=== PATIENT | male | born 1945 | race Caucasian/White ===

== ENCOUNTER 2022-08-21 12:03 | Emergency (ER) | payer OTHER, MEDICAID, SELFPAY ==
--- NOTE | ~2022-08-21 | XR_ITS ---
Examination: Left hand and right knee. CLINICAL INDICATION: Fall, pain.. COMPARISON: None. TECHNIQUE: Left hand 3 views. Right knee 4 views. FINDINGS: Left hand: There is mild loss of PIP and DIP joint space without periarticular spurring. The MCP joint space is maintained normal. There is mild osteopenia. No visible acute fracture, dislocation or subluxation seen. The especially there is no abnormality seen along the first carpometacarpal joint where patient complains of pain. Right knee: There is mild loss of medial and patellofemoral compartment joint space. No visible acute fracture, dislocation or subluxation seen. No bony erosive changes. No suprapatellar joint effusion seen. The soft tissues are normal. XR/XR knee RT 3V IMPRESSION: 1. Mild degenerative changes PIP and DIP joints. No visible acute fracture, dislocation or subluxation seen. 2. Mild degenerative changes medial and patellofemoral compartment right knee. No visible acute fracture, dislocation or subluxation seen. No joint effusion.
--- NOTE | ~2022-08-21 | CT_ITS ---
EXAMINATION: CT brain and CT cervical spine without IV contrast. CLINICAL INDICATION: Head trauma. COMPARISON: None. TECHNIQUE: 5 mm thin axial and reformatted 2 mm thin sagittal and coronal images of brain were obtained. Subsequently axial 3 mm thin and reformatted 2 mm thin sagittal and coronal images of cervical spine were obtained. DLP 1260 FINDINGS: Brain There is no acute intra-axial, extra-axial bleed, masses or midline shift. There is no acute infarct in evolution. There is no edema. The lateral ventricles are symmetrical enlarged. There is midline cavum septum pellucidum a normal variation. There is diffuse periventricular hypodensity in both cerebral hemispheres slightly more prominent left frontal and right parietal regions suggestive chronic small vessel ischemic changes. There are small lacunar infarctions in bilateral external capsules. Bone windows reveal no calvarial abnormality. There is no scalp soft tissue abnormality. Bilateral paranasal sinuses and mastoid air cells are well-aerated. Cervical spine: There is mild straightening of cervical lordosis. There is old C2 healed anterior subluxed fracture. The craniovertebral junction is normal. Rest of the vertebral heights and alignment is normal. There is loss of disc height virtually at every disc level with ventral spondylosis. No acute lytic or sclerotic process seen. The prevertebral soft tissues are normal. The lung apices are clear. No abnormal neck mass or lymphadenopathy seen. CT/CT cervical spine wo IV con IMPRESSION: No acute intracranial process seen. Chronic small vessel ischemic changes in both cerebral hemispheres with mild cerebral volume loss. Old anterior subluxed C2 fracture. There is mild straightening of cervical lordosis likely spasm. No acute fracture or dislocation seen. There are degenerative disc changes seen throughout cervical spine.
--- NOTE | ~2022-08-21 | XR_ITS ---
Examination: Left hand and right knee. CLINICAL INDICATION: Fall, pain.. COMPARISON: None. TECHNIQUE: Left hand 3 views. Right knee 4 views. FINDINGS: Left hand: There is mild loss of PIP and DIP joint space without periarticular spurring. The MCP joint space is maintained normal. There is mild osteopenia. No visible acute fracture, dislocation or subluxation seen. The especially there is no abnormality seen along the first carpometacarpal joint where patient complains of pain. Right knee: There is mild loss of medial and patellofemoral compartment joint space. No visible acute fracture, dislocation or subluxation seen. No bony erosive changes. No suprapatellar joint effusion seen. The soft tissues are normal. XR/XR hand LT min 3V IMPRESSION: 1. Mild degenerative changes PIP and DIP joints. No visible acute fracture, dislocation or subluxation seen. 2. Mild degenerative changes medial and patellofemoral compartment right knee. No visible acute fracture, dislocation or subluxation seen. No joint effusion.
[2022-08-21 12:10] VITALS: BP 162/81; PULSE 53; O2SAT 100
[2022-08-21 12:22] VITALS: BP 158/77; PULSE 62; RESP 16; TEMP 36.6; O2SAT 92; BMI 34.5
--- NOTE | 2022-08-21 12:52 | ED.FALL ---
HPI - Fall General Chief Complaint: Fall Stated Complaint: fall from bed, per ems Time Seen by Provider: 08/21/22 12:35 Source: patient, family and RN notes reviewed Mode of arrival: ambulatory Limitations: no limitations History of Present Illness HPI Narrative: This is a [id number]-male, with a past medical history of COPD, CHF, who is also very hard of hearing, who presents today with complaints of right sided head pain, left hand pain, right knee pain since fall out of bed today. 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 states that shortly after, patient rolled in bed, and fell out of his bed. Patient reports that the fall immediately woke him up. He reports some right sided head pain, right knee pain and left hand pain since the fall. He reports that he is otherwise feeling okay, no dizziness, chest pain, palpitations, shortness of breath, cough, abdominal pain, nausea, vomiting or diarrhea. Denies any other complaints or concerns at this time. MD complaint: fall Onset (ago): hour(s) Fall from: out of bed Fall witnessed: no Place fall occurred: home Loss of consciousness: none Prolonged down time: no Symptoms prior to fall: none Location of injury: head Location of injury - extremities: left: hand and right: knee Associated symptoms (after fall): denies Related Data Allergies Allergy/AdvReac Type Severity Reaction Status Date / Time No Known Allergies Allergy Verified 08/21/22 12:26 [No Known Allergies*] Review of Systems Review of Systems: Constitutional: No Weight loss, No Fever, No Chills, No Night Sweats, No Fatigue, No Malaise ENT/Mouth: No Hearing loss, No Ear Pain, No Nasal Congestion, No Sinus Pain, No Hoarseness, No sore throat, No Rhinorrhea, No Swallowing Difficulty Eyes: No Eye Pain, No Swelling, No Redness, No Foreign Body, No Discharge, No Vision Changes Cardiovascular: No Chest Pain, No SOB, No Dyspnea on Exertion, No Orthopnea, No Edema, No Palpitations Respiratory: No Cough, No Sputum, No Wheezing, No Smoke Exposure, No Dyspnea Gastrointestinal: No Nausea, No Vomiting, No Diarrhea, No Constipation, No Abdominal pain, No Hematochezia, No Melena Genitourinary: No irregular bleeding, No Dysuria, No Urinary Frequency, No Hematuria, No Urinary Incontinence/retention, No Urgency, No Flank Pain, No Urinary Flow Changes, No Hesitancy Musculoskeletal: + joint pain, No Myalgias, No Joint Swelling Skin: No Skin Lesions, No rash Neuro: No Weakness, No Numbness, No Paresthesias, No Loss of Consciousness, No Dizziness, + Headache Psych: No Anxiety/Panic, No Depression, No SI/HI/AH/VH, No Social Issues, Heme/Lymph: No Bruising, No Bleeding,No Lymphadenopathy Endocrine: No Polyuria, No Polydipsia, No Temperature Intolerance Yes all other systems are reviewed and are negative Constitutional: Constitutional: Reports as per [facility] Past Medical History Medical History (Updated 08/21/22 @ 14:33 by VI Jones) Anemia Congestive heart failure COPD (chronic obstructive pulmonary disease) Deaf Hepatic steatosis Hypertension Tobacco abuse Social History Social History Smoked in Last 30 Days: No Use of substances other than those prescribed or required for medical reasons: No Advance Directives: No Physical Exam Vital Signs: Vital Signs: Last Vital Signs Temp 97.6 F 08/21/22 14:25 Pulse 58 08/21/22 14:25 Resp 16 08/21/22 14:25 BP 146/86 H 08/21/22 14:25 Pulse Ox 94 08/21/22 14:25 O2 Del Method Room Air 08/21/22 14:25 BMI result Body Mass Index 34.5 Const: Other: eye patch on left eye. General: cooperative, comfortable and no acute distress Orientation/consciousness: patient oriented x3 Limitations: no limitations HEENT: Other: right side of forehead with small hematoma, TTP. Head: Yes normal to inspection and Yes normocephalic Ears: hearing grossly abnormal bilaterally (Hard of hearing, chronic ) General nose exam: Normal external nose present Face and sinus: Yes normal facial exam Mouth: Normal oral and palatal mucosa present, tongue normal, oropharynx normal and moist mucous membranes Teeth and gingiva: abnormal dentition and poor dentition Throat: Yes posterior oropharynx normal Eyes: Other: Left eye with eye patch, recent corneal transplant. General: appearance normal, both eyes and all related structures Eyelids: Yes eyelids normal Conjunctivae: conjunctivae normal Sclerae: sclerae normal Pupils: Equal, round and reactive pupils present EOM: EOMs intact bilaterally Neck: Neck: Yes normal visual inspection, Yes full ROM and Yes no lymphadenopathy Lymphatic: no lymphadenopathy noted Chest: Chest palpation & inspection: normal inspection of the chest and normal palpation of entire chest wall Resp: Effort & Inspection: normal respiratory effort and able to speak in complete sentences Auscultation: clear to auscultation bilaterally, no crackles, no rales, no rhonchi and no wheezes Cardio: Rate: regular rate Rhythm: regular rhythm Heart sounds: S1 normal heart sound present and S2 normal heart sound present GI: Inspection: Yes normal to inspection Palpation (GI): Soft to palpation, nontender and no guarding Skin: General skin exam: no rashes or lesions noted Trauma: no lacerations or abrasions Wounds: no wounds Neuro: General: patient oriented x3, moves all extremities and CN's II-XI intact bilaterally Cranial nerves: Yes Equal, round and reactive pupils present and Yes Nystagmus not present Motor exam (neuro): 5/5 motor strength present throughout Extrem: Other: left hand dorsal aspect, over the first MCP there is a 3cm round area of ecchyosis that is tender to palpation, no bony deformities, step off or crepitus. Radial pulses 2+. Able to make fist without difficulty. Left wrist is nontender, no snuff box tenderness. Full range of motion of the left wrist. Full ROM of digits. Right knee with 1mm superficial abrasion noted, with scant ecchymosis noted to the lateral aspect of the right knee. No pain with varus or valgus strain. Negative anterior/posterior drawer test. Full flexion and extension without difficulty. BL lower extremities with circumferential vascular changes, warm to touch, patient reports this is chronic for him. General: Yes normal to inspection, Yes capillary refill normal, Yes no pedal edema and Yes no calf tenderness Right upper extremity: normal to inspection Left upper extremity: normal to inspection Right lower extremity: normal to inspection Left lower extremity: normal to inspection Course Reevaluation(s) Reevaluation #1: CT head, ct cervical spine, hand and knee x-rays ordered and reviewed with no acute process, revealing degenerative changes in hand and knee. C-spine with old fracture in C2. Discussed these results with patient and at bedside. Advised to take tylenol as needed for pain. Follow up with PCP as needed. Given return precautions, patient and understand and agree with plan. Patient eager to be discharged. Time: 14:27 Medical Decision Making Medical Decision Making MDM Narrative: 77 y/o M, hx of CHF, COPD, hard of hearing, who presents to the ER for evaluation of head pain, left hand and right knee pain s/p fall out of bed which occurred this morning. Patient rolled over and fell to the ground. He states that he is feeling well overall, but is feeling achy . He denies any chest pain, SOB, weakness, numbness, tingling. On examination, patient has hematoma to the right forehead, ecchymosis on left hand and right knee. VSS. Pt is neurologically intact. Plan: CT head, CT c-spine, xray right knee, xray left hand. Differential Diagnosis Differential Diagnoses: The differential diagnosis associated with the presentation includes ICH, closed head injury, right knee contusion, left hand contusion, fracture, sprain Admission/Observation Consideration of admission/observation: Escalation of care including admission/observation considered Radiology Impression Discussion of test interpretation with radiology: I have reviewed the radiologist's reading. Radiologist Impression: EXAMINATION: CT brain and CT cervical spine without IV contrast. CLINICAL INDICATION: Head trauma. COMPARISON: None. TECHNIQUE: 5 mm thin axial and reformatted 2 mm thin sagittal and coronal images of brain were obtained. Subsequently axial 3 mm thin and reformatted 2 mm thin sagittal and coronal images of cervical spine were obtained. DLP 1260 FINDINGS: Brain There is no acute intra-axial, extra-axial bleed, masses or midline shift. There is no acute infarct in evolution. There is no edema. The lateral ventricles are symmetrical enlarged. There is midline cavum septum pellucidum a normal variation. There is diffuse periventricular hypodensity in both cerebral hemispheres slightly more prominent left frontal and right parietal regions suggestive chronic small vessel ischemic changes. There are small lacunar infarctions in bilateral external capsules. Bone windows reveal no calvarial abnormality. There is no scalp soft tissue abnormality. Bilateral paranasal sinuses and mastoid air cells are well-aerated. Cervical spine: There is mild straightening of cervical lordosis. There is old C2 healed anterior subluxed fracture. The craniovertebral junction is normal. Rest of the vertebral heights and alignment is normal. There is loss of disc height virtually at every disc level with ventral spondylosis. No acute lytic or sclerotic process seen. The prevertebral soft tissues are normal. The lung apices are clear. No abnormal neck mass or lymphadenopathy seen. CT/CT cervical spine wo IV con IMPRESSION: No acute intracranial process seen. Chronic small vessel ischemic changes in both cerebral hemispheres with mild cerebral volume loss. ? Old anterior subluxed C2 fracture. There is mild straightening of cervical lordosis likely spasm. No acute fracture or dislocation seen. ? There are degenerative disc changes seen throughout cervical spine. Dictated By: Domingo Ruiz MD Signed By: <Electronically signed by Domingo Ruiz MD in OV> 08/21/22 1359 EXAMINATION: CT brain and CT cervical spine without IV contrast. CLINICAL INDICATION: Head trauma. COMPARISON: None. TECHNIQUE: 5 mm thin axial and reformatted 2 mm thin sagittal and coronal images of brain were obtained. Subsequently axial 3 mm thin and reformatted 2 mm thin sagittal and coronal images of cervical spine were obtained. DLP 1260 FINDINGS: Brain There is no acute intra-axial, extra-axial bleed, masses or midline shift. There is no acute infarct in evolution. There is no edema. The lateral ventricles are symmetrical enlarged. There is midline cavum septum pellucidum a normal variation. There is diffuse periventricular hypodensity in both cerebral hemispheres slightly more prominent left frontal and right parietal regions suggestive chronic small vessel ischemic changes. There are small lacunar infarctions in bilateral external capsules. Bone windows reveal no calvarial abnormality. There is no scalp soft tissue abnormality. Bilateral paranasal sinuses and mastoid air cells are well-aerated. Cervical spine: There is mild straightening of cervical lordosis. There is old C2 healed anterior subluxed fracture. The craniovertebral junction is normal. Rest of the vertebral heights and alignment is normal. There is loss of disc height virtually at every disc level with ventral spondylosis. No acute lytic or sclerotic process seen. The prevertebral soft tissues are normal. The lung apices are clear. No abnormal neck mass or lymphadenopathy seen. CT/CT head/brain wo IV con IMPRESSION: No acute intracranial process seen. Chronic small vessel ischemic changes in both cerebral hemispheres with mild cerebral volume loss. ? Old anterior subluxed C2 fracture. There is mild straightening of cervical lordosis likely spasm. No acute fracture or dislocation seen. ? There are degenerative disc changes seen throughout cervical spine. Dictated By: Domingo Ruiz MD Examination: Left hand and right knee. CLINICAL INDICATION: Fall, pain.. COMPARISON: None. TECHNIQUE: Left hand 3 views. Right knee 4 views. FINDINGS: Left hand: There is mild loss of PIP and DIP joint space without periarticular spurring. The MCP joint space is maintained normal. There is mild osteopenia. No visible acute fracture, dislocation or subluxation seen. The especially there is no abnormality seen along the first carpometacarpal joint where patient complains of pain. Right knee: There is mild loss of medial and patellofemoral compartment joint space. No visible acute fracture, dislocation or subluxation seen. No bony erosive changes. No suprapatellar joint effusion seen. The soft tissues are normal. XR/XR hand LT min 3V IMPRESSION: 1.? Mild degenerative changes PIP and DIP joints. No visible acute fracture, dislocation or subluxation seen. 2.? Mild degenerative changes medial and patellofemoral compartment right knee. No visible acute fracture, dislocation or subluxation seen. No joint effusion. Dictated By: Domingo Ruiz MD Signed By: External Record Review External record reviewed: Inpatient record, Office record, Outpatient record, Prior outpatient labs, Prior outpatient radiology, Primary care record and Outside ED record Discharge Plan Discharge Clinical Impression: Closed head injury, Contusion of knee, right, Contusion of left hand Patient Disposition: Home, Self-Care Instructions: Head Injury (ED), Contusion in Adults (ED) Additional Instructions: Your head CT and neck CT did not show any new findings. You have an old fracture in your neck at the C2 level. Physical and mental rest over the next few days will be helpful (avoid prolonged screen time, reading) Your hand and knee x-rays show degenerative changes but no new fractures. Please take tylenol as needed for pain. Apply ice to your forehead. You may apply ice to your knee and hand for pain relief. Follow up with your primary care physician. If any new or worsening symptoms occur, please return for re-evaluation. Interventions: ED Discharge Assessment Last Done: 08/21/22 14:54 Discharge Date/Time: 08/21/22 14:55
--- OUTSIDE RECORDS SUMMARY | 2022-08-21 13:24 | XMS_ITS | Continuity of Care Document ---
Author Name Unknown Organization [facility] Sina Joyce Daryl lt Address [address] [place] [address]- Care Team Providers Care House Rn Name Role Phone Jordon Holt MD Primary Care Physician Encounter [facility] Date(s): 06/23/21 - 10/21/21 [facility] Adult [address] [place] [address]- Attending Physician: Faith Gipson NP Referring Physician: Jordon Holt MD Allergies, Adverse Reactions, Alerts No Known Medication Allergies Medications Albuterol (Eqv-ProAir HFA) 90 mcg/inh inhalation aerosol 2 puffs, Inhalation, Every 6 hours, # 9 Gm, 11 Refills, 03/16/21 10:15:00 EST, [facility], 18, 2 puffs Inhalation Every 6 hours, 166, cm, 03/16/21 9:47:00 EST, Height Start Date: 03/16/21 Status: Ordered atorvastatin 80 mg oral tablet 1 tablet = 80 mg, By Mouth, Daily, # 90 tablet, 1 Refills, Maintenance, 03/16/21 10:15:00 EST, Tablet, [facility], Partial fill upon patient request if the prescription is for a schedule II opioid drug., 166, cm, 03/16/21 9:47:00 EST, Height Start Date: 03/16/21 Status: Ordered bumetanide 2 mg oral tablet 1 tablet = 2 mg, By Mouth, Daily, # 90 tablet, 1 Refills, Maintenance, 03/16/21 10:15:00 EST, Tablet, [facility], Partial fill upon patient request if the prescription is for a schedule IIopioid drug., 166, cm, 03/16/21 9:47:00 EST, Height Start Date: 03/16/21 Status: Ordered Cane See Instructions, # 1 each, Refills 0, Tot. Refills 0, Maintenance, dx: unsteady gait ICD 10 R26.81use as directed length of need: Lifetime, 12/03/19 14:08:00 EDT, Supply Start Date: 12/03/19 Status: Ordered Compression Stockings See Instructions, # 1 each, Maintenance, surgical, knee length 20-30 mm Hg DX edema Icd 10 code R60.0 weight:179lbs, 10/04/19 15:26:00 EDT, Supply Start Date: 10/04/19 Status: Ordered ferrous sulfate 325 mg oral enteric coated tablet 325 mg, 1, tablet, By Mouth, Daily, # 90 tablet, Refills 1, Tot. Refills 1, Maintenance, 03/16/21 10:15:00 EST, Route to Pharmacy Electronically, [facility], 166, cm, 03/16/21 9:47:00 EST,Height Start Date: 03/16/21 Status: Ordered metoprolol 25 mg oral tablet 12.5 mg, 0.5, tablet, By Mouth, 2 times a day, # 90 tablet, Refills 1, Tot. Refills 1, Maintenance,03/16/21 10:15:00 EST, Route to Pharmacy Electronically, [facility], 166, cm, 03/16/21 9:47:00 EST, Height Start Date: 03/16/21 Status: Ordered Therapeutic Multiple Vitamins oral capsule 1 capsule, By Mouth, Daily, # 90 capsule, 1 Refills, Maintenance, 03/16/21 10:15:00 EST, Capsule, [facility], 1 capsule By Mouth Daily, 166, cm, 03/16/21 9:47:00 EST, Height Start Date: 03/16/21 Status: Ordered Problem List Condition Effective Dates Status Health Status Inform ant Unsteady gait(Confirmed) Active Anemia(Confirmed) Active COPD (chronic obstructive pu lmonary disease)(Confirmed) Active CHF (congestive heart failure)(Confirmed) Active Deaf(Confirmed) Active Hyperlipidemia(Confirmed) Active HTN (hypertension)(Confirmed) Active Hyponatremia(Confirmed) Active Obese class I(Confirmed) Active Hepatic steatosis(Confirmed) Active Swelling of lower extremity(Confirmed) Active History of tobacco abuse(Confirmed) Active Social History Social History Type Response Smoking Status Former smoker, quit more than 30 days ago entered on: 03/16/21 Sex
--- OUTSIDE RECORDS SUMMARY | 2022-08-21 13:24 | XMS_ITS | Continuity of Care Document ---
Author Name Unknown Organization [facility] [place] Daryl Address [address] [place] [address]- Care Team Providers Care Sports Announcer Name Role Phone Yanet INFANTE, Jordon Wei Primary Care Physician [phone] Encounter [facility] Date(s): 03/16/21 - 03/23/21 [facility] [place] Adult [address] [place] [address]- Attending Physician: Faith Gipson NP Referring Physician: Jordon Holt MD Allergies, Adverse Reactions, Alerts No Known Medication Allergies Medications Albuterol (Eqv-ProAir HFA) 90 mcg/inh inhalation aerosol 2 puffs, Inhalation, Every 6 hours, # 9 Gm, 11 Refills, 03/16/21 10:15:00 EST, [facility], 18, 2 puffs Inhalation Every 6 hours, 166, cm, 03/16/21 9:47:00 EST, Height Start Date: 03/16/21 Status: Ordered atorvastatin 80 mg oral tablet 1 tablet = 80 mg, By Mouth, Daily, # 90 tablet, 1 Refills, Maintenance, 03/16/21 10:15:00 EST, Tablet, [facility], Partial fill upon patient request if the prescription is for a schedule II opioid drug., 166, cm, 03/16/21 9:47:00 EST, Height Start Date: 03/16/21 Status: Ordered betamethasone-clotrimazole 0.05%-1% topical cream 1 application, Topically, 2 times a day, # 45 Gm, 1 Refills, Acute 03/30/21 0:00:00 EST, 03/16/21 10:04:00 EST, Cream, [facility], Partial fill upon patient request if the prescription is for a schedule II opioid drug., 1 application Topica... Start Date: 03/16/21 Stop Date: 03/30/21 Status: Ordered bumetanide 2 mg oral tablet 1 tablet = 2 mg, By Mouth, Daily, # 90 tablet, 1 Refills, Maintenance, 03/16/21 10:15:00 EST, Tablet, [facility], Partial fill upon patient request [...] 03/16/21 10:15:00 EST, Route to Pharmacy Electronically, [facility], 166, cm, 03/16/21 9:47:00 EST,Height Start Date: 03/16/21 Status: Ordered metoprolol 25 mg oral tablet 12.5 mg, 0.5, tablet, By Mouth, 2 times a day, # 90 tablet, Refills 1, Tot. Refills 1, Maintenance,03/16/21 10:15:00 EST, Route to Pharmacy Electronically, [facility], 166, cm, 03/16/21 9:47:00 EST, Height Start Date: 03/16/21 Status: Ordered Therapeutic Multiple Vitamins oral capsule 1 capsule, By Mouth, Daily, # 90 capsule, 1 Refills, Maintenance, 03/16/21 10:15:00 EST, Capsule, [facility], 1 capsule By Mouth Daily, [...] extremity(Confirmed) Active History of tobacco abuse(Confirmed) Active Vital Signs Most recent to oldest [Reference Range]: 1 Height 166 cm (03/16/21 9:47 AM) Weight 88.6 kg (03/16/21 9:47 AM) Oxygen Saturation [94-100 %] 98 % (03/16/21 9:47 AM) Pulse Rate [55-90 bpm] 61 bpm (03/16/21 9:47 AM) Body Mass Index [18.5-24.99] 32.15 *>HHI* (03/16/21 9:47 AM) Blood Pressure [90-138/55-84 mm Hg] 142/ 70mm Hg *H* (03/16/21 9:47 AM) Respiratory Rate [16-30 br/min] 20 br/mi n (03/16/21 9:47 AM) Temperature [96.8-100.4 DegF] 97.7 DegF (03/16/21 9:47 AM) Mode of Delivery (Oxygen) Room air (03/16/21 9:47 AM) Blood pressure sites Arm, right (03/16/21 9:47 AM) Temperature Route Oral (03/16/21 9:47 AM) Weight Obtained Via Standing scale (03/16/21 9:47 AM) Social History Social History Type Response Smoking Status Former smoker, quit more than 30 days ago entered on: 03/16/21 Sex
--- OUTSIDE RECORDS SUMMARY | 2022-08-21 13:24 | XMS_ITS | Continuity of Care Document ---
Author Name Unknown Organization [facility] Daryl lt Address [address] [place] [address]- Care Team Providers Care White Metal Caster Name Role Phone Jordon Holt MD Primary Care Physician [id number] Date(s): 01/10/22 - 02/09/22 [facility] Adult [address] [place] [address]- Allergies, Adverse Reactions, Alerts No Known Medication Allergies Medications Albuterol (Eqv-ProAir HFA) 90 mcg/inh inhalation aerosol 2 puffs, Inhalation, Every 4 hours, # 18 Gm, 11 Refills, 11/14/21 14:58:00 EDT, [facility], 2 puffs Inhalation Every 4 hours, 166, cm, 03/16/21 9:47:00 EST, Height Start Date: 11/14/21 Status: Ordered atorvastatin 80 mg oral tablet 1 tablet = 80 mg, By Mouth, Daily, # 90 tablet, 1 Refills, Maintenance, 03/16/21 10:15:00 EST, Tablet[email or web address], Partial fill upon patient request if the prescription is for a schedule II opioid drug., 166, cm, 03/16/21 9:47:00 EST, Height Start Date: 03/16/21 Status: Ordered azithromycin 250 mg oral tablet See Instructions, Take 2 tablets on day 1 and 1 tablet daily for next 4 days, # 6 tablet, 0 Refills, Maintenance, 01/15/22 10:15:00 EDT, Tablet, [facility], Partial fill upon patient request if the prescription is for a schedule II opioid d... Start Date: 01/15/22 Status: Ordered bumetanide 2 mg oral tablet 1 tablet = 2 mg, By Mouth, Daily, # 90 tablet, 1 Refills, Maintenance, 03/16/21 10:15:00 EST, Tablet, [facility], Partial fill upon patient request [...] 03/16/21 10:15:00 EST, Route to Pharmacy Electronically, [facility], 166, cm, 03/16/21 9:47:00 EST,Height Start Date: 03/16/21 Status: Ordered metoprolol 25 mg oral tablet 12.5 mg, 0.5, tablet, By Mouth, 2 times a day, # 90 tablet, Refills 1, Tot. Refills 1, Maintenance,11/12/21 10:47:00 EDT, Route to Pharmacy Electronically, [facility], 166, cm, 03/16/21 9:47:00 EST, Height Start Date: 11/12/21 Status: Ordered Therapeutic Multiple Vitamins oral capsule 1 capsule, By Mouth, Daily, # 90 capsule, 1 Refills, Maintenance, 03/16/21 10:15:00 EST, Capsule, [facility], 1 capsule By Mouth Daily, 166, cm, 03/16/21 9:47:00 EST, Height Start Date: 03/16/21 Status: Ordered Problem List Condition Confirmation Course Effective Dates Status H ealth Status Informant Unsteady gait Confirmed Active Anemia Confirmed Active COPD (chronic obstructive pulmonary disease) Confirmed Active CHF (congestive heart failure) Confirmed Active Deaf Confirmed Active Hyperlipidemia Confirmed Active HTN (hypertension) Confirmed Active Hyponatremia Confirmed Active Obese class I Confirmed Active Hepatic steatosis Confirmed Active Swelling of lower extremity Confirmed Active History of tobacco abuse Confirmed Active Social History Social History Type Response Smoking Status Former smoker, quit more than 30 days ago entered on: 03/16/21 Sex Patient Care team information Care Team Personnel Name: Yanet INFANTE, Jordon Wei Position: [facility] Primary Care Physician Member Role: PCP Address: Address: [address] [place] [id number]- Care Team Related Persons Name: JEROME DE SANTIAGO Address: home [address] [place] [address]
--- OUTSIDE RECORDS SUMMARY | 2022-08-21 13:24 | XMS_ITS | Continuity of Care Document ---
Author Name Unknown Organization [facility] Isiah Daryl lt Address [address] [place] [address]- Care Team Providers Care Patrol Police Sergeant Name Role Phone Yanet INFANTE, Jordon Wei Primary Care Physician [phone] [place] [facility] [place] 07/24/22 [facility] Adult [address] [place] [address]- Encounter Diagnosis Pain involving joints of fingers of both hands(Discharge Diagnosis) - 06/25/22 Allergies, Adverse Reactions, Alerts No Known Medication Allergies Medications Albuterol (Eqv-ProAir HFA) 90 mcg/inh inhalation aerosol 2 puffs, Inhalation, Every 4 hours, # 18 Gm, 11 Refills, 02/12/22 11:03:00 EST, [facility], 2 puffs Inhalation Every 4 hours, 166, cm, 02/12/22 10:23:00 EST, Height Start Date: 02/12/22 Status: Ordered atorvastatin 80 mg oral tablet 1 tablet = 80 mg, By Mouth, Daily, # 90 tablet, 1 Refills, Maintenance, 02/12/22 11:03:00 EST, Tablet, [facility], Partial fill upon patient request if the prescription is for a schedule II opioid drug., 166, cm, 02/12/22 10:23:00 EST, Height Start Date: 02/12/22 Status: Ordered bumetanide 2 mg oral tablet 1 tablet = 2 mg, By Mouth, Daily, # 90 tablet, 1 Refills, Maintenance, 02/12/22 11:03:00 EST, Tablet, [facility], Partial fill upon patient request if the prescription is for a schedule IIopioid drug., 166, cm, 02/12/22 10:23:00 EST, Height Start Date: 02/12/22 Status: Ordered Cane See Instructions, # 1 [...] EDT, Supply Start Date: 10/04/19 Status: Ordered cyclopentolate 0.5% ophthalmic solution 1 drops, Once, # 15 mL, 0 Refills, Maintenance, 07/05/22 15:57:00 EDT, Solution, Partial fill upon patient request if the prescription is for a schedule II opioid drug. Start Date: 07/05/22 Status: Ordered dexamethasone-tobramycin 0.1%-0.3% ophthalmic suspension See Instructions, 1 drops in the left eye every 15 minutes for two hours, then every hour when you are awak, # 10 mL, 0 Refills, Maintenance, 06/26/22 2:06:00 EDT, Suspension, [id number], Partial fill upon patient request if the prescription i... Start Date: 06/26/22 Stop Date: 06/28/22 Status: Ordered diclofenac 1% topical gel = 4 Gm, Topically, 4 times a day, as needed for joint pain, # 100 Gm, 0 Refills, Maintenance, 06/25/22 10:18:00 EDT, Gel, [facility], Partial fill upon patient request if the prescription is for a schedule II opioid drug., 166, cm, 04/26/22... Start Date: 06/25/22 Status: Ordered erythromycin 0.5% ophthalmic ointment 0.5 inches, Eye, Left, 4 times a day, # 4 Gm, 0 Refills, Maintenance, 07/05/22 15:58:00 EDT, Ophth Ointment, Partial fill upon patient request if the prescription is for a schedule II opioid drug. Start Date: 07/05/22 Status: Ordered ferrous sulfate 325 mg oral enteric coated tablet 325 mg, 1, tablet, By Mouth, Daily, # 90 tablet, Refills 1, Tot. Refills 1, Maintenance, 11/15/22 11:03:00 EST, Route to Pharmacy Electronically, [facility], 166, cm, 02/12/22 10:23:00 EST, Height Start Date: 02/12/22 Status: Ordered Flovent HFA 110 mcg/inh inhalation aerosol 2 puffs, Inhalation, 2 times a day, rinse mouth and throat after use, # 12 Gm, 6 Refills, Maintenance, 02/12/22 11:03:00 EST, Aerosol, [facility], Partial fill upon patient request if the prescription is for a schedule II opioid drug., 166,... Start Date: 02/12/22 Status: Ordered fortified tobramycin eye drops fortified tobramycin eye drops, See Instructions, Refills 0, Maintenance, 1 drop every 2hrs on LT eye, 07/05/22 15:54:00 EDT, Supply Start Date: 07/05/22 Status: Ordered metoprolol 25 mg oral tablet 12.5 mg, 0.5, tablet, By Mouth, 2 times a day, # 90 tablet, Refills 1, Tot. Refills 1, Maintenance,02/12/22 11:03:00 EST, Route to Pharmacy Electronically, [facility], 166, cm, 02/12/22 10:23:00 EST, Height Start Date: 02/12/22 Status: Ordered moxifloxacin 0.5% ophthalmic solution See Instructions, 1 drop in the left eye every 15 minutes for the first two hours, then every hour while awake, # 3 mL, 0 Refills, Maintenance, 06/26/22 2:07:00 EDT, Solution, [facility]/pharmacy #[id number], Partial fill upon patient request if the prescription i... Start Date: 06/26/22 Status: Ordered Therapeutic Multiple Vitamins oral capsule 1 capsule, By Mouth, Daily, # 90 capsule, 1 Refills, Maintenance, 02/12/22 11:03:00 EST, Capsule, [facility], 1 capsule By Mouth Daily, 166, cm, 02/12/22 10:23:00 EST, Height Start Date: 02/12/22 Status: Ordered Vancomycin See Instructions, Maintenance, 1 drop to LT eye, 07/05/22 15:52:00 EDT Start Date: 07/05/22 Status: Ordered Problem List Condition Confirmation Course Effective Dates Status H ealth Status Informant Unsteady gait Confirmed Active Anemia Confirmed Active COPD (chronic obstructive pulmonary disease) Confirmed Active CHF (congestive heart failure) Confirmed Active History of corneal ulcer 1 Confirmed Active Deaf Confirmed Active Hyperlipidemia Confirmed Active HTN (hypertension) Confirmed Active Hyponatremia Confirmed Active Obese class I Confirmed Active Hepatic steatosis Confirmed Active Swelling of lower extremity Confirmed Active History of tobacco abuse Confirmed Active 1L eye Diagnosis Diagnosis Type Effective Dates Health Status Cl inical Service Informant Pain involving joints of fingers of both hands Discharge Diagnosis 06/25/22 Non-Specified Social History Social History Type Response Smoking Status Former smoker, quit more than 30 days ago entered on: 03/16/21 Sex Patient Care team information Care Team Personnel Name: Jordon Holt MD Position: [facility] Primary Care Physician Member Role: PCP Address: Address: [address] [place] [address]- Care Team Related Persons Name: JEROME DE SANTIAGO Address: home [address] [place] [id number]
--- OUTSIDE RECORDS SUMMARY | 2022-08-21 13:24 | XMS_ITS | Continuity of Care Document ---
Author Name Unknown Organization [facility] Sina Joyce Daryl lt Address [address] [place] [address]- Care Team Providers Care Engineering Specialist Technician Name Role Phone Jordon Holt MD Primary Care Physician [place] [facility] [place](s): 12/04/19 - 04/02/20 [facility] Adult [address] [place] [address]- Attending Physician: Faith Gipson NP Referring Physician: Jordon Holt MD Allergies, Adverse Reactions, Alerts No Known Medication Allergies Medications albuterol (OP) 0 Refills, Maintenance, 2 Start Date: 10/04/19 Status: Ordered bumetanide 2 mg oral tablet 1 tablet = 2 mg, By Mouth, Daily, # 30 tablet, 1 Refills, Maintenance, 03/21/20 13:03:00 EST, Tablet, [facility], Partial fill upon patient request if the prescription is for a schedule IIopioid drug., 166, cm, 02/14/20 13:26:00 EST, Height Start Date: 03/21/20 Status: Ordered Cane See Instructions, # 1 [...] mg, 1, tablet, By Mouth, Daily, # 30 tablet, Refills 6, Tot. Refills 6, Maintenance, 10/04/19 15:39:00 EDT, Route to Pharmacy Electronically, [facility] Start Date: 10/04/19 Status: Ordered metoprolol 25 mg oral tablet 12.5 mg, 0.5, tablet, By Mouth, 2 times a day, # 30 tablet, Refills 6, Tot. Refills 6, Maintenance,10/04/19 15:38:00 EDT, Route to Pharmacy Electronically, [facility] Start Date: 10/04/19 Status: Ordered Therapeutic Multiple Vitamins oral capsule 1 capsule, By Mouth, Daily, # 90 capsule, 1 Refills, Maintenance, 12/03/19 13:55:00 EDT, Capsule, [facility], 1 capsule By Mouth Daily, 166, cm, 12/03/19 13:29:00 EDT, Height Start Date: 12/03/19 Status: Ordered Problem List Condition Effective Dates Status Health Status Inform ant Anemia(Confirmed) Active COPD (chronic obstructive pu lmonary disease)(Confirmed) Active CHF (congestive heart failure)(Confirmed) Active Deaf(Confirmed) Active HTN (hypertension)(Confirmed) Active Hyponatremia(Confirmed) Active Hepatic steatosis(Confirmed) Active Swelling of lower extremity(Confirmed) Active History of tobacco abuse(Confirmed) Active
--- OUTSIDE RECORDS SUMMARY | 2022-08-21 13:25 | XMS_ITS | Continuity of Care Document ---
Author Name Unknown Organization [facility] Sina Joyce Daryl lt Address [address] [place] [address]- Care Team Providers Care Life Specialist Name Role Phone Jordon Holt MD Primary Care Physician [place] [facility] [place] 02/11/20 - 03/12/20 [facility] Adult [address] [place] [address]- Allergies, Adverse Reactions, Alerts No Known Medication Allergies Medications albuterol (OP) 0 Refills, Maintenance, 2 Start Date: 10/04/19 Status: Ordered Cane See Instructions, # 1 [...] 10/04/19 15:39:00 EDT, Route to Pharmacy Electronically, [facility] Start Date: 10/04/19 Status: Ordered metoprolol 25 mg oral tablet 12.5 mg, 0.5, tablet, By Mouth, 2 times a day, # 30 tablet, Refills 6, Tot. Refills 6, Maintenance,10/04/19 15:38:00 EDT, Route to Pharmacy Electronically, [facility] Start Date: 10/04/19 Status: Ordered Therapeutic Multiple Vitamins oral capsule 1 capsule, By Mouth, Daily, # 90 capsule, 1 Refills, Maintenance, 12/03/19 13:55:00 EDT, Capsule, [facility], 1 capsule By Mouth Daily, [...]
--- OUTSIDE RECORDS SUMMARY | 2022-08-21 13:25 | XMS_ITS | Continuity of Care Document ---
Author Name Unknown Organization [facility] Sina Joyce Daryl lt Address [address] [place] [address]- Care Team Providers Care Sanitizer Name Role Phone Jordon Holt MD Primary Care Physician [phone] [place] [facility] [place] [facility] [place] [address] [place] [address]- [facility] Allergies, Adverse Reactions, Alerts No Known Medication Allergies Medications albuterol (OP) 0 Refills, Maintenance, 2 Start Date: 10/04/19 Status: Ordered bumetanide 2 mg oral tablet 1 tablet = 2 mg, By Mouth, Daily, # 30 tablet, 6 Refills, Maintenance, 10/04/19 15:37:00 EDT, Tablet, [facility] Start Date: 10/04/19 Status: Ordered Compression Stockings See Instructions, # 1 each, Maintenance, surgical, knee length 20-30 mm Hg DX edema Icd 10 code R60.0 weight:179lbs, 10/04/19 15:26:00 EDT, Supply Start Date: 10/04/19 Status: Ordered ferrous sulfate 325 mg oral enteric coated tablet 325 mg, 1, tablet, By Mouth, Daily, # 30 tablet, Refills 6, Tot. Refills 6, Maintenance, 10/04/19 15:39:00 EDT, Route to Pharmacy Electronically, [facility] Start Date: 10/04/19 Status: Ordered metoprolol 25 mg oral tablet 12.5 mg, 0.5, tablet, By Mouth, 2 times a day, # 30 tablet, Refills 6, Tot. Refills 6, Maintenance,10/04/19 15:38:00 EDT, Route to Pharmacy Electronically, [facility] Start Date: 10/04/19 Status: Ordered Problem List Condition Effective Dates Status Health Status Inform ant Anemia(Confirmed) Active COPD (chronic obstructive pu lmonary disease)(Confirmed) Active CHF (congestive heart failure)(Confirmed) Active Deaf(Confirmed) Active HTN (hypertension)(Confirmed) Active Hyponatremia(Confirmed) Active Hepatic steatosis(Confirmed) Active Swelling of lower extremity(Confirmed) Active Tobacco abuse(Confirmed) Active
--- OUTSIDE RECORDS SUMMARY | 2022-08-21 13:25 | XMS_ITS | Continuity of Care Document ---
Author Name Unknown Organization [facility] Sina Joyce Daryl lt Address [address] [place] [address]- Care Team Providers Care Uniform Room Attendant Name Role Phone Jordon Holt MD Primary Care Physician [phone] [place] [facility] [place](s): 11/24/19 - 12/24/19 [facility] Adult [address] [place] [address]- [facility] Allergies, Adverse Reactions, Alerts No Known Medication Allergies Medications albuterol (OP) 0 Refills, Maintenance, 2 Start Date: 10/04/19 Status: Ordered bumetanide 2 mg oral tablet 1 tablet = 2 mg, By Mouth, Daily, # 30 tablet, 6 Refills, Maintenance, 10/04/19 15:37:00 EDT, Tablet, [facility] Start Date: 10/04/19 Status: Ordered Cane See [...] 10/04/19 15:39:00 EDT, Route to Pharmacy Electronically, [facility] Start Date: 10/04/19 Status: Ordered metoprolol 25 mg oral tablet 12.5 mg, 0.5, tablet, By Mouth, 2 times a day, # 30 tablet, Refills 6, Tot. Refills 6, Maintenance,10/04/19 15:38:00 EDT, Route to Pharmacy Electronically, [facility] Start Date: 10/04/19 Status: Ordered Therapeutic Multiple Vitamins oral capsule 1 capsule, By Mouth, Daily, # 90 capsule, 1 Refills, Maintenance, 12/03/19 13:55:00 EDT, Capsule, [facility], 1 capsule By Mouth [...]
--- OUTSIDE RECORDS SUMMARY | 2022-08-21 13:25 | XMS_ITS | Continuity of Care Document ---
Author Name Unknown Organization [facility] Isiah Daryl lt Address [address] [place] [address]- Care Team Providers Care Rib Sawyer Name Role Phone Jordon Holt MD Primary Care Physician [place] [facility] [place]22 [facility] Adult [address] [place] [address]- Allergies, Adverse Reactions, Alerts No Known Medication Allergies Medications Albuterol (Eqv-ProAir HFA) 90 mcg/inh inhalation aerosol 2 puffs, Inhalation, Every 4 hours, # 18 Gm, 11 Refills, 02/12/22 11:03:00 EST, [facility], 2 puffs Inhalation Every 4 hours, 166, cm, 02/12/22 10:23:00 EST, Height Start Date: 02/12/22 Status: Ordered atorvastatin 80 mg oral tablet 1 tablet = 80 mg, By Mouth, Daily, # 90 tablet, 1 Refills, Maintenance, 02/12/22 11:03:00 EST, Tablet, [facility], Partial fill upon patient request if the prescription is for a schedule II opioid drug., 166, cm, 02/12/22 10:23:00 EST, Height Start Date: 02/12/22 Status: Ordered bumetanide 2 mg oral tablet 1 tablet = 2 mg, By Mouth, Daily, # 90 tablet, 1 Refills, Maintenance, 02/12/22 11:03:00 EST, Tablet, [facility], Partial fill upon patient request [...] tablet, Refills 1, Tot. Refills 1, Maintenance, 02/12/22 11:03:00 EST, Route to Pharmacy Electronically, [facility], 166, cm, 02/12/22 10:23:00 EST, Height Start Date: 02/12/22 Status: Ordered Flovent HFA 110 mcg/inh inhalation aerosol 2 puffs, Inhalation, 2 times a day, rinse mouth and throat after use, # 12 Gm, 6 Refills, Maintenance, 02/12/22 11:03:00 EST, Aerosol, [facility], Partial fill upon patient request if the prescription is for a schedule II opioid drug., 166,... Start Date: 02/12/22 Status: Ordered metoprolol 25 mg oral tablet 12.5 mg, 0.5, tablet, By Mouth, 2 times a day, # 90 tablet, Refills 1, Tot. Refills 1, Maintenance,02/12/22 11:03:00 EST, Route to Pharmacy Electronically, [facility], 166, cm, 02/12/22 10:23:00 EST, Height Start Date: 02/12/22 Status: Ordered Therapeutic Multiple Vitamins oral capsule 1 capsule, By Mouth, Daily, # 90 capsule, 1 Refills, Maintenance, 02/12/22 11:03:00 EST, Capsule, [facility], 1 capsule By Mouth Daily, 166, cm, 02/12/22 10:23:00 EST, Height Start Date: 02/12/22 Status: Ordered Problem List Condition Confirmation Course [...] Personnel Name: Yanet INFANTE, Jordon Wei Position: [facility] Primary Care Physician Member Role: PCP Address: Address: [address] [place] [address]- [place] Care Team Related Persons Name: JEROME DE SANTIAGO Address: home [address] [place] [address]
--- OUTSIDE RECORDS SUMMARY | 2022-08-21 13:25 | XMS_ITS | Continuity of Care Document ---
Author Name Unknown Organization [facility] Sina Joyce Daryl lt Address [address] [place] [address]- Care Team Providers Care Manager Environmental Health Name Role Phone Jordon Holt MD Primary Care Physician En[place] [facility] [place](s): 11/08/19 - 12/08/19 [facility] Adult [address] [place] [address]- [facility] Allergies, Adverse Reactions, Alerts No Known Medication Allergies Medications albuterol (OP) 0 Refills, Maintenance, 2 Start Date: 10/04/19 Status: Ordered bumetanide 2 mg oral tablet 1 tablet = 2 mg, By Mouth, Daily, # 30 tablet, 6 Refills, Maintenance, 10/04/19 15:37:00 EDT, Tablet, [facility] Start Date: 10/04/19 Status: [...] 10/04/19 15:39:00 EDT, Route to Pharmacy Electronically, [facility] Start Date: 10/04/19 Status: Ordered metoprolol 25 mg oral tablet 12.5 mg, 0.5, tablet, By Mouth, 2 times a day, # 30 tablet, Refills 6, Tot. Refills 6, Maintenance,10/04/19 15:38:00 EDT, Route to Pharmacy Electronically, [facility] Start Date: 10/04/19 Status: Ordered Therapeutic Multiple Vitamins oral capsule 1 capsule, By Mouth, Daily, # 90 capsule, 1 Refills, Maintenance, 12/03/19 13:55:00 EDT, Capsule, [facility], 1 capsule By Mouth [...]
--- OUTSIDE RECORDS SUMMARY | 2022-08-21 13:25 | XMS_ITS | Continuity of Care Document ---
Author Name Unknown Organization [facility] Isiah Daryl lt Address [address] [place] [address]- Care Team Providers Care Irrigator Valve Pipe Name Role Phone Yanet INFANTE, Jordon Wei Primary Care Physician [phone] Encounter [facility] [place] Date(s): 07/05/22 - 07/12/22 [facility] Adult [address] [place] [address]- Attending Physician: Faith Gipson NP Referring Physician: Jordon Holt MD Allergies, Adverse Reactions, Alerts No Known Medication Allergies Medications Albuterol (Eqv-ProAir HFA) 90 mcg/inh inhalation aerosol 2 puffs, Inhalation, Every 4 hours, # 18 Gm, 11 Refills, 02/12/22 11:03:00 EST, [facility], 2 puffs Inhalation Every 4 hours, 166, cm, 02/12/22 10:23:00 EST, Height Start Date: 02/12/22 Status: Ordered atorvastatin 80 mg oral tablet 1 tablet = 80 mg, By Mouth, Daily, # 90 tablet, 1 Refills, Maintenance, 02/12/22 11:03:00 EST, Tablet, [facility], Partial fill upon patient request if the prescription is for a schedule II opioid drug., 166, cm, 02/12/22 10:23:00 EST, Height Start Date: 02/12/22 Status: Ordered bumetanide 2 mg oral tablet 1 tablet = 2 mg, By Mouth, Daily, # 90 tablet, 1 Refills, Maintenance, 02/12/22 11:03:00 EST, Tablet, [facility], Partial fill upon [...] 0 Refills, Maintenance, 06/26/22 2:06:00 EDT, Suspension, [facility]/pharmacy #[id number], Partial fill upon patient request if the prescription i... Start Date: 06/26/22 Stop Date: 06/28/22 Status: Ordered diclofenac 1% topical gel = 4 Gm, Topically, 4 times a day, as needed for joint pain, # 100 Gm, 0 Refills, Maintenance, 06/25/22 10:18:00 EDT, Gel, [facility], Partial fill upon patient request if the [...] 02/12/22 11:03:00 EST, Route to Pharmacy Electronically, [facility], 166, cm, 02/12/22 10:23:00 EST, Height Start Date: 02/12/22 Status: Ordered Flovent HFA 110 mcg/inh inhalation aerosol 2 puffs, Inhalation, 2 times a day, rinse mouth and throat after use, # 12 Gm, 6 Refills, Maintenance, 02/12/22 11:03:00 EST, Aerosol, [facility], Partial fill upon [...] Maintenance,02/12/22 11:03:00 EST, Route to Pharmacy Electronically, [facility], 166, cm, 02/12/22 10:23:00 EST, Height Start Date: 02/12/22 Status: Ordered moxifloxacin 0.5% ophthalmic solution See Instructions, 1 drop in the left eye every 15 minutes for the first two hours, then every hour while awake, # 3 mL, 0 Refills, Maintenance, 06/26/22 2:07:00 EDT, Solution, [facility]/pharmacy #[id number], Partial fill upon patient request if the prescription i... Start Date: 06/26/22 Status: Ordered Therapeutic Multiple Vitamins oral capsule 1 capsule, By Mouth, Daily, # 90 capsule, 1 Refills, Maintenance, 02/12/22 11:03:00 EST, Capsule, [facility], 1 capsule By [...] of tobacco abuse Confirmed Active 1L eye Vital Signs Most recent to oldest [Reference Range]: 1 Height 175 cm (07/05/22 3:43 PM) Weight 93.1 kg (07/05/22 3:43 PM) Body Mass Index [18.5-24.99 kg/m2] 30.4 kg/m2 *>HHI* (07/05/22 3:43 PM) Weight Obtained Via Patient/family state d (07/05/22 3:43 PM) Social History Social History Type Response Smoking Status Former smoker, quit more than 30 days ago entered on: 03/16/21 Sex Note * Zuleika Cazares: PERFORM, SIGN, VERIFY Event Display: Patient Education/Instruction Authored Date: [id number] [facility] *BMP So Isiah Chavist Clinical Summary Name KIARA DE SANTIAGO Age 76 Years 1945 PCP Yanet INFANTE, Jordon Wei PCP Visit Date 07/05/2022 15:50:00 Additional Instructions: Scheduled Appointments?? Future Appointments ?*BMP??So??Isiah??Adlt ?[address],??[address] ?Phone:??--?Fax:??-- ?Appt. Date:??08/13/2022?9:50 AM ?Scheduled Provider:??Faith Gipson NP Follow-Up Instructions ?? With: Address: When: Faith Gipson NP [address] [place] [address] Business (1) Comments: as scheduled Diagnosis Unspecified cataract; Unspecified purulent endophthalmitis, left eye; Unspecified corneal ulcer, left eye Medications: Please continue your medications until treatment is completed or stopped by your provider. Discuss any questions related to medications with your provider. Medications to Continue with No Changes These medications were not printed or sent to your pharmacy Albuterol (Albuterol (Eqv-ProAir HFA) 90 mcg/inh inhalation aerosol) 2 puff(s) Inhalation every 4 hours. Refills: 11. Next Dose: Atorvastatin (atorvastatin 80 mg oral tablet) 1 tab(s) Oral Daily. Refills: 1. Next Dose: Bumetanide (bumetanide 2 mg oral tablet) 1 tab(s) Oral Daily. Refills: 1. Next Dose: Cyclopentolate Ophthalmic (cyclopentolate 0.5% ophthalmic solution) 1 Drops once. Next Dose: Dexamethasone / Tobramycin Ophthalmic (dexamethasone-tobramycin 0.1%-0.3% ophthalmic suspension) 1 drops in the left eye every 15 minutes for two hours, then every hour when you are awak. Refills: 0. Next Dose: Diclofenac Topical (diclofenac 1% topical gel) 4 gram Topically 4 times a day. as needed for joint pain. Refills: 0. Next Dose: Durable Medical Equipment (Cane) dx: unsteady gait ICD 10 R26.81 use as directed length of need: Lifetime. Refills: 0. Next Dose: Durable Medical Equipment (Compression Stockings) surgical, knee length 20-30 mm Hg DX edema Icd 10 code R60.0 weight:179lbs. Refills: 0. Next Dose: Durable Medical Equipment (fortified tobramycin eye drops) 1 drop every 2hrs on LT eye. Next Dose: Erythromycin Ophthalmic (erythromycin 0.5% ophthalmic ointment) 0.5 Inch Left eye 4 times a day. Next Dose: Ferrous Sulfate (ferrous sulfate 325 mg oral enteric coated tablet) 1 tab(s) Oral Daily. Refills: 1. Next Dose: Fluticasone (Flovent HFA 110 mcg/inh inhalation aerosol) 2 puff(s) Inhalation twice a day. rinse mouth and throat after use. Refills: 6. Next Dose: Metoprolol (metoprolol 25 mg oral tablet) 0.5 tab(s) Oral twice a day. Refills: 1. Next Dose: moxifloxacin ophthalmic (moxifloxacin 0.5% ophthalmic solution) 1 drop in the left eye every 15 minutes for the first two hours, then every hour while awake. Refills: 0. Next Dose: Multivitamin (Therapeutic Multiple Vitamins oral capsule) 1 capsule Oral Daily. Refills: 1. Next Dose: Vancomycin See Instructions. 1 drop to LT eye. Next Dose: Allergy Info:?? No Known Medication Allergies Medications Given This Visit Future Orders ?No future orders Vital Signs Height 175 cm Weight 93.1 kg BMI 30.4 kg/m2 Blood Pressure / Temperature Pulse Rate Respiratory Rate 02 Sat Mode of Delivery / You can now view a summary of your hospital visit from the [place] of your home through a free online portal called [employer]. [employer] is a website that allows you to securely view your medical information including discharge summary, medications and follow-up visits. ??You can alsosend a secure electronic message to your doctor???s office to request appointments, renew medications or just ask a question. You can enroll at [email or web address] or register during your next office visit. Disclaimer:?? The information provided is of a general nature and is intended to be used in conjunction with the recommendations and advice of your health care practitioner. ??Every effort has been made to ensure that the information provided is accurate and complete at the time it is provided to you however, as your needs change, or, as new ??information becomes available, different or additional instructions may be required. If you have questions, please consult with your primary care provider or pharmacist, as appropriate. ??This information is not intended to serve as substitution for assessment and evaluation by a qualified health care provider. If you do not have a primary care provider, you may find a [facility] provider by calling [facility] Link at [phone]. For information about the plan of care including goals and instructions for your diagnosis, please see the patient education orders section of this document. Patient Education Materials?? The content of this educational material or handout may have been modified, supplemented, or adapted from its original content and format to support your individualized medical care. Patient Care team information Care Team Personnel Name: Jordon Holt MD Position: S Primary Care Physician Member Role: PCP Address: Address: [address] [place] [address]- Care Team Related Persons Name: JEROME DE SANTIAGO Address: [address] [address]
--- OUTSIDE RECORDS SUMMARY | 2022-08-21 13:25 | XMS_ITS | Continuity of Care Document ---
Author Name Unknown Organization [facility] Sina Joyce Daryl lt Address [address] [place] [address]- Care Team Providers Care Face Burler Name Role Phone Jordon Holt MD Primary Care Physician Encounter [facility] [place] Date(s): 10/15/19 - 11/14/19 [facility] Adult [address] [place] [address]- [facility] Allergies, Adverse Reactions, Alerts No Known Medication Allergies Medications albuterol (OP) 0 Refills, Maintenance, 2 Start Date: 10/04/19 Status: Ordered bumetanide 2 mg oral tablet 1 tablet = 2 mg, By Mouth, Daily, # 30 tablet, 6 Refills, Maintenance, 10/04/19 15:37:00 EDT, Tablet, [facility] Start Date: 10/04/19 Status: Ordered [...] 10/04/19 15:39:00 EDT, Route to Pharmacy Electronically, [facility] Start Date: 10/04/19 Status: Ordered metoprolol 25 mg oral tablet 12.5 mg, 0.5, tablet, By Mouth, 2 times a day, # 30 tablet, Refills 6, Tot. Refills 6, Maintenance,10/04/19 15:38:00 EDT, Route to Pharmacy Electronically, [facility] Start Date: 10/04/19 Status: Ordered Problem List Condition Effective Dates Status Health Status Inform ant Anemia(Confirmed) Active COPD (chronic obstructive pu lmonary disease)(Confirmed) Active CHF (congestive heart failure)(Confirmed) Active Deaf(Confirmed) Active HTN (hypertension)(Confirmed) Active Hyponatremia(Confirmed) Active Hepatic steatosis(Confirmed) Active Swelling of lower extremity(Confirmed) Active Tobacco abuse(Confirmed) Active
--- OUTSIDE RECORDS SUMMARY | 2022-08-21 13:25 | XMS_ITS | Continuity of Care Document ---
Author Name Unknown Organization [facility] Sina Joyce Daryl lt Address [address] [place] [address]- Care Team Providers Care Labor Conciliator Name Role Phone Jordon Holt MD Primary Care Physician Encounter [facility] [place] Date(s): 10/06/19 - 11/05/19 [facility] Adult [address] [place] [address] Allergies, Adverse Reactions, Alerts No Known Medication Allergies Medications albuterol (OP) 0 Refills, Maintenance, 2 Start Date: 10/04/19 Status: Ordered bumetanide 2 mg oral tablet 1 tablet = 2 mg, By Mouth, Daily, # 30 tablet, 6 Refills, Maintenance, 10/04/19 15:37:00 EDT, Tablet, [facility] Start Date: 10/04/19 Status: Ordered [...] 10/04/19 15:39:00 EDT, Route to Pharmacy Electronically, [facility] Start Date: 10/04/19 Status: Ordered metoprolol 25 mg oral tablet 12.5 mg, 0.5, tablet, By Mouth, 2 times a day, # 30 tablet, Refills 6, Tot. Refills 6, Maintenance,10/04/19 15:38:00 EDT, Route to Pharmacy Electronically, [facility] Start Date: 10/04/19 Status: Ordered Problem List Condition Effective Dates Status Health Status Inform ant Anemia(Confirmed) Active COPD (chronic obstructive pu lmonary disease)(Confirmed) Active CHF (congestive heart failure)(Confirmed) Active Deaf(Confirmed) Active HTN (hypertension)(Confirmed) Active Hyponatremia(Confirmed) Active Hepatic steatosis(Confirmed) Active Swelling of lower extremity(Confirmed) Active Tobacco abuse(Confirmed) Active
--- OUTSIDE RECORDS SUMMARY | 2022-08-21 13:25 | XMS_ITS | Continuity of Care Document ---
Author Name Unknown Organization [facility] Sina Joyce Daryl lt Address [address] [place] [address]- Care Team Providers Care Home Administrator Name Role Phone Jordon Holt MD Primary Care Physician [place] [facility]/21/[place] - 04/20/20 [facility] Adult [address] [place] [address]- Allergies, Adverse Reactions, Alerts No Known Medication Allergies Medications albuterol (OP) 0 Refills, Maintenance, 2 Start Date: 10/04/19 Status: Ordered bumetanide 2 mg oral tablet 1 tablet = 2 mg, By Mouth, Daily, # 30 tablet, 1 Refills, Maintenance, 03/21/20 13:03:00 EST, Tablet, [facility], Partial fill upon patient [...] 10/04/19 15:39:00 EDT, Route to Pharmacy Electronically, [facility] Start Date: 10/04/19 Status: Ordered metoprolol 25 mg oral tablet 12.5 mg, 0.5, tablet, By Mouth, 2 times a day, # 30 tablet, Refills 6, Tot. Refills 6, Maintenance,10/04/19 15:38:00 EDT, Route to Pharmacy Electronically, [facility] Start Date: 10/04/19 Status: Ordered Therapeutic Multiple Vitamins oral capsule 1 capsule, By Mouth, Daily, # 90 capsule, 1 Refills, Maintenance, 12/03/19 13:55:00 EDT, Capsule, [facility], 1 capsule By Mouth [...]
--- OUTSIDE RECORDS SUMMARY | 2022-08-21 13:25 | XMS_ITS | Continuity of Care Document ---
Author Name Unknown Organization [facility] Daryl lt Address [address] [place] [address]- Care Team Providers Care Head Irrigator Name Role Phone Jordon Holt MD [id number]10[facility] Adult [address] [place] [address]- Attending Physician: Not on Staff, Attending MD Allergies, Adverse Reactions, Alerts No Known Medication Allergies Medications Albuterol (Eqv-ProAir HFA) 90 mcg/inh inhalation aerosol 2 puffs, Inhalation, Every 4 hours, # 18 Gm, 11 Refills, 11/14/21 14:58:00 EDT, [facility], 2 puffs Inhalation Every 4 hours, 166, cm, 03/16/21 9:47:00 EST, Height Start Date: 11/14/21 Status: Ordered atorvastatin 80 mg oral tablet 1 tablet = 80 mg, By Mouth, Daily, # 90 tablet, 1 Refills, Maintenance, 03/16/21 10:15:00 EST, Tablet, [facility], Partial fill upon patient request if the prescription is for a schedule II opioid drug., 166, cm, 03/16/21 9:47:00 EST, Height Start Date: 03/16/21 Status: Ordered azithromycin 250 mg oral tablet See Instructions, Take 2 tablets on day 1 and 1 tablet daily for next 4 days, # 6 tablet, 0 Refills, Maintenance, 01/15/22 10:15:00 EDT, Tablet, [facility], Partial fill upon patient request if the prescription is for a schedule II opioid d... Start Date: 01/15/22 Status: Ordered bumetanide 2 mg oral tablet 1 tablet = 2 mg, By Mouth, Daily, # 90 tablet, 1 Refills, Maintenance, 03/16/21 10:15:00 EST, Tablet, [facility], Partial fill upon [...] 03/16/21 10:15:00 EST, Route to Pharmacy Electronically, [facility], 166, cm, 03/16/21 9:47:00 EST,Height Start Date: 03/16/21 Status: Ordered metoprolol 25 mg oral tablet 12.5 mg, 0.5, tablet, By Mouth, 2 times a day, # 90 tablet, Refills 1, Tot. Refills 1, Maintenance,11/12/21 10:47:00 EDT, Route to Pharmacy Electronically, [facility], 166, cm, 03/16/21 9:47:00 EST, Height Start Date: 11/12/21 Status: Ordered Therapeutic Multiple Vitamins oral capsule 1 capsule, By Mouth, Daily, # 90 capsule, 1 Refills, Maintenance, 03/16/21 10:15:00 EST, Capsule, [facility], 1 capsule By [...] Care Physician Member Role: PCP Address: Address: [address] [place] [address]- Care Team Related Persons Name: JEROME DE SANTIAGO Address: home [address] [place] [id number]
--- OUTSIDE RECORDS SUMMARY | 2022-08-21 13:25 | XMS_ITS | Continuity of Care Document ---
Author Name Unknown Organization [facility] Daryl lt Address [address] [place] [address]- Care Team Providers Care Wastewater Treatment Plant Supervisor Name Role Phone Jordon Holt MD [id number]14[facility] - 02[facility]13[facility] Adult [address] [place] [address]- Allergies, Adverse Reactions, Alerts No Known Medication Allergies Medications Albuterol (Eqv-ProAir HFA) 90 mcg/inh inhalation aerosol 2 puffs, Inhalation, Every 4 hours, # 18 Gm, 11 Refills, 02/12/22 11:03:00 EST, [facility], 2 puffs Inhalation Every 4 hours, 166, cm, 02/12/22 10:23:00 EST, Height Start Date: 02/12/22 Status: Ordered atorvastatin 80 mg oral tablet 1 tablet = 80 mg, By Mouth, Daily, # 90 tablet, 1 Refills, Maintenance, 02/12/22 11:03:00 EST, Tablet, [facility], Partial fill upon patient request if the prescription is for a schedule II opioid drug., 166, cm, 02/12/22 10:23:00 EST, Height Start Date: 02/12/22 Status: Ordered bumetanide 2 mg oral tablet 1 tablet = 2 mg, By Mouth, Daily, # 90 tablet, 1 Refills, Maintenance, 02/12/22 11:03:00 EST, Tablet, [facility], Partial fill upon patient request [...] 02/12/22 11:03:00 EST, Route to Pharmacy Electronically, [facility], 166, cm, 02/12/22 10:23:00 EST, Height Start Date: 02/12/22 Status: Ordered Flovent HFA 110 mcg/inh inhalation aerosol 2 puffs, Inhalation, 2 times a day, rinse mouth and throat after use, # 12 Gm, 6 Refills, Maintenance, 02/12/22 11:03:00 EST, Aerosol, [facility], Partial fill upon patient request if the prescription is for a schedule II opioid drug., 166,... Start Date: 02/12/22 Status: Ordered metoprolol 25 mg oral tablet 12.5 mg, 0.5, tablet, By Mouth, 2 times a day, # 90 tablet, Refills 1, Tot. Refills 1, Maintenance,02/12/22 11:03:00 EST, Route to Pharmacy Electronically, [facility], 166, cm, 02/12/22 10:23:00 EST, Height Start Date: 02/12/22 Status: Ordered Therapeutic Multiple Vitamins oral capsule 1 capsule, By Mouth, Daily, # 90 capsule, 1 Refills, Maintenance, 02/12/22 11:03:00 EST, Capsule, [facility], 1 capsule By Mouth [...] Care Physician Member Role: PCP Address: Address: [address] [place] [address]- Care Team Related Persons Name: JONNATHANJEROME Address: home [address] [place] [address]
--- OUTSIDE RECORDS SUMMARY | 2022-08-21 13:25 | XMS_ITS | Continuity of Care Document ---
Author Name Unknown Organization [facility] Daryl lt Address [address] [place] [address]- Care Team Providers Care Engineering Psychologist Name Role Phone Yanet INFANTE, Jordon Wei Primary Care Physician Encounter [facility] [place] Date(s): 01/15/22 - 01/22/22 [facility] Adult [address] [place] [address]- Encounter Diagnosis COPD (chronic obstructive pulmonary disease)(Discharge Diagnosis) - 01/15/22 Attending Physician: Love Knott NP Allergies, Adverse Reactions, Alerts No Known Medication Allergies Medications Albuterol (Eqv-ProAir HFA) 90 mcg/inh inhalation aerosol 2 puffs, Inhalation, Every 4 hours, # 18 Gm, 11 Refills, 11/14/21 14:58:00 EDT, [facility], 2 puffs Inhalation Every 4 hours, 166, cm, 03/16/21 9:47:00 EST, Height Start Date: 11/14/21 Status: Ordered atorvastatin 80 mg oral tablet 1 tablet = 80 mg, By Mouth, Daily, # 90 tablet, 1 Refills, Maintenance, 03/16/21 10:15:00 EST, Tablet, [facility], Partial fill upon patient request if the prescription is for a schedule II opioid drug., 166, cm, 03/16/21 9:47:00 EST, Height Start Date: 03/16/21 Status: Ordered azithromycin 250 mg oral tablet See Instructions, Take 2 tablets on day 1 and 1 tablet daily for next 4 days, # 6 tablet, 0 Refills, Maintenance, 01/15/22 10:15:00 EDT, Tablet, [facility], Partial fill upon patient request if the prescription is for a schedule II opioid d... Start Date: 01/15/22 Status: Ordered bumetanide 2 mg oral tablet 1 tablet = 2 mg, By Mouth, Daily, # 90 tablet, 1 Refills, Maintenance, 03/16/21 10:15:00 EST, Tablet, [facility], Partial fill upon patient [...] 03/16/21 10:15:00 EST, Route to Pharmacy Electronically, [facility], 166, cm, 03/16/21 9:47:00 EST,Height Start Date: 03/16/21 Status: Ordered metoprolol 25 mg oral tablet 12.5 mg, 0.5, tablet, By Mouth, 2 times a day, # 90 tablet, Refills 1, Tot. Refills 1, Maintenance,11/12/21 10:47:00 EDT, Route to Pharmacy Electronically, [facility], 166, cm, 03/16/21 9:47:00 EST, Height Start Date: 11/12/21 Status: Ordered Therapeutic Multiple Vitamins oral capsule 1 capsule, By Mouth, Daily, # 90 capsule, 1 Refills, Maintenance, 03/16/21 10:15:00 EST, Capsule, [facility], 1 capsule By Mouth [...] Active History of tobacco abuse Confirmed Active Diagnosis Diagnosis Type Effective Dates Health Status Clinical Service Informant COPD (chronic obstructive pulmonary disease) Discharge Diagnosis 01/15/22 Vital Signs Most recent to oldest [Reference Range]: 1 Height 166 cm (01/15/22 10:15 AM) Social History Social History Type Response Smoking Status Former smoker, quit more than 30 days ago entered on: 03/16/21 Sex Patient Care team information Personnel Name: Yanet INFANTE, Jordon Wei Address: Address: [address] [place] [id number]
--- OUTSIDE RECORDS SUMMARY | 2022-08-21 13:25 | XMS_ITS | Continuity of Care Document ---
Author Name [facility] Organization [facility] Daryl [facility] Address [address] [place] [address]- Care Team Providers Care Railcar Switchman Name Role Phone Yanet INFANTE, Jordon Wei Primary Care Physician [place] [facility] [place](s): 02/15/21 - 03/17/21 [facility] Adult [address] [place] [address]- Allergies, Adverse Reactions, Alerts No Known Medication Allergies Medications Albuterol (Eqv-ProAir HFA) 90 mcg/inh inhalation aerosol 2 puffs, Inhalation, Every 6 hours, # 9 Gm, 11 Refills, 03/16/21 10:15:00 EST, [facility], 18, 2 puffs Inhalation Every 6 hours, 166, cm, 03/16/21 9:47:00 EST, Height Start Date: 03/16/21 Status: Ordered atorvastatin 80 mg oral tablet 1 tablet = 80 mg, By Mouth, Daily, # 90 tablet, 1 Refills, Maintenance, 03/16/21 10:15:00 EST, Tablet, [facility], Partial fill upon patient request if the prescription is for a schedule II opioid drug., 166, cm, 03/16/21 9:47:00 EST, Height Start Date: 03/16/21 Status: Ordered betamethasone-clotrimazole 0.05%-1% topical cream 1 application, Topically, 2 times a day, # 45 Gm, 1 Refills, Acute 03/30/21 0:00:00 EST, 03/16/21 10:04:00 EST, Cream, [facility], Partial fill upon patient request if the prescription is for a schedule II opioid drug., 1 application Topica... Start Date: 03/16/21 Stop Date: 03/30/21 Status: Ordered bumetanide 2 mg oral tablet 1 tablet = 2 mg, By Mouth, Daily, # 90 tablet, 1 Refills, Maintenance, 03/16/21 10:15:00 EST, Tablet, [facility], Partial fill upon patient [...] 03/16/21 10:15:00 EST, Route to Pharmacy Electronically, [facility], 166, cm, 03/16/21 9:47:00 EST,Height Start Date: 03/16/21 Status: Ordered metoprolol 25 mg oral tablet 12.5 mg, 0.5, tablet, By Mouth, 2 times a day, # 90 tablet, Refills 1, Tot. Refills 1, Maintenance,03/16/21 10:15:00 EST, Route to Pharmacy Electronically, [facility], 166, cm, 03/16/21 9:47:00 EST, Height Start Date: 03/16/21 Status: Ordered Therapeutic Multiple Vitamins oral capsule 1 capsule, By Mouth, Daily, # 90 capsule, 1 Refills, Maintenance, 03/16/21 10:15:00 EST, Capsule, [facility], 1 capsule By Mouth [...]
--- OUTSIDE RECORDS SUMMARY | 2022-08-21 13:25 | XMS_ITS | Continuity of Care Document ---
Author Name Unknown Organization [facility] Daryl lt Address [address] [place] [address]- Care Team Providers Care Bobbin Dumper Name Role Phone Yanet INFANTE, Jordon Wei Primary Care Physician Encounter [facility] [place] Date(s): 11/30/20 - 12/07/20 [facility] Adult [address] [place] [address]- Attending Physician: Not on Staff, Attending MD Allergies, Adverse Reactions, Alerts No Known Medication Allergies Medications albuterol (OP) 0 Refills, Maintenance, 2 Start Date: 10/04/19 Status: Ordered atorvastatin 80 mg oral tablet 1 tablet = 80 mg, By Mouth, Daily, # 90 tablet, 1 Refills, Maintenance, 11/30/20 16:54:00 EDT, Tablet, [facility], Partial fill upon patient request if the prescription is for a schedule II opioid drug., 166, cm, 11/30/20 15:20:00 EDT, Height Start Date: 11/30/20 Status: Ordered bumetanide 2 mg oral tablet 1 tablet = 2 mg, By Mouth, Daily, # 90 tablet, 1 Refills, Maintenance, 10/20/20 10:19:00 EDT, Tablet, [facility], Partial fill upon patient request if the prescription is for a schedule IIopioid drug., 166, cm, 04/25/20 13:35:00 EST, Height Start Date: 10/20/20 Status: Ordered Cane See Instructions, # 1 [...] tablet, Refills 1, Tot. Refills 1, Maintenance, 10/20/20 10:19:00 EDT, Route to Pharmacy Electronically, [facility], 166, cm, 04/25/20 13:35:00 EST, Height Start Date: 10/20/20 Status: Ordered metoprolol 25 mg oral tablet 12.5 mg, 0.5, tablet, By Mouth, 2 times a day, # 90 tablet, Refills 1, Tot. Refills 1, Maintenance,11/21/20 11:11:00 EDT, Route to Pharmacy Electronically, [facility], 166, cm, 11/21/20 10:54:00 EDT, Height Start Date: 11/21/20 Status: Ordered Therapeutic Multiple Vitamins oral capsule 1 capsule, By Mouth, Daily, # 90 capsule, 1 Refills, Maintenance, 04/25/20 14:17:00 EST, Capsule, [facility], 1 capsule By Mouth Daily, 166, cm, 04/25/20 13:35:00 EST, Height Start Date: 04/25/20 Status: Ordered Problem List Condition Effective Dates Status Health Status Inform ant Unsteady gait(Confirmed) Active Anemia(Confirmed) Active COPD (chronic obstructive pu lmonary disease)(Confirmed) Active CHF (congestive heart failure)(Confirmed) Active Deaf(Confirmed) Active Hyperlipidemia(Confirmed) Active HTN (hypertension)(Confirmed) Active Hyponatremia(Confirmed) Active Hepatic steatosis(Confirmed) Active Swelling of lower extremity(Confirmed) Active History of tobacco abuse(Confirmed) Active Vital Signs Most recent to oldest [Reference Range]: 1 Height 166 cm (11/30/20 3:20 PM)
--- OUTSIDE RECORDS SUMMARY | 2022-08-21 13:25 | XMS_ITS | Continuity of Care Document ---
Author Name Unknown Organization [facility] Daryl lt Address [address] [place] [address]- Care Team Providers Care Biological Science Technician Name Role Phone Jordon Holt MD Primary Care Physician Encounter [facility] [place] [facility] R [id number] Date(s): 10/04/19 - 10/11/19 [facility] Adult [address] [place] [address]- [facility] Attending Physician: Leonela BIRD, Faith Pedraza Allergies, Adverse Reactions, Alerts No Known Medication Allergies Medications albuterol (OP) 0 Refills, Maintenance, 2 Start Date: 10/04/19 Status: Ordered bumetanide 2 mg oral tablet 1 tablet = 2 mg, By Mouth, Daily, # 30 tablet, 6 Refills, Maintenance, 10/04/19 15:37:00 EDT, Tablet, [facility] Start Date: 10/04/19 Status: Ordered [...] 10/04/19 15:39:00 EDT, [facility] Pharm[facility]ically, [facility] Start Date: 10/04/19 Status: Ordered metoprolol 25 mg oral tablet 12.5 mg, 0.5, tablet, By Mouth, 2 times a day, # 30 tablet, Refills 6, Tot. Refills 6, Maintenance,10/04/19 15:38:00 EDT, Route to Pharmacy Electronically, [facility] Start Date: 10/04/19 Status: Ordered Problem List Condition Effective Dates Status Health Status Inform ant Anemia(Confirmed) Active COPD (chronic obstructive pu lmonary disease)(Confirmed) Active CHF (congestive heart failure)(Confirmed) Active Deaf(Confirmed) Active HTN (hypertension)(Confirmed) Active Hyponatremia(Confirmed) Active Hepatic steatosis(Confirmed) Active Swelling of lower extremity(Confirmed) Active Tobacco abuse(Confirmed) Active Vital Signs Most recent to oldest [Reference Range]: 1 Weight 81.5 kg (10/04/19 2:17 PM) Oxygen Saturation [94-100 %] 92 % *L* (10/04/19 2:17 PM) Pulse Rate [55-90 bpm] 70 bpm (10/04/19 2:17 PM) Blood Pressure [90-138/55-84 mm Hg] 104/ 60mm Hg (10/04/19 2:17 PM) Temperature [96.8-100.4 DegF] 98.4 DegF (10/04/19 2:17 PM) Blood pressure sites Arm, right (10/04/19 2:17 PM) Temperature Route Oral (10/04/19 2:17 PM)
--- OUTSIDE RECORDS SUMMARY | 2022-08-21 13:25 | XMS_ITS | Continuity of Care Document ---
Author Name Unknown Organization [facility] Isiah Daryl lt Address [address] [place] [address]- Care Team Providers Care Heddler Name Role Phone Yanet INFANTE, Jordon Wei Primary Care Physician En[place] [facility] [place] Date(s): 05/09/22 - 07/24/22 [facility] Adult [address] [place] [address]- Attending Physician: Faith Gipson NP Allergies, Adverse Reactions, Alerts No Known Medication Allergies Medications Albuterol (Eqv-ProAir HFA) 90 mcg/inh inhalation aerosol 2 puffs, Inhalation, Every 4 hours, # 18 Gm, 11 Refills, 02/12/22 11:03:00 EST, [facility], 2 puffs Inhalation Every 4 hours, 166, cm, 02/12/22 10:23:00 EST, Height Start Date: 02/12/22 Status: Ordered atorvastatin 80 mg oral tablet 1 tablet = 80 mg, By Mouth, Daily, # 90 tablet, 1 Refills, Maintenance, 02/12/22 11:03:00 EST, Tablet, [facility], Partial fill upon patient request if the prescription is for a schedule II opioid drug., 166, cm, 02/12/22 10:23:00 EST, Height Start Date: 02/12/22 Status: Ordered bumetanide 2 mg oral tablet 1 tablet = 2 mg, By Mouth, Daily, # 90 tablet, 1 Refills, Maintenance, 02/12/22 11:03:00 EST, Tablet, [facility], Partial fill upon patient request [...] 0 Refills, Maintenance, 06/26/22 2:06:00 EDT, Suspension, [facility] #[id number], Partial fill upon patient request if the prescription i... Start Date: 06/26/22 Stop Date: 06/28/22 Status: Ordered diclofenac 1% topical gel = 4 Gm, Topically, 4 times a day, as needed for joint pain, # 100 Gm, 0 Refills, Maintenance, 06/25/22 10:18:00 EDT, Gel, [facility], Partial fill upon patient request if the [...] 02/12/22 11:03:00 EST, Route to Pharmacy Electronically, [facility], 166, cm, 02/12/22 10:23:00 EST, Height Start Date: 02/12/22 Status: Ordered Flovent HFA 110 mcg/inh inhalation aerosol 2 puffs, Inhalation, 2 times a day, rinse mouth and throat after use, # 12 Gm, 6 Refills, Maintenance, 02/12/22 11:03:00 EST, Aerosol, [facility], Partial fill upon patient request [...] Maintenance,02/12/22 11:03:00 EST, Route to Pharmacy Electronically, [facility], 166, cm, 02/12/22 10:23:00 EST, Height Start Date: 02/12/22 Status: Ordered moxifloxacin 0.5% ophthalmic solution See Instructions, 1 drop in the left eye every 15 minutes for the first two hours, then every hour while awake, # 3 mL, 0 Refills, Maintenance, 06/26/22 2:07:00 EDT, Solution, [facility] #[id number], Partial fill upon patient request if the prescription i... Start Date: 06/26/22 Status: Ordered Therapeutic Multiple Vitamins oral capsule 1 capsule, By Mouth, Daily, # 90 capsule, 1 Refills, Maintenance, 02/12/22 11:03:00 EST, Capsule, [facility], 1 capsule By Mouth Daily, [...] of tobacco abuse Confirmed Active 1L eye Social History Social History Type Response Smoking Status Former smoker, quit more than 30 days ago entered on: 03/16/21 Sex Patient Care team information Care Team Personnel Name: Yanet INFANTE, Jordon Wei Position: [facility] Primary Care Physician Member Role: PCP Address: Address: [address] [place] [address]- Care Team Related Persons Name: JEROME DE SANTIAGO Address: home [address] [place] [id number]
--- OUTSIDE RECORDS SUMMARY | 2022-08-21 13:25 | XMS_ITS | Continuity of Care Document ---
Author Name Unknown Organization [facility] Sina Joyce Daryl lt Address [address] [place] [address]- Care Team Providers Care Transition Program Manager Name Role Phone Jordon Holt MD Primary Care Physician Encounter [facility] [place] Date(s): 02/25/20 - 03/26/20 [facility] Adult [address] [place] [address]- Allergies, Adverse Reactions, Alerts No Known Medication Allergies Medications albuterol (OP) 0 Refills, Maintenance, 2 Start Date: 10/04/19 Status: Ordered bumetanide 2 mg oral tablet 1 tablet = 2 mg, By Mouth, Daily, # 30 tablet, 1 Refills, Maintenance, 03/21/20 13:03:00 EST, Tablet, [facility], Partial fill upon [...] 10/04/19 15:39:00 EDT, Route to Pharmacy Electronically, [facility] Start Date: 10/04/19 Status: Ordered metoprolol 25 mg oral tablet 12.5 mg, 0.5, tablet, By Mouth, 2 times a day, # 30 tablet, Refills 6, Tot. Refills 6, Maintenance,10/04/19 15:38:00 EDT, Route to Pharmacy Electronically, [facility] Start Date: 10/04/19 Status: Ordered Therapeutic Multiple Vitamins oral capsule 1 capsule, By Mouth, Daily, # 90 capsule, 1 Refills, Maintenance, 12/03/19 13:55:00 EDT, Capsule, [facility], 1 capsule By [...]
--- OUTSIDE RECORDS SUMMARY | 2022-08-21 13:25 | XMS_ITS | Continuity of Care Document ---
Author Name Unknown Organization [facility] Daryl lt Address [address] [place] [address]- Care Team Providers Care Apartment Maintenance Manager Name Role Phone Jordon Holt MD Primary Care Physician [phone] Encounter [facility] [place](s): 07/05/22 - 08/04/22 [facility] Adult [address] [place] [address]- Attending Physician: Admtr, Ar8 Admitting Physician: Admtr, Ar8 Referring Physician: Admtr, Ar8 Allergies, Adverse Reactions, Alerts No Known Medication Allergies Substance Reaction Severity Status Adhesive Bandage Rash Active Medications Albuterol (Eqv-ProAir HFA) 90 mcg/inh inhalation aerosol 2 puffs, Inhalation, Every 4 hours, # 18 Gm, 11 Refills, 02/12/22 11:03:00 EST, [facility], 2 puffs Inhalation Every 4 hours, 166, cm, 02/12/22 10:23:00 EST, Height Start Date: 02/12/22 Status: Ordered atorvastatin 80 mg oral tablet 1 tablet = 80 mg, By Mouth, Daily, # 90 tablet, 1 Refills, Maintenance, 02/12/22 11:03:00 EST, Tablet, [facility], Partial fill upon patient request if the prescription is for a schedule II opioid drug., 166, cm, 02/12/22 10:23:00 EST, Height Start Date: 02/12/22 Status: Ordered bumetanide 2 mg oral tablet 1 tablet = 2 mg, By Mouth, Daily, # 90 tablet, 1 Refills, Maintenance, 02/12/22 11:03:00 EST, Tablet, [facility], Partial fill upon patient [...] EDT, Supply Start Date: 10/04/19 Status: Ordered dexamethasone-tobramycin 0.1%-0.3% ophthalmic suspension 1 drops, Eyes, Both, Every 4 hours, # 10 mL, 0 Refills, Maintenance, 08/01/22 14:47:00 EDT, Suspension, Partial fill upon patient request if the prescription is for a schedule II opioid drug. Start Date: 08/01/22 Status: Ordered diclofenac 1% topical gel = 4 Gm, Topically, 4 times a day, as needed for joint pain, # 100 Gm, 0 Refills, Maintenance, 06/25/22 10:18:00 EDT, Gel, [facility], Partial fill upon patient request if the prescription is for a schedule II opioid drug., 166, cm, 04/26/22... Start Date: 06/25/22 Status: Ordered ferrous sulfate 325 mg oral enteric coated tablet 325 mg, 1, tablet, By Mouth, Daily, # 90 tablet, Refills 1, Tot. Refills 1, Maintenance, 02/12/22 11:03:00 EST, Route to Pharmacy Electronically, [facility], 166, cm, 02/12/22 10:23:00 EST, Height Start Date: 02/12/22 Status: Ordered Flovent HFA 110 mcg/inh inhalation aerosol 2 puffs, Inhalation, 2 times a day, rinse mouth and throat after use, # 12 Gm, 6 Refills, Maintenance, 02/12/22 11:03:00 EST, Aerosol, [facility], Partial fill upon patient request if the prescription is for a schedule II opioid drug., 166,... Start Date: 02/12/22 Status: Ordered fortified tobramycin eye drops fortified tobramycin eye drops, See Instructions, Refills 0, Maintenance, 1 drop every 12hours on LT eye, 07/05/22 15:54:00 EDT, Supply Start Date: 07/05/22 Status: Ordered metoprolol 25 mg oral tablet 12.5 mg, 0.5, tablet, By Mouth, 2 times a day, # 90 tablet, Refills 1, Tot. Refills 1, Maintenance,02/12/22 11:03:00 EST, Route to Pharmacy Electronically, [facility], 166, cm, 02/12/22 10:23:00 EST, Height Start Date: 02/12/22 Status: Ordered Tylenol 325 mg oral tablet 650 mg, 2, tablet, By Mouth, Every 6 hours, PRN, # 120 tablet, Refills 0, Maintenance, for pain, 08/01/22 9:44:00 EDT, Partial fill upon patient request if the prescription is for a schedule II opioid drug. Start Date: 08/01/22 Status: Ordered Vancomycin See Instructions, Maintenance, 1 drop to Left eye 3 times daily, 07/05/22 15:52:00 EDT Start Date: 07/05/22 Status: Ordered Vitamin C 500 mg oral tablet 1 tablet = 500 mg, By Mouth, Daily, # 30 tablet, 0 Refills, Maintenance, 08/01/22 14:46:00 EDT, Tablet, Partial fill upon patient request if the prescription is for a schedule II opioid drug. Start Date: 08/01/22 Status: Ordered Problem List Condition Confirmation Course [...] History Social History Type Response Smoking Status Never (less than 100 in lifetime) entered on: 08/01/22 Sex Implantable Device List Procedure Provider Procedure Date Device Type Site Descemets Stripping Endothelial Keratopl Wilian Levin MD 08/02/22 Unknown Eye Left Device Identifier Serial Number Lot or Batch Number Manufacturing Date Expiration Date Distinct Identification Code MRI Safety Implantable Status Assigning Authority Unknown [id number] Unknown Unknown 08/12/22 Unknown Unknown Active Unknown Laboratory * Event Display: Non Lab Results Authored Date: [id number] Patient Care team information Care Team Personnel Name: Yanet INFANTE, Jordon Wei Position: [facility] Primary Care Physician Member Role: PCP Address: Address: [address] [place] [address]- Care Team Related Persons Name: JEROME DE SANTIAGO Address: home [address] [place] [address]
--- OUTSIDE RECORDS SUMMARY | 2022-08-21 13:25 | XMS_ITS | Continuity of Care Document ---
Author Name Unknown Organization [facility] Sina Joyce Daryl lt Address [address] [place] [address]- Care Team Providers Care Campus Recruiter Name Role Phone Jordon Holt MD Primary Care Physician [place] [facility] [place] - 10/27/19 [facility] Adult [address] [place] [address]- [facility] Allergies, Adverse Reactions, Alerts No Known Medication Allergies Medications albuterol (OP) 0 Refills, Maintenance, 2 Start Date: 10/04/19 Status: Ordered bumetanide 2 mg oral tablet 1 tablet = 2 mg, By Mouth, Daily, # 30 tablet, 6 Refills, Maintenance, 10/04/19 15:37:00 EDT, Tablet, [facility] Start Date: 10/04/19 Status: Ordered [...] 10/04/19 15:39:00 EDT, [facility] to Pharm[facility] Electronically, [facility] Start Date: 10/04/19 Status: Ordered metoprolol 25 mg oral tablet 12.5 mg, 0.5, tablet, By Mouth, 2 times a day, # 30 tablet, Refills 6, Tot. Refills 6, Maintenance,10/04/19 15:38:00 EDT, [facility] to Pharm[facility] Electronically, [facility] Start Date: 10/04/19 Status: Ordered Problem List Condition Effective Dates Status Health Status Inform ant Anemia(Confirmed) Active COPD (chronic obstructive pu lmonary disease)(Confirmed) Active CHF (congestive heart failure)(Confirmed) Active Deaf(Confirmed) Active HTN (hypertension)(Confirmed) Active Hyponatremia(Confirmed) Active Hepatic steatosis(Confirmed) Active Swelling of lower extremity(Confirmed) Active Tobacco abuse(Confirmed) Active
--- OUTSIDE RECORDS SUMMARY | 2022-08-21 13:25 | XMS_ITS | Continuity of Care Document ---
Author Name Unknown Organization [facility] Sina Joyce Daryl lt Address [address] [place] [address]- Care Team Providers Care Bilingual Receptionist Name Role Phone Jordon Holt MD Primary Care Physician Encounter [facility] [place] Date(s): 10/05/19 - 11/04/19 [facility] Adult [address] [place] [address]- [facility] Allergies, Adverse Reactions, Alerts No Known Medication Allergies Medications albuterol (OP) 0 Refills, Maintenance, 2 Start Date: 10/04/19 Status: Ordered bumetanide 2 mg oral tablet 1 tablet = 2 mg, By Mouth, Daily, # 30 tablet, 6 Refills, Maintenance, 10/04/19 15:37:00 EDT, Tablet, [facility] Start Date: 10/04/19 Status: Ordered [...] 10/04/19 15:39:00 EDT, Route to Pharmacy Electronically, [facility] Start Date: 10/04/19 Status: Ordered metoprolol 25 mg oral tablet 12.5 mg, 0.5, tablet, By Mouth, 2 times a day, # 30 tablet, Refills 6, Tot. Refills 6, Maintenance,10/04/19 15:38:00 EDT, Route to Pharmacy Electronically, [facility] Start Date: 10/04/19 Status: Ordered Problem List Condition Effective Dates Status Health Status Inform ant Anemia(Confirmed) Active COPD (chronic obstructive pu lmonary disease)(Confirmed) Active CHF (congestive heart failure)(Confirmed) Active Deaf(Confirmed) Active HTN (hypertension)(Confirmed) Active Hyponatremia(Confirmed) Active Hepatic steatosis(Confirmed) Active Swelling of lower extremity(Confirmed) Active Tobacco abuse(Confirmed) Active
--- OUTSIDE RECORDS SUMMARY | 2022-08-21 13:25 | XMS_ITS | Continuity of Care Document ---
Author Name Unknown Organization [facility] Sina Joyce Daryl lt Address [address] [place] [address]- Care Team Providers Care Railway Traction Line Worker Name Role Phone Jordon Holt MD Primary Care Physician Encounter [facility] [place] Date(s): 11/12/21 - 12/12/21 [facility] [place] Adult [address] [place] [address]- Allergies, Adverse Reactions, Alerts No Known Medication Allergies Medications Albuterol (Eqv-ProAir HFA) 90 mcg/inh inhalation aerosol 2 puffs, Inhalation, Every 4 hours, # 18 Gm, 11 Refills, 11/14/21 14:58:00 EDT, [facility], 2 puffs Inhalation Every 4 hours, 166, cm, 03/16/21 9:47:00 EST, Height Start Date: 11/14/21 Status: Ordered atorvastatin 80 mg oral tablet 1 tablet = 80 mg, By Mouth, Daily, # 90 tablet, 1 Refills, Maintenance, 03/16/21 10:15:00 EST, Tablet, [facility], Partial fill upon patient request if the prescription is for a schedule II opioid drug., 166, cm, 03/16/21 9:47:00 EST, Height Start Date: 03/16/21 Status: Ordered bumetanide 2 mg oral tablet 1 tablet = 2 mg, By Mouth, Daily, # 90 tablet, 1 Refills, Maintenance, 03/16/21 10:15:00 EST, Tablet, [facility], Partial fill upon patient [...] 03/16/21 10:15:00 EST, Route to Pharmacy Electronically, [facility], 166, cm, 03/16/21 9:47:00 EST,Height Start Date: 03/16/21 Status: Ordered metoprolol 25 mg oral tablet 12.5 mg, 0.5, tablet, By Mouth, 2 times a day, # 90 tablet, Refills 1, Tot. Refills 1, Maintenance,11/12/21 10:47:00 EDT, Route to Pharmacy Electronically, [facility], 166, cm, 03/16/21 9:47:00 EST, Height Start Date: 11/12/21 Status: Ordered Therapeutic Multiple Vitamins oral capsule 1 capsule, By Mouth, Daily, # 90 capsule, 1 Refills, Maintenance, 03/16/21 10:15:00 EST, Capsule, [facility], 1 capsule By Mouth [...] 30 days ago entered on: 03/16/21 Sex Care Team Personnel Name: Jordon Holt MD Address: [address] [place] [address] [place] [address]
--- OUTSIDE RECORDS SUMMARY | 2022-08-21 13:25 | XMS_ITS | Continuity of Care Document ---
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 Discharge Disposition: A-D/C Home Attending Physician: Roxy Noonan DO Admitting Physician: Roxy Noonan DO Referring Physician: Not on Staff, Referring MD Allergies, Adverse Reactions, Alerts No Known Medication Allergies Medications Albuterol (Eqv-ProAir HFA) 90 mcg/inh inhalation aerosol 2 puffs, Inhalation, Every 4 hours, # 18 Gm, 11 Refills, 02/12/22 11:03:00 EST, [facility], 2 puffs Inhalation Every 4 hours, 166, cm, 02/12/22 10:23:00 EST, Height Start Date: 02/12/22 Status: Ordered atorvastatin 80 mg oral tablet 1 tablet = 80 mg, By Mouth, Daily, # 90 tablet, 1 Refills, Maintenance, 02/12/22 11:03:00 EST, Tablet, [facility], Partial fill upon patient request if the prescription is for a schedule II opioid drug., 166, cm, 02/12/22 10:23:00 EST, Height Start Date: 02/12/22 Status: Ordered bumetanide 2 mg oral tablet 1 tablet = 2 mg, By Mouth, Daily, # 90 tablet, 1 Refills, Maintenance, 02/12/22 11:03:00 EST, Tablet, [facility], Partial fill upon patient request [...] 10/04/19 Status: Ordered dexamethasone-tobramycin 0.1%-0.3% ophthalmic suspension See Instructions, 1 drops in the left eye every 15 minutes for two hours, then every hour when you are awak, # 10 mL, 0 Refills, Maintenance, 06/26/22 2:06:00 EDT, Suspension, [facility]/pharmacy #[id number], Partial fill upon patient request if the prescription i... Start Date: 06/26/22 Stop Date: 06/28/22 Status: Ordered diclofenac 1% topical gel = 4 Gm, Topically, 4 times a day, as needed for joint pain, # 100 Gm, 0 Refills, Maintenance, 06/25/22 10:18:00 EDT, Gel, [facility], Partial fill upon patient request if the prescription is for a schedule II opioid drug., 166, cm, 04/26/22... Start Date: 06/25/22 Status: Ordered ferrous sulfate 325 mg oral enteric coated tablet 325 mg, 1, tablet, By Mouth, Daily, # 90 tablet, Refills 1, Tot. Refills 1, Maintenance, 02/12/22 11:03:00 EST, Route to Pharmacy Electronically, [facility], 166, cm, 02/12/22 10:23:00 EST, Height Start Date: 02/12/22 Status: Ordered Flovent HFA 110 mcg/inh inhalation aerosol 2 puffs, Inhalation, 2 times a day, rinse mouth and throat after use, # 12 Gm, 6 Refills, Maintenance, 02/12/22 11:03:00 EST, Aerosol, [facility], Partial fill upon patient request if the prescription is for a schedule II opioid drug., 166,... Start Date: 02/12/22 Status: Ordered metoprolol 25 mg oral tablet 12.5 mg, 0.5, tablet, By Mouth, 2 times a day, # 90 tablet, Refills 1, Tot. Refills 1, Maintenance,02/12/22 11:03:00 EST, Route to Pharmacy Electronically, [facility], 166, cm, 02/12/22 10:23:00 EST, Height Start Date: 02/12/22 Status: Ordered moxifloxacin 0.5% ophthalmic solution See Instructions, 1 drop in the left eye every 15 minutes for the first two hours, then every hour while awake, # 3 mL, 0 Refills, Maintenance, 06/26/22 2:07:00 EDT, Solution, [facility]/pharmacy #[id number], Partial fill upon patient request if the prescription i... Start Date: 06/26/22 Status: Ordered Therapeutic Multiple Vitamins oral capsule 1 capsule, By Mouth, Daily, # 90 capsule, 1 Refills, Maintenance, 02/12/22 11:03:00 EST, Capsule, [facility], 1 capsule By Mouth [...] Active History of tobacco abuse Confirmed Active Vital Signs Most recent to oldest [Reference Range]: 1 2 3 Height 175 cm (06/26/22 2:26 AM) 175 cm (06/26/22 12:13 AM) 175 cm (06/25/22 10:35 PM) Weight 93 kg (06/26/22 2:26 AM) 93 kg (06/26/22 12:13 AM) 93 kg (06/25/22 10:35 PM) Oxygen Saturation [94-100 %] 97 % (06/26/22 2:26 AM) 99 % (06/26/22 12:13 AM) 98 % (06/25/22 10:35 PM) Pulse Rate [55-90 bpm] 63 bpm (06/26/22:26 AM) 77 bpm (06/26/22 12:13 AM) 69 bpm (06/25/22 10:35 PM) Body Mass Index [18.5-24.99 kg/m2] 30.37 kg/m2 *>HHI* (06/26/22:26 AM) 30.37 kg/m2 *>HHI* (06/26/22 12:13 AM) 30.37 kg/m2 *>HHI* (06/25/22 10:35 PM) Blood Pressure [90-138/55-84 mm Hg] 133/70mm Hg (06/26/22: AM) 163/87mm Hg *H* (06/26/22 12:13 AM) 91/73mm Hg (06/25/22 10:35 PM) Respiratory Rate [16-30 br/min] 19 br/min (06/26/22: AM) 19 br/min (06/26/22 12:13 AM) 19 br/min (06/25/22 10:35 PM) Temperature [96.8-100.4 DegF] 98.4 DegF (06/26/22: AM) 97.9 DegF (06/26/22 12:13 AM) 97.7 DegF (06/25/22 10:35 PM) Mode of Delivery (Oxygen) Room air (06/26/22: AM) Room air (06/26/22 12:13 AM) Room air (06/25/22 10:35 PM) Blood pressure sites Arm, left (06/26/22: AM) Arm, left (06/26/22 12:13 AM) Arm, left (06/25/22 10:35 PM) Temperature Route Oral (06/26/22: AM) Oral (06/26/22 12:13 AM) Oral (06/25/22 10:35 PM) Dry Weight 93 kg (06/26/22:26 AM) 93 kg (06/26/22 12:13 AM) 93 kg (06/25/22 10:35 PM) Social History Social History Type Response Smoking Status Former smoker, quit more than 30 days ago entered on: 03/16/21 Sex EKG study * Event Display: ECG 12-Lead Authored Date: Please click on pdf link to open report * Event Display: ECG 12-Lead Authored Date: Ventricular Rate: 59 BPM Atrial Rate: 64 BPM QRS Duration: 92 ms Q-T Interval: 428 ms QTC Calculation(Bazett): 423 ms R [place]: 0 degrees T [place]: -36 degrees Sinus bradycardia 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 [id number] Moxifloxacin Ophthalmic Solution Brands: Moxeza, Vigamox Uses For eye infection. ?? Instructions If you use contact lenses, do not wear them on the days when using these drops. Keep the medicine at room temperature. Avoid heat and direct light. Check the medicine before each use. If the liquid medicine has any particles in it, appears discolored, or if the vial appears damaged, do not use it. Wash your hands before and after handling this medicine. Do not let the tip of the container touch your eye. Do not touch the tip with your hands or let it touch other surfaces. This can cause a serious eye infection. If you forget to take a dose on time, take it as soon as you remember. If it is almost time for thenext dose, do not take the missed dose. Return to your normal schedule. Do not take 2 doses at one time. Tell your doctor and pharmacist about all your medicines. Include prescription and fkyl-ctc-qhiogxkdnvxmvijg, vitamins, and herbal medicines. If you are using another eye medicine, wait at least 5 minutes before using the other medicine. If using eye drops and eye ointments, always use the drops at least 5 minutes before the ointment. The drops will not be able to get into the eye properly if used at the same time or after the ointment. Use this medicine at the same time each day. Discard any remaining medicine. Do not use any other eye medicine without your doctor's knowledge. Do not take the medicine more than three times during 24 hours. ?? Cautions Keep using this medicine for the full number of days that it is prescribed. Do not stop the medicine even if you start to feel better. Tell your doctor about all your medical conditions before starting this medicine, especially other eye conditions. Tell your doctor and pharmacist if you ever had an allergic reaction to a medicine. Do not use the medication any more than instructed. This medicine may cause blurry vision. Your ability to stay alert or to react quickly may be impaired by this medicine. Do not drive or operate machinery until you know how this medicine will affect you. Tell the doctor or pharmacist if you are , planning to be , or . Contact your doctor if your symptoms do not begin to improve after 3 days on this medicine. Do not share this medicine with anyone who has not been prescribed this medicine. Some people have experienced serious eye infections or other eye problems while using this medicine. Contact your doctor right away if you experience eye pain, redness, severe headache, or any changes to your vision. While you are on this medicine, it is very important to follow your doctor's instructions for any medical appointments or tests. ?? Side Effects The following is a list of some common side effects from this medicine. Please speak with your doctor about what you should do if you experience these or other side effects. ??? blurry vision ??? burning or stinging ??? discomfort in the eyes ??? dry eyes ??? irritation ofthe eyes ??? itching, redness or dryness of eyes ??? redness of eyes ??? changes in taste or unpleasant taste ??? blurring or changes of vision ??? watering of the eyes Call your doctor or get medical help right away if you notice any of these more serious side effects: ??? swelling of the face, mouth, tongue or throat ??? itching and swelling of eyelids ??? eye pain or swelling A few people may have an allergic reaction to this medicine. Symptoms can include difficulty breathing, skin rash, itching, swelling, or severe dizziness. If you notice any of these symptoms, seek medical help quickly. ?? Extra Please speak with your doctor, nurse, or pharmacist if you have any questions about this medicine. ?? [email or web address] IMPORTANT NOTE: This document tells you briefly how to take your medicine, but it does not tell youall there is to know about it. Your doctor or pharmacist may give you other documents about your medicine. Please talk to them if you have any questions. Always follow their advice. There is a more complete description of this medicine available in [place]. Scan this code on your smartphone or tablet or use the web address below. You can also ask your pharmacist for a printout. If you have any questions, please ask your pharmacist. The display and use of this drug information is subject to Terms of Use. Copyright(c) 2022 [employer]. ?? [employer]. All rights reserved. This information is not intended as a substitute for professional medical care. Always follow your healthcare professional's instructions. ?? * Maame Moody MD: PERFORM Event Display: Patient Education Leaflets Authored Date: [id number] Tobramycin/Dexamethasone Ophthalmic Ointment ?? [id number] Tobramycin/Dexamethasone Ophthalmic Ointment Brands: Tobradex Uses This medicine is used for the following purposes: ??? eye infection ??? inflammation of the eyes ?? Instructions If you use contact lenses, do not wear them on the days when using this ointment. Keep the medicine at room temperature. Avoid heat and direct light. Ask your doctor, nurse or pharmacist to show you how to use this medicine correctly. Wash your hands before and after handling this medicine. Do not let the tip of the container touch your eye. Do not touch the tip with your hands or let it touch other surfaces. This can cause a serious eye infection. If you forget to take a dose on time, take it as soon as you remember. If it is almost time for thenext dose, do not take the missed dose. Return to your normal schedule. Do not take 2 doses at one time. Tell your doctor and pharmacist about all your medicines. Include prescription and wpox-lwu-aucljmqatiizlacb, vitamins, and herbal medicines. If you are using another eye drop, use the eye drop first and then wait at least 5 minutes before using this eye ointment. If using eye drops and eye ointments, always use the drops at least 5 minutes before the ointment. The drops will not be able to get into the eye properly if used at the same time or after the ointment. Use this medicine at the same time each day. Do not use any other eye medicine without your doctor's knowledge. ?? Cautions Keep using this medicine for the full number of days that it is prescribed. Do not stop the medicine even if you start to feel better. Tell your doctor about all your medical conditions before starting this medicine, especially other eye conditions. Tell your doctor and pharmacist if you ever had an allergic reaction to a medicine. Using this medicine in high doses or for a long time can cause serious eye problems. Do not use more or for longer than instructed. Do not use the medication any more than instructed. This medicine may cause blurry vision. Your ability to stay alert or to react quickly may be impaired by this medicine. Do not drive or operate machinery until you know how this medicine will affect you. Tell the doctor or pharmacist if you are , planning to be , or . Do not share this medicine with anyone who has not been prescribed this medicine. Some people have experienced serious eye infections or other eye problems while using this medicine. Contact your doctor right away if you experience eye pain, redness, severe headache, or any changes to your vision. While you are on this medicine, it is very important to follow your doctor's instructions for any medical appointments or tests. ?? Side Effects The following is a list of some common side effects from this medicine. Please speak with your doctor about what you should do if you experience these or other side effects. ??? blurry vision ??? burning or stinging ??? discomfort in the eyes ??? dry eyes ??? irritation ofthe eyes ??? itching and swelling of eyelids ??? redness of eyes Call your doctor or get medical help right away if you notice any of these more serious side effects: ??? delayed healing ??? eye pain or swelling ??? signs of new or worsening eye infection, such as thick drainage or crusting A few people may have an allergic reaction to this medicine. Symptoms can include difficulty breathing, skin rash, itching, swelling, or severe dizziness. If you notice any of these symptoms, seek medical help quickly. ?? Extra Please speak with your doctor, nurse, or pharmacist if you have any questions about this medicine. ?? [email or web address] IMPORTANT NOTE: This document tells you briefly how to take your medicine, but it does not tell youall there is to know about it. Your doctor or pharmacist may give you other documents about your medicine. Please talk to them if you have any questions. Always follow their advice. There is a more complete description of this medicine available in [place]. Scan this code on your smartphone or tablet or use the web address below. You can also ask your pharmacist for a printout. If you have any questions, please ask your pharmacist. The display and use of this drug information is subject to Terms of Use. Copyright(c) 2022 [employer]. ?? [employer]. All rights reserved. This information is not intended as a substitute for professional medical care. Always follow your healthcare professional's instructions. ?? * Maame Moody MD: PERFORM Event Display: Patient Education Leaflets Authored Date: [id number] Tobramycin Ophthalmic Solution ?? [id number] Tobramycin Ophthalmic Solution Brands: Tobrex Uses For eye infection. ?? Instructions If you use contact lenses, do not wear them on the days when using these drops. Keep the medicine at room temperature. Avoid heat and direct light. Ask your doctor, nurse or pharmacist to show you how to use this medicine correctly. Wash your hands before and after handling this medicine. If you forget to take a dose on time, take it as soon as you remember. If it is almost time for thenext dose, do not take the missed dose. Return to your normal schedule. Do not take 2 doses at one time. Tell your doctor and pharmacist about all your medicines. Include prescription and qpkk-dol-djqkdrezgknxtndz, vitamins, and herbal medicines. If you are using another eye medicine, wait at least 5 minutes before using the other medicine. Do not use any other eye medicine without your doctor's knowledge. ?? Cautions Keep using this medicine for the full number of days that it is prescribed. Do not stop the medicine even if you start to feel better. Tell your doctor about all your medical conditions before starting this medicine, especially other eye conditions. Tell your doctor and pharmacist if you ever had an allergic reaction to a medicine. Do not use the medication any more than instructed. This medicine may cause blurry vision. Tell the doctor or pharmacist if you are , planning to be , or . Do not share this medicine with anyone who has not been prescribed this medicine. ?? Side Effects The following is a list of some common side effects from this medicine. Please speak with your doctor about what you should do if you experience these or other side effects. ??? blurry vision ??? burning or stinging ??? discomfort in the eyes ??? irritation of the eyes ???increased risk of an eye infection ??? itching, redness or dryness of eyes A few people may have an allergic reaction to this medicine. Symptoms can include difficulty breathing, skin rash, itching, swelling, or severe dizziness. If you notice any of these symptoms, seek medical help quickly. ?? Extra Please speak with your doctor, nurse, or pharmacist if you have any questions about this medicine. ?? [email or web address] IMPORTANT NOTE: This document tells you briefly how to take your medicine, but it does not tell youall there is to know about it. Your doctor or pharmacist may give you other documents about your medicine. Please talk to them if you have any questions. Always follow their advice. There is a more complete description of this medicine available in [place]. Scan this code on your smartphone or tablet or use the web address below. You can also ask your pharmacist for a printout. If you have any questions, please ask your pharmacist. The display and use of this drug information is subject to Terms of Use. Copyright(c) 2022 [employer]. ?? [employer]. All rights reserved. This information is not intended as a substitute for professional medical care. Always follow your healthcare professional's instructions. ?? Patient Care team information Care Team Personnel Name: Jordon Holt MD Position: [facility] Primary Care Physician Member Role: PCP Address: Address: [address] [place] [id number]- Name: Umer Kurtz Position: [facility] TWYLA TA [facility] Member Role: Social Worker Assistant Name: Maame Moody MD Position: [facility] Resident Member Role: ED Resident Address: Address: [address] [place] [address] [place] [address]- Name: Jose Bishop RN Position: [facility] ED RN W/OE and Tasks Member Role: Patient Care Provider Name: Roxy Noonan DO Position: [facility] ED Medicine MD Member Role: ED Physician Address: Address: [address] [place] [id number]- Care Team Related Persons Name: JEROME DE SANTIAGO Address: home [address] [place] [id number]
--- OUTSIDE RECORDS SUMMARY | 2022-08-21 13:25 | XMS_ITS | Continuity of Care Document ---
Author Name Unknown Organization [facility] Daryl lt Address [address] [place] [address]- Care Team Providers Care Wood Model Builder Name Role Phone Yanet INFANTE, Jordon Wei Primary Care Physician [place] [facility] [place] 04/25/20 - 05/02/20 [facility] Adult [address] [place] [address]- Attending Physician: aFith Gipson NP Allergies, Adverse Reactions, Alerts No Known Medication Allergies Medications albuterol (OP) 0 Refills, Maintenance, 2 Start Date: 10/04/19 Status: Ordered bumetanide 2 mg oral tablet 1 tablet = 2 mg, By Mouth, Daily, # 90 tablet, 1 Refills, Maintenance, 04/25/20 14:17:00 EST, Tablet, [facility], Partial fill upon patient request if the prescription is for a schedule IIopioid drug., 166, cm, 04/25/20 13:35:00 EST, Height Start Date: 04/25/20 Status: Ordered Cane See Instructions, # 1 [...] tablet, Refills 1, Tot. Refills 1, Maintenance, 04/25/20 14:17:00 EST, Route to Pharmacy Electronically, [facility], 166, cm, 04/25/20 13:35:00 EST, Height Start Date: 04/25/20 Status: Ordered metoprolol 25 mg oral tablet 12.5 mg, 0.5, tablet, By Mouth, 2 times a day, # 90 tablet, Refills 1, Tot. Refills 1, Maintenance,04/25/20 14:17:00 EST, Route to Pharmacy Electronically, [facility], 166, cm, 04/25/20 13:35:00 EST, Height Start Date: 04/25/20 Status: Ordered Therapeutic Multiple Vitamins oral capsule 1 capsule, By Mouth, Daily, # 90 capsule, 1 Refills, Maintenance, 04/25/20 14:17:00 EST, Capsule, [facility], 1 capsule By Mouth [...] oldest [Reference Range]: 1 Height 166 cm (04/25/20 1:35 PM) Weight 84.2 kg (04/25/20 1:35 PM) Oxygen Saturation [94-100 %] 96 % (04/25/20 1:35 PM) Pulse Rate [55-90 bpm] 56 bpm (04/25/20 1:35 PM) Body Mass Index [18.5-24.99] 30.56 *>HHI* (04/25/20 1:35 PM) Blood Pressure [90-138/55-84 mm Hg] 112/ 72mm Hg (04/25/20 1:35 PM) Blood pressure sites Arm, right (04/25/20 1:35 PM)
--- OUTSIDE RECORDS SUMMARY | 2022-08-21 13:25 | XMS_ITS | Continuity of Care Document ---
Author Name [facility] Address [address] [place] [address]- Care Team Providers Care Traffic Coordinator Name Role Phone Yanet INFANTE, Jordon Wei Primary Care Physician [phone] [place] [facility] [place](s): 02/06/21 - 03/08/21 [facility] Adult [address] [place] [address]- Allergies, Adverse Reactions, Alerts No Known Medication Allergies Medications Albuterol (Eqv-ProAir HFA) 90 mcg/inh inhalation aerosol 2 puffs, Inhalation, Every 6 hours, # 9 Gm, 11 Refills, [facility], 18, INHALE 2 PUFFS BY MOUTH EVERY 6 HOURS, 166, cm, 11/30/20 15:20:00 EDT, Height Start Date: 02/21/21 Status: Ordered atorvastatin 80 mg oral tablet 1 tablet = 80 mg, By Mouth, Daily, # 90 tablet, 1 Refills, Maintenance, 11/30/20 16:54:00 EDT, Tablet, [facility], Partial fill upon patient request if the prescription is for a schedule II opioid drug., 166, cm, 11/30/20 15:20:00 EDT, Height Start Date: 11/30/20 Status: Ordered bumetanide 2 mg oral tablet 1 tablet = 2 mg, By Mouth, Daily, # 90 tablet, 1 Refills, Maintenance, 10/20/20 10:19:00 EDT, Tablet, [facility], Partial fill upon patient [...] 10/20/20 10:19:00 EDT, Route to Pharmacy Electronically, [facility], 166, cm, 04/25/20 13:35:00 EST, Height Start Date: 10/20/20 Status: Ordered metoprolol 25 mg oral tablet 12.5 mg, 0.5, tablet, By Mouth, 2 times a day, # 90 tablet, Refills 1, Tot. Refills 1, Maintenance,11/21/20 11:11:00 EDT, Route to Pharmacy Electronically, [facility], 166, cm, 11/21/20 10:54:00 EDT, Height Start Date: 11/21/20 Status: Ordered [place]-3 oral capsule See Instructions, TAKE ONE CAPSULE BY MOUTH DAILY, # 30 capsule, 0 Refills, Maintenance, 01/04/21 13:45:00 EDT, [facility], Partial fill upon patient request if the prescription is for a schedule II opioid drug., TAKE ONE CAPSULE BY MOUTH D... Start Date: 01/04/21 Status: Ordered Therapeutic Multiple Vitamins oral capsule 1 capsule, By Mouth, Daily, # 90 capsule, 1 Refills, Maintenance, 04/25/20 14:17:00 EST, Capsule, [facility], 1 capsule By Mouth [...]
--- OUTSIDE RECORDS SUMMARY | 2022-08-21 13:25 | XMS_ITS | Continuity of Care Document ---
Author Name Unknown Organization [facility] ter Address [address] [place] [address]- Care Team Providers Care Hoisting Engineer Name Role Phone Jordon Holt MD Primary Care Physician Encounter [facility] Date(s): 10/05/19 - 11/04/[address] [address]- [facility] Attending Physician: Not on Staff, Attending MD Admitting Physician: Not on Staff, Admitting MD Referring Physician: Not on Staff, Referring MD Allergies, Adverse Reactions, Alerts No Known Medication Allergies Medications albuterol (OP) 0 Refills, Maintenance, 2 Start Date: 10/04/19 Status: Ordered bumetanide 2 mg oral tablet 1 tablet = 2 mg, By Mouth, Daily, # 30 tablet, 6 Refills, Maintenance, 10/04/19 15:37:00 EDT, Tablet, [facility] Start Date: 10/04/19 Status: Ordered [...] 10/04/19 15:39:00 EDT, Route to Pharmacy Electronically, [facility] Start Date: 10/04/19 Status: Ordered metoprolol 25 mg oral tablet 12.5 mg, 0.5, tablet, By Mouth, 2 times a day, # 30 tablet, Refills 6, Tot. Refills 6, Maintenance,10/04/19 15:38:00 EDT, Route to Pharmacy Electronically, [facility] Start Date: 10/04/19 Status: Ordered Problem List Condition Effective Dates Status Health Status Inform ant Anemia(Confirmed) Active COPD (chronic obstructive pu lmonary disease)(Confirmed) Active CHF (congestive heart failure)(Confirmed) Active Deaf(Confirmed) Active HTN (hypertension)(Confirmed) Active Hyponatremia(Confirmed) Active Hepatic steatosis(Confirmed) Active Swelling of lower extremity(Confirmed) Active Tobacco abuse(Confirmed) Active
--- OUTSIDE RECORDS SUMMARY | 2022-08-21 13:25 | XMS_ITS | Continuity of Care Document ---
Author Name Unknown Organization [facility] Isiah Daryl lt Address [address] [place] [address]- Care Team Providers Care Senior Vice President And Chief Information Officer Name Role Phone Jordon Holt MD Primary Care Physician [phone] Encounter [facility] Date(s): 03/15/22 - 03/22/22 [facility] Adult [address] [place] [address]- Attending Physician: Faith Gipson NP Referring Physician: Jordon Holt MD Allergies, Adverse Reactions, Alerts No Known Medication Allergies Medications Albuterol (Eqv-ProAir HFA) 90 mcg/inh inhalation aerosol 2 puffs, Inhalation, Every 4 hours, # 18 Gm, 11 Refills, 02/12/22 11:03:00 EST, [facility], 2 puffs Inhalation Every 4 hours, 166, cm, 02/12/22 10:23:00 EST, Height Start Date: 02/12/22 Status: Ordered atorvastatin 80 mg oral tablet 1 tablet = 80 mg, By Mouth, Daily, # 90 tablet, 1 Refills, Maintenance, 02/12/22 11:03:00 EST, Tablet, [facility], Partial fill upon patient request if the prescription is for a schedule II opioid drug., 166, cm, 02/12/22 10:23:00 EST, Height Start Date: 02/12/22 Status: Ordered bumetanide 2 mg oral tablet 1 tablet = 2 mg, By Mouth, Daily, # 90 tablet, 1 Refills, Maintenance, 02/12/22 11:03:00 EST, Tablet, [facility], Partial fill upon patient [...] 02/12/22 11:03:00 EST, Route to Pharmacy Electronically, [facility], 166, cm, 02/12/22 10:23:00 EST, Height Start Date: 02/12/22 Status: Ordered Flovent HFA 110 mcg/inh inhalation aerosol 2 puffs, Inhalation, 2 times a day, rinse mouth and throat after use, # 12 Gm, 6 Refills, Maintenance, 02/12/22 11:03:00 EST, Aerosol, [facility], Partial fill upon patient request if the prescription is for a schedule II opioid drug., 166,... Start Date: 02/12/22 Status: Ordered metoprolol 25 mg oral tablet 12.5 mg, 0.5, tablet, By Mouth, 2 times a day, # 90 tablet, Refills 1, Tot. Refills 1, Maintenance,02/12/22 11:03:00 EST, Route to Pharmacy Electronically, [facility], 166, cm, 02/12/22 10:23:00 EST, Height Start Date: 02/12/22 Status: Ordered Therapeutic Multiple Vitamins oral capsule 1 capsule, By Mouth, Daily, # 90 capsule, 1 Refills, Maintenance, 02/12/22 11:03:00 EST, Capsule, [facility], 1 capsule By Mouth [...] oldest [Reference Range]: 1 Height 166 cm (03/15/22 3:48 PM) Social History Social History Type Response Smoking Status Former smoker, quit more than 30 days ago entered on: 03/16/21 Sex Note * Zuleika Cazares: PERFORM, SIGN, VERIFY Event Display: Patient Education/Instruction Authored Date: [id number] [facility] *[facility] Clinical Summary Name KIARA DE SANTIAGO Age 76 Years 1945 PCP Yanet INFANTE, Jordon Wei PCP Visit Date 03/15/2022 15:50:00 Additional Instructions: Scheduled Appointments?? Future Appointments ?No Future Appointments Scheduled Follow-Up Instructions ?? With: Address: When: Leonela BIRD, Faith Pedraza [address] [place] [id number] Business (1) Comments: as scheduled Diagnosis Chronic obstructive pulmonary disease, unspecified; Abnormal levels of other serum enzymes Medications: Please continue your medications until treatment [...] tab(s) Oral Daily. Refills: 1. Next Dose: Durable Medical Equipment (Cane) dx: unsteady gait ICD 10 R26.81 use as directed length of need: Lifetime. Refills: 0. Next Dose: Durable Medical Equipment (Compression Stockings) surgical, knee length 20-30 mm Hg DX edema Icd 10 code R60.0 weight:179lbs. Refills: 0. Next Dose: Ferrous Sulfate (ferrous sulfate 325 mg oral enteric coated tablet) 1 tab(s) Oral Daily. Refills: 1. Next Dose: Fluticasone (Flovent HFA 110 mcg/inh inhalation aerosol) 2 puff(s) Inhalation twice a day. rinse mouth and throat after use. Refills: 6. Next Dose: Metoprolol (metoprolol 25 mg oral tablet) 0.5 tab(s) Oral twice a day. Refills: 1. Next Dose: Multivitamin (Therapeutic Multiple Vitamins oral capsule) 1 capsule Oral Daily. Refills: 1. Next Dose: Allergy Info:?? No Known Medication Allergies Medications Given This Visit Future Orders ?No future orders Vital Signs Height 166 cm Weight BMI Blood Pressure / Temperature Pulse Rate Respiratory Rate 02 Sat Mode of Delivery / You can now view a summary of your hospital visit from the comfort of your home through a free online portal called [employer]. [employer] is a website that allows you to securely view your medical information including discharge summary, medications and follow-up visits. ??You can alsosend a secure electronic message to your doctor???s office to request appointments, renew medications or just ask a question. You can enroll at [email or web address] or register during your next office visit. [...] primary care provider, you may find a [facility] provider by calling [facility] at [phone]. For information about the plan of care [...] Team Personnel Name: Jordon Holt MD Position: [facility] Primary Care Physician Member Role: PCP Address: Address: [address] [place] [address]- Care Team Related Persons Name: JEROME DE SANTIAGO Address: home [address] [place] [id number]
--- OUTSIDE RECORDS SUMMARY | 2022-08-21 13:25 | XMS_ITS | Continuity of Care Document ---
Author Name Unknown Organization [facility] Sina Joyce Daryl lt Address [address] [place] [address]- Care Team Providers Care Drawer Maker Name Role Phone Jordon Holt MD Primary Care Physician Encounter [facility] Date(s): 10/11/19 - 11/10/19 [facility] Adult [address] [place] [address]- [facility] Allergies, Adverse Reactions, Alerts No Known Medication Allergies Medications albuterol (OP) 0 Refills, Maintenance, 2 Start Date: 10/04/19 Status: Ordered bumetanide 2 mg oral tablet 1 tablet = 2 mg, By Mouth, Daily, # 30 tablet, 6 Refills, Maintenance, 10/04/19 15:37:00 EDT, Tablet, [facility] Start Date: 10/04/19 Status: Ordered [...] 10/04/19 15:39:00 EDT, Route to Pharmacy Electronically, [facility] Start Date: 10/04/19 Status: Ordered metoprolol 25 mg oral tablet 12.5 mg, 0.5, tablet, By Mouth, 2 times a day, # 30 tablet, Refills 6, Tot. Refills 6, Maintenance,10/04/19 15:38:00 EDT, Route to Pharmacy Electronically, [facility] Start Date: 10/04/19 Status: Ordered Problem List Condition Effective Dates Status Health Status Inform ant Anemia(Confirmed) Active COPD (chronic obstructive pu lmonary disease)(Confirmed) Active CHF (congestive heart failure)(Confirmed) Active Deaf(Confirmed) Active HTN (hypertension)(Confirmed) Active Hyponatremia(Confirmed) Active Hepatic steatosis(Confirmed) Active Swelling of lower extremity(Confirmed) Active Tobacco abuse(Confirmed) Active
--- OUTSIDE RECORDS SUMMARY | 2022-08-21 13:25 | XMS_ITS | Continuity of Care Document ---
Author Name Unknown Organization [facility] Daryl lt Address [address] [place] [address]- Care Team Providers Care Front Sight Attacher Name Role Phone Yanet INFANTE, Jordon Wei Primary Care Physician Encounter [facility] Date(s): 11/30/20 - 12/30/20 [facility] [address] [place] [address]- Attending Physician: Admtr, Ar8 Admitting Physician: Admtr, Ar8 Referring Physician: Admtr, Ar8 Allergies, Adverse Reactions, Alerts No Known Medication Allergies Medications albuterol (OP) 0 Refills, Maintenance, 2 Start Date: 10/04/19 Status: Ordered atorvastatin 80 mg oral tablet 1 tablet = 80 mg, By Mouth, Daily, # 90 tablet, 1 Refills, Maintenance, 11/30/20 16:54:00 EDT, Tablet, [facility], Partial fill upon patient request if the prescription is for a schedule II opioid drug., 166, cm, 11/30/20 15:20:00 EDT, Height Start Date: 11/30/20 Status: Ordered bumetanide 2 mg oral tablet 1 tablet = 2 mg, By Mouth, Daily, # 90 tablet, 1 Refills, Maintenance, 10/20/20 10:19:00 EDT, Tablet, [facility], Partial fill upon patient request [...] 10/20/20 10:19:00 EDT, Route to Pharmacy Electronically, [facility], 166, cm, 04/25/20 13:35:00 EST, Height Start Date: 10/20/20 Status: Ordered metoprolol 25 mg oral tablet 12.5 mg, 0.5, tablet, By Mouth, 2 times a day, # 90 tablet, Refills 1, Tot. Refills 1, Maintenance,11/21/20 11:11:00 EDT, Route to Pharmacy Electronically, [facility], 166, cm, 11/21/20 10:54:00 EDT, Height Start Date: 11/21/20 Status: Ordered Therapeutic Multiple Vitamins oral capsule 1 capsule, By Mouth, Daily, # 90 capsule, 1 Refills, Maintenance, 04/25/20 14:17:00 EST, Capsule, [facility], 1 capsule By Mouth [...]
--- OUTSIDE RECORDS SUMMARY | 2022-08-21 13:25 | XMS_ITS | Continuity of Care Document ---
Author Name Unknown Organization [facility] Sina Joyce Daryl lt Address [address] [place] [address]- Care Team Providers Care Gun Numberer Name Role Phone Jordon Holt MD Primary Care Physician Encounter [facility] Date(s): 03/20/20 - 04/19/20 [facility] Adult [address] [place] [address]- Allergies, Adverse Reactions, Alerts No Known Medication Allergies Medications albuterol (OP) 0 Refills, Maintenance, 2 Start Date: 10/04/19 Status: Ordered bumetanide 2 mg oral tablet 1 tablet = 2 mg, By Mouth, Daily, # 30 tablet, 1 Refills, Maintenance, 03/21/20 13:03:00 EST, Tablet, [facility], Partial fill upon [...] 10/04/19 15:39:00 EDT, Route to Pharmacy Electronically, [facility] Start Date: 10/04/19 Status: Ordered metoprolol 25 mg oral tablet 12.5 mg, 0.5, tablet, By Mouth, 2 times a day, # 30 tablet, Refills 6, Tot. Refills 6, Maintenance,10/04/19 15:38:00 EDT, Route to Pharmacy Electronically, [facility] Start Date: 10/04/19 Status: Ordered Therapeutic Multiple Vitamins oral capsule 1 capsule, By Mouth, Daily, # 90 capsule, 1 Refills, Maintenance, 12/03/19 13:55:00 EDT, Capsule, [facility], 1 capsule By [...]
--- OUTSIDE RECORDS SUMMARY | 2022-08-21 13:25 | XMS_ITS | Continuity of Care Document ---
Author Name Unknown Organization [facility] Daryl lt Address [address] [place] [address]- Care Team Providers Care Dress Shoe Inspector Name Role Phone Yanet INFANTE, Jordon Wei Primary Care Physician [phone] Encounter [facility] Date(s): 11/21/20 - 11/28/20 [facility] Adult [address] [place] [address]- Attending Physician: Faith Gipson NP Referring Physician: Jovani Holt MD Allergies, Adverse Reactions, Alerts No Known Medication Allergies Medications albuterol (OP) 0 Refills, Maintenance, 2 Start Date: 10/04/19 Status: Ordered bumetanide 2 mg oral tablet 1 tablet = 2 mg, By Mouth, Daily, # 90 tablet, 1 Refills, Maintenance, 10/20/20 10:19:00 EDT, Tablet, [facility], Partial fill upon patient request if the [...] 10/20/20 10:19:00 EDT, Route to Pharmacy Electronically, [facility], 166, cm, 04/25/20 13:35:00 EST, Height Start Date: 10/20/20 Status: Ordered metoprolol 25 mg oral tablet 12.5 mg, 0.5, tablet, By Mouth, 2 times a day, # 90 tablet, Refills 1, Tot. Refills 1, Maintenance,11/21/20 11:11:00 EDT, Route to Pharmacy Electronically, [facility], 166, cm, 11/21/20 10:54:00 EDT, Height Start Date: 11/21/20 Status: Ordered Therapeutic Multiple Vitamins oral capsule 1 capsule, By Mouth, Daily, # 90 capsule, 1 Refills, Maintenance, 04/25/20 14:17:00 EST, Capsule, [facility], 1 capsule By Mouth [...] oldest [Reference Range]: 1 Height 166 cm (11/21/20 10:54 AM) Weight 85.3 kg (11/21/20 10:54 AM) Oxygen Saturation [94-100 %] 95 % (11/21/20 10:54 AM) Pulse Rate [55-90 bpm] 64 bpm (11/21/20 10:54 AM) Body Mass Index [18.5-24.99] 30.96 *>HHI* (11/21/20 10:54 AM) Blood Pressure [90-138/55-84 mm Hg] 120/ 70mm Hg (11/21/20 10:54 AM) Blood pressure sites Arm, right (11/21/20 10:54 AM)
--- OUTSIDE RECORDS SUMMARY | 2022-08-21 13:25 | XMS_ITS | Continuity of Care Document ---
Author Name Unknown Organization [facility] Is[place] Daryl lt Address [address] [place] [address]- Care Team Providers Care Slate Handler Name Role Phone Yanet INFANTE, Jordon Wei Primary Care Physician [phone] Encounter [facility] [place] Date(s): 02/12/22 - 02/19/22 [facility] Adult [address] [place] [address]- Attending Physician: Faith Gipson NP Allergies, Adverse Reactions, Alerts No Known Medication Allergies Medications Albuterol (Eqv-ProAir HFA) 90 mcg/inh inhalation aerosol 2 puffs, Inhalation, Every 4 hours, # 18 Gm, 11 Refills, 02/12/22 11:03:00 EST, [facility], 2 puffs Inhalation Every 4 hours, 166, cm, 02/12/22 10:23:00 EST, Height Start Date: 02/12/22 Status: Ordered atorvastatin 80 mg oral tablet 1 tablet = 80 mg, By Mouth, Daily, # 90 tablet, 1 Refills, Maintenance, 02/12/22 11:03:00 EST, Tablet, [facility], Partial fill upon patient request if the prescription is for a schedule II opioid drug., 166, cm, 02/12/22 10:23:00 EST, Height Start Date: 02/12/22 Status: Ordered bumetanide 2 mg oral tablet 1 tablet = 2 mg, By Mouth, Daily, # 90 tablet, 1 Refills, Maintenance, 02/12/22 11:03:00 EST, Tablet, [facility], Partial fill upon patient request [...] 02/12/22 11:03:00 EST, Route to Pharmacy Electronically, [facility], 166, cm, 02/12/22 10:23:00 EST, Height Start Date: 02/12/22 Status: Ordered Flovent HFA 110 mcg/inh inhalation aerosol 2 puffs, Inhalation, 2 times a day, rinse mouth and throat after use, # 12 Gm, 6 Refills, Maintenance, 02/12/22 11:03:00 EST, Aerosol, [facility], Partial fill upon patient request if the prescription is for a schedule II opioid drug., 166,... Start Date: 02/12/22 Status: Ordered metoprolol 25 mg oral tablet 12.5 mg, 0.5, tablet, By Mouth, 2 times a day, # 90 tablet, Refills 1, Tot. Refills 1, Maintenance,02/12/22 11:03:00 EST, Route to Pharmacy Electronically, [facility], 166, cm, 02/12/22 10:23:00 EST, Height Start Date: 02/12/22 Status: Ordered Therapeutic Multiple Vitamins oral capsule 1 capsule, By Mouth, Daily, # 90 capsule, 1 Refills, Maintenance, 02/12/22 11:03:00 EST, Capsule, [facility], 1 capsule [...] oldest [Reference Range]: 1 Height 166 cm (02/12/22 10:23 AM) Weight 93.4 kg (02/12/22 10:23 AM) Oxygen Saturation [94-100 %] 95 % (02/12/22 10:23 AM) Pulse Rate [55-90 bpm] 82 bpm (02/12/22 10:23 AM) Body Mass Index [18.5-24.99 kg/m2] 33.89 kg/m2 *>HHI* (02/12/22 10:23 AM) Blood Pressure [90-138/55-84 mm Hg] 110/ 66mm Hg (02/12/22 10: AM) Respiratory Rate [16-30 br/min] 16 br/mi n (02/12/22 10: AM) Temperature [96.8-100.4 DegF] 97.6 DegF (02/12/22 10: AM) Mode of Delivery (Oxygen) Room air (02/12/22 10:23 AM) Blood pressure sites Arm, left (02/12/22 10:23 AM) Temperature Route Oral (02/12/22 10:23 AM) Weight Obtained Via Standing scale (02/12/22 10:23 AM) Social History Social History Type Response Smoking Status Former smoker, quit more than 30 days ago entered on: 03/16/21 Sex Note * Ro Granda: PERFORM, SIGN, VERIFY Event Display: Patient Education/Instruction Authored Date: [facility] *BMP So [place] Clinical Summary Name KIARA DE SANTIAGO Age 76 Years 1945 PCP Yanet INFANTE, Jordon Wei PCP Visit Date 02/12/2022 10:15:00 Additional Instructions: Scheduled Appointments?? Future Appointments ?*BMP??So[facility] ?[address] ?Phone:??--?Fax:??-- ?Appt. Date:??03/15/2022?3:50 PM ?Scheduled Provider:??Leonela BIRD , Faith Pedraza Follow-Up Instructions ?? With: Address: When: Leonela BIRD, Faith Pedraza [address] [place], [place] [id number] Business (1) In 1 month Comments: SARINA With: Address: When: Leonela BIRD, Faith Pedraza [address] [place] [phone] Business (1) In 6 months Comments: 40 min Diagnosis Medications: Please continue your medications until treatment is completed or stopped by your provider. Discuss any questions related to medications with your provider. New Medications [facility], [address] [place] [id number], [phone] Fluticasone (Flovent HFA 110 mcg/inh inhalation aerosol) 2 puff(s) Inhalation twice a day. rinse mouth and throat after use. Refills: 6. Next Dose: Medications to Continue with No Changes [facility], [address] [place] [id number], [phone] Albuterol (Albuterol (Eqv-ProAir HFA) 90 mcg/inh inhalation aerosol) 2 puff(s) Inhalation every 4 hours. Refills: 11. Next Dose: Atorvastatin (atorvastatin 80 mg oral tablet) 1 tab(s) Oral Daily. Refills: 1. Next Dose: Bumetanide (bumetanide 2 mg oral tablet) 1 tab(s) Oral Daily. Refills: 1. Next Dose: Ferrous Sulfate (ferrous sulfate 325 mg oral enteric coated tablet) 1 tab(s) Oral Daily. Refills: 1. Next Dose: Metoprolol (metoprolol 25 mg oral tablet) 0.5 tab(s) Oral twice a day. Refills: 1. Next Dose: Multivitamin (Therapeutic Multiple Vitamins oral capsule) 1 capsule Oral Daily. Refills: 1. Next Dose: These medications were not printed or sent to your pharmacy Durable Medical Equipment (Cane) dx: unsteady gait ICD 10 R26.81 use as directed length of need: Lifetime. Refills: 0. Next Dose: Durable Medical Equipment (Compression Stockings) surgical, knee length 20-30 mm Hg DX edema Icd 10 code R60.0 weight:179lbs. Refills: 0. Next Dose: Allergy Info:?? No Known Medication Allergies Medications Given This Visit Future Orders ?No future orders Vital Signs Height 166 cm Weight 93.4 kg BMI 33.89 kg/m2 Blood Pressure 110 mm Hg/66 mm Hg Temperature 97.6 DegF Pulse Rate 82 bpm Respiratory Rate 16 br/min 02 Sat Mode of Delivery 95 %/Room air You can now view a summary of your hospital visit from the comfort of your home through a free online portal called [employer]. [employer] is a website that allows you to securely view your medical information including discharge summary, medications and follow-up visits. ??You can alsosend a secure electronic message to your doctor???s office to request appointments, renew medications or just ask a question. You can enroll at [email or web address] or register during your next office [...] primary care provider, you may find a [facility] provider by calling [facility] at [phone]. For information about the plan of care including goals and instructions for your diagnosis, please see the patient education orders section of this document. Patient Education Materials?? The content of this educational material or handout may have been modified, supplemented, or adapted from its original content and format to support your individualized medical care. 263 Fluticasone Propionate Inhalation powder What is this medicine? FLUTICASONE (floo TIK a sone) inhalation powder is a corticosteroid. It helps decrease inflammationin your lungs. This medicine is used to treat the symptoms of asthma. Never use this medicine for an acute asthma attack. This medicine may be used for other purposes; ask your health care provider or pharmacist if you have questions. What should I tell my health care provider before I take this medicine? They need to know if you have any of the following conditions: ??? infection, like chickenpox, tuberculosis, herpes, or fungal infection ??? recent surgery or injury of nose or sinuses ??? taking corticosteroids by mouth ??? an unusual or allergic reaction to fluticasone, lactose, other medicines, foods, dyes, or preservatives ??? or trying to get ??? breast-feeding How should I use this medicine? This medicine is for inhalation through the mouth. Follow the directions on your prescription label. Do not use with a spacer device. Do not use more often than directed. Make sure that you are usingyour inhaler correctly. Ask you doctor or health care provider if you have any questions. If you are also using a bronchodilator inhaler, like albuterol, use that inhaler first. Wait five minutes or more before using this medicine. Talk to your head still operator regarding the use of this medicine in children. While this drug may be prescribed for children as young as 4 years old for selected conditions, precautions do apply. Overdosage: If you think you have taken too much of this medicine contact a poison control center or emergency room at once. NOTE: This medicine is only for you. Do not share this medicine with others. What if I miss a dose? If you miss a dose, use it as soon as you remember. If it is almost time for your next dose, use only that dose and continue with your regular schedule, spacing doses evenly. Do not use double or extra doses. What may interact with this medicine? ketoconazole ??? ritonavir This list may not describe all possible interactions. Give your health care provider a list of all the medicines, herbs, non-prescription drugs, or dietary supplements you use. Also tell them if you smoke, drink alcohol, or use illegal drugs. Some items may interact with your medicine. What should I watch for while using this medicine? Visit your doctor or health caregiver services home for regular checks on your progress. Check with your health caregiver services home if your symptoms do not improve. If your symptoms get worse or if you need your short-acting inhalers more often, call your doctor right away. Do not stop taking your medicineunless your doctor tells you to. Do not come in contact with people who have the chickenpox or the measles while you are taking thismedicine. If you do, call your doctor right away. Your inhaler has a dose counter and will tell you when only a few doses are left. What side effects may I notice from receiving this medicine? Side effects that you should report to your doctor or health caregiver services home as soon as possible: ??? allergic reactions like skin rash, itching or hives, swelling of the face, lips, or tongue ??? breathing problems ??? changes in vision ??? flu-like symptoms ??? unusual swelling ??? white patches or sores in the mouth or throat Side effects that usually do not require medical attention (report to your doctor or health caregiver services home if they continue or are bothersome): ??? coughing, hoarseness, or throat irritation ??? dry mouth ??? headache ??? flushing ??? loss of taste, or unpleasant taste This list may not describe all possible side effects. Call your doctor for medical advice about side effects. You may report side effects to FDA at 4-978-ITG-9323. Where should I keep my medicine? Keep out of the reach of children. Store at room temperature between 20 and 25 degrees C (68 and 77 degrees F). Keep dry. Protect fromheat and direct sunlight. Discard 6 weeks after removal from the foil pouch or after all of the blisters have been used (when the dose indicator reads 0), whichever comes first. NOTE:This sheet is a summary. It may not cover all possible information. If you have questions about this medicine, talk to your doctor, pharmacist, or health care provider. Copyright?? 2013 Gold Standard Patient Care team information Care Team Personnel Name: Jordon Holt MD Position: S Primary Care Physician Member Role: PCP Address: Address: [address] [place] [address] [place] [address]- Care Team Related Persons Name: JEROME DE SANTIAGO Address: home [address] [place] [address]
--- OUTSIDE RECORDS SUMMARY | 2022-08-21 13:25 | XMS_ITS | Continuity of Care Document ---
Author Name Unknown Organization [facility] Daryl lt Address [address] [place] [address]- Care Team Providers Care Tangled Yarn Spool Straightener Name Role Phone Yanet INFANTE, Jordon Wei Primary Care Physician [place] [facility] Date(s): 12/13/21 - 01/12/22 [facility] Adult [address] [place] [address]- Allergies, Adverse Reactions, Alerts No Known Medication Allergies Medications Albuterol (Eqv-ProAir HFA) 90 mcg/inh inhalation aerosol 2 puffs, Inhalation, Every 4 hours, # 18 Gm, 11 Refills, 11/14/21 14:58:00 EDT, [facility], 2 puffs Inhalation Every 4 hours, 166, cm, 03/16/21 9:47:00 EST, Height Start Date: 11/14/21 Status: Ordered atorvastatin 80 mg oral tablet 1 tablet = 80 mg, By Mouth, Daily, # 90 tablet, 1 Refills, Maintenance, 03/16/21 10:15:00 EST, Tablet, [facility], Partial fill upon patient request if the prescription is for a schedule II opioid drug., 166, cm, 03/16/21 9:47:00 EST, Height Start Date: 03/16/21 Status: Ordered bumetanide 2 mg oral tablet 1 tablet = 2 mg, By Mouth, Daily, # 90 tablet, 1 Refills, Maintenance, 03/16/21 10:15:00 EST, Tablet, [facility], Partial fill upon [...] 03/16/21 10:15:00 EST, Route to Pharmacy Electronically, [facility], 166, cm, 03/16/21 9:47:00 EST,Height Start Date: 03/16/21 Status: Ordered metoprolol 25 mg oral tablet 12.5 mg, 0.5, tablet, By Mouth, 2 times a day, # 90 tablet, Refills 1, Tot. Refills 1, Maintenance,11/12/21 10:47:00 EDT, Route to Pharmacy Electronically, [facility], 166, cm, 03/16/21 9:47:00 EST, Height Start Date: 11/12/21 Status: Ordered Therapeutic Multiple Vitamins oral capsule 1 capsule, By Mouth, Daily, # 90 capsule, 1 Refills, Maintenance, 03/16/21 10:15:00 EST, Capsule, [facility], 1 capsule By [...] Sex Patient Care team information Personnel Name: Jordon Holt MD Address: Address: [address] [place], [place] [address], [place] [address]-
--- OUTSIDE RECORDS SUMMARY | 2022-08-21 13:25 | XMS_ITS | Continuity of Care Document ---
Author Name Unknown Organization [facility] Isiah Daryl lt Address [address] [place] [address]- Care Team Providers Care Harness Puller Name Role Phone Jordon Holt MD Primary Care Physician [phone] Encounter [facility] [place] Date(s): 03/15/22 - 04/14/22 [facility] Adult [address] [place] [address]- Attending Physician: Admtr, Ar8 Admitting Physician: Admtr, Ar8 Referring Physician: Admtr, Ar8 Allergies, Adverse Reactions, Alerts No Known Medication Allergies Medications Albuterol (Eqv-ProAir HFA) 90 mcg/inh inhalation aerosol 2 puffs, Inhalation, Every 4 hours, # 18 Gm, 11 Refills, 02/12/22 11:03:00 EST, [facility], 2 puffs Inhalation Every 4 hours, 166, cm, 02/12/22 10:23:00 EST, Height Start Date: 02/12/22 Status: Ordered atorvastatin 80 mg oral tablet 1 tablet = 80 mg, By Mouth, Daily, # 90 tablet, 1 Refills, Maintenance, 02/12/22 11:03:00 EST, Tablet, [facility], Partial fill upon patient request if the prescription is for a schedule II opioid drug., 166, cm, 02/12/22 10:23:00 EST, Height Start Date: 02/12/22 Status: Ordered bumetanide 2 mg oral tablet 1 tablet = 2 mg, By Mouth, Daily, # 90 tablet, 1 Refills, Maintenance, 02/12/22 11:03:00 EST, [facility]t, [facility], Partial fill upon patient request [...] 02/12/22 11:03:00 EST, Route to Pharmacy Electronically, [facility], 166, cm, 02/12/22 10:23:00 EST, Height Start Date: 02/12/22 Status: Ordered Flovent HFA 110 mcg/inh inhalation aerosol 2 puffs, Inhalation, 2 times a day, rinse mouth and throat after use, # 12 Gm, 6 Refills, Maintenance, 02/12/22 11:03:00 EST, Aerosol, [facility], Partial fill upon patient request if the prescription is for a schedule II opioid drug., 166,... Start Date: 02/12/22 Status: Ordered metoprolol 25 mg oral tablet 12.5 mg, 0.5, tablet, By Mouth, 2 times a day, # 90 tablet, Refills 1, Tot. Refills 1, Maintenance,02/12/22 11:03:00 EST, Route to Pharmacy Electronically, [facility], 166, cm, 02/12/22 10:23:00 EST, Height Start Date: 02/12/22 Status: Ordered Therapeutic Multiple Vitamins oral capsule 1 capsule, By Mouth, Daily, # 90 capsule, 1 Refills, Maintenance, 02/12/22 11:03:00 EST, Capsule, [facility] [...] ago entered on: 03/16/21 Sex Note * Event Display: Non Lab Results Authored Date: Patient Care team information Care Team Personnel Name: Yanet INFANTE, Jordon Wei Position: [facility] Primary Care Physician Member Role: PCP Address: Address: [address] [place] [address]- Care Team Related Persons Name: JEROME DE SANTIAGO Address: home [address] [place] [address]
--- OUTSIDE RECORDS SUMMARY | 2022-08-21 13:25 | XMS_ITS | Continuity of Care Document ---
Author Name Unknown Organization [facility] Sina Joyce Daryl lt Address [address] [place] [address]- Care Team Providers Care Bulb Grower Name Role Phone Jordon Holt MD Primary Care Physician [phone] Encounter [facility] [place] Date(s): 05/01/22 - 05/31/22 [facility] Adult [address] [place] [address]- Allergies, Adverse Reactions, Alerts No Known Medication Allergies Medications Albuterol (Eqv-ProAir HFA) 90 mcg/inh inhalation aerosol 2 puffs, Inhalation, Every 4 hours, # 18 Gm, 11 Refills, 02/12/22 11:03:00 EST, [facility], 2 puffs Inhalation Every 4 hours, 166, cm, 02/12/22 10:23:00 EST, Height Start Date: 02/12/22 Status: Ordered atorvastatin 80 mg oral tablet 1 tablet = 80 mg, By Mouth, Daily, # 90 tablet, 1 Refills, Maintenance, 02/12/22 11:03:00 EST, Tablet, [facility], Partial fill upon patient request if the prescription is for a schedule II opioid drug., 166, cm, 02/12/22 10:23:00 EST, Height Start Date: 02/12/22 Status: Ordered bumetanide 2 mg oral tablet 1 tablet = 2 mg, By Mouth, Daily, # 90 tablet, 1 Refills, Maintenance, 02/12/22 11:03:00 EST, Tablet, [facility], Partial fill upon patient request [...] EDT, Supply Start Date: 10/04/19 Status: Ordered diclofenac 1% topical gel = 4 Gm, Topically, 4 times a day, as needed for joint pain, # 100 Gm, 0 Refills, Maintenance, 05/24/22 16:54:00 EST, Gel, [facility], Partial fill upon patient request if the prescription is for a schedule II opioid drug., 166, cm, 04/26/22... Start Date: 05/24/22 Status: Ordered ferrous sulfate 325 mg oral [...] 1 Refills, Maintenance, 02/12/22 11:03:00 EST, Capsule, [facility], 1 capsule By Mouth Daily, [...] Team Personnel Name: Jordon Holt MD Position: [facility] Primary Care Physician Member Role: PCP Address: Address: [address] [place] [address]- Care Team Related Persons Name: JEROME DE SANTIAGO Address: home [address] [place] [address]
--- OUTSIDE RECORDS SUMMARY | 2022-08-21 13:25 | XMS_ITS | Continuity of Care Document ---
Author Name Unknown Organization [facility] Sina Joyce Daryl lt Address [address] [place] [address]- Care Team Providers Care Script Manager Name Role Phone Jordon Holt MD Primary Care Physician Encounter [facility] [place] Date(s): 03/21/20 - 04/20/20 [facility] Adult [address] [place] [address]- Allergies, Adverse Reactions, Alerts No Known Medication Allergies Medications albuterol (OP) 0 Refills, Maintenance, 2 Start Date: 10/04/19 Status: Ordered bumetanide 2 mg oral tablet 1 tablet = 2 mg, By Mouth, Daily, # 30 tablet, 1 Refills, Maintenance, 03/21/20 13:03:00 EST, Tablet, [facility], Partial fill upon [...] 15:39:00 EDT, Route to Pharmacy Electronically, [facility] Start Date: 10/04/19 Status: Ordered metoprolol 25 mg oral tablet 12.5 mg, 0.5, tablet, By Mouth, 2 times a day, # 30 tablet, Refills 6, Tot. Refills 6, Maintenance,10/04/19 15:38:00 EDT, Route to Pharmacy Electronically, [facility] Start Date: 10/04/19 Status: Ordered Therapeutic Multiple Vitamins oral capsule 1 capsule, By Mouth, Daily, # 90 capsule, 1 Refills, Maintenance, 12/03/19 13:55:00 EDT, Capsule, [facility], 1 capsule By [...]
--- OUTSIDE RECORDS SUMMARY | 2022-08-21 13:25 | XMS_ITS | Continuity of Care Document ---
Author Name Unknown Organization [facility] ter Address [address] [place] [id number]- Care Team Providers Care Glass Installer Name Role Phone Jordon Holt MD Primary Care Physician [place] [facility] [place] - 08/02/[address] [address] Discharge Disposition: A-D/C Home Attending Physician: Wilian Levin MD Admitting Physician: Wilian Levin MD Referring Physician: Wilian Levin MD Allergies, Adverse Reactions, Alerts No Known Medication Allergies Substance Reaction Severity Status Adhesive Bandage Rash Active Medications Albuterol (Eqv-ProAir HFA) 90 mcg/inh inhalation aerosol 2 puffs, Inhalation, Every 4 hours, # 18 Gm, 11 Refills, 02/12/22 11:03:00 EST, [facility], 2 puffs Inhalation Every 4 hours, 166, cm, 02/12/22 10:23:00 EST, Height Start Date: 02/12/22 Status: Ordered atorvastatin 80 mg oral tablet 1 tablet = 80 mg, By Mouth, Daily, # 90 tablet, 1 Refills, Maintenance, 02/12/22 11:03:00 EST, Tablet, [facility], Partial fill upon patient request if the prescription is for a schedule II opioid drug., 166, cm, 02/12/22 10:23:00 EST, Height Start Date: 02/12/22 Status: Ordered bumetanide 2 mg oral tablet 1 tablet = 2 mg, By Mouth, Daily, # 90 tablet, 1 Refills, Maintenance, 02/12/22 11:03:00 EST, Tablet, [facility], Partial fill upon patient request [...] 0 Refills, Maintenance, 06/25/22 10:18:00 EDT, Gel, [facility], Partial fill upon patient request if the prescription is for a schedule II opioid drug., 166, cm, 04/26/22... Start Date: 06/25/22 Status: Ordered ferrous sulfate 325 mg oral enteric coated tablet 325 mg, 1, tablet, By Mouth, Daily, # 90 tablet, Refills 1, Tot. Refills 1, Maintenance, 02/12/22 11:03:00 EST, Route to Pharmacy Electronically, [facility], 166, cm, 02/12/22 10:23:00 EST, Height Start Date: 02/12/22 Status: Ordered Flovent HFA 110 mcg/inh inhalation aerosol 2 puffs, Inhalation, 2 times a day, rinse mouth and throat after use, # 12 Gm, 6 Refills, Maintenance, 02/12/22 11:03:00 EST, Aerosol, [facility], Partial fill upon patient [...] Maintenance,02/12/22 11:03:00 EST, Route to Pharmacy Electronically, [facility], 166, cm, 02/12/22 10:23:00 [...] oldest [Reference Range]: 1 2 3 Height 176 cm (08/02/22 2:13 PM) 176 cm (08/01/22 10:02 AM) Weight 93.1 kg (08/02/22 2:13 PM) 93 kg (08/01/22 10:02 AM) Oxygen Saturation [94-100 %] 94 % (08/02/22 6:15 PM) 92 % *L* (08/02/22 4:25 PM) 98 % (08/02/22 4:20 PM) Pulse Rate [55-90 bpm] 68 bpm (08/02/22 2:13 PM) Body Mass Index [18.5-24.99 kg/m2] 30.06 kg/m2 *>HHI* (08/02/22 2:13 PM) 30.02 kg/m2 *>HHI* (08/01/22 10:02 AM) Blood Pressure [90-138/55-84 mm Hg] 157/77mm Hg *H* (08/02/22 6:15 PM) 103/64mm Hg (08/02/22 4:25 PM) 155/89mm Hg *H* (08/02/22 4:20 PM) Respiratory Rate [16-30 br/min] 16 br/min (08/02/22 6:15 PM) 22 br/min (08/02/22 4:25 PM) 14 br/min *L* (08/02/22 4:20 PM) Temperature [96.8-100.4 DegF] 98.4 DegF (08/02/22 6:15 PM) 98.9 DegF (08/02/22 2:13 PM) Liters per Minute 2 L/min (08/02/22 4:25 PM) 2 L/min (08/02/22 4:20 PM) Mode of Delivery (Oxygen) Room air (08/02/22 6:15 PM) Nasal cannula (08/02/22 4:25 PM) Nasal cannula (08/02/22 4:20 PM) Blood pressure sites Arm, left (08/02/22 6:15 PM) Arm, right (08/02/22 2:13 PM) Temperature Route Temporal (08/02/22 6:15 PM) Temporal (08/02/22 2:13 PM) Dry Weight 93.1 kg (08/02/22 2:13 PM) 93 kg (08/01/22 10:02 AM) Weight Obtained Via Standing scale (08/02/22 2:13 PM) Patient/family stated (08/01/22 10:02 AM) Dry Weight Obtained Via Standing scale (08/02/22 2:13 PM) Patient/family stated (08/01/22 10:02 AM) Social History Social History Type Response [...] Implantable Status Assigning Authority Unknown [id number] Unknown Unknown 08/12/22 Unknown Unknown Active Unknown Note * Arelis Bergman RN: PERFORM Event Display: Discharge/Transfer Note Hospital Authored Date: [id number] Nursing Discharge Note Entered On: 08/02/2022 18:57 EDT Performed On: 08/02/2022 18:56 EDT by Arelis Bergman RN Nursing Discharge Note 2 Discharge Time : 08/02/2022 18:48 EDT Discharge Level of Care at Discharge : Home/Nursing Home/Foster Care Patient Left Unit Via : Wheelchair Patient Accompanied Off Unit with : Responsible adult DC Instructions Provided & Signed by Pt : Yes Patient Understands D/C Instructions : Yes Patient Instructions Discharge Signed : Yes Did Pt have Specialty Bed or Wound Vac : No Arelis Bergman RN - 08/02/2022 18:56 EDT * Arelis Bergman RN: PERFORM Event Display: Patient Education/Instruction Authored Date: [id number] Surgery Adult Discharge Instructions [place] [id number] Name: KIARA DE SANTIAGO : 1945?? Visit: 08/02/2022 13:36?? Current Date: 08/02/2022 18:44 ?? Account: [id number]?? Surgery Discharge Instructions We would like to thank you for allowing us to assist you with your healthcare needs. The following includes patient education materials and information regarding your injury/illness. Our entire staffstrives to provide an excellent experience for our patients and their families. PLEASE ENSURE YOU FOLLOW-UP PER THE INSTRUCTIONS BELOW! ?? YOUR OPINION IS IMPORTANT TO US! Please complete the survey you may receive by mail or email. Your feedback will be used to make improvements to the healthcare experiences of our patients and their families. Surveys are administered by [employer] ?? If further treatment with your primary care physician or another doctor is recommended, it is important for you to keep the appointment. Call your primary care physician or return to the Emergency Department immediately if your condition worsens, fails to improve, or new symptoms develop. If you need to find a doctor, you can call [facility] [employer] for a referral at [phone] or toll free at [phone] or log in to [email or web address]... ?? You can view and manage your care through the patient portal or by using a health care trudy of your choosing. [employer] is a website that allows you to securely view your medical information including your hospital discharge summary, office visit summaries, medications and follow-up visits. You can also request appointments, renew medications, and request access to your medical information using a health care trudy of your choosing, or just ask a question. You are entitled to know the individuals who participated in your treatment. This information is available within your medical record and will be provided upon your request. You can enroll at [email or web address] or register d uring your next office visit. You have been discharged from [facility], Patient Care Unit: [facility]??. If you have any questions regarding these instructions after you leave, please call us and we will be happy to assist you. [facility] Your Care Team Attending Physician Wilian Levin MD?? Reason for Admission [facility] Primary Care Provider Jordon Holt MD? Advance Directive Health Care Proxy on File Yes - Health Care Proxy What to do next Instructions From Your Doctor ?? Orders?? Instructions from your Care Team FOLLOW POSTOP INSTRUCTIONS Scheduled Follow-Up Appointments Friday. 2022 9:50 AM EDT ?? With: Faith Gipson NP Where: [facility] [address] [place] [address]- You Need to Schedule the Following Appointments Follow Up with??Wilian Levin When??Within 24 hours Where: [address] [place] [address] [place] [address]- [facility] (1) Follow Up with??Jordon Holt When??In 0 days Discharge Medications KIARA DE SANTIAGO :1945 Visit Date:08/02/2022 Medications: Please continue your medications until treatment is completed or stopped by your provider. You may resume your daily prescription medications. Discuss any questions related to medications with your provider. What How Much When Why Instructions Next Dose Changed Acetaminophen (Tylenol 325 mg oral tablet) 2 tab(s) Oral Every 6 hours as needed for for pain Unchanged Albuterol (Albuterol (Eqv-ProAir HFA) 90 mcg/ inh inhalation aerosol) 2 puff(s) Inhalation Every 4 hours Unchanged Ascorbic Acid (Vitamin C 500 mg oral tablet) 1 tab(s) Oral Daily Unchanged Atorvastatin (atorvastatin 80 mg oral tablet) 1 tab(s) Oral Daily Unchanged Bumetanide (bumetanide 2 mg oral tablet) 1 tab(s) Oral Daily Unchanged Dexamethasone / Tobramycin Ophthalmic (dexamethasone-tobramycin 0.1%- 0.3% ophthalmic suspension) 1 Drops Both eyes Every 4 hours Unchanged Diclofenac Topical (diclofenac 1% topical gel) 4 gram Topically 4 times a day Pain involving joints of fingers of both hands as needed for joint pain ?? Unchanged Durable Medical Equipment (Cane) See instructions dx: unsteady gait ICD 10 R26.81 use as directed length of need: Lifetime ?? Unchanged Durable Medical Equipment (Compression Stockings) See instructions surgical, knee length 20-30 mm Hg DX edema Icd 10 code R60.0 weight:179lbs ?? Unchanged Durable Medical Equipment (fortified tobramycin eye drops) See instructions 1 drop every 12hours on LT eye ?? Unchanged Ferrous Sulfate (ferrous sulfate 325 mg oral enteric coated tablet) 1 tab(s) Oral Daily Unchanged Fluticasone (Flovent HFA 110 mcg/ inh inhalation aerosol) 2 puff(s) Inhalation Twice a day rinse mouth and throat after use ?? Unchanged Metoprolol (metoprolol 25 mg oral tablet) 0.5 tab(s) Oral Twice a day Unchanged Vancomycin See Instructions 1 drop to Left eye 3 times daily ?? Allergies (NKA means No Known Allergies) Adhesive Bandage??(Rash) No Known Medication Allergies Education Materials Below is the list of Educational Leaflet Providered with your Discharge Instructions. Surgery Medical Daystay Surgical Overnight Discharge Instructions?? Valuables and Belongings I fully understand and agree that [facility] accepts no responsibility for all my personal property including clothing, toilet articles, radios, jewelry, dentures, hearing aids, rings, money, or any other property that is in my possession or is brought to me after admission. I understand certain valuables may be placed in a hospital safe for a short period of time. I understand that the hospital is not liable for loss or damage due to accident, fire, or other natural occurrence while said property is in the safe. I accept full responsibility for any personal property that I keep with me, and will not hold the hospital responsible in case of loss or disappearance. I acknowledge that i have been encouraged to send valuables and belongings home. ?? No Valuables/Belongings: No valuables/belongings present Date for Pt to Sign Valuables/Belongings: 08/02/22 14:13:00 ?? Other Discharge Information ? Pulmonary Rehab Status?? Pulmonary Rehab Discharge Status?? Respiratory Rate: 16 br/min ? Common Emergency Awareness Tips IS IT A STROKE? Act FAST and Check for these signs: FACE Does the face look uneven? ARM Does one arm drift down? SPEECH Does their speech sound strange? TIME Call at any sign of stroke ?? Heart Attack Signs Chest discomfort: Most heart attacks involve discomfort in the center of the chest and lasts more than a few minutes, or goes away and comes back. It can feel like uncomfortable pressure, squeezing, fullness or pain. Discomfort in upper body: Symptoms can include pain or discomfort in one or both arms, back, neck, jaw or stomach. Shortness of breath: With or without discomfort. Other signs: Breaking out in a cold sweat, nausea, or lightheaded. Remember, MINUTES DO MATTER. If you experience any of these heart attack warning signs, call to get immediate medical attention! ?? Smoking can increase your chances of developing chronic health problems and can cause harmful effects to other family members in your house. If you smoke, you are strongly encouraged to quit. Please call [facility] [employer] at [phone] or [phone] ([phone] or log in to [email or web address] for referrals to smoking cessation programs. ?? 988 Suicide & Crisis Lifeline is available 21/10 if you or someone you know needs to find a reason to keep living. By calling 013 you'll be connected to a skilled, trained counselor at a crisis center in your area. SURGERY DISCHARGE INSTRUCTIONS SIGNATURE PAGE KIARA DE SANTIAGO Location:[facility] Registration Date and Time:08/02/2022 13:36 EDT Primary Care Physician: Yanet INFANTE, Jordon Wei, I KIARA DE SANTIAGO, have received the above patient education materials/instructions and have verbalized understanding. If ambulance or transport services are being used I further acknowledge being given a choice of service. ?? If you need to contact me, please call me at this number: . Patient/Chief Yeoman Name: Patient/Chief Yeoman Signature: Relationship to Patient: Witness Name/Signature: Date: * Arelis Bergman RN: PERFORM, SIGN, VERIFY Event Display: Patient Education Handout Authored Date: * Arelis Bermgan RN: PERFORM Event Display: Patient Education Leaflets Authored Date: Surgery Medical Daystay Surgical Overnight Discharge Instructions ?? 295 Medical Daystay/Surgical Overnight Discharge Instructions ? Since your coordination and judgment may be altered by medication and/or anesthesia, a responsible adult must drive you home from the hospital. ? If you have received medication for pain or sedation while under our care, you should not drive, operate machinery, drink alcohol, or sign any legal documents for 24 hours.?? You should have someone with you at home tonight. ? Remain at home the day of discharge.?? You may be up and about unless otherwise instructed by your physician. ? You may resume your daily prescription medication schedule.?? Any depressant medication should be avoided for 24 hours unless otherwise instructed by your surgeon or anesthesiologist. ? Call your physician for a follow-up appointment.? If you experience unusual or severe pain not relied by your pain medication, excessive bleedingor drainage, persistent nausea and vomiting, excessive swelling or redness, foul odor from incisionsite or fever over 100.6F, you need to call your physician. ? A follow-up phone call by a nurse will be made the day after your procedure.?? If you have stayed with us over night, you will not be receiving a follow-up phone call. ? Nausea and vomiting are a common side effect of prescription pain medication.?? We recommend that pills are not taken on an empty stomach.?? While taking any prescription pain medication you should not drive or drink alcohol. ? Patient Care team information Care Team Personnel Name: Jordon Holt MD Position: [facility] Primary Care Physician Member Role: PCP Address: Address: [address] [place] [address]- Care Team Related Persons Name: JONNATHAN, JEROME Address: home [address] [place] [address]
--- OUTSIDE RECORDS SUMMARY | 2022-08-21 13:25 | XMS_ITS | Continuity of Care Document ---
Author Name Unknown Organization [facility] Sina Joyce Daryl lt Address [address] [place] [address]- Care Team Providers Care Quality Director Name Role Phone Jordon Holt MD Primary Care Physician Encounter [facility] [place] Date(s): 12/03/19 - 01/02/20 [facility] Adult [address] [place] [address]- [facility] Allergies, Adverse Reactions, Alerts No Known Medication Allergies Medications albuterol (OP) 0 Refills, Maintenance, 2 Start Date: 10/04/19 Status: Ordered bumetanide 2 mg oral tablet 1 tablet = 2 mg, By Mouth, Daily, # 30 tablet, 6 Refills, Maintenance, 10/04/19 15:37:00 EDT, Tablet, [facility] Start Date: 10/04/19 [...] 10/04/19 15:39:00 EDT, Route to Pharmacy Electronically, [facility] Start Date: 10/04/19 Status: Ordered metoprolol 25 mg oral tablet 12.5 mg, 0.5, tablet, By Mouth, 2 times a day, # 30 tablet, Refills 6, Tot. Refills 6, Maintenance,10/04/19 15:38:00 EDT, Route to Pharmacy Electronically, [facility] Start Date: 10/04/19 Status: Ordered Therapeutic Multiple Vitamins oral capsule 1 capsule, By Mouth, Daily, # 90 capsule, 1 Refills, Maintenance, 12/03/19 13:55:00 EDT, Capsule, [facility], [...]
--- OUTSIDE RECORDS SUMMARY | 2022-08-21 13:25 | XMS_ITS | Continuity of Care Document ---
Author Name Unknown Organization [facility] Daryl lt Address [address] [place] [address]- Care Team Providers Care Director Of Plant Operations Name Role Phone Jordon Holt MD Primary Care Physician [phone] Encounter [facility] [place] Date(s): 02/13/22 - 03/15/22 [facility] Adult [address] [place] [address]- Allergies, Adverse Reactions, Alerts No Known Medication Allergies Medications Albuterol (Eqv-ProAir HFA) 90 mcg/inh inhalation aerosol 2 puffs, Inhalation, Every 4 hours, # 18 Gm, 11 Refills, 02/12/22 11:03:00 EST, [facility], 2 puffs Inhalation Every 4 hours, 166, cm, 02/12/22 10:23:00 EST, Height Start Date: 02/12/22 Status: Ordered atorvastatin 80 mg oral tablet 1 tablet = 80 mg, By Mouth, Daily, # 90 tablet, 1 Refills, Maintenance, 02/12/22 11:03:00 EST, Tablet, [facility], Partial fill upon patient request if the prescription is for a schedule II opioid drug., 166, cm, 02/12/22 10:23:00 EST, Height Start Date: 02/12/22 Status: Ordered bumetanide 2 mg oral tablet 1 tablet = 2 mg, By Mouth, Daily, # 90 tablet, 1 Refills, Maintenance, 02/12/22 11:03:00 EST, Tablet, [facility], Partial fill upon [...] 02/12/22 11:03:00 EST, Route to Pharmacy Electronically, [facility], 166, cm, 02/12/22 10:23:00 EST, Height Start Date: 02/12/22 Status: Ordered Flovent HFA 110 mcg/inh inhalation aerosol 2 puffs, Inhalation, 2 times a day, rinse mouth and throat after use, # 12 Gm, 6 Refills, Maintenance, 02/12/22 11:03:00 EST, Aerosol, [facility], Partial fill upon patient request if the prescription is for a schedule II opioid drug., 166,... Start Date: 02/12/22 Status: Ordered metoprolol 25 mg oral tablet 12.5 mg, 0.5, tablet, By Mouth, 2 times a day, # 90 tablet, Refills 1, Tot. Refills 1, Maintenance,02/12/22 11:03:00 EST, Route to Pharmacy Electronically, [facility], 166, cm, 02/12/22 10:23:00 EST, Height Start Date: 02/12/22 Status: Ordered Therapeutic Multiple Vitamins oral capsule 1 capsule, By Mouth, Daily, # 90 capsule, 1 Refills, Maintenance, 02/12/22 11:03:00 EST, Capsule, [facility], 1 capsule By [...] Personnel Name: Yanet INFANTE, Jordon Wei Position: [facility] Primary Care Physician Member Role: PCP Address: Address: [address] [place] [address]- [place] Care Team Related Persons Name: JEROME DE SANTIAGO Address: home [address] [place] [address]
--- OUTSIDE RECORDS SUMMARY | 2022-08-21 13:25 | XMS_ITS | Continuity of Care Document ---
Author Name Unknown Organization [facility] Sina Joyce Daryl lt Address [address] [place] [address]- Care Team Providers Care Radio Broadcaster Name Role Phone Jordon Holt MD Primary Care Physician [place] [facility] [place](s): 10/07/19 - 11/06/19 [facility] Adult [address] [place] [address]- [facility] Allergies, Adverse Reactions, Alerts No Known Medication Allergies Medications albuterol (OP) 0 Refills, Maintenance, 2 Start Date: 10/04/19 Status: Ordered bumetanide 2 mg oral tablet 1 tablet = 2 mg, By Mouth, Daily, # 30 tablet, 6 Refills, Maintenance, 10/04/19 15:37:00 EDT, Tablet, [facility] Start Date: 10/04/19 Status: Ordered [...] 10/04/19 15:39:00 EDT, Route to Pharmacy Electronically, [facility] Start Date: 10/04/19 Status: Ordered metoprolol 25 mg oral tablet 12.5 mg, 0.5, tablet, By Mouth, 2 times a day, # 30 tablet, Refills 6, Tot. Refills 6, Maintenance,10/04/19 15:38:00 EDT, Route to Pharmacy Electronically, [facility] Start Date: 10/04/19 Status: Ordered Problem List Condition Effective Dates Status Health Status Inform ant Anemia(Confirmed) Active COPD (chronic obstructive pu lmonary disease)(Confirmed) Active CHF (congestive heart failure)(Confirmed) Active Deaf(Confirmed) Active HTN (hypertension)(Confirmed) Active Hyponatremia(Confirmed) Active Hepatic steatosis(Confirmed) Active Swelling of lower extremity(Confirmed) Active Tobacco abuse(Confirmed) Active
--- OUTSIDE RECORDS SUMMARY | 2022-08-21 13:26 | XMS_ITS | Continuity of Care Document ---
Author Name Unknown Organization [facility] Daryl lt Address [address] [place] [address]- Care Team Providers Care Forest Products Gatherer Name Role Phone Jordon Holt MD Primary Care Physician Encounter [facility] ACCT R [id number] Date(s): 08/13/22 - 08/20/22 [facility] Adult [address] [place] [address]- Attending Physician: Faith Gipson NP Referring Physician: Jordon Holt MD Allergies, Adverse Reactions, Alerts No Known Medication Allergies Substance Reaction Severity Status Adhesive Bandage Rash Active Medications Albuterol (Eqv-ProAir HFA) 90 mcg/inh inhalation aerosol 2 puffs, Inhalation, Every 4 hours, # 18 Gm, 11 Refills, 08/13/22 10:11:00 EDT, [facility], 2 puffs Inhalation Every 4 hours, 176, cm, 08/13/22 9:41:00 EDT, Height, 93.1, kg, 08/02/22 14:13:00 EDT, Dry Weight Start Date: 08/13/22 Status: Ordered atorvastatin 80 mg oral tablet 1 tablet = 80 mg, By Mouth, Daily, # 90 tablet, 1 Refills, Maintenance, 08/13/22 10:11:00 EDT, Tablet, [facility], Partial fill upon patient request if the prescription is for a schedule II opioid drug., 176, cm, 08/13/22 9:41:00 EDT, Heigh... Start Date: 08/13/22 Status: Ordered bumetanide 2 mg oral tablet 1 tablet = 2 mg, By Mouth, Daily, # 90 tablet, 1 Refills, Maintenance, 08/13/22 10:11:00 EDT, Tablet, [facility], Partial fill upon patient request if the prescription is for a schedule IIopioid drug., 176, cm, 08/13/22 9:41:00 EDT, Height... Start Date: 08/13/22 Status: Ordered Cane See Instructions, # 1 [...] pain, # 100 Gm, 0 Refills, Maintenance, 08/13/22 10:11:00 EDT, Gel, [facility], Partial fill upon patient request if the prescription is for a schedule II opioid drug., 176, cm, 08/13/22... Start Date: 08/13/22 Status: Ordered ferrous sulfate 325 mg oral enteric coated tablet 325 mg, 1, tablet, By Mouth, Daily, # 90 tablet, Refills 1, Tot. Refills 1, Maintenance, 08/13/22 10:11:00 EDT, Route to Pharmacy Electronically, [facility], 176, cm, 08/13/22 9:41:00 EDT,Height, 93.1, kg, 08/02/22 14:13:00 EDT, Dry Weight Start Date: 08/13/22 Status: Ordered Flovent HFA 110 mcg/inh inhalation aerosol 2 puffs, Inhalation, 2 times a day, rinse mouth and throat after use, # 12 Gm, 6 Refills, Maintenance, 08/13/22 10:11:00 EDT, Aerosol, [facility], Partial fill upon patient request if the prescription is for a schedule II opioid drug., 176,... Start Date: 08/13/22 Status: Ordered FLUoxetine 10 mg oral capsule 10 mg, 1, capsule, By Mouth, Daily, # 90 capsule, Refills 1, Tot. Refills 1, Maintenance, 08/13/22 10:14:00 EDT, Route to Pharmacy Electronically, [facility], Partial fill upon patient request if the prescription is for a schedule II opioid... Start Date: 08/13/22 Status: Ordered fortified tobramycin eye drops fortified tobramycin eye drops, See Instructions, Refills 0, Maintenance, 1 drop every 12hours on LT eye, 07/05/22 15:54:00 EDT, Supply Start Date: 07/05/22 Status: Ordered metoprolol 25 mg oral tablet, extended release 25 mg, 1, tablet, By Mouth, Daily, # 90 tablet, Refills 1, Tot. Refills 1, Maintenance, 08/13/22 10:17:00 EDT, Route to Pharmacy Electronically, [facility], Partial fill upon patient request if the prescription is for a schedule II opioid d... Start Date: 08/13/22 Status: Ordered Tylenol 325 mg oral tablet [...] Active CHF (congestive heart failure) Confirmed Active Cornea replaced by transplant Confirmed Active History of corneal ulcer 1 Confirmed Active Deaf Confirmed Active Hyperlipidemia Confirmed Active HTN (hypertension) Confirmed Active Hyponatremia Confirmed Active Depression, major, single episode, mild Confirmed Active Obese class I Confirmed Active Hepatic steatosis Confirmed Active Swelling of lower extremity Confirmed Active History of tobacco abuse Confirmed Active 1L eye Vital Signs Most recent to oldest [Reference Range]: 1 Height 176 cm (08/13/22 9:41 AM) Weight 97.4 kg (08/13/22 9:41 AM) Oxygen Saturation [94-100 %] 93 % *L* (08/13/22 9:41 AM) Pulse Rate [55-90 bpm] 70 bpm (08/13/22 9:41 AM) Body Mass Index [18.5-24.99 kg/m2] 31.44 kg/m2 *>HHI* (08/13/22 9:41 AM) Blood Pressure [90-138/55-84 mm Hg] 104/ 68mm Hg (08/13/22 9:41 AM) Respiratory Rate [16-30 br/min] 20 br/mi n (08/13/22 9:41 AM) Temperature [96.8-100.4 DegF] 97.4 DegF (08/13/22 9:41 AM) Mode of Delivery (Oxygen) Room air (08/13/22 9:41 AM) Blood pressure sites Arm, right (08/13/22 9:41 AM) Temperature Route Oral (08/13/22 9:41 AM) Weight Obtained Via Standing scale (08/13/22 9:41 AM) Social History Social History Type Response [...] Implantable Status Assigning Authority Unknown [id number] Unknown Unknown 08/12/22 Unknown Unknown Active Unknown Patient Care team information Care Team Personnel Name: Jordon Holt MD Position: S Primary Care Physician Member Role: PCP Address: Address: [address] [place] [id number]- [place] Care Team Related Persons Name: JEROME DE SANTIAGO Address: home [address] [place] [address]
--- OUTSIDE RECORDS SUMMARY | 2022-08-21 13:26 | XMS_ITS | Continuity of Care Document ---
Author Name Unknown Organization [facility] Sina Joyce Daryl lt Address [address] [place] [address]- Care Team Providers Care Cemetery Warden Name Role Phone Jordon Holt MD Primary Care Physician Encounter [facility] Date(s): 10/22/19 - 11/21/19 [facility] Adult [address] [place] [address]- [facility] Allergies, Adverse Reactions, Alerts No Known Medication Allergies Medications albuterol (OP) 0 Refills, Maintenance, 2 Start Date: 10/04/19 Status: Ordered bumetanide 2 mg oral tablet 1 tablet = 2 mg, By Mouth, Daily, # 30 tablet, 6 Refills, Maintenance, 10/04/19 15:37:00 EDT, Tablet, [facility] Start Date: 10/04/19 Status: Ordered [...] 10/04/19 15:39:00 EDT, Route to Pharmacy Electronically, [facility] Start Date: 10/04/19 Status: Ordered metoprolol 25 mg oral tablet 12.5 mg, 0.5, tablet, By Mouth, 2 times a day, # 30 tablet, Refills 6, Tot. Refills 6, Maintenance,10/04/19 15:38:00 EDT, Route to Pharmacy Electronically, [facility] Start Date: 10/04/19 Status: Ordered Problem List Condition Effective Dates Status Health Status Inform ant Anemia(Confirmed) Active COPD (chronic obstructive pu lmonary disease)(Confirmed) Active CHF (congestive heart failure)(Confirmed) Active Deaf(Confirmed) Active HTN (hypertension)(Confirmed) Active Hyponatremia(Confirmed) Active Hepatic steatosis(Confirmed) Active Swelling of lower extremity(Confirmed) Active Tobacco abuse(Confirmed) Active
--- OUTSIDE RECORDS SUMMARY | 2022-08-21 13:26 | XMS_ITS | Continuity of Care Document ---
Author Name [facility] Daryl lt Address [address] [place] [address]- Care Team Providers Care Biogeographer Name Role Phone Yanet INFANTE, Jordon Wei Primary Care Physician Encounter [facility] Date(s): 01/03/21 - 02/02/21 [facility] Adult [address] [place] [address]- Allergies, Adverse Reactions, Alerts No Known Medication Allergies Medications albuterol 90 mcg/inh inhalation powder 2 puffs, By Mouth, Every 6 hours, # 1 each, 0 Refills, Maintenance, 01/04/21 13:45:00 EDT, Pow[facility], [facility], Partial fill upon patient request if the prescription is for a schedule II opioid drug., 2 puffs By Mouth Every 6 hours, 166, cm,... Start Date: 01/04/21 Status: Ordered atorvastatin 80 mg oral tablet 1 tablet = 80 mg, By Mouth, Daily, # 90 tablet, 1 Refills, Maintenance, 11/30/20 16:54:00 EDT, Tablet, [facility], Partial fill upon patient request if the prescription is for a schedule II opioid drug., 166, cm, 11/30/20 15:20:00 EDT, Height Start Date: 11/30/20 Status: Ordered bumetanide 2 mg oral tablet 1 tablet = 2 mg, By Mouth, Daily, # 90 tablet, 1 Refills, Maintenance, 10/20/20 10:19:00 EDT, Tablet, [facility], Partial fill upon patient request [...] 10/20/20 10:19:00 EDT, Route to Pharmacy Electronically, [facility], 166, cm, 04/25/20 13:35:00 EST, Height Start Date: 10/20/20 Status: Ordered metoprolol 25 mg oral tablet 12.5 mg, 0.5, tablet, By Mouth, 2 times a day, # 90 tablet, Refills 1, Tot. Refills 1, Maintenance,11/21/20 11:11:00 EDT, Route to Pharmacy Electronically, [facility], 166, cm, 11/21/20 10:54:00 EDT, Height Start Date: 11/21/20 Status: Ordered [place]-3 oral capsule See Instructions, TAKE ONE CAPSULE BY MOUTH DAILY, # 30 capsule, 0 Refills, Maintenance, 01/04/21 13:45:00 EDT, [facility], Partial fill upon patient request if the prescription is for a schedule II opioid drug., TAKE ONE CAPSULE BY MOUTH D... Start Date: 01/04/21 Status: Ordered Therapeutic Multiple Vitamins oral capsule 1 capsule, By Mouth, Daily, # 90 capsule, 1 Refills, Maintenance, 04/25/20 14:17:00 EST, Capsule, [facility], 1 capsule By Mouth Daily, [...]
--- OUTSIDE RECORDS SUMMARY | 2022-08-21 13:26 | XMS_ITS | Continuity of Care Document ---
Author Name Unknown Organization [facility] Daryl lt Address [address] [place] [address]- Care Team Providers Care Campaign Developer Name Role Phone Yanet INFANTE, Jordon Wei Primary Care Physician [facility] Date(s): 06/25/22 - 07/26/22 [facility] Adult [address] [place] [address]- Attending Physician: Shanique Fletcher NP Allergies, Adverse Reactions, Alerts No Known Medication Allergies Medications Albuterol (Eqv-ProAir HFA) 90 mcg/inh inhalation aerosol 2 puffs, Inhalation, Every 4 hours, # 18 Gm, 11 Refills, 02/12/22 11:03:00 EST, [facility], 2 puffs Inhalation Every 4 hours, 166, cm, 02/12/22 10:23:00 EST, Height Start Date: 02/12/22 Status: Ordered atorvastatin 80 mg oral tablet 1 tablet = 80 mg, By Mouth, Daily, # 90 tablet, 1 Refills, Maintenance, 02/12/22 11:03:00 EST, Tablet, [facility], Partial fill upon patient request if the prescription is for a schedule II opioid drug., 166, cm, 02/12/22 10:23:00 EST, Height Start Date: 02/12/22 Status: Ordered bumetanide 2 mg oral tablet 1 tablet = 2 mg, By Mouth, Daily, # 90 tablet, 1 Refills, Maintenance, 02/12/22 11:03:00 EST, Tablet, [facility], Partial fill upon patient request [...] 0 Refills, Maintenance, 06/26/22 2:06:00 EDT, Suspension, [facility] #[id number], Partial fill upon patient request if the prescription i... Start Date: 06/26/22 Stop Date: 06/28/22 Status: Ordered diclofenac 1% topical gel = 4 Gm, Topically, 4 times a day, as needed for joint pain, # 100 Gm, 0 Refills, Maintenance, 06/25/22 10:18:00 EDT, Gel, [facility], Partial fill upon patient request if the [...] 02/12/22 11:03:00 EST, Route to Pharmacy Electronically, [facility], 166, cm, 02/12/22 10:23:00 EST, Height Start Date: 02/12/22 Status: Ordered Flovent HFA 110 mcg/inh inhalation aerosol 2 puffs, Inhalation, 2 times a day, rinse mouth and throat after use, # 12 Gm, 6 Refills, Maintenance, 02/12/22 11:03:00 EST, Aerosol, [facility], Partial fill upon patient [...] Maintenance,02/12/22 11:03:00 EST, Route to Pharmacy Electronically, [facility], 166, cm, 02/12/22 10:23:00 EST, Height Start Date: 02/12/22 Status: Ordered moxifloxacin 0.5% ophthalmic solution See Instructions, 1 drop in the left eye every 15 minutes for the first two hours, then every hour while awake, # 3 mL, 0 Refills, Maintenance, 06/26/22 2:07:00 EDT, Solution, [facility]/pharmacy #[id number], Partial fill upon patient request if the prescription i... Start Date: 06/26/22 Status: Ordered Therapeutic Multiple Vitamins oral capsule 1 capsule, By Mouth, Daily, # 90 capsule, 1 Refills, Maintenance, 02/12/22 11:03:00 EST, Capsule, [facility], 1 capsule By Mouth [...] Personnel Name: Yanet INFANTE, Jordon Wei Position: [facility] Primary Care Physician Member Role: PCP Address: Address: [address] [place] [address]- Care Team Related Persons Name: JEROME DE SANTIAGO Address: home [address] [place] [address]
--- OUTSIDE RECORDS SUMMARY | 2022-08-21 13:26 | XMS_ITS | Continuity of Care Document ---
Author Name Unknown Organization [facility] Sina Joyce Daryl lt Address [address] [place] [address]- Care Team Providers Care Lockstitch Pocket Setter Name Role Phone Jordon Holt MD Primary Care Physician Encounter [facility] Date(s): 05/24/22 - 06/23/22 [facility] Adult [address] [place] [address]- Encounter Diagnosis Pain involving joints of fingers of both hands(Discharge Diagnosis) - 05/24/22 Allergies, Adverse Reactions, Alerts No Known Medication Allergies Medications Albuterol (Eqv-ProAir HFA) 90 mcg/inh inhalation aerosol 2 puffs, Inhalation, Every 4 hours, # 18 Gm, 11 Refills, 02/12/22 11:03:00 EST, [facility], 2 puffs Inhalation Every 4 hours, 166, cm, 02/12/22 10:23:00 EST, Height Start Date: 02/12/22 Status: Ordered atorvastatin 80 mg oral tablet 1 tablet = 80 mg, By Mouth, Daily, # 90 tablet, 1 Refills, Maintenance, 02/12/22 11:03:00 EST, Tablet, [facility], Partial fill upon patient request if the prescription is for a schedule II opioid drug., 166, cm, 02/12/22 10:23:00 EST, Height Start Date: 02/12/22 Status: Ordered bumetanide 2 mg oral tablet 1 tablet = 2 mg, By Mouth, Daily, # 90 tablet, 1 Refills, Maintenance, 02/12/22 11:03:00 EST, Tablet, [facility], Partial fill [...] 0 Refills, Maintenance, 05/24/22 16:54:00 EST, Gel, [facility], Partial fill upon patient request if the prescription is for a schedule II opioid drug., 166, cm, 04/26/22... Start Date: 05/24/22 Status: Ordered ferrous sulfate 325 mg oral enteric coated tablet 325 mg, 1, tablet, By Mouth, Daily, # 90 tablet, Refills 1, Tot. Refills 1, Maintenance, 02/12/22 11:03:00 EST, Route to Pharmacy Electronically, [facility], 166, cm, 02/12/22 10:23:00 EST, Height Start Date: 02/12/22 Status: Ordered Flovent HFA 110 mcg/inh inhalation aerosol 2 puffs, Inhalation, 2 times a day, rinse mouth and throat after use, # 12 Gm, 6 Refills, Maintenance, 02/12/22 11:03:00 EST, Aerosol, [facility], Partial fill upon patient request if the prescription is for a schedule II opioid drug., 166,... Start Date: 02/12/22 Status: Ordered metoprolol 25 mg oral tablet 12.5 mg, 0.5, tablet, By Mouth, 2 times a day, # 90 tablet, Refills 1, Tot. Refills 1, Maintenance,02/12/22 11:03:00 EST, Route to Pharmacy Electronically, [facility], 166, cm, 02/12/22 [...] of fingers of both hands Discharge Diagnosis 05/24/22 Non-Specified Social History Social History Type Response Smoking Status Former smoker, quit more than 30 days ago entered on: 03/16/21 Sex Patient Care team information Care Team Personnel Name: Yanet INFANTE, Jordon Wei Position: [facility] Primary Care Physician Member Role: PCP Address: Address: [address] [place] [address]- Care Team Related Persons Name: JONNATHANJEROME JENSEN Address: home [address] [place] [address]
--- OUTSIDE RECORDS SUMMARY | 2022-08-21 13:26 | XMS_ITS | Continuity of Care Document ---
Author Name [facility] D[facility] Address [address] [place] [address]- Care Team Providers Care Huller Operator Name Role Phone Yanet INFANTE, Jordon Wei Primary Care Physician En[place] [facility] Date(s): 12/13/21 - 12/20/21 [facility] Adult [address] [place] [address]- Encounter Diagnosis NOONAN (dyspnea on exertion)(Discharge Diagnosis) - 12/13/21 Orthopnea(Discharge Diagnosis) - 12/13/21 CHF (congestive heart failure)(Discharge Diagnosis) - 12/13/21 HTN (hypertension)(Discharge Diagnosis) - 12/13/21 Attending Physician: Leonela BRID, Faith Pedraza Allergies, Adverse Reactions, Alerts No Known Medication Allergies Medications Albuterol (Eqv-ProAir HFA) 90 mcg/inh inhalation aerosol 2 puffs, Inhalation, Every 4 hours, # 18 Gm, 11 Refills, 11/14/21 14:58:00 EDT, [facility], 2 puffs Inhalation Every 4 hours, 166, cm, 03/16/21 9:47:00 EST, Height Start Date: 11/14/21 Status: Ordered atorvastatin 80 mg oral tablet 1 tablet = 80 mg, By Mouth, Daily, # 90 tablet, 1 Refills, Maintenance, 03/16/21 10:15:00 EST, Tablet, [facility], Partial fill upon patient request if the prescription is for a schedule II opioid drug., 166, cm, 03/16/21 9:47:00 EST, Height Start Date: 03/16/21 Status: Ordered bumetanide 2 mg oral tablet 1 tablet = 2 mg, By Mouth, Daily, # 90 tablet, 1 Refills, Maintenance, 03/16/21 10:15:00 EST, Tablet, [facility], Partial fill [...] 03/16/21 10:15:00 EST, Route to Pharmacy Electronically, [facility], 166, cm, 03/16/21 9:47:00 EST,Height Start Date: 03/16/21 Status: Ordered metoprolol 25 mg oral tablet 12.5 mg, 0.5, tablet, By Mouth, 2 times a day, # 90 tablet, Refills 1, Tot. Refills 1, Maintenance,11/12/21 10:47:00 EDT, Route to Pharmacy Electronically, [facility], 166, cm, 03/16/21 9:47:00 EST, Height Start Date: 11/12/21 Status: Ordered Therapeutic Multiple Vitamins oral capsule 1 capsule, By Mouth, Daily, # 90 capsule, 1 Refills, Maintenance, 03/16/21 10:15:00 EST, Capsule, [facility], 1 capsule By Mouth [...] extremity(Confirmed) Active History of tobacco abuse(Confirmed) Active Diagnosis Diagnosis Type Effective Dates Health Status Cl inical Service Informant NOONAN (dyspnea on exertion) Discharge Diagnosis 12/13/21 Orthopnea Discharge Diagnosis 12/13/21 CHF (congestive heart failure) Discharge Diagnosis 12/13/21 HTN (hypertension) Discharge Diagnosis 12/13/21 Vital Signs Most recent to oldest [Reference Range]: 1 Height 166 cm (12/13/21 1:55 PM) Weight 86.3 kg (12/13/21 1:55 PM) Body Mass Index [18.5-24.99] 31.32 *>HHI* (12/13/21 1:55 PM) Blood Pressure [90-138/55-84 mm Hg] 164/ 81mm Hg *H* (12/13/21 1:55 PM) Blood pressure sites Arm, left (12/13/21 1:55 PM) Weight Obtained Via Patient/family state d (12/13/21 1:55 PM) Social History Social History Type Response Smoking Status Former smoker, quit more than 30 days ago entered on: 03/16/21 Sex Care Team Personnel Name: Yanet INFANTE, Jordon Wei Address: [address] [place] [address] [place] [address]-
[2022-08-21 14:25] VITALS: BP 146/86; PULSE 58; RESP 16; TEMP 36.4; O2SAT 94
== END 2022-08-21 14:55 | disposition home or self-care (01) ==
PROVIDERS: Emergency Provider Emergency Medicine Emergency Medical Services; PCP Internal Medicine
DX: S09.90XA Unspecified injury of head, initial encounter (principal); S00.83XA Contusion of other part of head, initial encounter; S60.222A Contusion of left hand, initial encounter; S80.01XA Contusion of right knee, initial encounter; S80.211A Abrasion, right knee, initial encounter; W06.XXXA Fall from bed, initial encounter; Y93.84 Activity, sleeping; Y92.032 Bedroom in apartment as the place of occurrence of the external cause; Y99.9 Unspecified external cause status
CPT/HCPCS: 70450; 72125; 73130; 73562; 99284

== ENCOUNTER 2023-03-26 03:58 | Inpatient (IN) | payer OTHER, MEDICAID, SELFPAY ==
[2023-03-26] VITALS (15 sets, daily range): BP systolic 106–186; BP diastolic 65–98; PULSE 66–101; RESP 18–28; TEMP 36.1–37.1; O2SAT 86–96; BMI 31.6; BMI 31.8
--- NOTE | ~2023-03-26 | XR_ITS ---
EXAMINATION: XR CHEST CLINICAL INFORMATION: COMPARISON: AP upright portable view 03/26/2023, chest CT 09/12/2019 TECHNIQUE: 2 views of the chest were obtained. FINDINGS: The lungs are well expanded. There is slight patchy opacity projected over the right lower lobe consistent with atelectasis and/or pneumonia. The lungs are hyperinflated with flattening of the hemidiaphragms. The costophrenic angles are sharp. No pleural effusion. Prominence of the superior mediastinum particularly on the right is vascular in origin. Heart size is normal. Calcification of the thoracic aorta is indicative of atherosclerotic disease. No acute osseous abnormality. XR/XR chest 2V IMPRESSION: Right lower lobe atelectasis and/or pneumonia.
--- NOTE | ~2023-03-26 | XR_ITS ---
EXAMINATION: XR CHEST CLINICAL INFORMATION: Shortness of breath COMPARISON: 09/22/2019 TECHNIQUE: Frontal view of the chest was obtained. FINDINGS: Heart and mediastinum within normal limits. Aortic calcifications again seen. No gross vascular congestion. Bibasilar increased markings, left greater than right. XR/XR chest 1V IMPRESSION: Increased bibasilar markings, left greater than right, likely atelectasis, pneumonia not excluded. PA and lateral recommended when feasible.
--- NOTE | 2023-03-26 04:03 | ECG_ITS ---
Test Reason : Shortness of breath Blood Pressure : / mmHG Vent. Rate : 073 BPM Atrial Rate : 073 BPM P-R Int : 228 ms QRS Dur : 086 ms QT Int : 432 ms P-R-T Axes : -29 036 070 degrees QTc Int : 475 ms Sinus rhythm with 1st degree A-V block Premature ventricular complexes ST & T wave abnormality, consider anterolateral ischemia Prolonged QT Abnormal ECG When compared to the previous EKG of 16 sep 2019, ST depression more prominent Referred By: Ritika Jones Electronically Signed By:SANTOS GUADARRAMA
[2023-03-26] MEDS: Albuterol Sulfate 7.5 MG, Albuterol/Iprat 2.5/0.5MG 3 ML 3 ML INHALE (04:21)
[2023-03-26] MEDS: Albuterol Sulfate 7.5 MG, Albuterol Sulfate (0.083%) 2.5 MG 10 MG INHALE ×2 (04:34→05:12)
[2023-03-26] MEDS: fentaNYL citrate/PF 100 MCG/2 ML VIAL 25 MCG IVPUSH (04:51)
[2023-03-26 05:00] LABS: Basophils Percent Auto 0.4 % (0-2); Eosinophils Absolute Auto 0.1 X10*3/uL (0.0-0.4); Hematocrit 37.6 % (42.0-52.0); Hemoglobin 12.4 g/dl (14.0-18.0); Imm Gran Abs Auto 0.02 X10*3/uL (0.00-0.03); Imm Gran Pct Auto 0.4 % (0.0-0.4); Lymphocytes Absolute Auto 1.4 X10*3/uL (1.2-4.9); Lymphocytes Percent Auto 28.2 % (20-40); MANUAL DIFF FLAG NO; Mean Corpuscular Hemoglobin 32.2 pg (27.0-33.0); Mean Corpuscular Volume 97.7 fL (80.0-98.0); Mean Platelet Volume 8.6 fL (9.4-12.4); Monocytes Absolute Auto 0.3 X10*3/uL (0.1-1.2); Monocytes Percent Auto 6.9 % (2-11); Neutrophils Percent Auto 63.1 % (45-73); Platelet Count 153 X10*3/uL (160-400); Red Blood Count 3.85 X10*6/uL (4.60-5.80); Red Cell Distribution Width 13.3 % (11.0-16.0); White Blood Count 4.8 X10*3/uL (4.8-10.8)
[2023-03-26 05:02] LABS: Venous Blood Gas Refer to POC result
[2023-03-26 05:03] LABS: VBG Base Excess 3.2 mmol/L; VBG HCO3 28 mmol/L (22-26); VBG pCO2 47 mmHg; VBG pH 7.39 (7.32-7.43); VBG pO2 51 mmHg
[2023-03-26 05:06] LABS: INTERNATIONAL NORM RATIO 0.9 (0.9-1.1); Prothrombin Time 10.7 SEC (11.1-13.3)
[2023-03-26 05:10] LABS: Lactic Acid 1.3 mmol/L (0.5-2.0)
--- NOTE | 2023-03-26 05:10 | PC.NURSE ---
pt changed into hospital attire, labs collected and sent, Ekg completed, pt placed on bedside telemeter, medicated per may,
[2023-03-26 05:13] LABS: COVID-19 Test Negative (Negative); IDNOW Serial# 08D9AD1C; IDNOW Serial# BCCEAD1C; Influenza A Negative (Negative); Influenza B2 Negative (Negative)
[2023-03-26 05:15] LABS: Alanine Aminotransferase 20 U/L (0-40); Albumin Level 4.1 g/dL (3.5-5.0); Alkaline Phosphatase 139 U/L (39-117); Anion Gap 15 (12-20); Aspartate Amino Transferase 22 U/L (5-37); Bilirubin Total 0.5 mg/dL (0.0-1.0); Blood Urea Nitrogen 6 mg/dL (9-16); Calcium 8.9 mg/dL (8.4-10.2); Carbon Dioxide 25 mmol/L (22-29); Chloride 99 mmol/L (96-108); Creatinine Clr Calc Pharmacy 102.9; Estimated Glomerular Filt Rate > 60; Glucose Random 111 mg/dL (60-115); Potassium 3.6 mmol/L (3.3-5.1); Sodium 135 mmol/L (135-145); Total Protein 6.6 g/dL (6.5-8.0)
--- NOTE | 2023-03-26 05:15 | ED.SOB ---
HPI - SOB/Dyspnea General Chief Complaint: Dyspnea Stated Complaint: COPD, Difficulty breathing Time Seen by Provider: 03/26/23 04:03 Source: patient, family () and EMS Mode of arrival: EMS History of Present Illness HPI Narrative: 77-year-old male is brought in by EMS for with a history of COPD and has been having worsening shortness breath over the past few days, received 2 nebulized treatments and 125 mg of Solu-Medrol enroute. Related Data Allergies Allergy/AdvReac Type Severity Reaction Status Date / Time No Known Allergies Allergy Verified 08/21/22 12:26 [No Known Allergies*] Review of Systems Review of Systems: Pertinent positives and negatives as stated in HPI PMFSH Past Medical History Source: nursing notes reviewed Medical History Hypertension Tobacco abuse Hepatic steatosis Deaf COPD (chronic obstructive pulmonary disease) Congestive heart failure Anemia Social History Social History Advance Directives: No Advance Directives Information Provided: No Physical Exam Vital Signs: Vital Signs: Last Vital Signs Temp 97.7 F 03/26/23 04:12 Pulse 93 03/26/23 05:50 Resp 21 H 03/26/23 05:50 BP 119/72 03/26/23 05:50 Pulse Ox 95 03/26/23 05:50 O2 Del Method Nasal Cannula 03/26/23 05:50 O2 Flow Rate 4 03/26/23 05:50 BMI result Body Mass Index 31.6 VITAL SIGNS: Reviewed. GENERAL: Well developed, well nourished, in no acute distress. HEAD: Normocephalic/atraumatic EYES: PERRLA, EOMI EARS: Ext canals without abnormality NOSE: Nares patent bilateral OROPHARYNX: no oral lesions noted, posterior pharynx clear NECK: Supple, no adenopathy LUNGS: Decreased breath sounds bilaterally, with expiratory wheeze. SpO2<92> on supplemental oxygen CARDIOVASCULAR: Regular rate and rhythm without noted murmurs, no JVD or lower extremity edema. ABDOMEN: Soft, non-tender, non-distended with bowel sounds. No rigidity. No guarding. No palpable masses or hernias noted MUSCULOSKELETAL: No tenderness, deformities, or effusions noted on gross inspection. EXTREMITIES: No cyanosis, clubbing or edema. SKIN: Inspection of the skin reveals no rashes NEUROLOGIC: Alert and oriented x 4. Strength and sensation to light touch were grossly intact x 4. Medications Administered Discontinued Medications Generic Name Dose Route Start Last Admin Trade Name Arcelia PRN Reason Stop Dose Admin Albuterol Sulfate 7.5 mg/ 10 mg 03/26/23 04:25 03/26/23 04:34 Albuterol Sulfate 2.5 mg INHALE 03/26/23 04:26 10 mg ONCE ONE Administration Albuterol Sulfate 7.5 mg/ 10 mg 03/26/23 05:07 03/26/23 05:12 Albuterol Sulfate 2.5 mg INHALE 03/26/23 05:08 10 mg ONCE ONE Administration Albuterol Sulfate 7.5 mg/ 0 mg 03/26/23 04:19 03/26/23 04:21 Albuterol/Ipratropium 3 ml INHALE 03/26/23 04:20 1 each ONCE ONE Administration Fentanyl 25 mcg 03/26/23 04:03 03/26/23 04:51 Fentanyl Citrate/Pf 100 Mcg/2 Ml Vial IVPUSH 03/26/23 04:04 25 mcg ONCE ONE Administration Protocol Furosemide 60 mg 03/26/23 05:27 03/26/23 05:49 Furosemide 100 Mg/10 Ml Vial IVPUSH 03/26/23 05:28 60 mg ONCE ONE Administration Protocol Magnesium Sulfate 2 gm in 50 mls @ 150 mls/hr 03/26/23 05:05 03/26/23 06:47 Magnesium Sulfate/H2o IV 03/26/23 05:24 Infused ONCE ONE Infusion Medical Decision Making Medical Decision Making [facility] Narrative: 77-year-old male with history and clinical presentation,DDX: COPD exacerbation, pneumonia, viral illness, CHF. INTERVENTION: Magnesium sulfate, steroids, nebulized treatments, Lasix I reviewed all investigations and hematologic indices are grossly stable without leukocytosis or left shift, there is a stable normocytic anemia and a mild thrombocytopenia. Coagulation studies are within normal limits. ABG does not demonstrate respiratory acidosis and there is baseline hypercapnia -47. Chemistry indices are grossly within normal limits without KALE and electrolyte/liver enzymes are within normal limits, high sensitivity troponin is undetectable however BNP is elevated at 380 and will treat with Lasix. Viral testing is negative for COVID/influenza. There is no leukocytosis and patient is not febrile and will not treat with antibiotics at this time. On re-evaluation patient has significantly improved from initial presentation but is still requiring supplemental oxygen. 0533: I discussed the case with inpatient hospitalist who accepts admission. Differential Diagnosis Differential Diagnoses: The differential diagnosis associated with the presentation includes Please see the discussion above Admission/Observation Consideration of admission/observation: Escalation of care including admission/observation considered Please see the discussion above Consult Healthcare Provider Management of the patient was discussed with: Hospitalist Please see the discussion above Lab Data MDM Lab Attestation statement: I reviewed the patient's lab results. Please see the discussion above 03/26/23 04:48 03/26/23 04:48 Labs: Lab Results 03/26/23 03/26/23 Range/Units 04:48 04:57 WBC 4.8 (4.8-10.8) X10*3/uL RBC 3.85 L (4.60-5.80) X10*6/uL Hgb 12.4 L (14.0-18.0) g/dl Hct 37.6 L (42.0-52.0) % MCV 97.7 (80.0-98.0) fL MCH 32.2 (27.0-33.0) pg MCHC 33.0 (31.0-36.0) g/dl RDW 13.3 (11.0-16.0) % Plt Count 153 L (160-400) X10*3/uL MPV 8.6 L (9.4-12.4) fL Immature Gran % (Auto) 0.4 (0.0-0.4) % Neut % (Auto) 63.1 (45-73) % Lymph % (Auto) 28.2 (20-40) % Scurry % (Auto) 6.9 (2-11) % Eos % (Auto) 1.0 (0-4) % Baso % (Auto) 0.4 (0-2) % Lymph # (Auto) 1.4 (1.2-4.9) X10*3/uL Scurry # (Auto) 0.3 (0.1-1.2) X10*3/uL Eos # (Auto) 0.1 (0.0-0.4) X10*3/uL Baso # (Auto) 0.0 (0.0-0.2) X10*3/uL Abs Immat Gran (auto) 0.02 (0.00-0.03) X10*3/uL Absolute Neuts (auto) 3.0 (2.0-8.3) x10*3/uL Absolute Nucleated RBC 0.000 (0.0-0.012) X10*3/uL Nucleated RBC % (auto) 0.0 (0.0-0.2) /100WBC PT 10.7 L (11.1-13.3) SEC INR 0.9 (0.9-1.1) VBG pH 7.39 (7.32-7.43) VBG pCO2 47 mmHg VBG pO2 51 mmHg VBG HCO3 28 H (22-26) mmol/L VBG O2 Saturation 78.0 % VBG Base Excess 3.2 mmol/L Sodium 135 (135-145) mmol/L Potassium 3.6 (3.3-5.1) mmol/L Chloride 99 (96-108) mmol/L Carbon Dioxide 25 (22-29) mmol/L Anion Gap 15 (12-20) BUN 6 L (9-16) mg/dL Creatinine 0.68 (0.5-1.4) mg/dL Estim Creat Clear Calc 102.9 Estimated GFR > 60 Random Glucose 111 (60-115) mg/dL Lactic Acid 1.3 (0.5-2.0) mmol/L Calcium 8.9 (8.4-10.2) mg/dL Total Bilirubin 0.5 (0.0-1.0) mg/dL AST 22 (5-37) U/L ALT 20 (0-40) U/L Alkaline Phosphatase 139 H (39-117) U/L Troponin I High Sens < 2.7 (<3.5-35.0) ng/L B-Natriuretic Peptide 380 H (<100) pg/mL Total Protein 6.6 (6.5-8.0) g/dL Albumin 4.1 (3.5-5.0) g/dL COVID-19 (VITALIY) Negative (Negative) COVID-19 Clin Com See Note Influenza Type A (JESSICA) Negative (Negative) Influenza Type B (JESSICA) Negative (Negative) Influenza A & B Note See Note Independent Interpretation I performed an independent interpretation of an: EKG Interpretation: Sinus rhythm with first-degree AV block, ST-T changes, no STEMI, MS-228, QRS/QTC is within normal limits. Radiology Impression Discussion of test interpretation with radiology: I have reviewed the radiologist's reading. Radiologist Impression: Please see the discussion above Chronic Conditions Patient?s care impacted by: Hypertension and Other COPD, tobacco abuse Critical Care Time Critical Care Time Critical Care Time: Yes Total Critical Care Time: 60 Attestation: I personally attest to this time spent taking care of the patient. Discharge Plan Discharge Clinical Impression: Congestive heart failure, COPD (chronic obstructive pulmonary disease) Patient Disposition: Admitted As Inpatient
[2023-03-26 05:22] LABS: B Type Natriuretic Peptide 380 pg/mL (<100)
[2023-03-26 05:29] LABS: Troponin-I High Sensitivity < 2.7 ng/L (<3.5-35.0)
--- OUTSIDE RECORDS SUMMARY | 2023-03-26 05:41 | XMS_ITS | Continuity of Care Document ---
Author Name Unknown Organization [facility] Daryl lt Address [address] [place] [address]- Care Team Providers Care Brim Cutter Name Role Phone Jordon Holt MD Primary Care Physician [id number] Date(s): 09/16/22 - 09/23/22 [facility] Adult [address] [place] [address]- Encounter Diagnosis Depression, major, single episode, mild(Discharge Diagnosis) - 09/16/22 Attending Physician: Faith Gipson NP Referring Physician: Jordon Holt MD Allergies, Adverse Reactions, Alerts No Known Medication Allergies Substance Reaction Severity Status Adhesive Bandage Rash Active Medications Albuterol (Eqv-ProAir HFA) 90 mcg/inh inhalation aerosol 2 puffs, Inhalation, Every 4 hours, # 18 Gm, 11 Refills, 08/13/22 10:11:00 EDT, [facility], 2 puffs Inhalation Every 4 hours, 176, cm, 08/13/22 9:41:00 EDT, Height, 93.1, kg, 08/02/22 14:13:00 EDT, Dry Weight Start Date: 08/13/22 Status: Ordered atorvastatin 80 mg oral tablet 1 tablet = 80 mg, By Mouth, Daily, # 90 tablet, 1 Refills, Maintenance, 08/13/22 10:11:00 EDT, Tablet, [facility], Partial fill upon patient request if the prescription is for a schedule II opioid drug., 176, cm, 08/13/22 9:41:00 EDT, Heigh... Start Date: 08/13/22 Status: Ordered bumetanide 2 mg oral tablet 1 tablet = 2 mg, By Mouth, Daily, # 90 tablet, 1 Refills, Maintenance, 08/13/22 10:11:00 EDT, Tablet, [facility], Partial fill upon [...] 0 Refills, Maintenance, 08/13/22 10:11:00 EDT, Gel, [facility], Partial fill upon patient request if the prescription is for a schedule II opioid drug., 176, cm, 08/13/22... Start Date: 08/13/22 Status: Ordered ferrous sulfate 325 mg oral enteric coated tablet 325 mg, 1, tablet, By Mouth, Daily, # 90 tablet, Refills 1, Tot. Refills 1, Maintenance, 08/13/22 10:11:00 EDT, Route to Pharmacy Electronically, [facility], 176, cm, 08/13/22 9:41:00 EDT,Height, 93.1, kg, 08/02/22 14:13:00 EDT, Dry Weight Start Date: 08/13/22 Status: Ordered Flovent HFA 110 mcg/inh inhalation aerosol 2 puffs, Inhalation, 2 times a day, rinse mouth and throat after use, # 12 Gm, 6 Refills, Maintenance, 08/13/22 10:11:00 EDT, Aerosol, [facility], Partial fill upon patient request if the prescription is for a schedule II opioid drug., 176,... Start Date: 08/13/22 Status: Ordered FLUoxetine 10 mg oral capsule 10 mg, 1, capsule, By Mouth, Daily, # 90 capsule, Refills 1, Tot. Refills 1, Maintenance, 08/13/22 10:14:00 EDT, Route to Pharmacy Electronically, [facility], Partial fill upon [...] 08/13/22 10:17:00 EDT, Route to Pharmacy Electronically, [facility], Partial fill upon [...] Dates Health Status Cl inical Service Informant Depression, major, single episode, mild Discharge Diagnosis 09/16/22 Vital Signs Most recent to oldest [Reference Range]: 1 Height 176 cm (09/16/22 10:26 AM) Social History Social History Type Response [...] Implantable Status Assigning Authority Unknown [id number] Unknown Unknown 08/12/22 Unknown Unknown Active Unknown Patient Care team information Care Team Personnel Name: Jordon Holt MD Position: [facility] Physician - Primary Care Member Role: PCP Address: Address: [address] [place] [address]- Care Team Related Persons Name: JEROME DE SANTIAGO Address: home [address] [place] [id number]
--- OUTSIDE RECORDS SUMMARY | 2023-03-26 05:42 | XMS_ITS | Continuity of Care Document ---
Author Name Unknown Organization [facility] Daryl lt Address [address] [place] [address]- Care Team Providers Care Inspector Rough Castings Name Role Phone Jordon Holt MD Primary Care Physician [phone] Encounter [facility] Date(s): 07/31/22 - 08/30/22 [facility] Adult [address] [place] [address]- Allergies, Adverse Reactions, Alerts No Known Medication Allergies Substance Reaction Severity Status Adhesive Bandage Rash Active Medications Albuterol (Eqv-ProAir HFA) 90 mcg/inh inhalation aerosol 2 puffs, Inhalation, Every 4 hours, # 18 Gm, 11 Refills, 08/13/22 10:11:00 EDT, [facility], 2 puffs Inhalation Every 4 hours, 176, cm, 08/13/22 9:41:00 EDT, Height, 93.1, kg, 08/02/22 14:13:00 EDT, Dry Weight Start Date: 08/13/22 Status: Ordered atorvastatin 80 mg oral tablet 1 tablet = 80 mg, By Mouth, Daily, # 90 tablet, 1 Refills, Maintenance, 08/13/22 10:11:00 EDT, Tablet, [facility], Partial fill upon patient request if the prescription is for a schedule II opioid drug., 176, cm, 08/13/22 9:41:00 EDT, Heigh... Start Date: 08/13/22 Status: Ordered bumetanide 2 mg oral tablet 1 tablet = 2 mg, By Mouth, Daily, # 90 tablet, 1 Refills, Maintenance, 08/13/22 10:11:00 EDT, Tablet, [facility], Partial fill upon patient request [...] 0 Refills, Maintenance, 08/13/22 10:11:00 EDT, Gel, [facility], Partial fill upon patient request if the prescription is for a schedule II opioid drug., 176, cm, 08/13/22... Start Date: 08/13/22 Status: Ordered ferrous sulfate 325 mg oral enteric coated tablet 325 mg, 1, tablet, By Mouth, Daily, # 90 tablet, Refills 1, Tot. Refills 1, Maintenance, 08/13/22 10:11:00 EDT, Route to Pharmacy Electronically, [facility], 176, cm, 08/13/22 9:41:00 EDT,Height, 93.1, kg, 08/02/22 14:13:00 EDT, Dry Weight Start Date: 08/13/22 Status: Ordered Flovent HFA 110 mcg/inh inhalation aerosol 2 puffs, Inhalation, 2 times a day, rinse mouth and throat after use, # 12 Gm, 6 Refills, Maintenance, 08/13/22 10:11:00 EDT, Aerosol, [facility], Partial fill upon patient request if the prescription is for a schedule II opioid drug., 176,... Start Date: 08/13/22 Status: Ordered FLUoxetine 10 mg oral capsule 10 mg, 1, capsule, By Mouth, Daily, # 90 capsule, Refills 1, Tot. Refills 1, Maintenance, 08/13/22 10:14:00 EDT, Route to Pharmacy Electronically, [facility], Partial fill [...] 08/13/22 10:17:00 EDT, Route to Pharmacy Electronically, [facility], Partial fill [...] Implantable Status Assigning Authority Unknown [id number] Unknown Unknown 08/12/22 Unknown Unknown Active Unknown Patient Care team information Care Team Personnel Name: Yanet INFANTE, Jordon Wei Position: [facility] Physician - Primary Care Member Role: PCP Address: Address: [address] [place] [id number]- Care Team Related Persons Name: JEROME DE SANTIAGO Address: home [address] [place] [id number]
--- OUTSIDE RECORDS SUMMARY | 2023-03-26 05:42 | XMS_ITS | Continuity of Care Document ---
Author Name Unknown Organization [facility] Daryl lt Address [address] [place] [address]- Care Team Providers Care Sheet Cutter Name Role Phone Yanet INFANTE, Jordon Wei Primary Care Physician Encounter [facility] Date(s): 02/03/23 - 03/05/23 [facility] Adult [address] [place] [address]- Allergies, Adverse Reactions, Alerts No Known Medication Allergies Substance Reaction Severity Status Adhesive Bandage Rash Active Medications Albuterol (Eqv-ProAir HFA) 90 mcg/inh inhalation aerosol 2 puffs, Inhalation, Every 4 hours, # 18 Gm, 11 Refills, 08/13/22 10:11:00 EDT, [facility], 2 puffs Inhalation Every 4 hours, 176, cm, 08/13/22 9:41:00 EDT, Height, 93.1, kg, 08/02/22 14:13:00 EDT, Dry Weight Start Date: 08/13/22 Status: Ordered atorvastatin 80 mg oral tablet 1 tablet = 80 mg, By Mouth, Daily, # 90 tablet, 1 Refills, Maintenance, 08/13/22 10:11:00 EDT, Tablet, [facility], Partial fill upon patient request if the prescription is for a schedule II opioid drug., 176, cm, 08/13/22 9:41:00 EDT, Angie... Start Date: 08/13/22 Status: Ordered bumetanide 2 mg oral tablet 1 tablet = 2 mg, By Mouth, Daily, # 90 tablet, 1 Refills, Maintenance, 08/13/22 10:11:00 EDT, Tablet, [facility], Partial fill upon patient request [...] needed for joint pain, # 100 Gm, 6 Refills, Maintenance, 11/12/22 11:19:00 EDT, Gel, [facility], Partial fill upon patient request if the prescription is for a schedule II opioid drug., 176, cm, 09/16/22... Start Date: 11/12/22 Status: Ordered ferrous sulfate 325 mg oral enteric coated tablet 325 mg, 1, tablet, By Mouth, Daily, # 90 tablet, Refills 1, Tot. Refills 1, Maintenance, 08/13/22 10:11:00 EDT, Route to Pharmacy Electronically, [facility], 176, cm, 08/13/22 9:41:00 EDT,Height, 93.1, kg, 08/02/22 14:13:00 EDT, Dry Weight Start Date: 08/13/22 Status: Ordered Flovent HFA 110 mcg/inh inhalation aerosol 2 puffs, Inhalation, 2 times a day, rinse mouth and throat after use, # 12 Gm, 6 Refills, Maintenance, 08/13/22 10:11:00 EDT, Aerosol, [facility], Partial fill upon patient request if the prescription is for a schedule II opioid drug., 176,... Start Date: 08/13/22 Status: Ordered FLUoxetine 10 mg oral capsule 10 mg, 1, capsule, By Mouth, Daily, # 90 capsule, Refills 1, Tot. Refills 1, Maintenance, 02/03/23 13:59:00 EST, Route to Pharmacy Electronically, [facility], Partial fill upon patient request if the prescription is for a schedule II opioid... Start Date: 02/03/23 Status: Ordered fortified tobramycin eye drops fortified tobramycin eye drops, See Instructions, Refills 0, Maintenance, 1 drop every 12hours on LT eye, 07/05/22 15:54:00 EDT, Supply Start Date: 07/05/22 Status: Ordered metoprolol 25 mg oral tablet, extended release 25 mg, 1, tablet, By Mouth, Daily, # 90 tablet, Refills 1, Tot. Refills 1, Maintenance, 02/03/23 13:59:00 EST, Route to Pharmacy Electronically, [facility], Partial fill upon patient request if the prescription is for a schedule II opioid d... Start Date: 02/03/23 Status: Ordered Tylenol 325 mg oral tablet [...] Implantable Status Assigning Authority Unknown [id number] Unknown Unknown 08/12/22 Unknown Unknown Active Unknown Patient Care team information Care Team Personnel Name: Yanet INFANTE, Jordon Wei Position: [facility] Physician - Primary Care Member Role: PCP Address: Address: [address] [place] [address]- Care Team Related Persons Name: JEROME DE SANTIAGO Address: home [address] [place] [id number]
--- OUTSIDE RECORDS SUMMARY | 2023-03-26 05:42 | XMS_ITS | Continuity of Care Document ---
Author Name Unknown Organization [facility] Daryl lt Address [address] [place] [address]- Care Team Providers Care Mobile Practice Lead Name Role Phone Jordon Holt MD Primary Care Physician Encounter [facility] Date(s): 08/15/22 - 09/14/22 [facility] Adult [address] [place] [address]- Allergies, Adverse Reactions, Alerts No Known Medication Allergies Substance Reaction Severity Status Adhesive Bandage Rash Active Medications Albuterol (Eqv-ProAir HFA) 90 mcg/inh inhalation aerosol 2 puffs, Inhalation, Every 4 hours, # 18 Gm, 11 Refills, 08/13/22 10:11:00 EDT, [facility], 2 puffs Inhalation Every 4 hours, 176, cm, 08/13/22 9:41:00 EDT, Height, 93.1, kg, 08/02/22 14:13:00 EDT, Dry Weight Start Date: 08/13/22 Status: Ordered atorvastatin 80 mg oral tablet 1 tablet = 80 mg, By Mouth, Daily, # 90 tablet, 1 Refills, Maintenance, 08/13/22 10:11:00 EDT, Tablet, [facility], Partial fill upon patient request if the prescription is for a schedule II opioid drug., 176, cm, 08/13/22 9:41:00 EDT, Heigh... Start Date: 08/13/22 Status: Ordered bumetanide 2 mg oral tablet 1 tablet = 2 mg, By Mouth, Daily, # 90 tablet, 1 Refills, Maintenance, 08/13/22 10:11:00 EDT, Tablet, [facility], Partial fill upon patient request [...] 0 Refills, Maintenance, 08/13/22 10:11:00 EDT, Gel, [facility], Partial fill upon patient request if the prescription is for a schedule II opioid drug., 176, cm, 08/13/22... Start Date: 08/13/22 Status: Ordered ferrous sulfate 325 mg oral enteric coated tablet 325 mg, 1, tablet, By Mouth, Daily, # 90 tablet, Refills 1, Tot. Refills 1, Maintenance, 08/13/22 10:11:00 EDT, Route to Pharmacy Electronically, [facility], 176, cm, 08/13/22 9:41:00 EDT,Height, 93.1, kg, 08/02/22 14:13:00 EDT, Dry Weight Start Date: 08/13/22 Status: Ordered Flovent HFA 110 mcg/inh inhalation aerosol 2 puffs, Inhalation, 2 times a day, rinse mouth and throat after use, # 12 Gm, 6 Refills, Maintenance, 08/13/22 10:11:00 EDT, Aerosol, [facility], Partial fill upon patient request if the prescription is for a schedule II opioid drug., 176,... Start Date: 08/13/22 Status: Ordered FLUoxetine 10 mg oral capsule 10 mg, 1, capsule, By Mouth, Daily, # 90 capsule, Refills 1, Tot. Refills 1, Maintenance, 08/13/22 10:14:00 EDT, Route to Pharmacy Electronically, [facility], Partial fill upon patient [...] 08/13/22 10:17:00 EDT, Route to Pharmacy Electronically, [facility], Partial fill upon patient [...] Implantable Status Assigning Authority Unknown [id number] Unknown Unknown 08/12/22 Unknown Unknown Active Unknown Patient Care team information Care Team Personnel Name: Yanet INFANTE, Jordon Wei Position: [facility] Physician - Primary Care Member Role: PCP Address: Address: [address] [place] [id number]- Care Team Related Persons Name: JEROME DE SANTIAGO Address: home [address] [place] [id number]
--- OUTSIDE RECORDS SUMMARY | 2023-03-26 05:42 | XMS_ITS | Continuity of Care Document ---
Author Name Unknown Organization [facility] Address [address] [place] [address]- Care Team Providers Care Waste Removalist Name Role Phone Jordon Holt MD Primary Care Physician [phone] Encounter [facility] [place] Date(s): 08/01/22 - 08/31/22 [facility] [address] [place] [address]- Attending Physician: Sona Kennedy Admitting Physician: Admtr, Ar8 Referring Physician: Admtr, Ar8 Allergies, Adverse Reactions, Alerts No Known Medication Allergies Substance Reaction Severity Status Adhesive Bandage Rash Active Medications Albuterol (Eqv-ProAir HFA) 90 mcg/inh inhalation aerosol 2 puffs, Inhalation, Every 4 hours, # 18 Gm, 11 Refills, 08/13/22 10:11:00 EDT, [facility], 2 puffs Inhalation Every 4 hours, 176, cm, 08/13/22 9:41:00 EDT, Height, 93.1, kg, 08/02/22 14:13:00 EDT, Dry Weight Start Date: 08/13/22 Status: Ordered atorvastatin 80 mg oral tablet 1 tablet = 80 mg, By Mouth, Daily, # 90 tablet, 1 Refills, Maintenance, 08/13/22 10:11:00 EDT, Tablet, [facility], Partial fill upon patient request if the prescription is for a schedule II opioid drug., 176, cm, 08/13/22 9:41:00 EDT, Heigh... Start Date: 08/13/22 Status: Ordered bumetanide 2 mg oral tablet 1 tablet = 2 mg, By Mouth, Daily, # 90 tablet, 1 Refills, Maintenance, 08/13/22 10:11:00 EDT, Tablet, [facility], Partial fill upon [...] 0 Refills, Maintenance, 08/13/22 10:11:00 EDT, Gel, [facility], Partial fill upon patient request if the prescription is for a schedule II opioid drug., 176, cm, 08/13/22... Start Date: 08/13/22 Status: Ordered ferrous sulfate 325 mg oral enteric coated tablet 325 mg, 1, tablet, By Mouth, Daily, # 90 tablet, Refills 1, Tot. Refills 1, Maintenance, 08/13/22 10:11:00 EDT, Route to Pharmacy Electronically, [facility], 176, cm, 08/13/22 9:41:00 EDT,Height, 93.1, kg, 08/02/22 14:13:00 EDT, Dry Weight Start Date: 08/13/22 Status: Ordered Flovent HFA 110 mcg/inh inhalation aerosol 2 puffs, Inhalation, 2 times a day, rinse mouth and throat after use, # 12 Gm, 6 Refills, Maintenance, 08/13/22 10:11:00 EDT, Aerosol, [facility], Partial fill upon patient request if the prescription is for a schedule II opioid drug., 176,... Start Date: 08/13/22 Status: Ordered FLUoxetine 10 mg oral capsule 10 mg, 1, capsule, By Mouth, Daily, # 90 capsule, Refills 1, Tot. Refills 1, Maintenance, 08/13/22 10:14:00 EDT, Route to Pharmacy Electronically, [facility], Partial fill upon patient [...] 08/13/22 10:17:00 EDT, Route to Pharmacy Electronically, [facility], Partial fill upon patient [...] Implantable Status Assigning Authority Unknown [id number] Unknown Unknown 08/12/22 Unknown Unknown Active Unknown Patient Care team information Care Team Personnel Name: Yanet INFANTE, Jordon Wei Position: [facility] Physician - Primary Care Member Role: PCP Address: Address: [address] [place] [id number]- Care Team Related Persons Name: JEROME DE SANTIAGO Address: home [address] [place] [address]
--- OUTSIDE RECORDS SUMMARY | 2023-03-26 05:42 | XMS_ITS | Continuity of Care Document ---
Author Name Unknown Organization [facility] Address [address] [place] [address]- Care Team Providers Care Car Deliverer Name Role Phone Jordon Holt MD Primary Care Physician [place] [facility] [place]22 - 09/20/22 [facility] [address] [place] [address]- Allergies, Adverse Reactions, Alerts No Known Medication Allergies Substance Reaction Severity Status Adhesive Bandage Rash Active Medications Albuterol (Eqv-ProAir HFA) 90 mcg/inh inhalation aerosol 2 puffs, Inhalation, Every 4 hours, # 18 Gm, 11 Refills, 08/13/22 10:11:00 EDT, [facility], 2 puffs Inhalation Every 4 hours, 176, cm, 08/13/22 9:41:00 EDT, Height, 93.1, kg, 08/02/22 14:13:00 EDT, Dry Weight Start Date: 08/13/22 Status: Ordered atorvastatin 80 mg oral tablet 1 tablet = 80 mg, By Mouth, Daily, # 90 tablet, 1 Refills, Maintenance, 08/13/22 10:11:00 EDT, Tablet, [facility], Partial fill upon patient request if the prescription is for a schedule II opioid drug., 176, cm, 08/13/22 9:41:00 EDT, Angie... Start Date: 08/13/22 Status: Ordered bumetanide 2 mg oral tablet 1 tablet = 2 mg, By Mouth, Daily, # 90 tablet, 1 Refills, Maintenance, 08/13/22 10:11:00 EDT, Tablet, [facility], Partial fill upon patient [...] 0 Refills, Maintenance, 08/13/22 10:11:00 EDT, Gel, [facility], Partial fill upon patient request if the prescription is for a schedule II opioid drug., 176, cm, 08/13/22... Start Date: 08/13/22 Status: Ordered ferrous sulfate 325 mg oral enteric coated tablet 325 mg, 1, tablet, By Mouth, Daily, # 90 tablet, Refills 1, Tot. Refills 1, Maintenance, 08/13/22 10:11:00 EDT, Route to Pharmacy Electronically, [facility], 176, cm, 08/13/22 9:41:00 EDT,Height, 93.1, kg, 08/02/22 14:13:00 EDT, Dry Weight Start Date: 08/13/22 Status: Ordered Flovent HFA 110 mcg/inh inhalation aerosol 2 puffs, Inhalation, 2 times a day, rinse mouth and throat after use, # 12 Gm, 6 Refills, Maintenance, 08/13/22 10:11:00 EDT, Aerosol, [facility], Partial fill upon patient request if the prescription is for a schedule II opioid drug., 176,... Start Date: 08/13/22 Status: Ordered FLUoxetine 10 mg oral capsule 10 mg, 1, capsule, By Mouth, Daily, # 90 capsule, Refills 1, Tot. Refills 1, Maintenance, 08/13/22 10:14:00 EDT, Route to Pharmacy Electronically, [facility], Partial fill upon [...] 08/13/22 10:17:00 EDT, Route to Pharmacy Electronically, [facility], Partial fill upon [...] Implantable Status Assigning Authority Unknown [id number] Unknown Unknown 08/12/22 Unknown Unknown Active Unknown Patient Care team information Care Team Personnel Name: Yanet INFANTE, Jordon Wei Position: [facility] Physician - Primary Care Member Role: PCP Address: Address: [address] [place] [address]- Care Team Related Persons Name: JEROME DE SANTIAGO Address: home [address] [place] [address]
--- OUTSIDE RECORDS SUMMARY | 2023-03-26 05:43 | XMS_ITS | Continuity of Care Document ---
Author Name Unknown Organization [facility] Address [address] [place] [address]- Care Team Providers Care Poultryman Name Role Phone Jordon Holt MD Primary Care Physician Encounter [facility] Date(s): 08/30/22 - 09/06/22 [facility] [address] [place] [address]- Attending Physician: Haydee Mendiola Referring Physician: Placido INFANTE, Cristo Wei Allergies, Adverse Reactions, Alerts No Known Medication Allergies Substance Reaction Severity Status Adhesive Bandage Rash Active Medications Albuterol (Eqv-ProAir HFA) 90 mcg/inh inhalation aerosol 2 puffs, Inhalation, Every 4 hours, # 18 Gm, 11 Refills, 08/13/22 10:11:00 EDT, [facility], 2 puffs Inhalation Every 4 hours, 176, cm, 08/13/22 9:41:00 EDT, Height, 93.1, kg, 08/02/22 14:13:00 EDT, Dry Weight Start Date: 08/13/22 Status: Ordered atorvastatin 80 mg oral tablet 1 tablet = 80 mg, By Mouth, Daily, # 90 tablet, 1 Refills, Maintenance, 08/13/22 10:11:00 EDT, Tablet, [facility], Partial fill upon patient [...] 0 Refills, Maintenance, 08/13/22 10:11:00 EDT, Gel, [facility], Partial fill upon patient request if the prescription is for a schedule II opioid drug., 176, cm, 08/13/22... Start Date: 08/13/22 Status: Ordered ferrous sulfate 325 mg oral enteric coated tablet 325 mg, 1, tablet, By Mouth, Daily, # 90 tablet, Refills 1, Tot. Refills 1, Maintenance, 08/13/22 10:11:00 EDT, Route to Pharmacy Electronically, [facility], 176, cm, 08/13/22 9:41:00 EDT,Height, 93.1, kg, 08/02/22 14:13:00 EDT, Dry Weight Start Date: 08/13/22 Status: Ordered Flovent HFA 110 mcg/inh inhalation aerosol 2 puffs, Inhalation, 2 times a day, rinse mouth and throat after use, # 12 Gm, 6 Refills, Maintenance, 08/13/22 10:11:00 EDT, Aerosol, [facility], Partial fill upon patient request if the prescription is for a schedule II opioid drug., 176,... Start Date: 08/13/22 Status: Ordered FLUoxetine 10 mg oral capsule 10 mg, 1, capsule, By Mouth, Daily, # 90 capsule, Refills 1, Tot. Refills 1, Maintenance, 08/13/22 10:14:00 EDT, Route to Pharmacy Electronically, [facility], Partial [...] 08/13/22 10:17:00 EDT, Route to Pharmacy Electronically, [facility], Partial [...] oldest [Reference Range]: 1 Height 176 cm (08/30/22 12:47 PM) Weight 95.9 kg (08/30/22 12:47 PM) Oxygen Saturation [94-100 %] 95 % (08/30/22 12:47 PM) Pulse Rate [55-90 bpm] 53 bpm *L* (08/30/22 12:47 PM) Body Mass Index [18.5-24.99 kg/m2] 30.96 kg/m2 *>HHI* (08/30/22 12:47 PM) Blood Pressure [90-138/55-84 mm Hg] 135/ 59mm Hg (08/30/22 12:47 PM) Respiratory Rate [16-30 br/min] 16 br/mi n (08/30/22 12:47 PM) Temperature [96.8-100.4 DegF] 97.7 DegF (08/30/22 12:47 PM) Mode of Delivery (Oxygen) Room air (08/30/22 12:47 PM) Temperature Route Oral (08/30/22 12:47 PM) Weight Obtained Via Standing scale (08/30/22 12:47 PM) Social History Social History Type Response [...] Implantable Status Assigning Authority Unknown [id number] Unknown Unknown 08/12/22 Unknown Unknown Active Unknown Patient Care team information Care Team Personnel Name: Jordon Holt MD Position: S Physician - Primary Care Member Role: PCP Address: Address: [address] [place] [address]- Care Team Related Persons Name: JEROME DE SANTIAGO Address: home [address] [place] [address]
[2023-03-26] MEDS: Furosemide 100 MG/10 ML VIAL 60 MG IVPUSH (05:49)
[2023-03-26] MEDS: Magnesium Sulfate/H2O 2 GM/50 ML PIGGYBACK IV (05:49)
--- NOTE | 2023-03-26 05:59 | PC.NURSE ---
pt medicated per mar.
--- NOTE | 2023-03-26 06:49 | PC.NURSE ---
pt assisted with urinal, at the bed side. respiratory distress improved
--- NOTE | 2023-03-26 08:08 | PHA.MEDREC ---
Pharmacy Consult ? Medication Reconciliation Pharmacy has completed the medication reconciliation. Spouse and patient were able to recall medications. Used claims for doses and frequencies
[2023-03-26] MEDS: Albuterol Sulfate 2.5 MG, Albuterol/Iprat 2.5/0.5MG 3 ML 3 ML INHALE ×2 (08:58→15:59)
--- NOTE | 2023-03-26 09:09 | PM.IMHP ---
History of Present Illness Date of Service: 03/26/23 Chief Complaint: Shortness of breath 77-year-old former smoker presents with 3-4 days of worsening shortness of breath at home. states this morning he could not ambulate to bathroom without extreme shortness of breath. She denies fever chills; she states she recently got discharged from the hospital with RSV and is still taking prednisone. Concurrently he has with an O2 requirement however does not utilize O2 at home. Medical history significant for CHF/COPD; does not examined in failure. EN route to hospital patient received DuoNeb and 125 of Solu-Medrol. Chest x-ray rate consistent with patchy atelectasis verses infiltrate. Will be admitted for treatment of the same Review of Systems Review of Systems: Denies chest pain Admits to shortness of breath with minimal movement Denies nausea vomiting diarrhea ... States appetite good Denies fever and chills PMFSH Medical History Hypertension Tobacco abuse Hepatic steatosis Deaf COPD (chronic obstructive pulmonary disease) Congestive heart failure Anemia Social History Smoked in Last 30 Days: No Use of substances other than those prescribed or required for medical reasons: No Advance Directives: No Advance Directives Information Provided: No Meds Allergies Allergy/AdvReac Type Severity Reaction Status Date / Time No Known Allergies Allergy Verified 08/21/22 12:26 [No Known Allergies*] Active Medications: Current Medications Acetaminophen (Acetaminophen 325 Mg Tablet) 650 mg PO Q6H PRN PRN Reason: Pain, Mild (Pain Scale 1-3) Atorvastatin Calcium (Atorvastatin Calcium 80 Mg Tablet) 80 mg PO DAILY [facility] Albuterol Sulfate 2.5 mg/ (Albuterol/Ipratropium 3 ml) 0 mg INHALE Q4H [facility] Last Admin: 03/26/23 08:58 Dose: 1 dose Enoxaparin Sodium (Enoxaparin Sodium 40 Mg/0.4 Ml Syringe) 40 mg SUBCUT Q24H [facility] Ferrous Sulfate (Ferrous Sulfate 324 Mg Tablet.Dr) 324 mg PO DAILY [facility] Fluoxetine HCl (Fluoxetine Hcl 10 Mg Capsule) 10 mg PO DAILY [facility] Ceftriaxone Sodium 1 gm/ (Sodium Chloride) 50 mls @ 100 mls/hr IV Q24H ONE Stop: 03/26/23 10:29 Azithromycin 500 mg/ Sodium (Chloride) 250 mls @ 125 mls/hr IV DAILY [facility] Stop: 03/28/23 10:59 Methylprednisolone Sodium Succinate (Methylprednisolone Sod Succ 125 Mg/2 Ml Vial) 60 mg IVPUSH Q6H [facility] Metoprolol Succinate (Metoprolol Succinate Er 25 Mg Tab.Er.24h) 25 mg PO DAILY [facility]; Protocol Ondansetron HCl (Ondansetron Hcl 4 Mg/2 Ml Vial) 4 mg IVPUSH Q8H PRN PRN Reason: Nausea and Vomiting Sodium Chloride (0.9 % Sodium Chloride Flush 3 Ml Syringe) 3 ml IVFLUSH QSHIFT [facility] Home Medications Medication Instructions Recorded Confirmed Last Taken Type albuterol sulfate 90 mcg/actuation 2 puff inhalation Q4H 03/26/23 03/26/23 Unknown History aerosol inhaler atorvastatin 80 mg tablet 80 mg PO DAILY 03/26/23 03/26/23 Unknown History ferrous sulfate 325 mg (65 mg 325 mg PO DAILY 03/26/23 03/26/23 Unknown History iron) tablet fluoxetine 10 mg capsule 10 mg PO DAILY 03/26/23 03/26/23 Unknown History metoprolol succinate 25 mg 25 mg PO DAILY 03/26/23 03/26/23 Unknown History tablet,extended release 24 hr tobramycin 0.3 %-dexamethasone 0.1 1 drp 3XW 03/26/23 03/26/23 Unknown History % eye drops,suspension Physical Exam Vital Signs and Narrative: Vital Signs: Last Vital Signs Temp 97.5 F 03/26/23 07:34 Pulse 95 03/26/23 09:01 Resp 20 03/26/23 09:01 BP 106/78 03/26/23 07:34 Pulse Ox 93 03/26/23 07:34 O2 Del Method Nasal Cannula 03/26/23 07:34 O2 Flow Rate 4 03/26/23 07:34 BMI result Body Mass Index 31.6 Const: Other: Patient is mostly deaf at baseline (per ); does lip read Able to speak in short sentences Resp: Other: Diminished throughout with scant expiratory wheezes inferior scapular border to bases. No crackles appreciated Cardio: Other: No S4; positive S1-S2; no S3 murmurs rubs or gallops GI: Other: Soft nontender nondistended normoactive bowel sounds Neuro: Other: Cranial nerves 2-12 grossly intact as tested. Motor is 5/5 all extremities. Sensation intact. Cognition appropriate. Gait normal (with walker) Extrem: Other: And no edema bilaterally Results Labs 03/26/23 04:48 03/26/23 04:48 Labs: Laboratory Results - last 24 hr 03/26/23 03/26/23 04:48 04:57 MCV 97.7 MCH 32.2 MCHC 33.0 RDW 13.3 Plt Count 153 L MPV 8.6 L Immature Gran % (Auto) 0.4 Neut % (Auto) 63.1 Lymph % (Auto) 28.2 [place] % (Auto) 6.9 Eos % (Auto) 1.0 Baso % (Auto) 0.4 Lymph # (Auto) 1.4 [place] # (Auto) 0.3 Eos # (Auto) 0.1 Baso # (Auto) 0.0 Abs Immat Gran (auto) 0.02 Absolute Neuts (auto) 3.0 Absolute Nucleated RBC 0.000 Nucleated RBC % (auto) 0.0 PT 10.7 L INR 0.9 VBG pH 7.39 VBG pCO2 47 VBG pO2 51 VBG HCO3 28 H VBG O2 Saturation 78.0 VBG Base Excess 3.2 Anion Gap 15 Estim Creat Clear Calc 102.9 Estimated GFR > 60 Random Glucose 111 Lactic Acid 1.3 Calcium 8.9 Total Bilirubin 0.5 AST 22 ALT 20 Alkaline Phosphatase 139 H B-Natriuretic Peptide 380 H Total Protein 6.6 Albumin 4.1 COVID-19 (VITALIY) Negative COVID-19 Clin Com See Note Influenza Type A (JESSICA) Negative Influenza Type B (JESSICA) Negative Influenza A & B Note See Note Imaging Radiologist's Impressions: Impressions Chest X-Ray 03/26/23 05:57 IMPRESSION: Increased bibasilar markings, left greater than right, likely atelectasis, pneumonia not excluded. PA and lateral recommended when feasible. Assessment and Plan (1) COPD exacerbation: Status: Acute (2) Hypertension: Qualifiers: Hypertension type: primary hypertension Qualified Code(s): I10 - Essential (primary) hypertension Status: Acute (3) Congestive heart failure: Qualifiers: Heart failure type: unspecified Heart failure chronicity: chronic Qualified Code(s): I50.9 - Heart failure, unspecified Status: Acute Plan 77-year-old male with history of tobacco abuse and COPD presents to the emergency room with 2-3 days of worsening shortness of breath and a mild productive cough. Per denies fever chills; appetite good. Does not utilize O2 at home. According to , she recently got [place] [facility] [place] diagnosis of [place]. 1. COPD exacerbation Received DuoNebs and 125 mg of methylprednisolone in route to hospital. Influenza a and B negative COVID-19 negative; RSV not done on admission. .. Ordered -titrate O2 to maintain sats greater than equal 90% -DuoNebs q.4 hours while awake -empiric ceftriaxone/azithromycin giving x-ray; await RSV swab -methylprednisolone 60 mg IV q.6 hours 2. Hypertension states usually well controlled for office visits; has been compliant with meds -continue outpatient therapies -adjust as indicated 3. Congestive heart failure. .. Not specified elsewhere. Does not examine in failure; no echoes available. Await RSV swab -not a contributing factor to this admission -if RSV swab negative will order 2D echo 4. Hearing loss states this is severe. Patient will read lips and here if spoken to extremely loudly -follow clinically. Not contributing factor to this admission Full code Lovenox Patient will require 2 midnights of inpatient stay for supplemental DuoNeb treatments and IV methylprednisolone. He will also require empiric therapy with antibiotics pending RSV swab. He also has a new O2 requirement. Based on clinical course, may require specialist consultation.This cannot be achieved a lesser acute setting Quality Stroke Does the patient have a stroke diagnosis?: No VTE Prior VTE?: No VTE Risk Level:: Medical - moderate - high VTE Device Contraindication: Treatment Not Indicated VTE Drug Contraindication: N/A - Med Ordered
[2023-03-26] MEDS: FLUoxetine HCl 10 MG CAPSULE PO (10:02)
[2023-03-26] MEDS: Metoprolol Succinate ER 25 MG TAB.ER.24H PO (10:02)
[2023-03-26] MEDS: Enoxaparin Sodium 40 MG/0.4 ML SYRINGE SUBCUT (10:02)
[2023-03-26] MEDS: Atorvastatin Calcium 80 MG TABLET PO (10:02)
[2023-03-26] MEDS: Azithromycin 500 MG in 0.9 % Sodium Chloride 250 ML 125 MG IV (10:03)
--- NOTE | 2023-03-26 10:11 | PC.NURSE ---
Pt given am medications, tolerated well with water. Pt able to stand with assist to utilize urinal. Breakfast tray previously ordered for patient, awaiting delievery.
[2023-03-26] MEDS: Acetaminophen 325 MG TABLET 650 MG PO ×2 (10:15→19:16)
[2023-03-26 10:37] LABS: Influenza A PCR NEGATIVE (Negative); Influenza B PCR NEGATIVE (Negative); Resp Syncy Virus RNA Qual PCR POSITIVE (Negative); SARS COV2 PCR INHOUSE NEGATIVE (Negative)
--- NOTE | 2023-03-26 10:51 | PC.NURSE ---
Pt tested positive for RSV, MD Lopez tigertexted and made aware. Report given to Trina RUGGIERO in ED overflow, pt to be transferred until inpatient bed available.
--- NOTE | 2023-03-26 11:12 | PC.NURSE ---
ASSUMED CARE OF THIS PT, ARRIVES TRANSFERRING TO HOSPITAL BED WITH 1 ASSIST, DYSPNEIC ON EXERTION, EXPIRATORY RHONCHI THROUGHOUT, ON 2L SUPPLEMENTAL O2. A&OX4, SKIN PWD, VSS. PT ABLE TO MAKE NEEDS KNOWN. DUE FOR NEB TX IN 1 HOUR. DENIES ANY PAIN, DISCOMFORT AT THIS TIME. HUNGRY, KITCHEN CONTACTED WITH LUNCH ORDER.
[2023-03-26] MEDS: cefTRIAXone sodium 1 GM in 0.9 % Sodium Chloride 50 ML IV (12:15)
[2023-03-26] MEDS: methylPREDNISolone Sod Succ 125 MG/2 ML VIAL 60 MG IVPUSH ×3 (13:13→23:59)
[2023-03-26] MEDS: 0.9 % Sodium Chloride Flush 3 ML SYRINGE IVFLUSH ×2 (15:03→23:59)
[2023-03-26] MEDS: Albuterol/Iprat 2.5/0.5MG 3 ML AMPUL.NEB INHALE (19:51)
[2023-03-27] VITALS (8 sets, daily range): BP systolic 160–168; BP diastolic 78–98; PULSE 58–93; RESP 17–20; TEMP 36–36.2; O2SAT 94–97
[2023-03-27 05:24] LABS: MANUAL DIFF FLAG NO
[2023-03-27 05:27] LABS: Basophils Percent Auto 0.1 % (0-2); Hematocrit 37.2 % (42.0-52.0); Hemoglobin 12.2 g/dl (14.0-18.0); Imm Gran Abs Auto 0.03 X10*3/uL (0.00-0.03); Imm Gran Pct Auto 0.4 % (0.0-0.4); Lymphocytes Absolute Auto 0.9 X10*3/uL (1.2-4.9); Lymphocytes Percent Auto 13.2 % (20-40); Mean Corpuscular HGB Conc 32.8 g/dl (31.0-36.0); Mean Corpuscular Hemoglobin 32.2 pg (27.0-33.0); Mean Corpuscular Volume 98.2 fL (80.0-98.0); Mean Platelet Volume 8.9 fL (9.4-12.4); Monocytes Absolute Auto 0.2 X10*3/uL (0.1-1.2); Monocytes Percent Auto 2.8 % (2-11); Neutrophils Absolute Auto 5.7 x10*3/uL (2.0-8.3); Neutrophils Percent Auto 83.5 % (45-73); Platelet Count 161 X10*3/uL (160-400); Red Blood Count 3.79 X10*6/uL (4.60-5.80); Red Cell Distribution Width 13.2 % (11.0-16.0); White Blood Count 6.8 X10*3/uL (4.8-10.8)
[2023-03-27 05:42] LABS: Alanine Aminotransferase 17 U/L (0-40); Albumin Level 3.8 g/dL (3.5-5.0); Alkaline Phosphatase 119 U/L (39-117); Anion Gap 14 (12-20); Aspartate Amino Transferase 20 U/L (5-37); Bilirubin Total 0.5 mg/dL (0.0-1.0); Blood Urea Nitrogen 12 mg/dL (9-16); Calcium 8.6 mg/dL (8.4-10.2); Carbon Dioxide 27 mmol/L (22-29); Chloride 98 mmol/L (96-108); Creatinine Clr Calc Pharmacy 103.3; Estimated Glomerular Filt Rate > 60; Glucose Random 146 mg/dL (60-115); Potassium 3.9 mmol/L (3.3-5.1); Sodium 135 mmol/L (135-145); Total Protein 6.2 g/dL (6.5-8.0)
[2023-03-27] MEDS: methylPREDNISolone Sod Succ 125 MG/2 ML VIAL 60 MG IVPUSH ×4 (06:05→23:33)
[2023-03-27] MEDS: Albuterol/Iprat 2.5/0.5MG 3 ML AMPUL.NEB INHALE ×3 (06:06→20:31)
[2023-03-27] MEDS: Ferrous Sulfate 324 MG TABLET.DR PO (08:43)
[2023-03-27] MEDS: Azithromycin 500 MG in 0.9 % Sodium Chloride 250 ML 125 MG IV (08:43)
[2023-03-27] MEDS: Metoprolol Succinate ER 25 MG TAB.ER.24H PO (08:43)
[2023-03-27] MEDS: Atorvastatin Calcium 80 MG TABLET PO (08:43)
[2023-03-27] MEDS: Enoxaparin Sodium 40 MG/0.4 ML SYRINGE SUBCUT (08:43)
[2023-03-27] MEDS: FLUoxetine HCl 10 MG CAPSULE PO (08:43)
[2023-03-27] MEDS: 0.9 % Sodium Chloride Flush 3 ML SYRINGE IVFLUSH ×2 (08:44→23:33)
--- NOTE | 2023-03-27 09:52 | P.PNIM_ITS ---
Subjective Subjective Date of Service: 03/27/23 Interval History: seen and examined this morning follow up for copd exacerbation PAMUNKEY - communicates by reading lips or writing on board breathing better at rest but got sob walking to bathroom. no chest pain Review of Systems Review of Systems: Yes all other systems are reviewed and are negative Constitutional Constitutional: Denies chills and Denies fever(s) Cardiovascular Cardiovascular: Denies chest pain, Denies palpitations and Reports dyspnea on exertion Respiratory Respiratory: Reports dyspnea on exertion Endocrine Endocrine: Denies palpitations Physical Exam 2 Vital Signs: Vital Signs: Last Vital Signs Temp 97.1 F 03/27/23 07:33 Pulse 66 03/27/23 07:33 Resp 20 03/27/23 07:33 BP 163/98 H 03/27/23 07:33 Pulse Ox 97 03/27/23 07:33 O2 Del Method Nasal Cannula 03/27/23 07:33 O2 Flow Rate 2.0 03/27/23 07:33 BMI result Body Mass Index 31.8 Const: General: cooperative, comfortable, alert and awake Nutritional Appearance: overweight Orientation/consciousness: patient oriented x3 Resp: Other: b/l expiratory wheezes Effort & Inspection: no respiratory distress and no use of accessory muscles Cardio: Rate: regular rate GI: Palpation (GI): Soft to palpation and nontender Skin: Other: b/l lower extremity venous stasis changes Neuro: Other: grossly nonfocal General: patient oriented x3 Extrem: Other: trace leg edema Objective Data Active Medications Acetaminophen (Acetaminophen 325 Mg Tablet) 650 mg PO Q6H PRN PRN Reason: Pain, Mild (Pain Scale 1-3) Last Admin: 03/26/23 19:16 Dose: 650 mg Documented By: PERLA Albuterol/Ipratropium (Albuterol/Iprat 2.5/0.5mg 3 Ml Ampul.Neb) 3 ml INHALE RQ4H WHILE AWAKE [facility] Last Admin: 03/27/23 06:06 Dose: 3 ml Documented By: CHARLY Atorvastatin Calcium (Atorvastatin Calcium 80 Mg Tablet) 80 mg PO DAILY [facility] Last Admin: 03/27/23 08:43 Dose: 80 mg Documented By: MICHAELA Albuterol Sulfate 2.5 mg/ (Albuterol/Ipratropium 3 ml) 0 mg INHALE Q4H [facility] Last Admin: 03/27/23 03:50 Dose: Not Given Documented By: GABRIELJTASS Non-Admin Reason: Patient Asleep Enoxaparin Sodium (Enoxaparin Sodium 40 Mg/0.4 Ml Syringe) 40 mg SUBCUT Q24H [facility] Last Admin: 03/27/23 08:43 Dose: 40 mg Documented By: MICHAELA Ferrous Sulfate (Ferrous Sulfate 324 Mg Tablet.Dr) 324 mg PO DAILY [facility] Last Admin: 03/27/23 08:43 Dose: 324 mg Documented By: MICHAELA Fluoxetine HCl (Fluoxetine Hcl 10 Mg Capsule) 10 mg PO DAILY [facility] Last Admin: 03/27/23 08:43 Dose: 10 mg Documented By: MICHAELA Azithromycin 500 mg/ Sodium (Chloride) 250 mls @ 125 mls/hr IV DAILY [facility] Stop: 03/28/23 10:59 Last Admin: 03/27/23 08:43 Dose: 125 mls/hr Documented By: MICHAELA Methylprednisolone Sodium Succinate (Methylprednisolone Sod Succ 125 Mg/2 Ml Vial) 60 mg IVPUSH Q8H [facility] Last Admin: 03/27/23 08:43 Dose: 60 mg Documented By: MICHAELA Metoprolol Succinate (Metoprolol Succinate Er 25 Mg Tab.Er.24h) 25 mg PO DAILY [facility]; Protocol Last Admin: 03/27/23 08:43 Dose: 25 mg Documented By: MICHAELA Ondansetron HCl (Ondansetron Hcl 4 Mg/2 Ml Vial) 4 mg IVPUSH Q8H PRN PRN Reason: Nausea and Vomiting Sodium Chloride (0.9 % Sodium Chloride Flush 3 Ml Syringe) 3 ml IVFLUSH QSHIFT [facility] Last Admin: 03/27/23 08:44 Dose: 3 ml Documented By: MICHAELA Labs 03/27/23 05:07 03/27/23 05:07 Labs: Laboratory Results - last 24 hr 03/26/23 03/27/23 09:52 05:07 MCV 98.2 H MCH 32.2 MCHC 32.8 RDW 13.2 Plt Count 161 MPV 8.9 L Immature Gran % (Auto) 0.4 Neut % (Auto) 83.5 H Lymph % (Auto) 13.2 L [place] % (Auto) 2.8 Eos % (Auto) 0.0 Baso % (Auto) 0.1 Lymph # (Auto) 0.9 L [place] # (Auto) 0.2 Eos # (Auto) 0.0 Baso # (Auto) 0.0 Abs Immat Gran (auto) 0.03 Absolute Neuts (auto) 5.7 Absolute Nucleated RBC 0.000 Nucleated RBC % (auto) 0.0 Anion Gap 14 Estim Creat Clear Calc 103.3 Estimated GFR > 60 Random Glucose 146 H Calcium 8.6 Total Bilirubin 0.5 AST 20 ALT 17 Alkaline Phosphatase 119 H Total Protein 6.2 L Albumin 3.8 Influenza Type A (PCR) NEGATIVE Influenza Type B (PCR) NEGATIVE RSV RNA Qual (PCR) POSITIVE A SARS-CoV-2 RNA (RT-PCR) NEGATIVE Microbiology Microbiology Results: Microbiology 03/26/23 05:05 Blood Culture - Preliminary Blood - Venous No growth after 24 hours. 03/26/23 04:48 Blood Culture - Preliminary Blood - Venous No growth after 24 hours. Assessment and Plan (1) COPD exacerbation: Status: Acute Plan This is a 77-year-old male with history of tobacco abuse and COPD presents to the emergency room with 2-3 days of worsening shortness of breath and a mild productive cough admitted for acute COPD exacerbation due to RSV Acute respiratory failure with hypoxia due to Acute COPD exacerbation from RSV infection Influenza a and B, COVID-19 negative; RSV positive ?recent diagnosis of RSV CXR can't rule out pneumonia, will obtain 2 view CXR does not use oxygen at baseline. titrate O2 to maintain sats greater than equal 90% became sob with ambulation blood cultures negative -continue DuoNebs q.4 hours while awake -received IV ceftriaxone/azithromycin initially due to possibility of pneumonia, will continue azithromycin for now and follow CXR results -continue methylprednisolone 60 mg IV q.8 hours Hypertension some high BP readings continue metoprolol follow bp closely Congestive heart failure. .. Not specified elsewhere, no echo available Does not appear to be in CHF at this time. BNP lower then previous Hearing loss states this is severe. Patient will read lips and here if spoken to extremely loudly Full code DVT ppx - Loven[facility] attending - Dr. Myers Patient requires ongoing inpatient stay for close monitoring of respiratory status due to copd exacerbation and RSV. He also has a new O2 requirement. Based on clinical course, may require specialist consultation.This cannot be achieved a lesser acute setting Quality Stroke Does the patient have a stroke diagnosis?: No VTE Prior VTE?: No VTE Risk Level:: Medical - moderate - high VTE Device Contraindication: Treatment Not Indicated VTE Drug Contraindication: N/A - Med Ordered
--- NOTE | 2023-03-27 12:59 | MHC.CM.PN ---
IMM 03/27/23 Male 77 DX COPD EXAC He lives at home with his . He is [place]. He uses a walker for unsteady gait. His assists with ADLs. There are no services in place. No home O2. No HCP on file. DP home with family assist. Pts grandson will provide transportation at discharge.
[2023-03-27] MEDS: cefTRIAXone sodium 1 GM in 0.9 % Sodium Chloride 50 ML IV (13:48)
[2023-03-27] MEDS: Acetaminophen 325 MG TABLET 650 MG PO (15:04)
[2023-03-28] VITALS (8 sets, daily range): BP systolic 150–175; BP diastolic 75–81; PULSE 57–79; RESP 16–18; TEMP 36.2–36.7; O2SAT 94–97
[2023-03-28] MEDS: Albuterol/Iprat 2.5/0.5MG 3 ML AMPUL.NEB INHALE ×4 (08:03→20:23)
[2023-03-28] MEDS: Metoprolol Succinate ER 25 MG TAB.ER.24H PO (08:46)
[2023-03-28] MEDS: FLUoxetine HCl 10 MG CAPSULE PO (08:46)
[2023-03-28] MEDS: Atorvastatin Calcium 80 MG TABLET PO (08:46)
[2023-03-28] MEDS: Ferrous Sulfate 324 MG TABLET.DR PO (08:46)
[2023-03-28] MEDS: 0.9 % Sodium Chloride Flush 3 ML SYRINGE IVFLUSH ×3 (08:46→20:54)
[2023-03-28] MEDS: Azithromycin 500 MG in 0.9 % Sodium Chloride 250 ML 125 MG IV (08:47)
[2023-03-28] MEDS: Enoxaparin Sodium 40 MG/0.4 ML SYRINGE SUBCUT (08:47)
[2023-03-28] MEDS: methylPREDNISolone Sod Succ 40 MG/ML VIAL IVPUSH ×3 (08:47→23:35)
[2023-03-28] MEDS: Acetaminophen 325 MG TABLET 650 MG PO (13:29)
[2023-03-28] MEDS: cefTRIAXone sodium 1 GM in 0.9 % Sodium Chloride 50 ML IV (14:06)
--- NOTE | 2023-03-28 14:14 | P.PNIM_ITS ---
Subjective Subjective Date of Service: 03/28/23 Interval History: seen and examined this morning follow up for COPD and RSV still with wheezing, cough Review of Systems Review of Systems: Yes all other systems are reviewed and are negative Constitutional Constitutional: Denies chills and Denies fever(s) Cardiovascular Cardiovascular: Denies chest pain and Denies palpitations Respiratory Respiratory: Reports cough Gastrointestinal Gastrointestinal: Denies abdominal pain Endocrine Endocrine: Denies palpitations Physical Exam 2 Vital Signs: Vital Signs: Last Vital Signs Temp 97.5 F 03/28/23 07:56 Pulse 58 03/28/23 11:29 Resp 16 03/28/23 11:29 BP 160/75 H 03/28/23 03:37 Pulse Ox 95 03/28/23 07:56 O2 Del Method Nasal Cannula 03/28/23 07:56 O2 Flow Rate 2.0 03/28/23 07:56 BMI result Body Mass Index 31.8 Const: General: cooperative, comfortable, alert and awake Nutritional Appearance: overweight Orientation/consciousness: patient oriented x3 Resp: Other: b/l expiratory wheezes Effort & Inspection: no respiratory distress and no use of accessory muscles Cardio: Rate: regular rate GI: Palpation (GI): Soft to palpation and nontender Skin: Other: b/l lower extremity venous stasis changes Neuro: Other: grossly nonfocal General: patient oriented x3 Extrem: Other: trace leg edema Objective Data Active Medications Acetaminophen (Acetaminophen 325 Mg Tablet) 650 mg PO Q6H PRN PRN Reason: Pain, Mild (Pain Scale 1-3) Last Admin: 03/28/23 13:29 Dose: 650 mg Documented By: KOURTNEY Albuterol/Ipratropium (Albuterol/Iprat 2.5/0.5mg 3 Ml Ampul.Neb) 3 ml INHALE RQ4H WHILE AWAKE [facility] Last Admin: 03/28/23 11:29 Dose: 3 ml Documented By: LILIAM Atorvastatin Calcium (Atorvastatin Calcium 80 Mg Tablet) 80 mg PO DAILY [facility] Last Admin: 03/28/23 08:46 Dose: 80 mg Documented By: LITA Enoxaparin Sodium (Enoxaparin Sodium 40 Mg/0.4 Ml Syringe) 40 mg SUBCUT Q24H [facility] Last Admin: 03/28/23 08:47 Dose: 40 mg Documented By: LITA Ferrous Sulfate (Ferrous Sulfate 324 Mg Tablet.) 324 mg PO DAILY [facility] Last Admin: 03/28/23 08:46 Dose: 324 mg Documented By: LITA Fluoxetine HCl (Fluoxetine Hcl 10 Mg Capsule) 10 mg PO DAILY [facility] Last Admin: 03/28/23 08:46 Dose: 10 mg Documented By: LITA Ceftriaxone Sodium 1 gm/ (Sodium Chloride) 50 mls @ 100 mls/hr IV Q24H [facility] Last Admin: 03/28/23 14:06 Dose: 100 mls/hr Documented By: LITA Methylprednisolone Sodium Succinate (Methylprednisolone Sod Succ 40 Mg/Ml Vial) 40 mg IVPUSH Q8H [facility] Last Admin: 03/28/23 08:47 Dose: 40 mg Documented By: LITA Metoprolol Succinate (Metoprolol Succinate Er 25 Mg Tab.Er.24h) 25 mg PO DAILY [facility]; Protocol Last Admin: 03/28/23 08:46 Dose: 25 mg Documented By: LITA Ondansetron HCl (Ondansetron Hcl 4 Mg/2 Ml Vial) 4 mg IVPUSH Q8H PRN PRN Reason: Nausea and Vomiting Sodium Chloride (0.9 % Sodium Chloride Flush 3 Ml Syringe) 3 ml IVFLUSH QSHIFT [facility] Last Admin: 03/28/23 08:46 Dose: 3 ml Documented By: LITA Labs 03/27/23 05:07 03/27/23 05:07 Microbiology Microbiology Results: Microbiology 03/26/23 05:05 Blood Culture - Preliminary Blood - Venous No growth after 48 hours. 03/26/23 04:48 Blood Culture - Preliminary Blood - Venous No growth after 48 hours. Assessment and Plan (1) COPD exacerbation: Status: Acute (2) RSV (respiratory syncytial virus infection): Status: Acute Plan This is a 77-year-old male with history of tobacco abuse and COPD presents to the emergency room with 2-3 days of worsening shortness of breath and a mild productive cough admitted for acute COPD exacerbation due to RSV Acute respiratory failure with hypoxia due to Acute COPD exacerbation from RSV infection Influenza a and B, COVID-19 negative; RSV positive CXR with RLL atelectasis or pneumonia does not use oxygen at baseline. still requiring 2L NC, titrate O2 to maintain sats greater than equal 90% blood cultures negative -continue DuoNebs q.4 hours while awake -continue IV ceftriaxone/azithromycin to cover for possible pneumonia -continue methylprednisolone Hypertension some high BP readings continue metoprolol follow bp closely Congestive heart failure. .. Not specified elsewhere, no echo available Does not appear to be in CHF at this time. BNP lower then previous no diuretics on med list Hearing loss states this is severe. able to read lips or use whiteboard for communication Full code DVT ppx - [place] attending - Dr. Myers Patient requires ongoing inpatient stay for close monitoring of respiratory status due to copd exacerbation and RSV. He also has a new O2 requirement. Based on clinical course, may require specialist consultation.This cannot be achieved a lesser acute setting Quality Stroke Does the patient have a stroke diagnosis?: No VTE Prior VTE?: No VTE Risk Level:: Medical - moderate - high VTE Device Contraindication: Treatment Not Indicated VTE Drug Contraindication: N/A - Med Ordered
--- NOTE | 2023-03-28 15:31 | MHC.CM.PN ---
Per MD rounds no dc today. Patient continues to require supplemental oxygen. DP home with family support and transportation.
--- NOTE | 2023-03-28 15:38 | PC.NURSE ---
Patients' is at bedside complaining of lack of care given to spouse and that pt's underwear were soiled, t/w explained that the pt was offered to be washed by [employer] and refused, SH[employer]ERK also offered new page pants and pt declined. T/W ambulated with pt and in hallway with walker and portable O2. Patient and educated on utilizing call ortiz when pt needs help or has to use the bathroom
[2023-03-29] VITALS (11 sets, daily range): BP systolic 135–170; BP diastolic 72–94; PULSE 59–115; RESP 18–24; TEMP 36.2–36.8; O2SAT 79–99
[2023-03-29] MEDS: Enoxaparin Sodium 40 MG/0.4 ML SYRINGE SUBCUT (07:51)
[2023-03-29] MEDS: 0.9 % Sodium Chloride Flush 3 ML SYRINGE IVFLUSH ×2 (07:51→20:11)
[2023-03-29] MEDS: Ferrous Sulfate 324 MG TABLET.DR PO (07:52)
[2023-03-29] MEDS: methylPREDNISolone Sod Succ 40 MG/ML VIAL IVPUSH ×2 (07:52→20:11)
[2023-03-29] MEDS: Metoprolol Succinate ER 25 MG TAB.ER.24H PO (07:52)
[2023-03-29] MEDS: Atorvastatin Calcium 80 MG TABLET PO (07:52)
[2023-03-29] MEDS: FLUoxetine HCl 10 MG CAPSULE PO (07:52)
[2023-03-29] MEDS: Azithromycin 250 MG TABLET PO (07:52)
[2023-03-29] MEDS: Albuterol/Iprat 2.5/0.5MG 3 ML AMPUL.NEB INHALE ×4 (09:01→20:18)
[2023-03-29] MEDS: Acetaminophen 325 MG TABLET 650 MG PO (11:57)
[2023-03-29] MEDS: cefTRIAXone sodium 1 GM in 0.9 % Sodium Chloride 50 ML IV (13:27)
--- NOTE | 2023-03-29 15:31 | PM.DS ---
DS: Providers Provider Date of Service: 03/29/23 Date of admission: 03/26/23 08:13 Date of discharge: 03/29/23 Primary care physician: Jordon Holt MD Attending physician on discharge: Gelacio Mcadams Discharging clinician: Barbara Murray DS: Diagnosis Discharge Diagnosis (1) COPD exacerbation: Status: Acute (2) RSV (respiratory syncytial virus infection): Status: Acute DS: Summary Hospital Course Hospital Course: From H&P on day of admission 77-year-old former smoker presents with 3-4 days of worsening shortness of breath at home. states this morning he could not ambulate to bathroom without extreme shortness of breath. She denies fever chills; she states she recently got discharged from the hospital with RSV and is still taking prednisone. Concurrently he has with an O2 requirement however does not utilize O2 at home. Medical history significant for CHF/COPD; does not examined in failure. EN route to hospital patient received DuoNeb and 125 of Solu-Medrol. Chest x-ray rate consistent with patchy atelectasis verses infiltrate. Will be admitted for treatment of the same Acute respiratory failure with hypoxia due to Acute COPD exacerbation from RSV infection. Influenza a and B, COVID-19 negative; RSV positive. CXR showing RLL atelectasis or pneumonia. blood cultures negative to date. patient was treateded with breathing treatments, systemic steroids as well as antibiotics for possible pneumonia. His wheezing and breathing have improved and but he is still requiring oxygen. He had a home oxygen evaluation and qualifies for 3 L of oxygen at rest and with ambulation. he will be discharged home with supplemental oxygen, steroids and antibiotics and nebulizer machine for duo-nebs breathing treatments. He will be discharged home with VNA, but they will not be able to see him until early next week, this was discussed with his daughter and they are in agreement. His grandson will be staying with him for the next few days. Time Attestation Discharge coordination time: Greater than 30 minutes Quality: Safe Use of Opioids Does Pt have an Active Cancer Diagnosis on the Problem List?: No Quality: Stroke Does the patient have a stroke diagnosis?: No Physical Exam Vital Signs: Vital Signs: Last Vital Signs Temp 97.7 F 03/29/23 07:23 Pulse 87 03/29/23 09:01 Resp 18 03/29/23 11:54 BP 168/80 H 03/29/23 07:23 Pulse Ox 90 L 03/29/23 11:26 O2 Del Method Room Air 03/29/23 11:26 O2 Flow Rate 3 03/29/23 07:23 BMI result Body Mass Index 31.8 Const: General: cooperative, comfortable, alert and awake Nutritional Appearance: overweight Orientation/consciousness: patient oriented x3 Resp: Other: no significant wheezing, diminished breath sounds; no rales Effort & Inspection: no respiratory distress and no use of accessory muscles Cardio: Rate: regular rate GI: Palpation (GI): Soft to palpation and nontender Skin: Other: b/l lower extremity venous stasis changes Neuro: Other: grossly nonfocal General: patient oriented x3 Extrem: Other: trace leg edema DS: Data Data Completed and Pending Labs on day of discharge: Preliminary micro results at discharge 03/26/23 05:05 Blood Culture - Preliminary Blood - Venous No growth after 48 hours. 03/26/23 04:48 Blood Culture - Preliminary Blood - Venous No growth after 48 hours. Discharge Plan Discharge Anticipated Discharge Date/Time: 03/30/23 15:14 Patient Disposition: Home Health Service Discharge Diagnosis: COPD exacerbation RSV Referrals: Melissa Perez [Outside] - 3-5 Days Jordon Holt MD [Primary Care Provider] - 1 Week Discharge Medications: New prednisone 10 mg tablet See Taper PO DIRECTED Qty: 20 0RF Taper: Prednisone 40 mg daily for 2 Days and 0 Hour 30 mg daily for 2 Days and 0 Hour 20 mg daily for 2 Days and 0 Hour 10 mg daily for 2 Days and 0 Hour Rx Instructions: see taper instructions azithromycin 250 mg tablet 250 mg PO DAILY 3 Days Qty: 3 0RF cefuroxime axetil 500 mg tablet 500 mg PO BID 4 Days Qty: 8 0RF ipratropium-albuterol 0.5 mg-3 mg(2.5 mg base)/3 mL Solution For Nebulization 3 ml inhalation Q6H PRN (Reason: shortness of breath or wheezing) Qty: 90 0RF amlodipine [Norvasc] 2.5 mg tablet 2.5 mg PO DAILY 30 Days Qty: 30 0RF Continued atorvastatin 80 mg tablet 80 mg PO DAILY fluoxetine 10 mg capsule 10 mg PO DAILY metoprolol succinate 25 mg tablet extended release 24 hr 25 mg PO DAILY albuterol sulfate 90 mcg/actuation HFA aerosol inhaler 2 puff INHALATION Q4H tobramycin-dexamethasone 0.3-0.1 % drops,suspension 1 drp 3XW ferrous sulfate 325 mg (65 mg iron) Tablet 325 mg PO DAILY Discharge Orders: Discharge Order (Routine); Ordered 03/30/23 Ordered By: Barbara Murray Activity on Discharge: As tolerated Stand Alone Forms: Patient Portal Discharge page Care Plan Goals: see below Health Concerns: copd exacerbation RSV pneumonia Plan of Treatment: you have qualified for new oxygen Complete course of steroids as described Complete course of antibiotics as prescribed can use inhaler or duo nebs via nebulizer machine as needed for shortness of breath your blood pressure was high, a low dose of norvasc was started this may need to be increased more - discuss with PCP Call to schedule a follow-up appointment with your PCP you will be discharged home with VNA, they will start early next week return to the nearest ED with any worsening shortness of breath Assessment: see discharge summary
--- NOTE | 2023-03-29 15:58 | MHC.CM.PN ---
Addendum entered by Maria Luisa Winn 03/29/23 16:24: PT IS STATING HE WANTS TO DC TODAY, HOWEVER HIS DAUGHTER IS ON HER WAY AND FEELS SHE WILL BE ABLE TO TALK HIM INTO STAYING ANOTHER DAY THEY ARE A Original Note: PT WILL DC HOME WITH [facility] CAN PROVIDE SOC ON FRIDAY OR FRIDAY, THERE ARE NO AGENCIES WITH SOONER AVAILABILITY PT / AWARE WILL TRANSPORT
--- NOTE | 2023-03-29 16:00 | W.MHC.F2F ---
Service Date Service Date: 03/29/23 Encounter Date of encounter: 03/29/23 Reasons for Services Signs and symptoms assessed: needs fdc for monitoring of o2 saturation and education around new supplemental oxygen and copd Reason for fdc: teach disease management and other MD Overseeing Care: Jordon Holt Homebound: Leaving the home is medically contraindicated at this time without the asist of a device and/or another person due th the listed conditions above and below. Reason homebound: shortness of breath with minimal effort Certification: Based on the above findings, I certify that this patient is confined to the home and needs intermittent fdc care, physical therapy and/or speech therapy, or continues to need occupational therapy. The patient is under my care, and I have initiated the establishment of the plan of care. The patient will be followed by a physician who will periodically review the plan of care. Time Spent With Patient Time: Total time managing care of this patient today ____ minutes.
--- NOTE | 2023-03-29 16:25 | MHC.CM.PN ---
Addendum entered by Maria Luisa Winn 03/30/23 15:49: PTS DC WAS HELD YESTERDAY HE WILL DC TODAY WITH [facility] AND A PLAN FOR HIS GRANDSON TO STAY WITH HIM UNTIL HIS IS OUT OF THE HOSPITAL Original Note: PT WILL DC HOME WITH [facility] CAN PROVIDE SOC ON FRIDAY OR FRIDAY, THERE ARE NO AGENCIES WITH SOONER AVAILABILITY PT STATING HE WANTS TO DC HOME TODAY PTS DAUGHTER IS ON HER WAY AND FEELS SHE CAN CONVINCE HIM TO STAY ANOTHER DAY THEY ARE AWARE THE VNA WILL NOT START UNTIL FRIDAY OR FRIDAY IF HE GOES HOME TODAY
--- NOTE | 2023-03-29 18:40 | HO.PM.IMPN ---
Subjective Subjective Date of Service: 03/29/23 Interval History: seen and examined this morning follow up for COPD, RSV feeling better and wants to go home planned d/c but then was sob with home o2 eval. patient then wanting to leave AMA, but now willing to stay another night Review of Systems Review of Systems: Yes all other systems are reviewed and are negative Constitutional Constitutional: Denies chills and Denies fever(s) Cardiovascular Cardiovascular: Denies chest pain, Denies palpitations and Reports dyspnea on exertion Respiratory Respiratory: Reports cough and Reports dyspnea on exertion Endocrine Endocrine: Denies palpitations Physical Exam Vital Signs: Vital Signs: Last Vital Signs Temp 97.7 F 03/29/23 15:32 Pulse 98 03/29/23 16:38 Resp 20 03/29/23 16:38 BP 135/80 03/29/23 15:32 Pulse Ox 88 L 03/29/23 15:32 O2 Del Method Room Air 03/29/23 15:32 O2 Flow Rate 3 03/29/23 07:23 BMI result Body Mass Index 31.8 Const: General: cooperative, comfortable, alert and awake Nutritional Appearance: overweight Orientation/consciousness: patient oriented x3 Resp: Other: no significant wheezing, diminished breath sounds; no rales Effort & Inspection: no respiratory distress and no use of accessory muscles Cardio: Rate: regular rate GI: Palpation (GI): Soft to palpation and nontender Skin: Other: b/l lower extremity venous stasis changes Neuro: Other: grossly nonfocal General: patient oriented x3 Extrem: Other: trace leg edema Objective Data Active Medications Acetaminophen (Acetaminophen 325 Mg Tablet) 650 mg PO Q6H PRN PRN Reason: Pain, Mild (Pain Scale 1-3) Last Admin: 03/29/23 11:57 Dose: 650 mg Documented By: LITA Albuterol/Ipratropium (Albuterol/Iprat 2.5/0.5mg 3 Ml Ampul.Neb) 3 ml INHALE RQ4H WHILE AWAKE [facility] Last Admin: 03/29/23 16:38 Dose: 3 ml Documented By: LILIAM Atorvastatin Calcium (Atorvastatin Calcium 80 Mg Tablet) 80 mg PO DAILY [facility] Last Admin: 03/29/23 07:52 Dose: 80 mg Documented By: LITA Azithromycin (Azithromycin 250 Mg Tablet) 250 mg PO Q24H [facility] Stop: 03/31/23 08:59 Last Admin: 03/29/23 07:52 Dose: 250 mg Documented By: LITA Enoxaparin Sodium (Enoxaparin Sodium 40 Mg/0.4 Ml Syringe) 40 mg SUBCUT Q24H [facility] Last Admin: 03/29/23 07:51 Dose: 40 mg Documented By: LITA Ferrous Sulfate (Ferrous Sulfate 324 Mg Tablet.Dr) 324 mg PO DAILY [facility] Last Admin: 03/29/23 07:52 Dose: 324 mg Documented By: LITA Fluoxetine HCl (Fluoxetine Hcl 10 Mg Capsule) 10 mg PO DAILY [facility] Last Admin: 03/29/23 07:52 Dose: 10 mg Documented By: LITA Ceftriaxone Sodium 1 gm/ (Sodium Chloride) 50 mls @ 100 mls/hr IV Q24H [facility] Last Infusion: 03/29/23 14:13 Dose: Infused Documented By: LITA Methylprednisolone Sodium Succinate (Methylprednisolone Sod Succ 40 Mg/Ml Vial) 40 mg IVPUSH Q8H [facility] Last Admin: 03/29/23 15:24 Dose: Not Given Documented By: LITA Non-Admin Reason: Patient Refused Metoprolol Succinate (Metoprolol Succinate Er 25 Mg Tab.Er.24h) 25 mg PO DAILY [facility]; Protocol Last Admin: 03/29/23 07:52 Dose: 25 mg Documented By: LITA Ondansetron HCl (Ondansetron Hcl 4 Mg/2 Ml Vial) 4 mg IVPUSH Q8H PRN PRN Reason: Nausea and Vomiting Sodium Chloride (0.9 % Sodium Chloride Flush 3 Ml Syringe) 3 ml IVFLUSH QSHIFT [facility] Last Admin: 03/29/23 15:24 Dose: Not Given Documented By: LITA Non-Admin Reason: Patient Refused Labs 03/27/23 05:07 03/27/23 05:07 Assessment and Plan (1) RSV (respiratory syncytial virus infection): Status: Acute (2) COPD exacerbation: Status: Acute Plan This is a 77-year-old male with history of tobacco abuse and COPD presents to the emergency room with 2-3 days of worsening shortness of breath and a mild productive cough admitted for acute COPD exacerbation due to RSV Acute respiratory failure with hypoxia due to Acute COPD exacerbation from RSV infection Influenza a and B, COVID-19 negative; RSV positive CXR with RLL atelectasis or pneumonia does not use oxygen at baseline. qualifies for home o2, will be discharged with supplemental oxygen blood cultures negative -continue DuoNebs q.4 hours while awake -continue IV ceftriaxone/azithromycin to cover for possible pneumonia -continue methylprednisolone, wean Hypertension some high BP readings continue metoprolol follow bp closely Congestive heart failure. .. Not specified elsewhere, no echo available Does not appear to be in CHF at this time. BNP lower then previous no diuretics on med list Hearing loss states this is severe. able to read lips or use whiteboard for communication Full code DVT ppx - Lovenox attending - Dr. Mcadams Patient requires ongoing inpatient stay for close monitoring of respiratory status due to copd exacerbation and RSV. Quality Stroke Does the patient have a stroke diagnosis?: No VTE Prior VTE?: No VTE Risk Level:: Medical - moderate - high VTE Device Contraindication: Treatment Not Indicated VTE Drug Contraindication: N/A - Med Ordered
[2023-03-30] MEDS: Albuterol/Iprat 2.5/0.5MG 3 ML AMPUL.NEB INHALE ×3 (08:36→16:00)
[2023-03-30 08:39] VITALS: PULSE 85; RESP 24; O2SAT 99
[2023-03-30] MEDS: Metoprolol Succinate ER 25 MG TAB.ER.24H PO (09:11)
[2023-03-30] MEDS: FLUoxetine HCl 10 MG CAPSULE PO (09:11)
[2023-03-30] MEDS: Ferrous Sulfate 324 MG TABLET.DR PO (09:11)
[2023-03-30] MEDS: Azithromycin 250 MG TABLET PO (09:11)
[2023-03-30] MEDS: Enoxaparin Sodium 40 MG/0.4 ML SYRINGE SUBCUT (09:11)
[2023-03-30] MEDS: Atorvastatin Calcium 80 MG TABLET PO (09:11)
[2023-03-30] MEDS: methylPREDNISolone Sod Succ 40 MG/ML VIAL IVPUSH (09:11)
[2023-03-30] MEDS: 0.9 % Sodium Chloride Flush 3 ML SYRINGE IVFLUSH (09:11)
[2023-03-30 09:18] VITALS: BP 180/78; PULSE 72; RESP 24; TEMP 36.6; O2SAT 93
[2023-03-30] MEDS: amLODIPine Besylate 2.5 MG TABLET PO (10:20)
[2023-03-30 12:04] VITALS: BP 138/72
[2023-03-30 12:30] VITALS: PULSE 84; RESP 24; O2SAT 98
[2023-03-30] MEDS: Acetaminophen 325 MG TABLET 650 MG PO (13:29)
[2023-03-30] MEDS: cefTRIAXone sodium 1 GM in 0.9 % Sodium Chloride 50 ML IV (13:30)
--- NOTE | 2023-03-30 14:53 | P.PNIM_ITS ---
Subjective Subjective Date of Service: 03/30/23 Interval History: seen and examined this morning follow up for RSV, COPD exacerbation tearful, crying - upset and worried about wheezing; cough improving Review of Systems Review of Systems: Yes all other systems are reviewed and are negative Cardiovascular Cardiovascular: Denies dyspnea Respiratory Respiratory: Reports cough and Denies dyspnea Physical Exam 2 Vital Signs: Vital Signs: Last Vital Signs Temp 97.8 F 03/30/23 09:18 Pulse 84 03/30/23 12:30 Resp 24 H 03/30/23 12:30 BP 138/72 03/30/23 12:04 Pulse Ox 93 03/30/23 09:18 O2 Del Method Nasal Cannula 03/30/23 09:18 O2 Flow Rate 2 03/30/23 09:18 BMI result Body Mass Index 31.8 Const: General: cooperative, comfortable, alert and awake Nutritional Appearance: overweight Orientation/consciousness: patient oriented x3 Resp: Other: wheezing Effort & Inspection: no respiratory distress and no use of accessory muscles Cardio: Rate: regular rate GI: Palpation (GI): Soft to palpation and nontender Skin: Other: b/l lower extremity venous stasis changes Neuro: Other: grossly nonfocal General: patient oriented x3 Extrem: Other: trace leg edema Objective Data Active Medications Acetaminophen (Acetaminophen 325 Mg Tablet) 650 mg PO Q6H PRN PRN Reason: Pain, Mild (Pain Scale 1-3) Last Admin: 03/30/23 13:29 Dose: 650 mg Documented By: LITA Albuterol/Ipratropium (Albuterol/Iprat 2.5/0.5mg 3 Ml Ampul.Neb) 3 ml INHALE RQ4H WHILE AWAKE [facility] Last Admin: 03/30/23 12:30 Dose: 3 ml Documented By: LILIAM Amlodipine Besylate (Amlodipine Besylate 2.5 Mg Tablet) 2.5 mg PO DAILY [facility]; Protocol Atorvastatin Calcium (Atorvastatin Calcium 80 Mg Tablet) 80 mg PO DAILY [facility] Last Admin: 03/30/23 09:11 Dose: 80 mg Documented By: LITA Azithromycin (Azithromycin 250 Mg Tablet) 250 mg PO Q24H [facility] Stop: 03/31/23 08:59 Last Admin: 03/30/23 09:11 Dose: 250 mg Documented By: LITA Enoxaparin Sodium (Enoxaparin Sodium 40 Mg/0.4 Ml Syringe) 40 mg SUBCUT Q24H [facility] Last Admin: 03/30/23 09:11 Dose: 40 mg Documented By: LITA Ferrous Sulfate (Ferrous Sulfate 324 Mg Tablet.Dr) 324 mg PO DAILY [facility] Last Admin: 03/30/23 09:11 Dose: 324 mg Documented By: LITA Fluoxetine HCl (Fluoxetine Hcl 10 Mg Capsule) 10 mg PO DAILY [facility] Last Admin: 03/30/23 09:11 Dose: 10 mg Documented By: LITA Ceftriaxone Sodium 1 gm/ (Sodium Chloride) 50 mls @ 100 mls/hr IV Q24H [facility] Last Infusion: 03/30/23 14:33 Dose: Infused Documented By: LITA Methylprednisolone Sodium Succinate (Methylprednisolone Sod Succ 40 Mg/Ml Vial) 40 mg IVPUSH Q12H [facility] Last Admin: 03/30/23 09:11 Dose: 40 mg Documented By: LITA Metoprolol Succinate (Metoprolol Succinate Er 25 Mg Tab.Er.24h) 25 mg PO DAILY [facility]; Protocol Last Admin: 03/30/23 09:11 Dose: 25 mg Documented By: LITA Ondansetron HCl (Ondansetron Hcl 4 Mg/2 Ml Vial) 4 mg IVPUSH Q8H PRN PRN Reason: Nausea and Vomiting Sodium Chloride (0.9 % Sodium Chloride Flush 3 Ml Syringe) 3 ml IVFLUSH QSHIFT [facility] Last Admin: 03/30/23 09:11 Dose: 3 ml Documented By: LITA Labs 03/27/23 05:07 03/27/23 05:07 Assessment and Plan (1) RSV (respiratory syncytial virus infection): Status: Acute (2) COPD exacerbation: Status: Acute Plan This is a 77-year-old male with history of tobacco abuse and COPD presents to the emergency room with 2-3 days of worsening shortness of breath and a mild productive cough admitted for acute COPD exacerbation due to RSV Acute respiratory failure with hypoxia due to Acute COPD exacerbation from RSV infection, pneumonia Influenza a and B, COVID-19 negative; RSV positive CXR with RLL atelectasis or pneumonia does not use oxygen at baseline. qualifies for home o2, will be discharged with supplemental oxygen blood cultures negative -continue DuoNebs q.4 hours while awake -continue IV ceftriaxone/azithromycin to cover for possible pneumonia -continue methylprednisolone, wean Hypertension some high BP readings continue metoprolol will add lose dose norvasc, titrate prn follow bp closely Congestive heart failure. .. Not specified elsewhere, no echo available Does not appear to be in CHF at this time. BNP lower then previous no diuretics on med list Hearing loss states this is severe. able to read lips or use whiteboard for communication Full code DVT ppx - Lovenox attending - Dr. Mcadams Patient requires ongoing inpatient stay for close monitoring of respiratory status due to copd exacerbation and RSV. Quality Stroke Does the patient have a stroke diagnosis?: No VTE Prior VTE?: No VTE Risk Level:: Medical - moderate - high VTE Device Contraindication: Treatment Not Indicated VTE Drug Contraindication: N/A - Med Ordered
[2023-03-30 15:45] VITALS: BP 158/72; PULSE 59; RESP 18; TEMP 36.5; O2SAT 97
[2023-03-30 16:00] VITALS: PULSE 79; RESP 20; O2SAT 98
== END 2023-03-30 16:58 | disposition home health service (06) | DRG 190 ==
LOC: HO.ED 05:39 → HO.EDOVER 08:22 → HO.S3 11:45
PROVIDERS: Admitting Provider Hospitalist; Emergency Provider Student in an Organized Health Care Education/Training Program; PCP Internal Medicine; Visit Provider Physician Assistant Medical
DX: J44.0 Chronic obstructive pulmonary disease with (acute) lower respiratory infection (principal); J18.9 Pneumonia, unspecified organism; J96.01 Acute respiratory failure with hypoxia; J98.11 Atelectasis; B97.4 Respiratory syncytial virus as the cause of diseases classified elsewhere; J44.1 Chronic obstructive pulmonary disease with (acute) exacerbation; H91.93 Unspecified hearing loss, bilateral; Z20.822 Contact with and (suspected) exposure to COVID-19; Z79.899 Other long term (current) drug therapy
CPT/HCPCS: 0241U; 36415; 71045; 71046; 80053; 82803; 83605; 83880; 84484; 85025; 85610; 87040; 87502; 87635; 93005; 94640; 99285; J0456; J0696; J1650; J1940; J2920; J2930; J3010; J3475

== ENCOUNTER → 2023-03-26 04:03 | Outpatient (BNV) | payer OTHER, MEDICAID, SELFPAY | PROVIDERS: Admitting Provider Hospitalist; Emergency Provider Student in an Organized Health Care Education/Training Program; PCP Internal Medicine; Visit Provider Internal Medicine | DX: R06.02 Shortness of breath (principal) | CPT/HCPCS: 93010 ==

== ENCOUNTER → 2023-03-26 08:13 | Outpatient (BNV) | payer OTHER, MEDICAID, SELFPAY | PROVIDERS: Admitting Provider Hospitalist; Emergency Provider Student in an Organized Health Care Education/Training Program; PCP Internal Medicine; Visit Provider Hospitalist | DX: B33.8 Other specified viral diseases (principal); J44.1 Chronic obstructive pulmonary disease with (acute) exacerbation | CPT/HCPCS: 99223; 99232; 99239; G0180 ==

== ENCOUNTER 2025-01-18 00:37 | Inpatient (IN) | payer OTHER, SELFPAY ==
[2025-01-18] VITALS (11 sets, daily range): BP systolic 100–132; BP diastolic 50–98; PULSE 98–121; RESP 16–20; TEMP 36.2–36.9; O2SAT 90–100; BMI 30.8; BMI 30.5
--- NOTE | ~2025-01-18 | CT_ITS ---
CLINICAL HISTORY: sob CT angiography chest with contrast. 3D Postprocessing. Comparison: None provided Findings: Breathing artifact throughout the exam. Subsegmental pulmonary artery evaluation in the lower lungs are severely compromised. Cardiomegaly. No pericardial effusion. Ascending aorta 5.1 cm diameter. No dissection. Enlarged pulmonary artery. This can be seen with pulmonary artery hypertension. Prominent mediastinal lymph nodes. Likely reactive. Symmetric gynecomastia. Moderate bilateral pleural effusions appear at least partially loculated. Dependent atelectasis both lungs. No consolidation. Septal thickening at the lower lungs, especially evident in the right lower lobe. Significant body wall edema at the lower thoracic and upper abdominal region. Subacute to old moderate superior endplate compression fracture T12. Bones are osteopenic. IMPRESSION: 1. Ascending aortic aneurysm 5.1 cm diameter without dissection or rupture. 2. No acute pulmonary embolus within the significant limitations of the exam. 3. Findings suggesting heart failure. 4. The bilateral pleural effusions could be loculated. Consider ultrasound characterization. This document has been electronically signed by: Geovani Lima MD on 01/18/2025 04:08:27
--- NOTE | ~2025-01-18 | US_ITS ---
EXAMINATION: US CHEST HISTORY: assess effusions COMPARISON: Correlation is made with a chest CT dated 01/18/2025. FINDINGS: Sonographic examination of the chest was performed to assess for pleural fluid. On the right, no significant pleural fluid is identified. On the left, there is a small pleural effusion. US/US chest IMPRESSION: Small left pleural effusion. Electronically signed by: Tristin Mancera MD 01/20/2025 06:59 AM EDT
--- NOTE | ~2025-01-18 | XR_ITS ---
CLINICAL HISTORY: cp 1 view chest x-ray Comparison: CR/SR - XR CHEST 2 VIEWS - 03/27/23 11:41 EST Findings: There is a new pleural-based abnormality at the right lower lung. This could be a mass or loculated effusion. New consolidation left lung base with obscuration of the hemidiaphragm. Cardiomegaly similar to prior. Osteopenia. No fracture. IMPRESSION: Left lung base consolidation and indeterminate pleural-based lesion at the right lower lung are new since the prior exam. Consider further characterization with contrast enhanced chest CT. This document has been electronically signed by: Geovani Lima MD on 01/18/2025 01:51:55
--- NOTE | ~2025-01-18 | US_ITS ---
CLINICAL HISTORY: scotal swelling US Scrotum with Doppler Comparison: None provided Findings: Right testicle normal echotexture, 4.1 x 2.6 x 2.1 cm. Left testicle normal echotexture, 3.8 x 2.4 x 2.1 cm. Normal color flow and arterial/venous spectral tracing of both testicles. Normal epididymides. No hydroceles or varicoceles. IMPRESSION: 1. There is extensive scrotal swelling with no fluid collection. 2. Normal testicles without torsion. This document has been electronically signed by: Geovani Lima MD on 01/18/2025 02:43:07
--- NOTE | ~2025-01-18 | XR_ITS ---
CLINICAL HISTORY: sob 1 view chest x-ray Comparison: Chest x-ray from 01/18/2025. Findings: Small left pleural effusion. Right lateral chest wall opacity appears decrease in remains nonspecific by radiographs. Loculated occlusion not excluded. Mild bibasilar atelectasis/pneumonitis, left worse than right. No pneumothorax. Emphysematous changes are redemonstrated. No significant change of the imaged mediastinum or imaged osseous structures. IMPRESSION: Small left pleural effusion with nonspecific bilateral pulmonary opacities. Differential considerations include pneumonitis and pneumonia, particularly left lung base. Recommend attention on follow-up to ensure resolution. This document has been electronically signed by: Ryne Marshall MD on 01/24/2025 19:43:15
--- NOTE | 2025-01-18 01:07 | ECG_ITS ---
Test Reason : sob Blood Pressure : */* mmHG Vent. Rate : 95 BPM Atrial Rate : * BPM P-R Int : * ms QRS Dur : 80 ms QT Int : 310 ms P-R-T Axes : * 33 189 degrees QTcB Int : 389 ms Poor data quality Possible Atrial fibrillation Low voltage QRS Nonspecific ST and T wave abnormality Abnormal ECG When compared with ECG of 26-Mar-2023 04:13, Atrial fibrillation has replaced Sinus rhythm QRS voltage has decreased Nonspecific T wave abnormality now evident in Inferior leads Nonspecific T wave abnormality has replaced inverted T waves in Anterior leads QT has shortened Referred By: Stacia Maguire Electronically Signed By: EDWIN ANGUIANO MD
--- NOTE | 2025-01-18 01:08 | ED.MALEGU ---
HPI - Male Genitourinary General Chief complaint: Urogenital-Male Stated complaint: SWELLING IN GROIN AREA Time Seen by Provider: 01/18/25 01:00 History of Present Illness HPI Narrative: Patient is a 79-year-old male with a long history of being on Bumex for leg swelling congestive heart failure. Patient did not like the Bumex as it caused him to go to the bathroom quite often. Elected to stop his water pill for the last 3 months. Now noted increasing leg swelling increasing swelling to his scrotum increasing swelling to his body baseline patient is on 2 L of oxygen at home. Patient denies any new shortness of breath. saw his swollen penis and elected to bring him in for further evaluation. He denies any new chest pain. No diaphoresis. No fever no chills. Minimal pain to the scrotal area Related Data Home Medications ?Medication ?Instructions ?Recorded ?Confirmed albuterol sulfate 90 mcg/actuation 2 puff inhalation Q4H 03/26/23 03/26/23 aerosol inhaler atorvastatin 80 mg tablet 80 mg PO DAILY 03/26/23 03/26/23 ferrous sulfate 325 mg (65 mg 325 mg PO DAILY 03/26/23 03/26/23 iron) tablet fluoxetine 10 mg capsule 10 mg PO DAILY 03/26/23 03/26/23 metoprolol succinate 25 mg 25 mg PO DAILY 03/26/23 03/26/23 tablet,extended release 24 hr tobramycin 0.3 %-dexamethasone 0.1 1 drp 3XW 03/26/23 03/26/23 % eye drops,suspension Previous Rx's ?Medication ?Instructions ?Recorded azithromycin 250 mg tablet 250 mg PO DAILY 3 days #3 tabs 03/29/23 cefuroxime axetil 500 mg tablet 500 mg PO BID 4 days #8 tabs 03/29/23 ipratropium 0.5 mg-albuterol 3 mg 3 ml inhalation Q6H PRN shortness 03/29/23 (2.5 mg base)/3 mL nebulization of breath or wheezing #90 mL soln prednisone 10 mg tablet See Taper PO DIRECTED #20 tabs 03/29/23 amlodipine 2.5 mg tablet (Norvasc) 2.5 mg PO DAILY 30 days #30 tabs 03/30/23 Allergies Allergy/AdvReac Type Severity Reaction Status Date / Time No Known Allergies (No Known Allergy Verified 01/18/25 01:01 Allergies*) Review of Systems Review of Systems: No fever no chills no chest pain Yes all other systems are reviewed and are negative [facility] Past Medical History Attestation statement: The following information was validated with the patient. Medical History Hypertension Tobacco abuse Hepatic steatosis [place] COPD (chronic obstructive pulmonary disease) Congestive heart failure Anemia Social History Social History Household Members: Spouse Housing: Apartment Do you presently have visiting nurse or other home services: No Alcohol intake: former Patient Tobacco Use Status: Never used Tobacco Smoked in Last 30 Days: No Use of substances other than those prescribed or required for medical reasons: No service: No Physical Exam Exam: Exam: Appearance: Alert. Oriented X3. No acute distress. Eyes: Pupils equal, round and reactive to light. ENT: Pharynx normal. Neck: Normal inspection. Neck supple. No lymph nodes noted. No crepitus CVS: Normal heart rate and rhythm. Pulses normal. Normal S1 and S2. Respiratory: No respiratory distress. Diminished breath sounds bilaterally. In his back there is dependent edema up to approximately the 7th or 8th rib. Abdomen: Soft and nontender. No rigidity. No distention. good BS x4. Edematous throughout. Skin: Skin warm and dry. Normal skin color. Normal skin turgor. Extremities: 3+ lower extremity edema. The edema extends all the way up his scrotum. The scrotum is extremely edematous. The lower abdomen is extremely edematous. Up to the level of the lower thoracic area bilaterally Neurovascular intact to all extremities. No Lacerations. No Rash Neuro: Oriented X 3. No motor deficit. No sensory deficit. Moving all extermities. No slurred speech Vital Signs: Vital Signs: Last Vital Signs Temp 97.4 F 01/18/25 00:51 Pulse 100 01/18/25 00:51 Resp 16 01/18/25 00:51 BP 121/73 01/18/25 00:51 Pulse Ox 100 01/18/25 00:55 O2 Del Method Nasal Cannula 01/18/25 00:55 O2 Flow Rate 4 01/18/25 00:51 Oxygen Flow Rate 2 01/18/25 00:55 BMI result Body Mass Index 30.8 Medical Decision Making Medical Decision Making [facility] Narrative: Patient did not take his water pill for the last 3 months. Now is having increasing swelling in the lower extremity extending all the way to the chest. Likely the cause of patient's swelling to the scrotum. No signs of torsion. Will require admission. Labs ordered EKG ordered. I reviewed patient's previous echo. It was done in 2019. It showed an ejection fraction about 40%. Patient's BNP came back at over 18,000. Kidney function is normal. Troponin is negative. History not consistent with ACS. But consistent with congestive heart failure. On his chest x-ray he does have on the right side question infiltrate type material. I discussed this finding with the hospitalist he wanted a CT scan of the chest. I think the risk for PE is low as patient is on Eliquis and has been compliant. Patient is to be admitted for the diuresis. Currently in stable condition. Differential Diagnosis Differential Diagnoses: The differential diagnosis associated with the presentation includes Congestive heart failure Admission/Observation Consideration of admission/observation: Escalation of care including admission/observation considered Consult Healthcare Provider Management of the patient was discussed with: Hospitalist Lab Data [facility] Lab Attestation statement: I reviewed the patient's lab results. 01/18/25 01:17 01/18/25 01:17 Labs: Lab Results 01/18/25 Range/Units 01:17 WBC 6.1 (4.8-10.8) X10*3/uL RBC 2.70 L D (4.60-5.80) X10*6/uL Hgb 8.3 L D (14.0-18.0) g/dl Hct 28.0 L D (42.0-52.0) % MCV 103.7 H (80.0-98.0) fL MCH 30.7 (27.0-33.0) pg MCHC 29.6 L (31.0-36.0) g/dl RDW 13.2 (11.0-16.0) % Plt Count 231 D (160-400) X10*3/uL MPV 8.6 L (9.4-12.4) fL Immature Gran % (Auto) 0.5 H (0.0-0.4) % Neut % (Auto) 64.3 (45-73) % Lymph % (Auto) 18.9 L (20-40) % Morrison % (Auto) 12.0 H (2-11) % Eos % (Auto) 3.8 (0-4) % Baso % (Auto) 0.5 (0-2) % Lymph # (Auto) 1.2 (1.2-4.9) X10*3/uL Morrison # (Auto) 0.7 (0.1-1.2) X10*3/uL Eos # (Auto) 0.2 (0.0-0.4) X10*3/uL Baso # (Auto) 0.0 (0.0-0.2) X10*3/uL Abs Immat Gran (auto) 0.03 (0.00-0.03) X10*3/uL Absolute Neuts (auto) 3.9 (2.0-8.3) x10*3/uL Absolute Nucleated RBC 0.000 (0.0-0.012) X10*3/uL Nucleated RBC % (auto) 0.0 (0.0-0.2) /100WBC PT 18.7 H (10.9-12.4) SEC INR 1.6 H (0.9-1.1) Sodium 141 (135-145) mmol/L Potassium 4.6 (3.3-5.1) mmol/L Chloride 106 (96-108) mmol/L Carbon Dioxide 31 H (22-29) mmol/L Anion Gap 9 L (12-20) BUN 9 (9-16) mg/dL Creatinine 0.57 (0.5-1.4) mg/dL Estim Creat Clear Calc 125.1 Estimated GFR > 60 Random Glucose 83 (60-115) mg/dL Calcium 8.2 L (8.4-10.2) mg/dL Magnesium 2.0 (1.6-2.6) mg/dL Total Bilirubin 0.4 (0.0-1.0) mg/dL Direct Bilirubin 0.2 (0.0-0.5) mg/dL AST 30 (5-37) U/L ALT 8 (0-40) U/L Troponin I High Sens 3.5 (<3.5-35.0) ng/L NT-Pro-B Natriuret Pep 18087.2 H (<300) pg/mL Total Protein 5.3 L (6.5-8.0) g/dL Albumin 2.9 L (3.5-5.0) g/dL Independent Interpretation I performed an independent interpretation of an: EKG Independent Historian Clinical information obtained from an independent historian. History obtained from or confirmed by: Spouse External Record Review External record reviewed: Outpatient record and Prior outpatient labs Chronic Conditions Patient?s care impacted by: Hypertension Congestive heart failure, COPD Social Determinants Patient?s care significantly limited by Social Determinants of Health including: Alcoholism and drug addiction in family and Problems related to primary support group Critical Care Time Critical Care Time Critical Care Time: Yes Total Critical Care Time: 40 Attestation: I have personally provided 40 minutes of critical care time exclusive of time spent on separately billable procedures. ?Time includes review of lab data, radiology results, discussion with consultants, and monitoring for potential decompensation. ?Interventions were performed as documented above Discharge Plan Discharge Clinical Impression: Congestive heart failure, Dependent edema Patient Disposition: Admitted As Inpatient Print Language: Kinyarwanda
[2025-01-18 01:20] LABS: MANUAL DIFF FLAG NO
[2025-01-18 01:22] LABS: Hematocrit 28.0 % (42.0-52.0); Hemoglobin 8.3 g/dl (14.0-18.0); Imm Gran Abs Auto 0.03 X10*3/uL (0.00-0.03); Imm Gran Pct Auto 0.5 % (0.0-0.4); Lymphocytes Absolute Auto 1.2 X10*3/uL (1.2-4.9); Mean Corpuscular HGB Conc 29.6 g/dl (31.0-36.0); Mean Corpuscular Hemoglobin 30.7 pg (27.0-33.0); Mean Corpuscular Volume 103.7 fL (80.0-98.0); NRBC Abs Auto 0.000 X10*3/uL (0.0-0.012); NRBC Pct Auto 0.0 /100WBC (0.0-0.2); Platelet Count 231 X10*3/uL (160-400); Red Blood Count 2.70 X10*6/uL (4.60-5.80); White Blood Count 6.1 X10*3/uL (4.8-10.8)
[2025-01-18 01:28] LABS: INTERNATIONAL NORM RATIO 1.6 (0.9-1.1); Prothrombin Time 18.7 SEC (10.9-12.4)
[2025-01-18 01:43] LABS: Alanine Aminotransferase 8 U/L (0-40); Albumin Level 2.9 g/dL (3.5-5.0); Anion Gap 9 (12-20); Aspartate Amino Transferase 30 U/L (5-37); Blood Urea Nitrogen 9 mg/dL (9-16); Calcium 8.2 mg/dL (8.4-10.2); Carbon Dioxide 31 mmol/L (22-29); Chloride 106 mmol/L (96-108); Creatinine Clr Calc Pharmacy 125.1; Estimated Glomerular Filt Rate > 60; Magnesium 2.0 mg/dL (1.6-2.6); Potassium 4.6 mmol/L (3.3-5.1); Sodium 141 mmol/L (135-145); Total Protein 5.3 g/dL (6.5-8.0)
[2025-01-18 01:49] LABS: Troponin-I High Sensitivity 3.5 ng/L (<3.5-35.0)
--- NOTE | 2025-01-18 02:05 | PM.IMHP ---
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 the pt is difficult to understand his his and daughter provide the history. the pt needs to be communicated with via family members or with writing largely on white board, which I was able to do. he complains of anasarca including testicular and penile swelling. he stopped taking bumex 3 months ago as it was causing him too urinate often and he did not like that. he denies any SOB, chest pain, fever, chills, nausea, vomting, abd pain, or headache. Review of Systems Constitutional: Constitutional: Denies body ache(s), Denies chills, Denies fatigue, Denies fever(s) and Denies headache(s) Eyes: Eyes: Denies change in vision ENT: Denies headache(s), Denies nasal congestion and Denies sore throat Cardiovascular: Cardiovascular: Denies chest pain, Denies rapid heart rate, Reports leg edema, Denies lightheadedness and Denies dyspnea Respiratory: Respiratory: Denies chest congestion, Denies cough, Denies dyspnea and Denies wheezing Gastrointestinal: Gastrointestinal: Denies abdominal pain, Denies nausea and Denies vomiting Genitourinary: Genitourinary: Denies dysuria and Denies urinary urgency Musculoskeletal: Musculoskeletal: Denies myalgias Integumentary/Breasts: Skin/Breast: Denies rash Neurologic: Denies confusion and Denies headache(s) Psychiatric: Psychiatric: Denies confusion Endocrine: Endocrine: Denies fatigue Hematologic/Lymphatic: Hematologic/Lymphatic: Denies easy bleeding and Denies easy bruising Allergic/Immunologic: Allergic/Immunologic: Denies wheezing [facility] Medical History (Updated 01/18/25 @ 04:12 by Trina Jorgensen PA-C) Hypertension Tobacco abuse Hepatic steatosis Deaf COPD (chronic obstructive pulmonary disease) Congestive heart failure Anemia Social History Household Members: Spouse Housing: Apartment Do you presently have visiting nurse or other home services: No Alcohol intake: former Patient Tobacco Use Status: Never used Tobacco Smoked in Last 30 Days: No Use of substances other than those prescribed or required for medical reasons: No Advance Directives: No Advance Directives Information Provided: Yes service: No Narrative: smoker, no etoh or drug use Meds Allergies Allergy/AdvReac Type Severity Reaction Status Date / Time No Known Allergies (No Known Allergy Verified 01/18/25 01:01 Allergies*) Active Medications: Current Medications Furosemide (Furosemide 20 Mg Tablet) 20 mg PO BID@0900,1800 PACO; Protocol Home Medications ?Medication ?Instructions ?Recorded ?Confirmed ?Last Taken ?Type albuterol sulfate 90 mcg/actuation 2 puff inhalation Q4H 03/26/23 03/26/23 Unknown History aerosol inhaler atorvastatin 80 mg tablet 80 mg PO DAILY 03/26/23 03/26/23 Unknown History ferrous sulfate 325 mg (65 mg 325 mg PO DAILY 03/26/23 03/26/23 Unknown History iron) tablet fluoxetine 10 mg capsule 10 mg PO DAILY 03/26/23 03/26/23 Unknown History metoprolol succinate 25 mg 25 mg PO DAILY 03/26/23 03/26/23 Unknown History tablet,extended release 24 hr tobramycin 0.3 %-dexamethasone 0.1 1 drp 3XW 03/26/23 03/26/23 Unknown History % eye drops,suspension Physical Exam Vital Signs and Narrative: Vital Signs: Last Vital Signs Temp 97.4 F 01/18/25 00:51 Pulse 100 01/18/25 00:51 Resp 16 01/18/25 00:51 BP 121/73 01/18/25 00:51 Pulse Ox 100 01/18/25 00:55 O2 Del Method Nasal Cannula 01/18/25 00:55 O2 Flow Rate 4 01/18/25 00:51 Oxygen Flow Rate 2 01/18/25 00:55 BMI result Body Mass Index 30.8 General: AOx3, no acute distress. seen with and daughter bedside. used white board to communicate and pt's family members also help Resp: diminshed throughout, crackles lower lungs, no wheezing CVS: tachy, irregularly irregular GI: +BS, NT, distended Skin: Warm, dry Neuro: Cranial nerves II-XII grossly intact bilaterally. Motor grossly intact bilaterally Extremities: 2-3+ pitting edema Psych: Appropriate affect Const: General: No confusion Orientation/consciousness: No confusion Neuro: General: No confusion Results Labs 01/18/25 01:17 01/18/25 01:17 Labs: Laboratory Results - last 24 hr 01/18/25 01:17 MCV 103.7 H MCH 30.7 MCHC 29.6 L RDW 13.2 Plt Count 231 D MPV 8.6 L Immature Gran % (Auto) 0.5 H Neut % (Auto) 64.3 Lymph % (Auto) 18.9 L [place] % (Auto) 12.0 H Eos % (Auto) 3.8 Baso % (Auto) 0.5 Lymph # (Auto) 1.2 [place] # (Auto) 0.7 Eos # (Auto) 0.2 Baso # (Auto) 0.0 Abs Immat Gran (auto) 0.03 Absolute Neuts (auto) 3.9 Absolute Nucleated RBC 0.000 Nucleated RBC % (auto) 0.0 PT 18.7 H INR 1.6 H Anion Gap 9 L Estim Creat Clear Calc 125.1 Estimated GFR > 60 Random Glucose 83 Calcium 8.2 L Magnesium 2.0 Total Bilirubin 0.4 Direct Bilirubin 0.2 AST 30 ALT 8 Troponin I High Sens 3.5 NT-Pro-B Natriuret Pep 91982.2 H Total Protein 5.3 L Albumin 2.9 L Assessment and Plan (1) Acute exacerbation of CHF (congestive heart failure): Status: Acute (2) Anasarca: Status: Acute (3) Anemia: Status: Acute (4) Class 1 obesity: Status: Acute (5) Tobacco abuse: Status: Acute Plan pt is a 79 yo male with a pmhx significant for 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 BNP elevated and imaging with fluid overload and possible loculated pleural effusion acute CHF exacerbation with anasarca and possible loculated pleural effusion - lasix 20mg IV BID - unasyn for loculated pleural effusion - echo - pulm consult - monitor Is and Os anemia - iron, B12, folate, OBSx1 aortic aneurysm, 5.1cm on CT, no dissection or rupture - close monitoring outpt with vascular surgery severe O2 dependent COPD, no acute exacerbation - continue home therapies paroxysmal a fib - heparin instead of eliquis incase of thoracentesis - tele tobacco use disorder - declines NRT - RT consult hearing/vision impairment - needs communication with writing on whiteboard HLD - continue home therapies HTN - continue home therapies class 1 obesity - weight loss encouraged med rec pending full code VTE prophy: heparin pt with acute CHF exacerbation complicated by anasarca and possible loculated pleural effusion, requiring admission for at least 2 midnights stay for further evaluation and monitoring. Quality Stroke Does the patient have a stroke diagnosis?: No VTE Prior VTE?: No VTE Risk Level:: Medical - moderate - high VTE Device Contraindication: Treatment Not Indicated VTE Drug Contraindication: N/A - Med Ordered
[2025-01-18] MEDS: Furosemide 40 MG/4 ML VIAL IVPUSH (02:25)
--- OUTSIDE RECORDS SUMMARY | 2025-01-18 02:26 | XMS_ITS | Encounter Summary ---
Author Organization [facility] Address [address] [place] [address] [place] [id number] Phone Care Team Providers Care Diazo Technician Name Role Phone Jordon Holt MD Primary Care Provider [phone] Encounter Details Date Type Department Care Team ([facility] st Contact Info) Description 06/27/2022 Ophth Exam [facility] [address] [place] [address] Sharifa Santos MD, PhD [address] [place] [id number] [email or web address] Social History Tobacco Use Types Packs/Day Years Used Date Smoking Tobacco: Never Assessed Intimate Partner Violence Answer Date R ecorded Are you denied basic needs s uch as food, clothing, or medical care? Patient unable to respond 06/27/2022 In the past 12 months have y ou been in a relationship with a person who hurts, threatens, or tries to control you? Patient unable to respond 06/27/2022 Are you denied basic needs s uch as food, clothing, or medical care? Patient unable to respond 06/27/2022 In the past 12 months have y ou been in a relationship with a person who hurts, threatens, or tries to control you? Patient unable to respond 06/27/2022 Sex and Gender Information Value Date Recorded Sex Assigned at Not on file Legal Sex Male 3:16 PM EDT Gender Identity Not on file Sexual Orientation Not on file documented as of this encounter Plan of Treatment Not on file documented as of this encounter Visit Diagnoses Not on filedocumented in this encounter Care Teams Diazo Technician Relationship Specialty Start Date End Date Jordon Holt MD [address] [place] [id number] PCP - General Internal Medicine 06/27/22 documented as of this encounter Additional Source Comments The information contained in this document represents components of the legal health record. It is not the complete legal health record.[facility]
--- OUTSIDE RECORDS SUMMARY | 2025-01-18 02:26 | XMS_ITS | Clinical Summary ---
Author Organization [facility] Address [address] [facility] [address] [place] [phone] Phone Care Team Providers Care Clinical Staff Pharmacist Name Role Phone Jordon Holt MD Primary Care Provider [phone] Allergies No known active allergies Medications metoprolol tartrate (LOPRESSOR) 25 MG tablet Take 12.5 mg by mouth. 02/12/2022 Active ferrous sulfate 325 mg (65 mg [place] iron) EC tablet Take 325 mg by mouth. 02/12/2022 Active albuterol 90 mcg/actuation inhaler Inhale 2 puffs into the lungs every 4 (four) hours. 06/18/2022 Active atorvastatin (LIPITOR) 80 MG tablet Take 80 mg by mouth. 02/12/2022 Active FLOVENT HFA 110 mcg/actuation inhaler INHALE 2 PUFFS BY MOUTH TWICE DAILY RINSE MOUTH AND THROAT AFTER USE 05/16/2022 Active bumetanide (BUMEX) 2 MG tablet Take 2 mg by mouth. 02/12/2022 Active moxifloxacin (VIGAMOX) 0.5 % ophthalmic solution 06/26/2022 Active tobramycin-dexa methasone (TOBRADEX) ophthalmic suspension 06/26/2022 Active erythromycin (ROMYCIN) ophthalmic ointment Place 0.5 inches into the left eye nightly at bedtime. 3.5 g 6 06/28/2022 Active Active Problems No known active problems Social History Tobacco Use Types Packs/Day Years Used Date Smoking Tobacco: Never Assessed Education Answer Date Recorded Are you interested in more education? Not on carlos e 07/27/2022 Are you concerned about learning? Not on file 07/27/2022 No 07/27/2022 No 07/27/2022 Digital Access Answer Date Recorded No 08/27/2022 No 08/27/2022 Reliable internet access at home? Not on file 08/27/2022 Device with a working camera? Not on file Intimate Partner Violence Answer Date R ecorded [...] on file Sexual Orientation Not on file Last Filed Vital Signs Vital Sign Reading Time Taken Comments Blood Pressure 113/77 06/27/2022 3:46 PM EDT Pulse 76 06/27/2022 3:46 PM EDT Temperature 36.5 C (97.7 F) 06/27/2022 3:46 PM EDT Respiratory Rate 18 06/27/2022 3:46 PM EDT Oxygen Saturation 95% 06/27/2022 3:46 PM EDT Inhaled Oxygen Concentration - - Weight 93 kg (205 lb) 06/27/2022 3:46 PM EDT Height 175.3 cm (5' 9 ) 06/27/2022 3:46 PM EDT Body Mass Index 30.27 06/27/2022 3:46 PM EDT Plan of Treatment Not on file Medical Devices Not on file Insurance [address] [place] [address] [place] A & B [facility] MEDICARE REPLACEMENT [facility] MEDICARE PART A & B [employer] PPO MEDICARE REPLACEMENT [facility] MEDICARE PART A & B [employer] PPO MEDICARE REPLACEMENT [address] [place] [address] [place] A & B [facility] MEDICARE [place]PLACEMENT [address] [place] [address] [place] A & B [facility] MEDICARE [facility]PLACEMENT [facility] MEDICARE PART A & B [facility] PPO MEDICARE REPLACEMENT Care Teams Clinical Staff Pharmacist Relationship Specialty Start Date End Date Jordon Holt MD [address] [place] [id number] PCP - General Internal Medicine 06/27/22 Additional Source Comments The information contained in this document represents components of the legal health record. It is not the complete legal health record.[facility]
[2025-01-18 02:50] LABS: Alkaline Phosphatase 145 U/L (39-117)
[2025-01-18 03:14] LABS: Procalcitonin 0.03 ng/mL
[2025-01-18] MEDS: iohexoL 350 MG/ML 100 ML INFUS..BTL 65 ML IV (03:20)
[2025-01-18 03:58] LABS: Hematocrit 29.0 % (42.0-52.0); Hemoglobin 8.7 g/dl (14.0-18.0); Imm Gran Abs Auto 0.03 X10*3/uL (0.00-0.03); Imm Gran Pct Auto 0.5 % (0.0-0.4); Lymphocytes Absolute Auto 1.1 X10*3/uL (1.2-4.9); Mean Corpuscular HGB Conc 30.0 g/dl (31.0-36.0); Mean Corpuscular Hemoglobin 31.0 pg (27.0-33.0); Mean Corpuscular Volume 103.2 fL (80.0-98.0); NRBC Abs Auto 0.000 X10*3/uL (0.0-0.012); NRBC Pct Auto 0.0 /100WBC (0.0-0.2); Platelet Count 246 X10*3/uL (160-400); Red Blood Count 2.81 X10*6/uL (4.60-5.80); White Blood Count 6.3 X10*3/uL (4.8-10.8)
[2025-01-18 03:59] LABS: Appearance Urine Clear; Glucose Urine UA Negative (Negative); MANUAL DIFF FLAG NO; PH 5.5 (5.0-9.0); Specific Gravity - Urine 1.020 (1.005-1.025); UMIC TRIGGER UACC YES
[2025-01-18 04:19] LABS: Anion Gap 11 (12-20); Blood Urea Nitrogen 9 mg/dL (9-16); Calcium 8.3 mg/dL (8.4-10.2); Carbon Dioxide 29 mmol/L (22-29); Chloride 106 mmol/L (96-108); Creatinine Clr Calc Pharmacy 125.1; Estimated Glomerular Filt Rate > 60; Iron 28 mcg/dL (45-160); Magnesium 2.0 mg/dL (1.6-2.6); Percent Iron Saturation 13 % (15-50); Potassium 4.4 mmol/L (3.3-5.1); Sodium 142 mmol/L (135-145); Total Iron Binding Capacity 221 mcg/dL (228-428); Unsaturated Iron Binding 193 ug/dL
[2025-01-18 04:55] LABS: Folate 4.7 ng/mL (> or = 4.0); Vitamin B12 360 pg/mL (200-900)
--- NOTE | 2025-01-18 07:00 | CA_ITS ---
Transthoracic Echocardiogram Patient (Last, First, Middle): Tristin Jeff, Gender: Male Date of : 1945 Age: 79 Procedure Date: 01/18/2025 Procedure Type: Transthoracic Echocardiogram Location: ER Height: 177.8 cm Weight: 97.52 kg BSA: 2.15 m2 Heart Rate: bpm BP: 115 / 69 mmHg Armor Reconnaissance Vehicle Driver: ELIAS Referring MD: Trina Jorgensen PA-C Kettle Loader: Obed Hyde MD Symptoms: CHF exacerbation Study Quality: Fair ECG Rhythm: Atrial Fibrillation Conclusions: - 1. LV ejection fraction appears to be moderately reduced with LVEF of 35-40% 2. Moderately dilated right ventricle with severely reduced RV systolic function 3. Biatrial enlargement, right greater than left 4. Moderate aortic stenosis 5. Mildly to moderately elevated right ventricular systolic pressure with significantly elevated right atrial pressures 6. Severely dilated ascending aorta at 5.4 cm 7. No gross pericardial effusion Findings Procedure Information The study quality is limited by the patients inability to tolerate the test. The patient declines contrast. Left Ventricle Normal left ventricular cavity size. There is mildly increased left ventricular wall thickness. The left ventricular systolic function is moderately decreased. The visually estimated ejection fraction is between 35 40%. Diastolic function is indeterminate on the basis of available data. Right Ventricle Moderately increased right ventricular cavity size. There is severely decreased right ventricular systolic function. Atria The left atrium is moderately dilated. The right atrium is severely dilated. Aortic Valve There is moderate calcification of the aortic valve. There is moderate aortic valve stenosis. The peak aortic gradient is 21 mmHg.The mean gradient is 13 mmHg. The aortic valve area is 1.22 cm2. There is mild aortic valve regurgitation. Mitral Valve There is mild anterior and posterior mitral leaflet thickening. There is trace mitral valve regurgitation. There is no mitral valve stenosis. Pulmonic Valve The pulmonic valve is likely normal. There is mild pulmonic valve regurgitation. Tricuspid Valve There is moderate tricuspid valve regurgitation. Significantly elevated right atrial pressure. Mild to moderate pulmonary hypertension is present. Great Vessels The pulmonary artery was not well visualized. There is severe dilatation of the ascending aorta measuring 5.40 cm. Venous The inferior vena cava is severely dilated and collapses less than 50% with inspiration. Pericardium/Pleural There is no evidence of pericardial effusion. There is a left sided pleural effusion. Prior Study Comparison Changes noted compared to prior study dated: 09/20/2019. ascending aorta is severely dilated. Right atrial pressures are significantly elevated Measurements 2D Linear Measurements IVSd: 1.22 0.6-0.9/0.6-1.0 cm LVIDd: 5.06 3.9-5.3/4.2-5.9 cm LVIDd Index: 2.35 2.4-3.2/2.2-3.1 cm/m2 LVIDs: 4.24 2.0-3.6 cm LVPWd: 1.20 0.7-1.1 cm LA Diam: 4.60 2.7-3.8/3.0-4.0 cm LAIDs Index: 2.14 1.5-2.3 cm/m2 LV Mass: 300.51 67-162/88-224 g LV Mass Index: 139.77 43-95/49-115 g/m2 LVOT Diam: 2.50 3.0+(-)1.3 cm Mitral Valve MV Pk E: 1.10 MV Decel Time: 149.00 E'Lateral: 9.78 E'Medial: 5.94 E/E' Med: 18.50 E/E' Lat: 11.20 PHT: 44.00 MVA PHT: 5.00 Decel [place]: 7.47 Aortic Valve AoV Pk [place]: 2.30 AoV Mn [place]: 1.67 AoV VTI: 0.50 AoV Pk Grad: 21.00 Aov Mn Grad: 13.00 ABIODUN Cont.VTI: 1.22 LVOT LVOT Pk [place]: 0.54 LVOT Mn [place]: 0.39 LVOT VTI: 0.12 LVOT Pk Grad: 1.00 LVOT Mn Grad: 1.00 LVOT Diam: 2.50 LVOT Area: 4.91 Diastolic Function MV Pk E: 1.10 E'Medial: 5.94 E/E' Med: 18.50 E' Laterial: 9.78 E/E' Lat: 11.20 Right Ventricle TAPSE (mm): 8.24 TVS' [place]: 8.33 Tricuspid Valve TR Pk [place]: 3.04 TR Pk Grad: 37.00 RA Press: 15.00 RVSP: 52.00 Great Vessels Aorta Sinus of Valsalva: 4.39 2.0-3.[address] [place]: 3.42 1.7-3.4 cm Ao Asc: 5.40 2.1-3.4 cm Updated in Other Vendor System with Status of Final Obed Hyde MD electronically signed on 01/18/2025 4:50:20 PM with status of Final
--- NOTE | 2025-01-18 08:54 | PC.NURSE ---
Pt has been resting quietly. With exertion to stand and attempt use of commode is extremely SOB. Pt is deaf, reading 's lips. Scrutum and penis extremely swollen (head of penis is not visable). persed lip breathing, LS dim throughout and crackles. speech is difficulty to understand.
--- NOTE | 2025-01-18 09:10 | PHA.MEDREC ---
Addendum entered by Sera Sellres RPh 01/18/25 10:03: MED REC REVIEWED BY [facility] Original Note: Pharmacy Consult ? Medication Reconciliation Pharmacy has completed the medication reconciliation. Spoke to patients at bedside to confirm med list. had a list of patient medications. states patient stopped taking Bumetanide 2 mg . Patient last had his medications yesterday afternoon. Utilized claims and list from to confirm med list.
--- NOTE | 2025-01-18 10:29 | PC.NURSE ---
Elzbieta ying is working. Able to account for I/O now.
--- NOTE | 2025-01-18 10:36 | MHC.CM.PN ---
CM met with Patient and his /HCP/Kath at bedside in the ED, and addressed IMM with them, providing Patient with the original and a copy will be placed on the chart. Patient lives in a house with his and he uses a walker and transport chair to assist with mobility. Patient receives [facility] O2 from [facility];home/resume said services is the goal and CM has initiated and will follow for dc planning. PCP is Dr. Jordon Holt and Son or Grandson will transport at time of dc.
--- NOTE | 2025-01-18 10:36 | PM.CNPUL ---
History of Present Illness History of Present Illness Consult date: 01/18/25 Chief complaint: CHF Narrative: This is an inpatient pulmonary consultation. 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 the pt is difficult to understand his his and daughter provide the history. the pt needs to be communicated with via family members or with writing largely on white board, which I was able to do. he complains of anasarca including testicular and penile swelling. he stopped taking bumex 3 months ago as it was causing him too urinate often and he did not like that. he denies any SOB, chest pain, fever, chills, nausea, vomting, abd pain, or headache. Review of Systems Constitutional: Constitutional: Denies body ache(s), Denies chills, Denies fatigue, Denies fever(s) and Denies headache(s) Eyes: Eyes: Denies change in vision ENT: Denies headache(s), Reports hearing loss, Denies nasal congestion and Denies sore throat Cardiovascular: Cardiovascular: Denies chest pain, Denies rapid heart rate, Reports leg edema, Denies lightheadedness and Denies dyspnea Respiratory: Respiratory: Denies chest congestion, Denies cough, Denies dyspnea and Denies wheezing Gastrointestinal: Gastrointestinal: Denies abdominal pain, Denies nausea and Denies vomiting Genitourinary: Genitourinary: Denies dysuria and Denies urinary urgency Musculoskeletal: Musculoskeletal: Denies myalgias Integumentary/Breasts: Skin/Breast: Denies rash Neurologic: Denies headache(s) Endocrine: Endocrine: Denies fatigue Hematologic/Lymphatic: Hematologic/Lymphatic: Denies easy bleeding and Denies easy bruising Allergic/Immunologic: Allergic/Immunologic: Denies wheezing PMFSH Past Medical History Medical History (Updated 01/18/25 @ 10:39 by Yadiel Hudson MD) Pleural effusion Lung mass Hypertension Tobacco abuse Hepatic steatosis Deaf COPD (chronic obstructive pulmonary disease) Congestive heart failure Anemia Social History Social History Household Members: Spouse Housing: Apartment Do you presently have visiting nurse or other home services: No Alcohol intake: former Patient Tobacco Use Status: Never used Tobacco Smoked in Last 30 Days: No Use of substances other than those prescribed or required for medical reasons: No Advance Directives: No Advance Directives Information Provided: Yes service: No Meds Allergies Allergy/AdvReac Type Severity Reaction Status Date / Time No Known Allergies (No Known Allergy Verified 01/18/25 01:01 Allergies*) Active Medications: Current Medications Acetaminophen (Acetaminophen 325 Mg Tablet) 975 mg PO Q6H PRN PRN Reason: Pain, Mild 1-3,fever,headache Last Admin: 01/18/25 10:23 Dose: 975 mg Ampicillin Sodium/Sulbactam Sodium (Ampicillin Sodium/Sulbactam Na 3 Gm Vial) 3 gm IM Q6H [facility] Last Admin: 01/18/25 03:23 Dose: 3 gm Calcium Carbonate (Calcium Carbonate 750 Mg Tab.Chew) 750 mg PO Q4H PRN PRN Reason: Heartburn Furosemide (Furosemide 20 Mg Tablet) 20 mg PO BID@0900,1800 [facility]; Protocol Last Admin: 01/18/25 10:22 Dose: 20 mg Heparin Sodium (Porcine) (Heparin Sodium,Porcine 5,000 Unit/Ml Vial) 5,000 unit SUBCUT Q12H [facility] Last Admin: 01/18/25 03:22 Dose: 5,000 unit Magnesium Hydroxide (Milk Of Magnesia 30 Ml Oral.Susp) 30 ml PO DAILY PRN PRN Reason: Constipation Melatonin (Melatonin 3 Mg Tablet) 6 mg PO BEDTIME PRN PRN Reason: Insomnia Ondansetron HCl (Ondansetron Hcl 4 Mg/2 Ml Vial) 4 mg IVPUSH Q8H PRN PRN Reason: Nausea and Vomiting Sodium Chloride (0.9 % Sodium Chloride Flush 3 Ml Syringe) 3 ml IVFLUSH QSHIFT [facility] Last Admin: 01/18/25 10:22 Dose: Not Given Home Medications ?Medication ?Instructions ?Recorded ?Confirmed ?Last Taken ?Type albuterol sulfate 90 mcg/actuation 2 puff inhalation Q4H 03/26/23 01/18/25 01/17/25 History aerosol inhaler atorvastatin 80 mg tablet 80 mg PO DAILY 03/26/23 01/18/25 01/17/25 History ferrous sulfate 325 mg (65 mg 325 mg PO DAILY 12/01/18/25 01/17/25 History iron) tablet fluoxetine 10 mg capsule 10 mg PO DAILY 03/26/23 01/18/25 01/17/25 History acetaminophen 325 mg tablet 650 mg PO BID PRN Fever Or Pain 01/18/25 01/18/25 Unknown History apixaban 5 mg tablet (Eliquis) 5 mg PO BID 01/18/25 01/18/25 01/17/25 History budesonide-formoterol HFA 160 2 puff inhalation BID 01/18/25 01/18/25 01/17/25 History mcg-4.5 mcg/actuation aerosol inhaler (Breyna) diclofenac sodium 1 % topical gel 4 g topical QID PRN joint pain 01/18/25 01/18/25 Unknown History metoprolol succinate 50 mg 50 mg PO DAILY 01/18/25 01/18/25 01/17/25 History tablet,extended release 24 hr Physical Exam Vital Signs: Vital Signs: Last Vital Signs Temp 97.4 F 01/18/25 08:52 Pulse 121 H 01/18/25 08:52 Resp 18 01/18/25 08:52 BP 111/84 01/18/25 10:22 Pulse Ox 98 01/18/25 08:52 O2 Del Method Nasal Cannula 01/18/25 04:03 O2 Flow Rate 2 01/18/25 08:52 Oxygen Flow Rate 2 01/18/25 00:55 BMI result Body Mass Index 30.8 Const: General: comfortable and tired appearing HEENT: Head: Yes normocephalic Neck: Neck: Yes supple Chest: Chest palpation & inspection: normal inspection of the chest Resp: Other: wheezing Effort & Inspection: no respiratory distress and no use of accessory muscles Auscultation: diminished lung sounds Cardio: Rate: regular rate GI: Palpation (GI): Soft to palpation and nontender Skin: Other: b/l lower extremity venous stasis changes General skin exam: no rashes or lesions noted Neuro: Other: grossly nonfocal Extrem: Other: trace leg edema General: No cyanosis Results Laboratory Findings 01/18/25 03:53 01/18/25 03:53 ABG, PT/INR, D-dimer: PT/INR, D-dimer PT 18.7 SEC (10.9-12.4) H 01/18/25 01:17 INR 1.6 (0.9-1.1) H 01/18/25 01:17 Abnormal lab findings: Abnormal Labs 01/18/25 01/18/25 01:17 03:53 RBC 2.70 L D 2.81 L Hgb 8.3 L D 8.7 L Hct 28.0 L D 29.0 L MCV 103.7 H 103.2 H MCHC 29.6 L 30.0 L MPV 8.6 L 8.4 L Immature Gran % (Auto) 0.5 H 0.5 H Lymph % (Auto) 18.9 L 17.5 L [place] % (Auto) 12.0 H Lymph # (Auto) 1.1 L PT 18.7 H INR 1.6 H Carbon Dioxide 31 H Anion Gap 9 L 11 L Calcium 8.2 L 8.3 L Iron 28 L TIBC 221 L % Saturation 13 L Alkaline Phosphatase 145 H NT-Pro-B Natriuret Pep 72124.2 H Total Protein 5.3 L Albumin 2.9 L Urine Protein 30 (1+) H Microbiology: Diagnostic Findings CT scan - chest: image reviewed Assessment and Plan (1) Acute exacerbation of CHF (congestive heart failure): Status: Acute (2) Tobacco abuse: Status: Acute (3) Lung mass: Status: Acute (4) Pleural effusion: Status: Acute Plan Continue diuresis as tolerated Oxygen supplementation to maintain a pulse ox above 90% PET scan will be helpful to better address this masslike density as an outpt. Although, the patient has very poor adherence to medical care. He actually has not left his home in 2 years. Therefore, another option would be to talk to Interventional Radiology regarding a CT-guided biopsy of this masslike density. Appears to be abutting a loculated effusion. Unfortunately, we do not have thoracic surgery here. Procedures Date of Service Date of Service: 01/18/25
[2025-01-18] MEDS: Metoprolol Succinate ER 50 MG TAB.ER.24H PO (11:36)
--- NOTE | 2025-01-18 12:03 | PC.NURSE ---
Pt is unlabored at rest in bed. Pure whick continues to work. Has echocardiogram at bedside. remains with patient (now in a recliner) and awaits bed assignment. NO change in edema. [facility] [place] offered patient a communication board/3 ring binder but states that he is unlikely to be able to see images on pages.
--- NOTE | 2025-01-18 12:09 | HO.NURTONUR ---
Pt BIBA from home with Hx CHF (non complaint with lasix), A-fib (on eliquis), COPD (2L NC at baseline). Has had increased edema, now anasarca up to mid abd. Scrotum and foreskin are extremely swollen. Pt is SOB and needs to recover/persed lip breathing with any exertion even in bed. Pt is deaf and almost blind, attempts to read lips. has been communicating for him. Admitted for CHF exacerbation with rosa leural effusions, a lung mass (unk etiology and needs biopsy). Negative for PE. Pro BNP was 18,914. Creat and BNP WNL and H/H 11/25.
--- NOTE | 2025-01-18 14:46 | PM.EVENT ---
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 BNP elevated and imaging with fluid overload and possible loculated pleural effusion acute CHF exacerbation with anasarca and possible loculated pleural effusion - lasix 20mg IV BID - unasyn for loculated pleural effusion - echo - pulm consult - monitor Is and Os Iron def anemia - iron 28, B12 360, folate 4.7, aortic aneurysm, 5.1cm on CT, no dissection or rupture - close monitoring outpt with vascular surgery severe O2 dependent COPD, no acute exacerbation - continue home therapies paroxysmal a fib - heparin instead of eliquis incase of thoracentesis - tele tobacco use disorder - declines NRT - RT consult hearing/vision impairment - needs communication with writing on whiteboard HLD - continue home therapies HTN - continue home therapies class 1 obesity - weight loss encouraged full code VTE prophy: heparin pt with acute CHF exacerbation complicated by anasarca and possible loculated pleural effusion, requiring admission for at least 2 midnights stay for further evaluation and monitoring. Time Spent With Patient Time: Total time managing care of this patient today ____ minutes.
[2025-01-19] VITALS (9 sets, daily range): BP systolic 97–117; BP diastolic 53–77; PULSE 92–111; RESP 18–22; TEMP 36–36.7; O2SAT 90–100
[2025-01-19] MEDS: Furosemide 20 MG/2 ML VIAL IVPUSH (05:40)
[2025-01-19] MEDS: Albuterol/Iprat 2.5/0.5MG 3 ML AMPUL.NEB INHALE (06:00)
[2025-01-19 07:14] LABS: MANUAL DIFF FLAG NO
[2025-01-19 07:20] LABS: Hematocrit 28.4 % (42.0-52.0); Hemoglobin 8.4 g/dl (14.0-18.0); Imm Gran Abs Auto 0.02 X10*3/uL (0.00-0.03); Imm Gran Pct Auto 0.3 % (0.0-0.4); Lymphocytes Absolute Auto 1.2 X10*3/uL (1.2-4.9); Mean Corpuscular HGB Conc 29.6 g/dl (31.0-36.0); Mean Corpuscular Hemoglobin 30.9 pg (27.0-33.0); Mean Corpuscular Volume 104.4 fL (80.0-98.0); NRBC Abs Auto 0.000 X10*3/uL (0.0-0.012); NRBC Pct Auto 0.0 /100WBC (0.0-0.2); Platelet Count 230 X10*3/uL (160-400); Red Blood Count 2.72 X10*6/uL (4.60-5.80); White Blood Count 6.9 X10*3/uL (4.8-10.8)
[2025-01-19 07:49] LABS: Anion Gap 15 (12-20); Blood Urea Nitrogen 9 mg/dL (9-16); Calcium 7.7 mg/dL (8.4-10.2); Carbon Dioxide 28 mmol/L (22-29); Chloride 103 mmol/L (96-108); Creatinine Clr Calc Pharmacy 144.8; Estimated Glomerular Filt Rate > 60; Magnesium 2.0 mg/dL (1.6-2.6); Potassium 4.2 mmol/L (3.3-5.1); Sodium 142 mmol/L (135-145)
[2025-01-19] MEDS: Metoprolol Succinate ER 50 MG TAB.ER.24H PO (10:53)
[2025-01-19] MEDS: 0.9 % Sodium Chloride Flush 3 ML SYRINGE IVFLUSH ×2 (10:59→15:26)
--- NOTE | 2025-01-19 11:04 | HO.PM.IMPN ---
Subjective Subjective Date of Service: 01/19/25 Review of Systems Follow up CHF exacerbation, anasarca Difficult to communicate with as patient is deaf and legally blind Physical Exam Exam: Exam: Appearing in no acute distress lung sounds are clear to auscultation heart regular rate rhythm, clear S1, S2 positive bowel sounds, abdomen is soft, nontender neuro patient is alert x3, no focal deficits Anasarca to scrotum, thighs Vital Signs: Vital Signs: Last Vital Signs Temp 97.6 F 01/19/25 08:00 Pulse 92 01/19/25 08:00 Resp 21 H 01/19/25 08:00 BP 99/64 01/19/25 08:00 Pulse Ox 97 01/19/25 08:00 O2 Del Method Nasal Cannula 01/19/25 08:00 O2 Flow Rate 3 01/19/25 08:00 Oxygen Flow Rate 2 01/18/25 00:55 BMI result Body Mass Index 30.5 Objective Data Active Medications Acetaminophen (Acetaminophen 325 Mg Tablet) 975 mg PO Q6H PRN PRN Reason: Pain, Mild 1-3,fever,headache Last Admin: 01/18/25 10:23 Dose: 975 mg Documented By: SAE Albuterol/Ipratropium (Albuterol/Iprat 2.5/0.5mg 3 Ml Ampul.Neb) 3 ml INHALE RQ4H WHILE AWAKE PRN PRN Reason: Shortness of Breath Last Admin: 01/19/25 06:00 Dose: 3 ml Documented By: BRITTNEY Ampicillin Sodium/Sulbactam Sodium (Ampicillin Sodium/Sulbactam Na 3 Gm Vial) 3 gm IV Q6H [facility] Last Admin: 01/19/25 10:54 Dose: 3 gm Documented By: DESHAWN Atorvastatin Calcium (Atorvastatin Calcium 80 Mg Tablet) 80 mg PO DAILY [facility] Last Admin: 01/19/25 10:54 Dose: 80 mg Documented By: DESHAWN Calcium Carbonate (Calcium Carbonate 750 Mg Tab.Chew) 750 mg PO Q4H PRN PRN Reason: Heartburn Fluoxetine HCl (Fluoxetine Hcl 10 Mg Capsule) 10 mg PO DAILY [facility] Last Admin: 01/19/25 10:54 Dose: 10 mg Documented By: DESHAWN Furosemide (Furosemide 20 Mg Tablet) 20 mg PO BID@0900,1800 [facility]; Protocol Last Admin: 01/19/25 10:54 Dose: 20 mg Documented By: DESHAWN Heparin Sodium (Porcine) (Heparin Sodium,Porcine 5,000 Unit/Ml Vial) 5,000 unit SUBCUT Q12H [facility] Last Admin: 01/19/25 05:10 Dose: 5,000 unit Documented By: MOUNA Magnesium Hydroxide (Milk Of Magnesia 30 Ml Oral.Susp) 30 ml PO DAILY PRN PRN Reason: Constipation Melatonin (Melatonin 3 Mg Tablet) 6 mg PO BEDTIME PRN PRN Reason: Insomnia Metoprolol Succinate (Metoprolol Succinate Er 50 Mg Tab.Er.24h) 50 mg PO DAILY [facility]; Protocol Last Admin: 01/19/25 10:53 Dose: 50 mg Documented By: DESHAWN Ondansetron HCl (Ondansetron Hcl 4 Mg/2 Ml Vial) 4 mg IVPUSH Q8H PRN PRN Reason: Nausea and Vomiting Sodium Chloride (0.9 % Sodium Chloride Flush 3 Ml Syringe) 3 ml IVFLUSH QSHIFT [facility] Last Admin: 01/19/25 10:59 Dose: 3 ml Documented By: DESHAWN Labs 01/19/25 07:08 01/19/25 07:08 Labs: Laboratory Results - last 24 hr 01/19/25 07:08 MCV 104.4 H MCH 30.9 MCHC 29.6 L RDW 13.2 Plt Count 230 MPV 8.9 L Immature Gran % (Auto) 0.3 Neut % (Auto) 71.9 Lymph % (Auto) 16.6 L [place] % (Auto) 8.4 Eos % (Auto) 2.5 Baso % (Auto) 0.3 Lymph # (Auto) 1.2 [place] # (Auto) 0.6 Eos # (Auto) 0.2 Baso # (Auto) 0.0 Abs Immat Gran (auto) 0.02 Absolute Neuts (auto) 5.0 Absolute Nucleated RBC 0.000 Nucleated RBC % (auto) 0.0 Anion Gap 15 Estim Creat Clear Calc 144.8 Estimated GFR > 60 Random Glucose 53 L* Calcium 7.7 L D Magnesium 2.0 Assessment and Plan (1) Congestive heart failure: Status: Acute Plan 79 yo male with a pmhx significant for 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 BNP elevated and imaging with fluid overload and possible loculated pleural effusion Acute heart failure with reduced ejection fraction exacerbation with anasarca and possible loculated pleural effusion lasix 20mg IV BID Echocardiogram 35-40% unasyn for loculated pleural effusion daily weights strict intake and output Pulm consult> check chest us to assess size of effusions neg 1 liter Incidental finding of lung mass Pulm consult> outpatient PET scan to address masslike density Iron def anemia iron 28, B12 360, folate 4.7, Aortic aneurysm, 5.1cm on CT, no dissection or rupture close monitoring outpt vascular follow-up O2 dependent COPD no acute exacerbation continue home therapies Supplemental oxygen to keep oxygen saturation greater than 91% Paroxysmal a fib heparin instead of eliquis in case of thoracentesis tele Tobacco use disorder declines NRT RT consult Hearing/vision impairment needs communication with writing on whiteboard HLD continue home therapies HTN continue home therapies Class 1 obesity. BMI 30.5 Weight loss would be encouraged full code VTE prophy: heparin pt with acute CHF exacerbation complicated by anasarca and possible loculated pleural effusion, requiring admission for at least 2 midnights stay for further evaluation and monitoring. Quality Stroke Does the patient have a stroke diagnosis?: No VTE Prior VTE?: No VTE Risk Level:: Medical - moderate - high VTE Device Contraindication: Treatment Not Indicated VTE Drug Contraindication: N/A - Med Ordered
--- NOTE | 2025-01-19 11:06 | P.CDIM_ITS ---
PROVIDER RESPONSE TEXT: To clarify, the appropriate diagnosis supported by the clinical indicators: Other (explain): HFrEF QUERY TEXT: PHYSICIAN'S DOCUMENTATION REQUEST Date of Query: 01/19/2025 09:57 AM EDT Patient Name: Tristin Jeff Admit Date: 01/18/2025 Dear Angela Hudson RECEPTIONIST, A review of the medical record indicates additional documentation may be needed. Please review below and update the documentation accordingly. Clinical Indicators: Acute CHF exacerbation anasarca BNP 44203 IV Lasix PMH : CHF stopped taking Bumex 3 months ago Please provide further specificity regarding the most likely type and acuity of CHF you are evaluating, treating, or monitoring. Systolic Please specify if Acute, Chronic, or Acute on chronic, or Unable to determine Diastolic Please specify if Acute, Chronic, or Acute on chronic, or Unable to determine Combined Systolic/Diastolic Please specify if Acute, Chronic, or Acute on chronic, or Unable to determine Other (explain) Clinically unable to determine (explain) Thank you, Wendi Conrad RN Use of terms such as suspected, likely, concern for, or probable (associated with a specific diagnosis that is being evaluated, monitored, or treated as if it exists) are acceptable and can be coded in the inpatient setting, when documented at the time of discharge. Please use your independent medical judgment in providing your response. THIS QUERY IS PART OF THE PERMANENT MEDICAL RECORD
--- NOTE | 2025-01-19 16:07 | MHC.CM.PN ---
EMR REVIEWED AND PER MD ROUNDS, PATIENT IS NOT MEDICALLY CLEARED FOR DISCHARGE DUE TO MANAGEMENT OF HF/ANASARCA.
[2025-01-19 16:20] LABS: OBS Int Ctl Valid YES
[2025-01-19 16:25] LABS: OBS1 POSITIVE (NEGATIVE)
[2025-01-20] VITALS (7 sets, daily range): BP systolic 96–121; BP diastolic 64–82; PULSE 86–109; RESP 18; TEMP 36.2–36.6; O2SAT 95–99
[2025-01-20] MEDS: 0.9 % Sodium Chloride Flush 3 ML SYRINGE IVFLUSH ×3 (04:02→17:38)
[2025-01-20 06:48] LABS: MANUAL DIFF FLAG NO
[2025-01-20 07:04] LABS: Hematocrit 27.2 % (42.0-52.0); Hemoglobin 8.1 g/dl (14.0-18.0); Imm Gran Abs Auto 0.02 X10*3/uL (0.00-0.03); Imm Gran Pct Auto 0.3 % (0.0-0.4); Lymphocytes Absolute Auto 1.1 X10*3/uL (1.2-4.9); Mean Corpuscular HGB Conc 29.8 g/dl (31.0-36.0); Mean Corpuscular Hemoglobin 30.7 pg (27.0-33.0); Mean Corpuscular Volume 103.0 fL (80.0-98.0); NRBC Abs Auto 0.000 X10*3/uL (0.0-0.012); NRBC Pct Auto 0.0 /100WBC (0.0-0.2); Platelet Count 242 X10*3/uL (160-400); Red Blood Count 2.64 X10*6/uL (4.60-5.80); White Blood Count 5.8 X10*3/uL (4.8-10.8)
[2025-01-20 07:48] LABS: Anion Gap 10 (12-20); Blood Urea Nitrogen 6 mg/dL (9-16); Calcium 7.5 mg/dL (8.4-10.2); Carbon Dioxide 33 mmol/L (22-29); Chloride 103 mmol/L (96-108); Creatinine Clr Calc Pharmacy 144.8; Estimated Glomerular Filt Rate > 60; Magnesium 2.1 mg/dL (1.6-2.6); Potassium 3.4 mmol/L (3.3-5.1); Sodium 143 mmol/L (135-145)
[2025-01-20] MEDS: Metoprolol Succinate ER 50 MG TAB.ER.24H PO (08:07)
[2025-01-20] MEDS: Ferrous Sulfate 324 MG TABLET.DR PO (08:07)
--- NOTE | 2025-01-20 11:57 | P.CONCA_ITS ---
History of Present Illness History of Present Illness Date of Service: 01/20/25 Requesting physician: Barbara Murray Consult reason: congestive heart failure Chief complaint: CHF Narrative: I was consulted to see Tristin in cardiology consultation today for decompensated congestive heart failure. Patient with prior history of congestive heart failure, with preserved LV ejection fraction, paroxysmal atrial fibrillation, COPD, lung mass with pleural effusion with difficulty in obtaining history because of his hearing impairment. Does was visual impairment and speech difficulties. However patient has stopped taking his diuretic about 3 months ago and then gradually getting progressively fluid overloaded with generalized swelling as well as shortness of breath came to the hospital. Diamond's noted to be in decompensated congestive heart failure predominantly right heart failure. Echocardiogram showed worsening LV ejection fraction with significant right atrial pressure enlargement with severe pulmonary hypertension. Patient also noted to be in atrial fibrillation with borderline rate control. Blood pressure is borderline low. Otherwise patient says he still fluid overloaded and short of breath. Review of Systems 2 Review of Systems: Yes Unobtainable due to mental status PMFSH Past Medical History Medical History Pleural effusion Lung mass Hypertension Tobacco abuse Hepatic steatosis [place] COPD (chronic obstructive pulmonary disease) Congestive heart failure Anemia Social History Social History Household Members: Spouse Housing: Apartment Do you presently have visiting nurse or other home services: No Alcohol intake: former Patient Tobacco Use Status: Never used Tobacco service: No Meds Allergies Allergy/AdvReac Type Severity Reaction Status Date / Time No Known Allergies (No Known Allergy Verified 01/18/25 01:01 Allergies*) Active Medications: Current Medications Acetaminophen (Acetaminophen 325 Mg Tablet) 975 mg PO Q6H PRN PRN Reason: Pain, Mild 1-3,fever,headache Last Admin: 01/20/25 08:11 Dose: 975 mg Albuterol/Ipratropium (Albuterol/Iprat 2.5/0.5mg 3 Ml Ampul.Neb) 3 ml INHALE RQ4H WHILE AWAKE PRN PRN Reason: Shortness of Breath Last Admin: 01/19/25 06:00 Dose: 3 ml Atorvastatin Calcium (Atorvastatin Calcium 80 Mg Tablet) 80 mg PO DAILY PACO Last Admin: 01/20/25 08:07 Dose: 80 mg Calcium Carbonate (Calcium Carbonate 750 Mg Tab.Chew) 750 mg PO Q4H PRN PRN Reason: Heartburn Digoxin (Digoxin 0.5 Mg/2 Ml Ampul) 0.25 mg IVPUSH Q6H [facility]; Protocol Stop: 01/20/25 23:01 Ferrous Sulfate (Ferrous Sulfate 324 Mg Tablet.) 324 mg PO DAILY [facility] Last Admin: 01/20/25 08:07 Dose: 324 mg Fluoxetine HCl (Fluoxetine Hcl 10 Mg Capsule) 10 mg PO DAILY [facility] Last Admin: 01/20/25 08:07 Dose: 10 mg Heparin Sodium (Porcine) (Heparin Sodium,Porcine 5,000 Unit/Ml Vial) 5,000 unit SUBCUT Q12H [facility] Last Admin: 01/20/25 04:03 Dose: 5,000 unit Ampicillin Sodium/Sulbactam (Sodium 3 gm/ Sodium Chloride) 100 mls @ 200 mls/hr IV Q6H [facility] Last Infusion: 01/20/25 04:45 Dose: Infused Furosemide 200 mg/ Sodium (Chloride) 100 mls @ 2.5 mls/hr IVCONT .Q24H [facility] Magnesium Hydroxide (Milk Of Magnesia 30 Ml Oral.Susp) 30 ml PO DAILY PRN PRN Reason: Constipation Melatonin (Melatonin 3 Mg Tablet) 6 mg PO BEDTIME PRN PRN Reason: Insomnia Metoprolol Tartrate (Metoprolol Tartrate 12.5 Mg Halftab) 12.5 mg PO BID [facility]; Protocol Ondansetron HCl (Ondansetron Hcl 4 Mg/2 Ml Vial) 4 mg IVPUSH Q8H PRN PRN Reason: Nausea and Vomiting Sodium Chloride (0.9 % Sodium Chloride Flush 3 Ml Syringe) 3 ml IVFLUSH QSHIFT [facility] Last Admin: 01/20/25 08:13 Dose: 3 ml Home Medications ?Medication ?Instructions ?Recorded ?Confirmed ?Last Taken ?Type albuterol sulfate 90 mcg/actuation 2 puff inhalation Q 4H 03/26/23 01/18/25 01/17/25 History aerosol inhaler atorvastatin 80 mg tablet 80 mg PO DAILY 03/26/2312/3001/17/25 History ferrous sulfate 325 mg (65 mg 325 mg PO DAILY 03/26/23 01/18/25 01/17/25 History iron) tablet fluoxetine 10 mg capsule 10 mg PO DAILY 03/26/2312/30/25 10/20/25 History acetaminophen 325 mg tablet 650 mg PO BID PRN Fever Or Pain 01/18/25 01/18/25 Unknown History apixaban 5 mg tablet (Eliquis) 5 mg PO BID 01/18/2501/17/25 History budesonide-formoterol HFA 160 2 puff inhalation BID 01/18/25 01/17/25 History mcg-4.5 mcg/actuation aerosol inhaler (Breyna) diclofenac sodium 1 % topical gel 4 g topical QID PRN joint pain 01/18/25 01/18/25 Unknown History metoprolol succinate 50 mg 50 mg PO DAILY 01/18/2501/17/25 History tablet,extended release 24 hr Physical Exam 2 Vital Signs: Vital Signs: Last Vital Signs Temp 97.8 F 01/20/25 11:09 Pulse 99 01/20/25 11:09 Resp 18 01/20/25 11:09 BP 113/71 01/20/25 11:09 Pulse Ox 96 01/20/25 11:09 O2 Del Method Nasal Cannula 01/20/25 11:09 O2 Flow Rate 4 01/20/25 11:09 Oxygen Flow Rate 2 01/18/25 00:55 BMI result Body Mass Index 30.5 Const: General: cooperative, alert, awake and in distress mild and respiratory Nutritional Appearance: overweight Orientation/consciousness: patient oriented x3 HEENT: Head: Yes normocephalic and Yes atraumatic Neck: Neck: Yes trachea midline, Yes supple and Yes JVD Resp: Effort & Inspection: decreased respiratory effort Auscultation: c rackles and diminished lung sounds Cardio: Rhythm: abnormal rhythm irregularly irregular Heart sounds: S1 normal heart sound present, S2 normal heart sound present, no click, no gallops and no murmurs GI: Inspection: Yes distended Auscultation: normal bowel sounds Skin: General skin exam: no rashes or lesions noted Neuro: General: patient oriented x3 and no focal motor deficits Extrem: General: No clubbing, No cyanosis and Yes edema Objective Labs and Meds 01/20/25 06:15 01/20/25 06:15 Lab results: Laboratory Results - last 24 hr 01/19/25 01/20/25 00:00 06:15 WBC 5.8 RBC 2.64 L Hgb 8.1 L Hct 27.2 L MCV 103.0 H MCH 30.7 MCHC 29.8 L RDW 13.2 Plt Count 242 MPV 9.2 L Immature Gran % (Auto) 0.3 Neut % (Auto) 64.0 Lymph % (Auto) 18.9 L [place] % (Auto) 12.3 H Eos % (Auto) 4.2 H Baso % (Auto) 0.3 Lymph # (Auto) 1.1 L [place] # (Auto) 0.7 Eos # (Auto) 0.2 Baso # (Auto) 0.0 Abs Immat Gran (auto) 0.02 Absolute Neuts (auto) 3.7 Absolute Nucleated RBC 0.000 Nucleated RBC % (auto) 0.0 Sodium 143 Potassium 3.4 Chloride 103 Carbon Dioxide 33 H Anion Gap 10 L BUN 6 L Creatinine 0.49 L Estim Creat Clear Calc 144.8 Estimated GFR > 60 Random Glucose 77 Calcium 7.5 L Magnesium 2.1 Stool Occult Blood POSITIVE Imaging Radiologist's impression: Impressions Chest Ultrasound 01/19/25 19:40 IMPRESSION: Small left pleural effusion. Electronically signed by: Tristin Mancera MD 01/20/2025 06:59 AM EDT RP Assessment and Plan (1) Acute exacerbation of CHF (congestive heart failure): Status: Acute Acute decompensated congestive heart failure in this elderly gentleman with multiple comorbidities including severe COPD, lung mass with blood pleural effusion with chronic tobacco use as as atrial fibrillation as well as poor functional status overall. Patient has clearly significantly fluid overloaded at this point time. I would suggest to start on Lasix drip at 5 mg an hours strict intake and output chart needs to be pursued. Will need gentle diuresis over many days to improve his overall congestive status. Continue monitor renal function electrolytes closely. His blood pressure is on the lower side. Switch metoprolol to 12.5 mg b.i.d. and add digoxin for rate control as well as heart failure management. His LV ejection fraction has reduced most likely probably due to recurrent atrial fibrillation although limitation medications due to low blood pressure at this point time. Can add Jardiance 10 mg to his regimen. Overall prognosis is guarded. Will follow with you Procedures Date of Service Date of Service: 01/20/25
--- NOTE | 2025-01-20 12:47 | P.PNIM_ITS ---
Subjective Subjective Date of Service: 01/20/25 Interval History: Seen and examined this morning Follow-up for shortness of breath, CHF Difficult communication due to patient being very hard of hearing, history was obtained through combination of oral dialogue as well as writing continues to report scrotal swelling and leg edema as well as shortness of breath with minimal movement Review of Systems Review of Systems: Yes all other systems are reviewed and are negative Constitutional Constitutional: Denies chills and Denies fever(s) Cardiovascular Cardiovascular: Reports dyspnea on exertion Respiratory Respiratory: Reports dyspnea on exertion Physical Exam 2 Vital Signs: Vital Signs: Last Vital Signs Temp 97.8 F 01/20/25 11:09 Pulse 99 01/20/25 11:09 Resp 18 01/20/25 11:09 BP 113/71 01/20/25 11:09 Pulse Ox 96 01/20/25 11:09 O2 Del Method Nasal Cannula 01/20/25 11:09 O2 Flow Rate 4 01/20/25 11:09 Oxygen Flow Rate 2 01/18/25 00:55 BMI result Body Mass Index 30.5 Const: General: cooperative, alert and awake Nutritional Appearance: o verweight Orientation/consciousness: patient oriented x3 Resp: Other: crackles b/l; mild tachypnea Effort & Inspection: normal respiratory effort Cardio: Other: mild tachcyardia, irreg irreg rhythm GI: Inspection: No distended Palpation (GI): Soft to palpation Skin: Other: thick skin lower extremities, no warmth, mild erythema/venous stasis Neuro: Other: Grossly nonfocal General: patient oriented x3 Extrem: Other: Bilateral lower extremity edema Objective Data Active Medications Acetaminophen (Acetaminophen 325 Mg Tablet) 975 mg PO Q6H PRN PRN Reason: Pain, Mild 1-3,fever,headache Last Admin: 01/20/25 08:11 Dose: 975 mg Documented By: DESHAWN Albuterol/Ipratropium (Albuterol/Iprat 2.5/0.5mg 3 Ml Ampul.Neb) 3 ml INHALE RQ4H WHILE AWAKE PRN PRN Reason: Shortness of Breath Last Admin: 01/19/25 06:00 Dose: 3 ml Documented By: BRITTNEY Atorvastatin Calcium (Atorvastatin Calcium 80 Mg Tablet) 80 mg PO DAILY PACO Last Admin: 01/20/25 08:07 Dose: 80 mg Documented By: DESHAWN Calcium Carbonate (Calcium Carbonate 750 Mg Tab.Chew) 750 mg PO Q4H PRN PRN Reason: Heartburn Digoxin (Digoxin 0.5 Mg/2 Ml Ampul) 0.25 mg IVPUSH Q6H [facility]; Protocol Stop: 01/20/25 23:01 Last Admin: 01/20/25 11:56 Dose: 0.25 mg Documented By: DESHAWN Ferrous Sulfate (Ferrous Sulfate 324 Mg Tablet.) 324 mg PO DAILY [facility] Last Admin: 01/20/25 08:07 Dose: 324 mg Documented By: DESHAWN Fluoxetine HCl (Fluoxetine Hcl 10 Mg Capsule) 10 mg PO DAILY [facility] Last Admin: 01/20/25 08:07 Dose: 10 mg Documented By: DESHAWN Heparin Sodium (Porcine) (Heparin Sodium,Porcine 5,000 Unit/Ml Vial) 5,000 unit SUBCUT Q12H [facility] Last Admin: 01/20/25 04:03 Dose: 5,000 unit Documented By: PRESTON Ampicillin Sodium/Sulbactam (Sodium 3 gm/ Sodium Chloride) 100 mls @ 200 mls/hr IV Q6H [facility] Last Infusion: 01/20/25 12:26 Dose: Infused Documented By: DESHAWN Furosemide 200 mg/ Sodium (Chloride) 100 mls @ 2.5 mls/hr IVCONT .Q24H [facility] Magnesium Hydroxide (Milk Of Magnesia 30 Ml Oral.Susp) 30 ml PO DAILY PRN PRN Reason: Constipation Melatonin (Melatonin 3 Mg Tablet) 6 mg PO BEDTIME PRN PRN Reason: Insomnia Metoprolol Tartrate (Metoprolol Tartrate 12.5 Mg Halftab) 12.5 mg PO BID [facility]; Protocol Ondansetron HCl (Ondansetron Hcl 4 Mg/2 Ml Vial) 4 mg IVPUSH Q8H PRN PRN Reason: Nausea and Vomiting Sodium Chloride (0.9 % Sodium Chloride Flush 3 Ml Syringe) 3 ml IVFLUSH QSHIFT [facility] Last Admin: 01/20/25 08:13 Dose: 3 ml Documented By: DESHAWN Labs 01/20/25 06:15 01/20/25 06:15 Labs: Laboratory Results - last 24 hr 01/19/25 01/20/25 00:00 06:15 MCV 103.0 H MCH 30.7 MCHC 29.8 L RDW 13.2 Plt Count 242 MPV 9.2 L Immature Gran % (Auto) 0.3 Neut % (Auto) 64.0 Lymph % (Auto) 18.9 L [place] % (Auto) 12.3 H Eos % (Auto) 4.2 H Baso % (Auto) 0.3 Lymph # (Auto) 1.1 L [place] # (Auto) 0.7 Eos # (Auto) 0.2 Baso # (Auto) 0.0 Abs Immat Gran (auto) 0.02 Absolute Neuts (auto) 3.7 Absolute Nucleated RBC 0.000 Nucleated RBC % (auto) 0.0 Anion Gap 10 L Estim Creat Clear Calc 144.8 Estimated GFR > 60 Random Glucose 77 Calcium 7.5 L Magnesium 2.1 Stool Occult Blood POSITIVE Assessment and Plan (1) Congestive heart failure: Status: Acute Plan This is a 79 yo male with a pmhx significant for 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 BNP elevated and imaging with fluid overload and possible loculated pleural effusion Acute on chronic respiratory failure Due to decompensated CHF, new possible lung mass continue to require higher then normal supplemental oxygen, with ongoing tachypnea Acute heart failure with reduced ejection fraction exacerbation with anasarca Initially treated with IV push Lasix, will transition to Lasix drip due to persistent leg edema, tachypnea and insufficient diuresis with IV push dosing Echocardiogram 35-40% daily weights strict intake and output Cardiology following Paroxysmal atrial fibrillation Heart rate uncontrolled seen by cardiology, metoprolol changed to short-acting Lopressor 12.5 b.i.d. Started on digoxin load Incidental finding of lung mass/loculated pleural effusion Pulm consult> outpatient PET scan to address masslike density chest US - showing no pleural effusion right, small left pleural effusion Empiric Unasyn Iron def anemia iron 28, B12 360, folate 4.7, Aortic aneurysm, 5.1cm on CT, no dissection or rupture close monitoring outpt vascular follow-up chronic respiratory failure/O2 dependent COPD 2L NC at baseline no acute exacerbation continue home therapies Supplemental oxygen to keep oxygen saturation greater than 91% Tobacco use disorder declines NRT Hearing/vision impairment needs communication with writing on whiteboard HLD continue home therapies HTN continue home therapies Class 1 obesity. BMI 30.5 Weight loss would be encouraged full code VTE prophy: heparin pt with acute CHF exacerbation complicated by anasarca and possible loculated pleural effusion, requiring admission for at least 2 midnights stay for further evaluation and monitoring. Quality Stroke Does the patient have a stroke diagnosis?: No VTE Prior VTE?: No VTE Risk Level:: Medical - moderate - high VTE Device Contraindication: Treatment Not Indicated VTE Drug Contraindication: N/A - Med Ordered
[2025-01-20] MEDS: Furosemide 200 MG in 0.9 % Sodium Chloride 80 ML IVCONT (13:48)
[2025-01-21] VITALS (7 sets, daily range): BP systolic 100–119; BP diastolic 57–80; PULSE 81–100; RESP 16–20; TEMP 36.1–37.1; O2SAT 95–100; BMI 26.2
[2025-01-21 07:44] LABS: Anion Gap 9 (12-20); Blood Urea Nitrogen 3 mg/dL (9-16); Calcium 7.6 mg/dL (8.4-10.2); Carbon Dioxide 44 mmol/L (22-29); Chloride 94 mmol/L (96-108); Creatinine Clr Calc Pharmacy 141.9; Estimated Glomerular Filt Rate > 60; Potassium 3.1 mmol/L (3.3-5.1); Sodium 144 mmol/L (135-145)
[2025-01-21] MEDS: Metoprolol Tartrate 12.5 MG HALFTAB PO ×2 (08:23→21:59)
[2025-01-21] MEDS: Ferrous Sulfate 324 MG TABLET.DR PO (08:23)
[2025-01-21] MEDS: Potassium Chloride Packet 20 MEQ PACKET 40 MEQ PO ×2 (08:23→22:00)
--- NOTE | 2025-01-21 09:53 | MHC.CM.PN ---
EMR REVIEWED, PT EVALUATED PATIENT AND RECOMMENDED STR. THIS CM PRINTED LIST OF SNF OPTIONS FROM [facility] FOR PATIENT TO REVIEW. THIS CM MET WITH PATIENT TO DISCUSS STR OPTIONS. PATIENT STATES HE WOULD LIKE THIS CM TO DISCUSS THIS WITH HIS WHEN SHE COMES IN LATER TODAY.
--- NOTE | 2025-01-21 10:21 | PM.PNCARD ---
Subjective Subjective Date of Service: 01/21/25 Principal diagnosis: Decompensated congestive heart failure, atrial fibrillation Interval history: He has diuresed robust slowly off about 8 L negative balance overnight. Creatinine function is okay although bicarb has gone up as expected with rapid volume depletion. However he says his leg edema is going down. His abdominal distention is better. He is a little less short of breath Review of Systems Constitutional: Reports no additional constitutional complaints Cardiovascular: Denies chest pain, Reports leg edema, Denies palpitations and Reports dyspnea Respiratory: Reports dyspnea Endocrine: Denies palpitations Physical Exam Vital Signs: Last Vital Signs Temp 97.4 F 01/21/25 07:38 Pulse 93 01/21/25 07:38 Resp 20 01/21/25 07:38 BP 102/71 01/21/25 07:38 Pulse Ox 98 01/21/25 07:38 O2 Del Method Nasal Cannula 01/21/25 07:38 O2 Flow Rate 2 01/21/25 07:38 Oxygen Flow Rate 2 01/18/25 00:55 BMI result Body Mass Index 26.2 Const General: cooperative, alert, awake and in distress mild and respiratory Nutritional Appearance: overweight Orientation/consciousness: patient oriented x3 HEENT Head: Yes normocephalic and Yes atraumatic Neck Neck: Yes trachea midline, Yes supple and Yes JVD Resp Effort & Inspection: decreased respiratory effort Auscultation: crackles and diminished lung sounds Cardio Rhythm: abnormal rhythm irregularly irregular Heart sounds: S1 normal heart sound present, S2 normal heart sound present, no click, no gallops and no murmurs GI Inspection: Yes distended Auscultation: normal bowel sounds Skin General skin exam: no rashes or lesions noted Neuro General: patient oriented x3 and no focal motor deficits Extrem General: No clubbing, No cyanosis and Yes edema Objective Labs and Meds 01/20/25 06:15 01/21/25 06:49 Lab results: Laboratory Results - last 24 hr 01/21/25 06:49 Sodium 144 Potassium 3.1 L Chloride 94 L Carbon Dioxide 44 H* D Anion Gap 9 L BUN 3 L Creatinine 0.50 Estim Creat Clear Calc 141.9 Estimated GFR > 60 Random Glucose 78 Calcium 7.6 L Progress Note: A&P Assessment and plan (1) Acute exacerbation of CHF (congestive heart failure): Status: Acute Assessment and Plan: Acute heart failure with robust diuretic response to Lasix drip with resultant hypokalemia and elevated CO2 level. At this point time would replace his electrolytes. Will slowed down his diuretics to reduce sudden intravascular volume depletion. Agree with acetazolamide. Continue monitor intake and output and electrolyte check. Please replace potassium to above 4. Continue rate control with metoprolol and add digoxin see below. (2) Atrial fibrillation: Status: Acute Assessment and Plan: Persistent atrial fibrillation borderline rate control. Agree with metoprolol low-dose and would add digoxin to his regimen, 0.25 mg IV push q.6 x3 doses if not done already. Then can start him on 0.125 mg daily. Not sure as to his oral anticoagulation dose. Supposedly he was on Eliquis at home. Will follow with you Time Spent With Patient Time: Total time managing care of this patient today ____ minutes. Progress Note: Quality Stroke Does the patient have a stroke diagnosis?: No Procedures Date of Service Date of Service: 01/21/25
[2025-01-21] MEDS: Furosemide 200 MG in 0.9 % Sodium Chloride 80 ML IVCONT (11:51)
--- NOTE | 2025-01-21 13:19 | P.PNIM_ITS ---
Subjective Subjective Date of Service: 01/21/25 Interval History: seen and examined this morning follow up for CHF put out a lot of fluid overnight, leg edema improving, breathing starting to improve Review of Systems Review of Systems: Yes all other systems are reviewed and are negative Constitutional Constitutional: Denies fever(s) Cardiovascular Cardiovascular: Denies chest pain and Denies palpitations Respiratory Respiratory: Denies cough Endocrine Endocrine: Denies palpitations Physical Exam 2 Vital Signs: Vital Signs: Last Vital Signs Temp 97.0 F 01/21/25 12:00 Pulse 81 01/21/25 12:00 Resp 18 01/21/25 12:00 BP 117/66 01/21/25 12:00 Pulse Ox 95 01/21/25 12:00 O2 Del Method Nasal Cannula 01/21/25 12:00 O2 Flow Rate 2 01/21/25 12:00 Oxygen Flow Rate 2 01/18/25 00:55 BMI result Body Mass Index 26.2 Const: General: cooperative, alert and awake Nutritional Appearance: o verweight Orientation/consciousness: patient oriented x3 Resp: Other: crackles b/l improving Effort & Inspection: normal respiratory effort Cardio: Other: mild tachcyardia, irreg irreg rhythm GI: Inspection: No distended Palpation (GI): Soft to palpation Skin: Other: thick skin lower extremities, no warmth, mild erythema/venous stasis Neuro: Other: Grossly nonfocal General: patient oriented x3 Extrem: Other: Bilateral lower extremity edema, improving Objective Data Active Medications Acetaminophen (Acetaminophen 325 Mg Tablet) 975 mg PO Q6H PRN PRN Reason: Pain, Mild 1-3,fever,headache Last Admin: 01/20/25 08:11 Dose: 975 mg Documented By: DESHAWN Acetazolamide (Acetazolamide 250 Mg Tablet) 250 mg PO BID [facility] Last Admin: 01/21/25 11:51 Dose: 250 mg Documented By: BOB Albuterol/Ipratropium (Albuterol/Iprat 2.5/0.5mg 3 Ml Ampul.Neb) 3 ml INHALE RQ4H WHILE AWAKE PRN PRN Reason: Shortness of Breath Last Admin: 01/19/25 06:00 Dose: 3 ml Documented By: BRITTNEY Atorvastatin Calcium (Atorvastatin Calcium 80 Mg Tablet) 80 mg PO DAILY [facility] Last Admin: 01/21/25 08:23 Dose: 80 mg Documented By: BOB Calcium Carbonate (Calcium Carbonate 750 Mg Tab.Chew) 750 mg PO Q4H PRN PRN Reason: Heartburn Ferrous Sulfate (Ferrous Sulfate 324 Mg Tablet.Dr) 324 mg PO DAILY [facility] Last Admin: 01/21/25 08:23 Dose: 324 mg Documented By: BOB Fluoxetine HCl (Fluoxetine Hcl 10 Mg Capsule) 10 mg PO DAILY [facility] Last Admin: 01/21/25 08:23 Dose: 10 mg Documented By: BOB Heparin Sodium (Porcine) (Heparin Sodium,Porcine 5,000 Unit/Ml Vial) 5,000 unit SUBCUT Q12H [facility] Last Admin: 01/21/25 04:00 Dose: 5,000 unit Documented By: PRESTON Ampicillin Sodium/Sulbactam (Sodium 3 gm/ Sodium Chloride) 100 mls @ 200 mls/hr IV Q6H [facility] Last Infusion: 01/21/25 13:00 Dose: Infused Documented By: BOB Furosemide 200 mg/ Sodium (Chloride) 100 mls @ 1.25 mls/hr IVCONT .Q24H [facility] Last Admin: 01/21/25 11:51 Dose: 2.5 mg/hr, 1.25 mls/hr Documented By: BOB Magnesium Hydroxide (Milk Of Magnesia 30 Ml Oral.Susp) 30 ml PO DAILY PRN PRN Reason: Constipation Melatonin (Melatonin 3 Mg Tablet) 6 mg PO BEDTIME PRN PRN Reason: Insomnia Metoprolol Tartrate (Metoprolol Tartrate 12.5 Mg Halftab) 12.5 mg PO BID [facility]; Protocol Last Admin: 01/21/25 08:23 Dose: 12.5 mg Documented By: BOB Ondansetron HCl (Ondansetron Hcl 4 Mg/2 Ml Vial) 4 mg IVPUSH Q8H PRN PRN Reason: Nausea and Vomiting Potassium Chloride (Potassium Chloride Packet 20 Meq Packet) 40 meq PO BID [facility] Stop: 01/21/25 21:01 Last Admin: 01/21/25 08:23 Dose: 40 meq Documented By: BOB Sodium Chloride (0.9 % Sodium Chloride Flush 3 Ml Syringe) 3 ml IVFLUSH QSHIFT [facility] Last Admin: 01/21/25 08:24 Dose: Not Given Documented By: BOB Non-Admin Reason: Previously Administered Labs 01/20/25 06:15 01/21/25 06:49 Labs: Laboratory Results - last 24 hr 01/21/25 06:49 Anion Gap 9 L Estim Creat Clear Calc 141.9 Estimated GFR > 60 Random Glucose 78 Calcium 7.6 L Assessment and Plan (1) Atrial fibrillation: Status: Acute (2) Acute exacerbation of CHF (congestive heart failure): Status: Acute Plan This is a 79 yo male with a pmhx significant for 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 BNP elevated and imaging with fluid overload and possible loculated pleural effusion Acute on chronic respiratory failure Due to decompensated CHF, new possible lung mass continue to require higher then normal supplemental oxygen, with ongoing tachypnea Acute heart failure with reduced ejection fraction exacerbation with anasarca Initially treated with IV push Lasix, transitioned to Lasix drip 01/21 at 5mg/hr due to persistent leg edema, tachypnea and insufficient diuresis with IV push dosing. with significant diuresis overnight, will reduce dose to 2.5 mg/hour bicarb trending up, start diamox Echocardiogram 35-40% daily weights strict intake and output Cardiology following hypokalemia due to diuresis replace and follow BMP closely Paroxysmal atrial fibrillation Heart rate uncontrolled seen by cardiology, metoprolol changed to short-acting Lopressor 12.5 b.i.d. completed digoxin load, continue daily digoxin eliquis initially on hold for possible thoracentesis; no thoracentesis is planned, will resume eliquis Incidental finding of lung mass/loculated pleural effusion Pulm consult> outpatient PET scan to address masslike density chest US - showing no pleural effusion right, small left pleural effusion Empiric Unasyn Iron def anemia iron 28, B12 360, folate 4.7, Aortic aneurysm, 5.1cm on CT, no dissection or rupture close monitoring outpt vascular follow-up chronic respiratory failure/O2 dependent COPD 2L NC at baseline no acute exacerbation continue home therapies Supplemental oxygen to keep oxygen saturation greater than 91% Tobacco use disorder declines NRT Hearing/vision impairment needs communication with writing on whiteboard HLD continue home therapies HTN continue home therapies Class 1 obesity. BMI 30.5 Weight loss would be encouraged full code VTE prophy: heparin pt with acute CHF exacerbation complicated by anasarca and possible loculated pleural effusion, requires ongoin admission diuresis, specialist evaluation, close monitoring of respiratory status Quality Stroke Does the patient have a stroke diagnosis?: No VTE Prior VTE?: No VTE Risk Level:: Medical - moderate - high VTE Device Contraindication: Treatment Not Indicated VTE Drug Contraindication: N/A - Med Ordered
--- NOTE | 2025-01-21 14:04 | P.CDIM_ITS ---
PROVIDER RESPONSE TEXT: To clarify, the appropriate diagnosis supported by the clinical indicators: Acute on chronic Respiratory failure with hypoxia QUERY TEXT: PHYSICIAN'S DOCUMENTATION REQUEST Date of Query: 01/21/2025 09:04 AM EDT Patient Name: Tristin Jeff Admit Date: 01/18/2025 Dear Barbara LEBRON, A review of the medical record indicates additional documentation may be needed. Please review below and update the documentation accordingly. Respiratory failure was documented on 01/20/25. Clinical Indicators: SOB, mild tachypnea, NOONAN, SAT 90 on admit Acute on chronic respiratory failure, oxygen dependent 2L NC baseline, PMH COPD now on 4L NC If possible, please further clarify the type and acuity of respiratory failure: Acute on chronic Respiratory failure with hypoxia Other (explain) Clinically unable to determine (explain) Thank you, Wendi Conrad RN Use of terms such as suspected, likely, concern for, or probable (associated with a specific diagnosis that is being evaluated, monitored, or treated as if it exists) are acceptable and can be coded in the inpatient setting, when documented at the time of discharge. Please use your independent medical judgment in providing your response. THIS QUERY IS PART OF THE PERMANENT MEDICAL RECORD
[2025-01-21] MEDS: Albuterol/Iprat 2.5/0.5MG 3 ML AMPUL.NEB INHALE (17:26)
[2025-01-22] VITALS (9 sets, daily range): BP systolic 90–114; BP diastolic 59–71; PULSE 79–105; RESP 16–20; TEMP 35.8–36.8; O2SAT 90–100; BMI 24.4
[2025-01-22 08:53] LABS: Blood Urea Nitrogen 3 mg/dL (9-16); Calcium 7.9 mg/dL (8.4-10.2); Creatinine Clr Calc Pharmacy 116.4; Estimated Glomerular Filt Rate > 60
[2025-01-22 09:36] LABS: Anion Gap 14 (12-20); Carbon Dioxide 31 mmol/L (22-29); Chloride 97 mmol/L (96-108); Potassium 4.4 mmol/L (3.3-5.1); Sodium 138 mmol/L (135-145)
[2025-01-22] MEDS: Ferrous Sulfate 324 MG TABLET.DR PO (09:36)
[2025-01-22] MEDS: Metoprolol Tartrate 12.5 MG HALFTAB PO ×2 (09:36→21:57)
[2025-01-22] MEDS: 0.9 % Sodium Chloride Flush 3 ML SYRINGE IVFLUSH ×3 (10:16→23:30)
--- NOTE | 2025-01-22 11:00 | PM.PNCARD ---
Subjective Subjective Date of Service: 01/22/25 Principal diagnosis: Decompensated congestive heart failure, atrial fibrillation Interval history: Patient is diuresing well. Has diuresed about 4 L since yesterday. Creatinine has remained stable. Serum bicarbonate has improved. Patient says overall he feels better. Persists with fluid overload. Review of Systems Constitutional: Reports no additional constitutional complaints Cardiovascular: Reports Abdominal Distension, Denies chest pain at rest, Denies syncope, Reports leg edema (Improving), Denies palpitations and Reports dyspnea (Improving) Respiratory: Reports dyspnea (Improving) Denies syncope Endocrine: Denies palpitations Physical Exam Vital Signs: Last Vital Signs Temp 98.3 F 01/22/25 07:53 Pulse 98 01/22/25 07:53 Resp 20 01/22/25 07:53 BP 111/61 01/22/25 07:53 Pulse Ox 98 01/22/25 07:53 O2 Del Method Nasal Cannula 01/22/25 07:53 O2 Flow Rate 2 01/22/25 07:53 Oxygen Flow Rate 2 01/18/25 00:55 BMI result Body Mass Index 24.4 Const General: cooperative, alert, awake and in distress mild and respiratory Nutritional Appearance: overweight Orientation/consciousness: patient oriented x3 HEENT Head: Yes normocephalic and Yes atraumatic Neck Neck: Yes trachea midline, Yes supple and Yes JVD Resp Effort & Inspection: decreased respiratory effort Auscultation: crackles and diminished lung sounds Cardio Rhythm: abnormal rhythm irregularly irregular Heart sounds: S1 normal heart sound present, S2 normal heart sound present, no click, no gallops and no murmurs GI Inspection: Yes distended Auscultation: normal bowel sounds Skin General skin exam: no rashes or lesions noted Neuro General: patient oriented x3 and no focal motor deficits Extrem General: No clubbing, No cyanosis and Yes edema Objective Labs and Meds 01/20/25 06:15 01/22/25 07:15 Lab results: Laboratory Results - last 24 hr 01/22/25 07:15 Hold Purple Top SEE NOTE Sodium 138 Potassium 4.4 D Chloride 97 Carbon Dioxide 31 H Anion Gap 14 BUN 3 L Creatinine 0.54 Estim Creat Clear Calc 116.4 Estimated GFR > 60 Random Glucose 75 Calcium 7.9 L Progress Note: A&P Assessment and plan (1) Acute exacerbation of CHF (congestive heart failure): Status: Acute Assessment and Plan: Acute congestive heart failure responding well related to noncompliance at home. Responding well overall has good negative output. Serum bicarbonate as well as renal function remained stable. Continue IV diuresis and current ezetimibe will might. If bicarbonate remains okay by tomorrow as blood work can reduce the dose. Continue current gentle diuresis strict intake and output chart. Continue monitor electrolytes as well as renal function. Continue rate control. Would check antiplatelet BNP tomorrow. (2) Atrial fibrillation: Status: Acute Assessment and Plan: Chronic atrial fibrillation most likely the reason for his heart failure. Continue rate control with current medications. Continue full oral anticoagulation, currently on Eliquis. Will follow with you Time Spent With Patient Time: Total time managing care of this patient today ____ minutes. Progress Note: Quality Stroke Does the patient have a stroke diagnosis?: No Procedures Date of Service Date of Service: 01/22/25
--- NOTE | 2025-01-22 11:48 | HO.PM.IMPN ---
Subjective Subjective Date of Service: 01/22/25 Interval History: seen and examined this morning follow up for CHF put out a lot of fluid overnight, leg edema improving, breathing starting to improve Review of Systems Review of Systems: Yes all other systems are reviewed and are negative Constitutional Constitutional: Denies fever(s) Cardiovascular Cardiovascular: Denies chest pain and Denies palpitations Respiratory Respiratory: Denies cough Endocrine Endocrine: Denies palpitations Physical Exam Exam: Exam: Appearing in no acute distress Deaf and legally blind lung sounds are clear to auscultation heart regular rate rhythm, clear S1, S2 positive bowel sounds, abdomen is soft, nontender neuro patient is alert x3, no focal deficits Vital Signs: Vital Signs: Last Vital Signs Temp 96.4 F L 01/22/25 11:42 Pulse 85 01/22/25 11:42 Resp 18 01/22/25 11:42 BP 111/70 01/22/25 11:42 Pulse Ox 100 01/22/25 11:42 O2 Del Method Nasal Cannula 01/22/25 11:42 O2 Flow Rate 2 01/22/25 11:42 Oxygen Flow Rate 2 01/18/25 00:55 BMI result Body Mass Index 24.4 Objective Data Active Medications Acetaminophen (Acetaminophen 325 Mg Tablet) 975 mg PO Q6H PRN PRN Reason: Pain, Mild 1-3,fever,headache Last Admin: 01/20/25 08:11 Dose: 975 mg Documented By: DESHAWN Acetazolamide (Acetazolamide 250 Mg Tablet) 250 mg PO BID [facility] Last Admin: 01/22/25 09:35 Dose: 250 mg Documented By: SERGIO Albuterol/Ipratropium (Albuterol/Iprat 2.5/0.5mg 3 Ml Ampul.Neb) 3 ml INHALE RQ4H WHILE AWAKE PRN PRN Reason: Shortness of Breath Last Admin: 01/21/25 17:26 Dose: 3 ml Documented By: KRISTAN Apixaban (Apixaban 5 Mg Tablet) 5 mg PO BID [facility] Last Admin: 01/22/25 09:35 Dose: 5 mg Documented By: SERGIO Atorvastatin Calcium (Atorvastatin Calcium 80 Mg Tablet) 80 mg PO DAILY [facility] Last Admin: 01/22/25 09:35 Dose: 80 mg Documented By: SERGIO Calcium Carbonate (Calcium Carbonate 750 Mg Tab.Chew) 750 mg PO Q4H PRN PRN Reason: Heartburn Digoxin (Digoxin 0.125 Mg Tablet) 0.125 mg PO DAILY [facility]; Protocol Last Admin: 01/22/25 09:36 Dose: 0.125 mg Documented By: SERGIO Ferrous Sulfate (Ferrous Sulfate 324 Mg Tablet.Dr) 324 mg PO DAILY [facility] Last Admin: 01/22/25 09:36 Dose: 324 mg Documented By: SERGIO Fluoxetine HCl (Fluoxetine Hcl 10 Mg Capsule) 10 mg PO DAILY [facility] Last Admin: 01/22/25 09:36 Dose: 10 mg Documented By: SERGIO Ampicillin Sodium/Sulbactam (Sodium 3 gm/ Sodium Chloride) 100 mls @ 200 mls/hr IV Q6H [facility] Last Infusion: 01/22/25 06:35 Dose: Infused Documented By: GABBIE Furosemide 200 mg/ Sodium (Chloride) 100 mls @ 1.25 mls/hr IVCONT .Q24H [facility] Last Admin: 01/21/25 11:51 Dose: 2.5 mg/hr, 1.25 mls/hr Documented By: BOB Magnesium Hydroxide (Milk Of Magnesia 30 Ml Oral.Susp) 30 ml PO DAILY PRN PRN Reason: Constipation Melatonin (Melatonin 3 Mg Tablet) 6 mg PO BEDTIME PRN PRN Reason: Insomnia Metoprolol Tartrate (Metoprolol Tartrate 12.5 Mg Halftab) 12.5 mg PO BID [facility]; Protocol Last Admin: 01/22/25 09:36 Dose: 12.5 mg Documented By: SERGIO Ondansetron HCl (Ondansetron Hcl 4 Mg/2 Ml Vial) 4 mg IVPUSH Q8H PRN PRN Reason: Nausea and Vomiting Sodium Chloride (0.9 % Sodium Chloride Flush 3 Ml Syringe) 3 ml IVFLUSH QSHIFT [facility] Last Admin: 01/22/25 10:16 Dose: 3 ml Documented By: MASON Labs 01/20/25 06:15 01/22/25 07:15 Labs: Laboratory Results - last 24 hr 01/22/25 07:15 Hold Purple Top SEE NOTE Anion Gap 14 Estim Creat Clear Calc 116.4 Estimated GFR > 60 Random Glucose 75 Calcium 7.9 L Assessment and Plan (1) Atrial fibrillation: Status: Acute (2) Acute exacerbation of CHF (congestive heart failure): Status: Acute Plan 79 yo male with a pmhx significant for 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 BNP elevated and imaging with fluid overload and possible loculated pleural effusion Acute on chronic respiratory failure Due to decompensated CHF, new possible lung mass requires 2 liters NC Acute heart failure with reduced ejection fraction exacerbation with anasarca Initially treated with IV push Lasix, transitioned to Lasix drip 01/21 at 5mg/hr due to persistent leg edema, tachypnea and insufficient diuresis with IV push dosing. with significant diuresis overnight, will reduce dose to 2.5 mg/hour bicarb trending up, start diamox Echocardiogram 35-40% daily weights strict intake and output Cardiology following hypokalemia due to diuresis Repleted and resolved Paroxysmal atrial fibrillation Heart rate uncontrolled seen by cardiology, metoprolol changed to short-acting Lopressor 12.5 b.i.d. completed digoxin load, continue daily digoxin eliquis initially on hold for possible thoracentesis; no thoracentesis is planned, will resume eliquis Incidental finding of lung mass/loculated pleural effusion Pulm consult> outpatient PET scan to address masslike density chest US - showing no pleural effusion right, small left pleural effusion Empiric Unasyn Iron def anemia iron 28, B12 360, folate 4.7, Aortic aneurysm, 5.1cm on CT, no dissection or rupture close monitoring outpt vascular follow-up chronic respiratory failure/O2 dependent COPD 2L NC at baseline no acute exacerbation continue home therapies Supplemental oxygen to keep oxygen saturation greater than 91% Tobacco use disorder declines NRT Hearing/vision impairment needs communication with writing on whiteboard HLD continue home therapies HTN continue home therapies full code VTE prophy: heparin pt with acute CHF exacerbation complicated by anasarca and possible loculated pleural effusion, requires ongoin admission diuresis, specialist evaluation, close monitoring of respiratory status Quality Stroke Does the patient have a stroke diagnosis?: No VTE Prior VTE?: No VTE Risk Level:: Medical - moderate - high VTE Device Contraindication: Treatment Not Indicated VTE Drug Contraindication: N/A - Med Ordered
[2025-01-22] MEDS: Furosemide 200 MG in 0.9 % Sodium Chloride 80 ML IVCONT (12:12)
--- NOTE | 2025-01-22 18:04 | PC.NURSE ---
curly metz note for 01/18/25 @ 1023. Pt given tylenol for pain d/t stated headache when no other meds were available and waiting for provider order was not in patient's best interest.
[2025-01-22] MEDS: Albuterol/Iprat 2.5/0.5MG 3 ML AMPUL.NEB INHALE (18:40)
[2025-01-23] VITALS (8 sets, daily range): BP systolic 79–107; BP diastolic 50–70; PULSE 78–92; RESP 16–20; TEMP 36.2–36.6; O2SAT 93–98; BMI 24.0
[2025-01-23 07:36] LABS: Anion Gap 10 (12-20); Blood Urea Nitrogen 5 mg/dL (9-16); Calcium 7.8 mg/dL (8.4-10.2); Carbon Dioxide 29 mmol/L (22-29); Chloride 102 mmol/L (96-108); Creatinine Clr Calc Pharmacy 106.5; Estimated Glomerular Filt Rate > 60; Potassium 3.5 mmol/L (3.3-5.1); Sodium 137 mmol/L (135-145)
[2025-01-23] MEDS: Metoprolol Tartrate 12.5 MG HALFTAB PO (09:10)
[2025-01-23] MEDS: 0.9 % Sodium Chloride Flush 3 ML SYRINGE IVFLUSH ×3 (09:11→20:33)
[2025-01-23] MEDS: Ferrous Sulfate 324 MG TABLET.DR PO (09:11)
--- NOTE | 2025-01-23 09:29 | P.PNIM_ITS ---
Subjective Subjective Date of Service: 01/23/25 Interval History: seen and examined this morning follow up for CHF Breathing is better Review of Systems Review of Systems: Yes all other systems are reviewed and are negative Constitutional Constitutional: Denies fever(s) Cardiovascular Cardiovascular: Denies chest pain and Denies palpitations Respiratory Respiratory: Denies cough Endocrine Endocrine: Denies palpitations Physical Exam 2 Exam: Exam: Appearing in no acute distress lung sounds are clear to auscultation heart regular rate rhythm, clear S1, S2 positive bowel sounds, abdomen is soft, nontender neuro patient is alert x3, no focal deficits Vital Signs: Vital Signs: Last Vital Signs Temp 97.1 F 01/23/25 08:00 Pulse 92 01/23/25 08:00 Resp 20 01/23/25 08:00 BP 106/61 01/23/25 08:00 Pulse Ox 97 01/23/25 08:00 O2 Del Method Nasal Cannula 01/23/25 08:00 O2 Flow Rate 2 01/23/25 08:00 Oxygen Flow Rate 2 01/18/25 00:55 BMI result Body Mass Index 24.0 Objective Data Active Medications Acetaminophen (Acetaminophen 325 Mg Tablet) 975 mg PO Q6H PRN PRN Reason: Pain, Mild 1-3,fever,headache Last Admin: 01/23/25 09:17 Dose: 975 mg Documented By: MASON Acetazolamide (Acetazolamide 250 Mg Tablet) 250 mg PO BID [facility] Last Admin: 01/23/25 09:11 Dose: 250 mg Documented By: MASON Albuterol/Ipratropium (Albuterol/Iprat 2.5/0.5mg 3 Ml Ampul.Neb) 3 ml INHALE RQ4H WHILE AWAKE PRN PRN Reason: Shortness of Breath Last Admin: 01/22/25 18:40 Dose: 3 ml Documented By: CHARLY Apixaban (Apixaban 5 Mg Tablet) 5 mg PO BID [facility] Last Admin: 01/23/25 09:11 Dose: 5 mg Documented By: MASON Atorvastatin Calcium (Atorvastatin Calcium 80 Mg Tablet) 80 mg PO DAILY [facility] Last Admin: 01/23/25 09:11 Dose: 80 mg Documented By: MASON Calcium Carbonate (Calcium Carbonate 750 Mg Tab.Chew) 750 mg PO Q4H PRN PRN Reason: Heartburn Digoxin (Digoxin 0.125 Mg Tablet) 0.125 mg PO DAILY [facility]; Protocol Last Admin: 01/23/25 09:11 Dose: 0.125 mg Documented By: MASON Ferrous Sulfate (Ferrous Sulfate 324 Mg Tablet.Dr) 324 mg PO DAILY [facility] Last Admin: 01/23/25 09:11 Dose: 324 mg Documented By: MASON Fluoxetine HCl (Fluoxetine Hcl 10 Mg Capsule) 10 mg PO DAILY [facility] Last Admin: 01/23/25 09:11 Dose: 10 mg Documented By: MASON Ampicillin Sodium/Sulbactam (Sodium 3 gm/ Sodium Chloride) 100 mls @ 200 mls/hr IV Q6H [facility] Last Infusion: 01/23/25 06:25 Dose: Infused Documented By: GABBIE Furosemide 200 mg/ Sodium (Chloride) 100 mls @ 1.25 mls/hr IVCONT .Q24H [facility] Last Admin: 01/22/25 12:12 Dose: 2.5 mg/hr, 1.25 mls/hr Documented By: MASON Magnesium Hydroxide (Milk Of Magnesia 30 Ml Oral.Susp) 30 ml PO DAILY PRN PRN Reason: Constipation Melatonin (Melatonin 3 Mg Tablet) 6 mg PO BEDTIME PRN PRN Reason: Insomnia Metoprolol Tartrate (Metoprolol Tartrate 12.5 Mg Halftab) 12.5 mg PO BID [facility]; Protocol Last Admin: 01/23/25 09:10 Dose: 12.5 mg Documented By: MASON Ondansetron HCl (Ondansetron Hcl 4 Mg/2 Ml Vial) 4 mg IVPUSH Q8H PRN PRN Reason: Nausea and Vomiting Last Admin: 01/22/25 18:16 Dose: 4 mg Documented By: MASON Sodium Chloride (0.9 % Sodium Chloride Flush 3 Ml Syringe) 3 ml IVFLUSH QSHIFT [facility] Last Admin: 01/23/25 09:11 Dose: 3 ml Documented By: MASON Labs 01/20/25 06:15 01/23/25 06:39 Labs: Laboratory Results - last 24 hr 01/22/25 01/23/25 07:15 06:39 Anion Gap 14 10 L Estim Creat Clear Calc 106.5 Estimated GFR > 60 Random Glucose 75 77 Calcium 7.8 L Assessment and Plan (1) Atrial fibrillation: Status: Acute (2) Acute exacerbation of CHF (congestive heart failure): Status: Acute Plan 79 yo male with a pmhx significant for 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 BNP elevated and imaging with fluid overload and possible loculated pleural effusion Acute on chronic respiratory failure secodnary to Acute heart failure with reduced ejection fraction exacerbation with anasarca Initially treated with IV push Lasix 5/hr then decreased to 2.5/hr, now on Bumex 2 mg daily bicarb trended up>normalized with diamox, decreased to daily dose Echocardiogram 35-40% daily weights>-21.7 kg strict intake and output>-17liters Cardiology following>add jardiance Hypokalemia due to diuresis Repleted and resolved Paroxysmal atrial fibrillation Heart rate uncontrolled seen by cardiology, metoprolol changed to short-acting Lopressor 12.5 b.i.d. completed digoxin load, continue daily digoxin eliquis initially on hold for possible thoracentesis; no thoracentesis is planned, will resume eliquis Incidental finding of lung mass/loculated pleural effusion Pulm consult> outpatient PET scan to address masslike density chest US - showing no pleural effusion right, small left pleural effusion Empiric Unasyn Iron def anemia iron 28, B12 360, folate 4.7, Aortic aneurysm, 5.1cm on CT, no dissection or rupture close monitoring outpt vascular follow-up chronic respiratory failure/O2 dependent COPD 2L NC at baseline no acute exacerbation continue home therapies Supplemental oxygen to keep oxygen saturation greater than 91% Tobacco use disorder declines NRT Hearing/vision impairment needs communication with writing on whiteboard HLD continue home therapies HTN continue home therapies full code VTE prophy: heparin PT rec STR pt with acute CHF exacerbation complicated by anasarca and possible loculated pleural effusion, requires ongoin admission diuresis, specialist evaluation, close monitoring of respiratory status Quality Stroke Does the patient have a stroke diagnosis?: No VTE Prior VTE?: No VTE Risk Level:: Medical - moderate - high VTE Device Contraindication: Treatment Not Indicated VTE Drug Contraindication: N/A - Med Ordered
--- NOTE | 2025-01-23 10:55 | PM.PNCARD ---
Subjective Subjective Date of Service: 01/23/25 Principal diagnosis: Decompensated congestive heart failure, atrial fibrillation Interval history: Patient is doing very well. Has diuresed another 3.5 L. Overall good negative balance with diuretics. He feels better with leg edema improved abdominal distention improved shortness of breath improved. Remains in AFib with controlled response. Renal function has remained stable Review of Systems Review of Systems Yes all other systems are reviewed and are negative Physical Exam Vital Signs: Last Vital Signs Temp 97.1 F 01/23/25 08:00 Pulse 92 01/23/25 08:00 Resp 20 01/23/25 08:00 BP 106/61 01/23/25 08:00 Pulse Ox 97 01/23/25 08:00 O2 Del Method Nasal Cannula 01/23/25 08:00 O2 Flow Rate 2 01/23/25 08:00 Oxygen Flow Rate 2 01/18/25 00:55 BMI result Body Mass Index 24.0 Const General: cooperative, alert, awake and in distress mild and respiratory Nutritional Appearance: overweight Orientation/consciousness: patient oriented x3 HEENT Head: Yes normocephalic and Yes atraumatic Neck Neck: Yes trachea midline, Yes supple and Yes no JVD Resp Effort & Inspection: decreased respiratory effort Auscultation: crackles and diminished lung sounds Cardio Jugular venous distension: no JVD Rhythm: abnormal rhythm irregularly irregular Heart sounds: S1 normal heart sound present, S2 normal heart sound present, no click, no gallops and no murmurs GI Auscultation: normal bowel sounds Skin General skin exam: no rashes or lesions noted Neuro General: patient oriented x3 and no focal motor deficits Extrem General: No clubbing, No cyanosis and Yes edema (Significantly improved) Objective Labs and Meds 01/20/25 06:15 01/23/25 06:39 Lab results: Laboratory Results - last 24 hr 01/23/25 06:39 Sodium 137 Potassium 3.5 D Chloride 102 Carbon Dioxide 29 Anion Gap 10 L BUN 5 L Creatinine 0.59 Estim Creat Clear Calc 106.5 Estimated GFR > 60 Random Glucose 77 Calcium 7.8 L Progress Note: A&P Assessment and plan (1) Acute exacerbation of CHF (congestive heart failure): Status: Acute Assessment and Plan: Acute decompensated congestive heart failure inpatient with atrial fibrillation with diastolic dysfunction noncompliance diuretic. He has responded very well to diuretic regimen. Continue the same. Can switch to p.o. Bumex 2 mg daily. Strict intake and output chart needs to be continue lead pursued. Told the patient that this is extremely important to avoid future hospitalization. Understands. Continue rate control. Add SGLT2 inhibitor such as Jardiance or Farxiga. Can prepare for him to be discharged home. Consider physical therapy consult. (2) Atrial fibrillation: Status: Acute Assessment and Plan: Atrial fibrillation currently rate controlled. Continue the current therapy with digoxin as well as metoprolol therapy. Continue full oral anticoagulation with Eliquis. Will sign of the case. Thank you for allowing me to partake in his care Time Spent With Patient Time: Total time managing care of this patient today ____ minutes. Progress Note: Quality Stroke Does the patient have a stroke diagnosis?: No Procedures Date of Service Date of Service: 01/23/25
[2025-01-23] MEDS: Furosemide 200 MG in 0.9 % Sodium Chloride 80 ML IVCONT (11:26)
[2025-01-23 21:51] LABS: Glucose, Whole Blood 90 mg/dL (60-115)
[2025-01-24] VITALS (11 sets, daily range): BP systolic 85–146; BP diastolic 52–66; PULSE 72–106; RESP 15–20; TEMP 36.2–37.2; O2SAT 92–100; BMI 23.8
[2025-01-24 00:45] LABS: Hematocrit 30.1 % (42.0-52.0); Hemoglobin 9.0 g/dl (14.0-18.0); Mean Corpuscular HGB Conc 29.9 g/dl (31.0-36.0); Mean Corpuscular Hemoglobin 30.9 pg (27.0-33.0); Mean Corpuscular Volume 103.4 fL (80.0-98.0); NRBC Abs Auto 0.000 X10*3/uL (0.0-0.012); NRBC Pct Auto 0.0 /100WBC (0.0-0.2); Platelet Count 242 X10*3/uL (160-400); Red Blood Count 2.91 X10*6/uL (4.60-5.80); White Blood Count 5.8 X10*3/uL (4.8-10.8)
[2025-01-24 07:41] LABS: Anion Gap 8 (12-20); Blood Urea Nitrogen 6 mg/dL (9-16); Calcium 8.3 mg/dL (8.4-10.2); Carbon Dioxide 31 mmol/L (22-29); Chloride 104 mmol/L (96-108); Creatinine Clr Calc Pharmacy 110.2; Estimated Glomerular Filt Rate > 60; Potassium 3.1 mmol/L (3.3-5.1); Sodium 140 mmol/L (135-145)
[2025-01-24] MEDS: Ferrous Sulfate 324 MG TABLET.DR PO (08:29)
[2025-01-24] MEDS: 0.9 % Sodium Chloride Flush 3 ML SYRINGE IVFLUSH ×3 (08:29→22:33)
[2025-01-24] MEDS: Metoprolol Tartrate 12.5 MG HALFTAB PO (08:30)
[2025-01-24] MEDS: Potassium Chloride ER 20 MEQ TAB.ER.PRT 40 MEQ PO (12:36)
[2025-01-24] MEDS: Albumin Human 25 % 100 ML IV ×2 (12:37→17:41)
--- NOTE | 2025-01-24 13:14 | HO.PM.IMPN ---
Subjective Subjective Date of Service: 01/24/25 Interval History: seen and examined this morning follow up for CHF Breathing is better edema down significantly BP down due to overdiuresis Review of Systems Review of Systems: Yes all other systems are reviewed and are negative Constitutional Constitutional: Denies fever(s) Cardiovascular Cardiovascular: Denies chest pain and Denies palpitations Respiratory Respiratory: Denies cough Endocrine Endocrine: Denies palpitations Physical Exam Exam: Exam: Appearing in no acute distress lung sounds are clear to auscultation heart regular rate rhythm, clear S1, S2 positive bowel sounds, abdomen is soft, nontender neuro patient is alert x3, no focal deficits Vital Signs: Vital Signs: Last Vital Signs Temp 97.3 F 01/24/25 11:05 Pulse 78 01/24/25 11:05 Resp 20 01/24/25 11:05 BP 94/57 L 01/24/25 11:05 Pulse Ox 98 01/24/25 11:05 O2 Del Method Nasal Cannula 01/24/25 11:05 O2 Flow Rate 2 01/24/25 11:05 Oxygen Flow Rate 2 01/18/25 00:55 BMI result Body Mass Index 23.8 Objective Data Active Medications Acetaminophen (Acetaminophen 325 Mg Tablet) 975 mg PO Q6H PRN PRN Reason: Pain, Mild 1-3,fever,headache Last Admin: 01/23/25 09:17 Dose: 975 mg Documented By: MASON Acetazolamide (Acetazolamide 250 Mg Tablet) 250 mg PO DAILY [facility] Last Admin: 01/24/25 08:30 Dose: 250 mg Documented By: LEXI Albuterol/Ipratropium (Albuterol/Iprat 2.5/0.5mg 3 Ml Ampul.Neb) 3 ml INHALE RQ4H WHILE AWAKE PRN PRN Reason: Shortness of Breath Last Admin: 01/22/25 18:40 Dose: 3 ml Documented By: CHARLY Apixaban (Apixaban 5 Mg Tablet) 5 mg PO BID [facility] Last Admin: 01/24/25 08:30 Dose: 5 mg Documented By: LEXI Atorvastatin Calcium (Atorvastatin Calcium 80 Mg Tablet) 80 mg PO DAILY [facility] Last Admin: 01/24/25 08:30 Dose: 80 mg Documented By: LEXI Bumetanide (Bumetanide 1 Mg Tablet) 2 mg PO DAILY [facility]; Protocol Last Admin: 01/24/25 08:32 Dose: Not Given Documented By: LEXI Non-Admin Reason: Physician Held Med Calcium Carbonate (Calcium Carbonate 750 Mg Tab.Chew) 750 mg PO Q4H PRN PRN Reason: Heartburn Last Admin: 01/24/25 03:37 Dose: 750 mg Documented By: CELY Digoxin (Digoxin 0.125 Mg Tablet) 0.125 mg PO DAILY [facility]; Protocol Last Admin: 01/24/25 08:30 Dose: 0.125 mg Documented By: LEXI Empagliflozin (Empagliflozin 10 Mg Tablet) 10 mg PO DAILY [facility] Last Admin: 01/24/25 08:30 Dose: 10 mg Documented By: LEXI Ferrous Sulfate (Ferrous Sulfate 324 Mg Tablet.Dr) 324 mg PO DAILY [facility] Last Admin: 01/24/25 08:29 Dose: 324 mg Documented By: LEXI Ampicillin Sodium/Sulbactam (Sodium 3 gm/ Sodium Chloride) 100 mls @ 200 mls/hr IV Q6H [facility] Last Admin: 01/24/25 12:45 Dose: 200 mls/hr Documented By: LEXI Albumin Human (Kedbumin 25 %) 100 mls @ 100 mls/hr IV Q6H [facility] Stop: 01/24/25 15:29 Last Admin: 01/24/25 12:37 Dose: 100 mls/hr Documented By: LEXI Magnesium Hydroxide (Milk Of Magnesia 30 Ml Oral.Susp) 30 ml PO DAILY PRN PRN Reason: Constipation Melatonin (Melatonin 3 Mg Tablet) 6 mg PO BEDTIME PRN PRN Reason: Insomnia Metoprolol Tartrate (Metoprolol Tartrate 12.5 Mg Halftab) 12.5 mg PO BID [facility]; Protocol Last Admin: 01/24/25 08:30 Dose: 12.5 mg Documented By: LEXI Ondansetron HCl (Ondansetron Hcl 4 Mg/2 Ml Vial) 4 mg IVPUSH Q8H PRN PRN Reason: Nausea and Vomiting Last Admin: 01/24/25 03:45 Dose: 4 mg Documented By: CELY Sodium Chloride (0.9 % Sodium Chloride Flush 3 Ml Syringe) 3 ml IVFLUSH QSHIFT [facility] Last Admin: 01/24/25 08:29 Dose: 3 ml Documented By: LEXI Labs 01/24/25 00:34 01/24/25 07:00 Labs: Laboratory Results - last 24 hr 01/23/25 01/24/25 01/24/25 21:48 00:34 07:00 MCV 103.4 H MCH 30.9 MCHC 29.9 L RDW 12.9 Plt Count 242 MPV 8.6 L Absolute Nucleated RBC 0.000 Nucleated RBC % (auto) 0.0 Anion Gap 8 L Estim Creat Clear Calc 110.2 Estimated GFR > 60 POC Glucose 90 Random Glucose 89 Calcium 8.3 L D Assessment and Plan (1) Atrial fibrillation: Status: Acute (2) Acute exacerbation of CHF (congestive heart failure): Status: Acute Plan 79 yo male with a pmhx significant for 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 BNP elevated and imaging with fluid overload and possible loculated pleural effusion Hypotension likely from overdiuresis hold Bumex for now albumin x2 doses Acute on chronic respiratory failure secodnary to Acute heart failure with reduced ejection fraction exacerbation with anasarca Initially treated with IV push Lasix 5/hr then decreased to 2.5/hr, now on Bumex 2 mg daily bicarb trended up>normalized with diamox, decreased to daily dose Echocardiogram 35-40% daily weights>-21.7 kg strict intake and output>-18liters Cardiology following>add jardiance Hypokalemia due to diuresis Repleted and resolved Paroxysmal atrial fibrillation Heart rate uncontrolled seen by cardiology, metoprolol changed to short-acting Lopressor 12.5 b.i.d. completed digoxin load, continue daily digoxin Eliquis Incidental finding of lung mass/loculated pleural effusion Pulm consult> outpatient PET scan to address masslike density chest US - showing no pleural effusion right, small left pleural effusion Empiric Unasyn Iron def anemia iron 28, B12 360, folate 4.7, Aortic aneurysm, 5.1cm on CT, no dissection or rupture close monitoring outpt vascular follow-up chronic respiratory failure/O2 dependent COPD 2L NC at baseline no acute exacerbation continue home therapies Supplemental oxygen to keep oxygen saturation greater than 91% Tobacco use disorder declines NRT Hearing/vision impairment needs communication with writing on whiteboard HLD continue home therapies HTN continue home therapies full code VTE prophy: [facility] PT rec STR pt with acute CHF exacerbation complicated by anasarca and possible loculated pleural effusion, requires ongoin admission diuresis, specialist evaluation, close monitoring of respiratory status Quality Stroke Does the patient have a stroke diagnosis?: No VTE Prior VTE?: No VTE Risk Level:: Medical - moderate - high VTE Device Contraindication: Treatment Not Indicated VTE Drug Contraindication: N/A - Med Ordered
--- NOTE | 2025-01-24 14:36 | MHC.CM.PN ---
CM met with pt. and his to discuss DCP. They would like him to come home, have 15 stairs to go into the apt. and pt. cannot walk at this time. He has declined to work with PT when they have come to complete an eval. DEN explained that pt. will likely need STR in order to gain the strength needed to go up and down the stairs, and that is provided in a STR setting, not acute care. Pt. does not want to go to [place], requested [facility] and [facility], referrals to be put in when pt. cooperated with PT eval.
[2025-01-24] MEDS: Albuterol/Iprat 2.5/0.5MG 3 ML AMPUL.NEB INHALE (18:48)
[2025-01-25 03:04] VITALS: BP 99/61; PULSE 84; RESP 18; TEMP 36.7; O2SAT 98
[2025-01-25 06:00] VITALS: BMI 24.0
[2025-01-25 07:30] VITALS: BP 99/66; PULSE 89; RESP 20; TEMP 36.7; O2SAT 94
[2025-01-25 09:13] VITALS: BP 99/66
[2025-01-25] MEDS: Ferrous Sulfate 324 MG TABLET.DR PO (09:13)
[2025-01-25] MEDS: 0.9 % Sodium Chloride Flush 3 ML SYRINGE IVFLUSH ×2 (09:14→14:35)
[2025-01-25 11:06] VITALS: BP 104/63; PULSE 84; RESP 20; TEMP 36.3; O2SAT 98
--- NOTE | 2025-01-25 13:57 | MHC.CM.PN ---
THIS CM MET WITH PATIENT AND HIS JEROME PRESENT AT BEDSIDE TO DISCUSS DISCHARGE PLAN, PER MD ROUNDS, PATIENT IS MEDICALLY CLEARED FOR DISCHARGE TO STR. STR BED OFFERS REVIEWED WITH THEM, THEY HAVE ACCEPTED A BED A [facility]. [facility] HAVE PURSUED INSURANCE AUTH.
--- NOTE | 2025-01-25 14:59 | P.PNIM_ITS ---
Subjective Subjective Date of Service: 01/25/25 Interval History: Patient seen examined at bedside this morning, in no acute respiratory distress. Patient states that he feels better, patient is hard of hearing, communicated via writing at bedside. No concerns by nursing staff. Review of Systems Review of Systems: Yes all other systems are reviewed and are negative Physical Exam 2 Exam: Exam: General: AxOx3, No acute distress Head: AT/NC ENT: Moist mucous membranes Neck: supple CVS; RRR, S1 S2 normal Lungs: Clear bilateral breath sounds, no wheezes or crackles Abd: Soft non tender, non distended Ext: No edema and no calf tenderness MSK: moving all 4 limbs Skin: No cyanosis or edema Psych: Cooperative with exam Neurology: hard of hearing Vital Signs: Vital Signs: Last Vital Signs Temp 97.4 F 01/25/25 11:06 Pulse 84 01/25/25 11:06 Resp 20 01/25/25 11:06 BP 104/63 01/25/25 11:06 Pulse Ox 98 01/25/25 11:06 O2 Del Method Nasal Cannula 01/25/25 11:06 O2 Flow Rate 2 01/25/25 11:06 Oxygen Flow Rate 2 01/18/25 00:55 BMI result Body Mass Index 24.0 Objective Data Active Medications Acetaminophen (Acetaminophen 325 Mg Tablet) 975 mg PO Q6H PRN PRN Reason: Pain, Mild 1-3,fever,headache Last Admin: 01/23/25 09:17 Dose: 975 mg Documented By: MASON Acetazolamide (Acetazolamide 250 Mg Tablet) 250 mg PO DAILY [facility] Last Admin: 01/25/25 09:13 Dose: 250 mg Documented By: AMANDA Albuterol/Ipratropium (Albuterol/Iprat 2.5/0.5mg 3 Ml Ampul.Neb) 3 ml INHALE RQ4H WHILE AWAKE PRN PRN Reason: Shortness of Breath Last Admin: 01/24/25 18:48 Dose: 3 ml Documented By: ELIZABETH Apixaban (Apixaban 5 Mg Tablet) 5 mg PO BID [facility] Last Admin: 01/25/25 09:13 Dose: 5 mg Documented By: AMANDA Atorvastatin Calcium (Atorvastatin Calcium 80 Mg Tablet) 80 mg PO DAILY [facility] Last Admin: 01/25/25 09:13 Dose: 80 mg Documented By: AMANDA Bumetanide (Bumetanide 1 Mg Tablet) 2 mg PO DAILY [facility]; Protocol Last Admin: 01/25/25 09:13 Dose: 2 mg Documented By: AMANDA Calcium Carbonate (Calcium Carbonate 750 Mg Tab.Chew) 750 mg PO Q4H PRN PRN Reason: Heartburn Last Admin: 01/24/25 03:37 Dose: 750 mg Documented By: CELY Digoxin (Digoxin 0.125 Mg Tablet) 0.125 mg PO DAILY [facility]; Protocol Last Admin: 01/25/25 09:13 Dose: 0.125 mg Documented By: AMANDA Empagliflozin (Empagliflozin 10 Mg Tablet) 10 mg PO DAILY [facility] Last Admin: 01/25/25 09:13 Dose: 10 mg Documented By: AMANDA Ferrous Sulfate (Ferrous Sulfate 324 Mg Tablet.Dr) 324 mg PO DAILY [facility] Last Admin: 01/25/25 09:13 Dose: 324 mg Documented By: AMANDA Ampicillin Sodium/Sulbactam (Sodium 3 gm/ Sodium Chloride) 100 mls @ 200 mls/hr IV Q6H [facility] Last Admin: 01/25/25 14:35 Dose: 200 mls/hr Documented By: AMANDA Magnesium Hydroxide (Milk Of Magnesia 30 Ml Oral.Susp) 30 ml PO DAILY PRN PRN Reason: Constipation Melatonin (Melatonin 3 Mg Tablet) 6 mg PO BEDTIME PRN PRN Reason: Insomnia Metoprolol Tartrate (Metoprolol Tartrate 12.5 Mg Halftab) 12.5 mg PO BID [facility]; Protocol On Hold: 01/24/25 18:42 Last Admin: 01/24/25 08:30 Dose: 12.5 mg Documented By: LEXI Ondansetron HCl (Ondansetron Hcl 4 Mg/2 Ml Vial) 4 mg IVPUSH Q8H PRN PRN Reason: Nausea and Vomiting Last Admin: 01/24/25 03:45 Dose: 4 mg Documented By: CELY Sodium Chloride (0.9 % Sodium Chloride Flush 3 Ml Syringe) 3 ml IVFLUSH QSHIFT [facility] Last Admin: 01/25/25 14:35 Dose: 3 ml Documented By: AMANDA Labs 01/24/25 00:34 01/24/25 07:00 Labs: Laboratory Results - last 24 hr 01/24/25 18:54 NT-Pro-B Natriuret Pep 72442.7 H Assessment and Plan (1) Congestive heart failure: Status: Acute (2) Atrial fibrillation: Status: Acute (3) COPD (chronic obstructive pulmonary disease): Status: Acute Plan 79 yo male with a pmhx significant for 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 BNP elevated and imaging with fluid overload and possible loculated pleural effusion Acute on chronic respiratory failure secodnary to Acute heart failure with reduced ejection fraction exacerbation with anasarca, improved Echocardiogram 35-40% s/p IV push Lasix, continue Bumex 2 mg daily daily weights strict intake and output Cardiology following, continue metoprolol, jardiance and bumex. Paroxysmal atrial fibrillation Heart rate uncontrolled per cardiology, continue w/ metoprolol tartrate 12.5mg qd, digoxin and apixaban Incidental finding of lung mass/loculated pleural effusion Pulm consult> outpatient PET scan to address masslike density chest US - showing no pleural effusion right, small left pleural effusion Empiric Unasyn Iron def anemia iron 28, B12 360, folate 4.7, Aortic aneurysm, 5.1cm on CT, no dissection or rupture close monitoring outpt vascular follow-up chronic respiratory failure/O2 dependent COPD 2L NC at baseline no acute exacerbation continue home therapies Supplemental oxygen to keep oxygen saturation greater than 91% Tobacco use disorder declines NRT Hearing/vision impairment needs communication with writing on whiteboard HLD, chronic continue atorvastatin 80mg qhs, monitor for any pain, follow up in outpatient setting HTN, chronic continue Bumex, jardiance, monitor BP and adjust meds accordingly Quality Stroke Does the patient have a stroke diagnosis?: No VTE Prior VTE?: No VTE Risk Level:: Medical - moderate - high VTE Device Contraindication: Treatment Not Indicated VTE Drug Contraindication: N/A - Med Ordered
[2025-01-25 15:02] VITALS: BP 100/68; PULSE 92; RESP 17; TEMP 36.7; O2SAT 96
[2025-01-25] MEDS: Albuterol/Iprat 2.5/0.5MG 3 ML AMPUL.NEB INHALE (15:05)
[2025-01-25 15:06] VITALS: PULSE 84; RESP 20; O2SAT 94
--- NOTE | 2025-01-25 15:30 | MHC.CM.PN ---
SECOND IMM GIVEN 01/25. INSURANCE AUTH RECEIVED FOR PATIENT TO GO TO [facility] TODAY VIA BLS/[facility] ([facility] [employer] AUTH RECEIVED, BOOKING ID#: PATIENT AND HIS ARE AWARE AND IN AGREEMENT WITH DISCHARGE PLAN
--- NOTE | 2025-01-25 15:34 | PM.DS ---
DS: Providers Provider Date of Service: 01/25/25 Date of admission: 01/18/25 02:55 Date of discharge: 01/25/25 Primary care physician: Jordon Holt MD Consults: 01/18/25 02:55 Consult to Pulmonology Routine Consulting Provider: [facility] Pulmon[facility] Services Reason for consultation: loculated pleural effusion vs mass 01/20/25 09:02 Consult to Cardiology Routine Consulting Provider: [facility] Cardi[facility] Reason for consultation: chf Attending physician on discharge: Rufus Orourke Discharging clinician: Rufus Orourke DS: Diagnosis Discharge Diagnosis (1) Congestive heart failure: Status: Acute (2) Atrial fibrillation: Status: Acute (3) COPD (chronic obstructive pulmonary disease): Status: Acute DS: Summary Hospital Course Hospital Course: 79-year-old male with past medical history significant for COPD on 2 L at home, paroxysmal AFib, tobacco use disorder, hearing and vision impairment, heart failure, HLD, HTN and class 1 obesity who presented to the ED for anasarca, BNP was elevated with imaging suggestive of fluid overload and possible loculated pleural effusion. TTE showed EF of 35-40%. Patient received IV Lasix, after improvements, transitioned to p.o. Bumex. On day of discharge, patient states that he feels well, denies any shortness of breath, with BP 100/68. Acute on chronic respiratory failure secodnary to Acute heart failure with reduced ejection fraction exacerbation with anasarca, improved Echocardiogram 35-40% s/p IV push Lasix, continue Bumex 2 mg daily sodium restricted diet Cardiology to follow as outpatient Continue metoprolol, jardiance and bumex. Paroxysmal atrial fibrillation per cardiology, continue w/ metoprolol tartrate 12.5mg qd, digoxin and apixaban Incidental finding of lung mass/loculated pleural effusion? Pulm consult> outpatient PET scan to address masslike density chest US - showing no pleural effusion right, small left pleural effusion Iron def anemia iron 28, B12 360, folate 4.7, Aortic aneurysm, 5.1cm on CT, no dissection or rupture close monitoring outpt vascular follow-up COPD chronic hypoxic respiratory failure on 2L supplemental oxygen no acute exacerbation continue home therapies Supplemental oxygen to keep oxygen saturation greater than 90% Tobacco use disorder declines NRT Hearing/vision impairment needs communication with writing on whiteboard HLD, chronic continue atorvastatin 80mg qhs, monitor for any pain, follow up in outpatient setting HTN, chronic continue Bumex, jardiance, monitor BP and adjust meds accordingly Time Attestation Discharge Coordination Time (in mins): greater than 35 minutes Quality: Safe Use of Opioids Does Pt have an Active Cancer Diagnosis on the Problem List?: No Quality: Stroke Does the patient have a stroke diagnosis?: No Physical Exam Exam: Exam: General: AxOx3, No acute distress Head: AT/NC ENT: Moist mucous membranes Neck: supple CVS; RRR, S1 S2 normal Lungs: Clear bilateral breath sounds, no wheezes or crackles Abd: Soft non tender, non distended Ext: No edema and no calf tenderness MSK: moving all 4 limbs Skin: No cyanosis or edema Psych: Cooperative with exam Neurology: hard of hearing Vital Signs: Vital Signs: Last Vital Signs Temp 98.1 F 01/25/25 15:02 Pulse 84 01/25/25 15:06 Resp 20 01/25/25 15:06 BP 100/68 01/25/25 15:02 Pulse Ox 96 01/25/25 15:02 O2 Del Method Room Air 01/25/25 15:02 O2 Flow Rate 2 01/25/25 11:06 Oxygen Flow Rate 2 01/18/25 00:55 BMI result Body Mass Index 24.0 DS: Data Data Completed and Pending Labs on day of discharge: Laboratory Results - last 24 hr 01/24/25 18:54 NT-Pro-B Natriuret Pep 67714.7 H Discharge Plan Discharge Anticipated Discharge Date/Time: 01/25/25 15:22 Patient Disposition: er SNF Discharge Diagnosis: HF exacerbation, paroxysmal atrial fibrillation, incidental lung mass/loculated pleural effusion Referrals: [facility] [Outside] - 1 Week Meryl Ruelas MD [Physician, Pulmonology] - 1 Week Referral Note: lung mass and pleural effusion Jordon Holt MD [Primary Care Provider, Medical] - 1 Week Hola Hoover MD [Physician, Cardiology] - 1 Week Problems: Congestive heart failure Discharge Medications: New digoxin 125 mcg (0.125 mg) Tablet 0.125 mg PO DAILY Qty: 30 0RF Protocol: Hold for HR <: HOLD for HR < : 60 metoprolol tartrate 25 mg tablet 25 mg PO BID Qty: 30 0RF bumetanide 1 mg Tablet 2 mg PO DAILY Qty: 60 0RF Protocol: Hold for SBP< HOLD for SBP < : 90 Jardiance 10 mg Tablet 10 mg PO DAILY Qty: 30 0RF Continued atorvastatin 80 mg tablet 80 mg PO DAILY fluoxetine 10 mg capsule 10 mg PO DAILY albuterol sulfate 90 mcg/actuation HFA aerosol inhaler 2 puff INHALATION Q4H ferrous sulfate 325 mg (65 mg iron) Tablet 325 mg PO DAILY ipratropium-albuterol 0.5 mg-3 mg(2.5 mg base)/3 mL Solution For Nebulization 3 ml inhalation Q6H PRN (Reason: shortness of breath or wheezing) Qty: 90 0RF acetaminophen 325 mg Tablet 650 mg PO BID PRN (Reason: Fever Or Pain) budesonide-formoterol [Breyna] 160-4.5 mcg/actuation HFA aerosol inhaler 2 puff inhalation BID diclofenac sodium 1 % gel 4 g topical QID PRN (Reason: joint pain) Eliquis 5 mg tablet 5 mg PO BID Discontinued metoprolol succinate 50 mg tablet extended release 24 hr 50 mg PO DAILY Discharge Orders: Discharge Order (Routine); Ordered 01/25/25 Ordered By: Rufus Orourke Activity on Discharge: As tolerated Stand Alone Forms: Patient Portal Discharge page Print Language: Thai Care Plan Goals: continue with fluid monitoring, continue with cardiac medications, follow up w/ cardiology and pulmonology in outpatient setting Health Concerns: HF, lung mass Plan of Treatment: continue with diuretics, sodium restric, PET scan in outpatient setting Assessment: 79-year-old male with past medical history significant for COPD on 2 L at home, paroxysmal AFib, tobacco use disorder, hearing and vision impairment, heart failure, HLD, HTN and class 1 obesity who presented to the ED for anasarca, BNP was elevated with imaging suggestive of fluid overload and possible loculated pleural effusion. TTE showed EF of 35-40%. Patient received IV Lasix, after improvements, transitioned to p.o. Bumex. On day of discharge, patient states that he feels well, denies any shortness of breath, with BP 100/68. Patient Instructions: Heart Failure (DC), Chronic Lung Disease and Infection Prevention (DC)
--- NOTE | 2025-01-25 15:40 | MHC.CM.PN ---
SECOND IMM GIVEN 01/25. INSURANCE AUTH RECEIVED FOR PATIENT TO GO TO [facility] TODAY VIA BLS/ERIK[facility] ([facility]SPORT AUTH RECEIVED, BOOKING ID# [id number]). PATIENT AND HIS ARE AWARE AND IN AGREEMENT WITH DISCHARGE PLAN.
== END 2025-01-25 18:21 | disposition skilled nursing facility (03) | DRG 291 ==
LOC: HO.ED 02:28 → HO.EDOVER 02:55 → HO.IMC 12:32
PROVIDERS: Hospitalist; Nurse Practitioner Acute Care; Physician Assistant Medical; Admitting Provider Physician Assistant; Emergency Provider Emergency Medicine Emergency Medical Services; PCP Internal Medicine; Visit Provider Student in an Organized Health Care Education/Training Program
DX: I11.0 Hypertensive heart disease with heart failure (principal); I50.23 Acute on chronic systolic (congestive) heart failure; J96.21 Acute and chronic respiratory failure with hypoxia; I47.20 Ventricular tachycardia, unspecified; T40.496A Underdosing of other synthetic narcotics, initial encounter; Z91.128 Patient's intentional underdosing of medication regimen for other reason; Z99.81 Dependence on supplemental oxygen; I48.0 Paroxysmal atrial fibrillation; J44.9 Chronic obstructive pulmonary disease, unspecified; F17.200 Nicotine dependence, unspecified, uncomplicated; D50.9 Iron deficiency anemia, unspecified; H54.8 Legal blindness, as defined in USA; H91.90 Unspecified hearing loss, unspecified ear; R91.8 Other nonspecific abnormal finding of lung field; I71.40 Abdominal aortic aneurysm, without rupture, unspecified; Z71.6 Tobacco abuse counseling; I95.89 Other hypotension; E78.5 Hyperlipidemia, unspecified; E66.811 Obesity, class 1; E87.6 Hypokalemia; Z71.3 Dietary counseling and surveillance; Z68.30 Body mass index [BMI] 30.0-30.9, adult; Z79.01 Long term (current) use of anticoagulants; Z79.899 Other long term (current) drug therapy
CPT/HCPCS: 36415; 71045; 71275; 76604; 76870; 80048; 80076; 81001; 82272; 82607; 82746; 82947; 83540; 83735; 83880; 84145; 84484; 85025; 85027; 85610; 93005; 93306; 93975; 94640; 97110; 97162; 97530; 99285; J0295; J1160; J1644; J1938; J2405; P9047; Q9967

== ENCOUNTER → 2025-01-18 01:07 | Outpatient (BNV) | payer OTHER, MEDICAID, SELFPAY | PROVIDERS: Emergency Provider Emergency Medicine Emergency Medical Services; Visit Provider Radiology Diagnostic Radiology | DX: J90 Pleural effusion, not elsewhere classified (principal); I71.21 Aneurysm of the ascending aorta, without rupture; N50.89 Other specified disorders of the male genital organs; J18.1 Lobar pneumonia, unspecified organism | CPT/HCPCS: 71045; 71275; 76870; 93975 ==

== ENCOUNTER → 2025-01-18 01:07 | Outpatient (BNV) | payer OTHER, MEDICAID, SELFPAY | PROVIDERS: Admitting Provider Physician Assistant; Emergency Provider Emergency Medicine Emergency Medical Services; Visit Provider Internal Medicine Cardiovascular Disease | DX: I51.7 Cardiomegaly (principal); I35.0 Nonrheumatic aortic (valve) stenosis; I77.810 Thoracic aortic ectasia; R94.31 Abnormal electrocardiogram [ECG] [EKG]; R06.02 Shortness of breath | CPT/HCPCS: 93010; 93306 ==

== ENCOUNTER 2025-01-18 02:55 | Outpatient (BNV) | payer OTHER, SELFPAY | END 2025-01-24 18:58 | PROVIDERS: Admitting Provider Physician Assistant; Emergency Provider Emergency Medicine Emergency Medical Services; PCP Internal Medicine; Visit Provider Radiology Neuroradiology | DX: J90 Pleural effusion, not elsewhere classified (principal); R91.8 Other nonspecific abnormal finding of lung field | CPT/HCPCS: 71045 ==

== ENCOUNTER 2025-01-18 02:55 | Outpatient (BNV) | payer OTHER, SELFPAY | END 2025-01-19 19:40 | PROVIDERS: Admitting Provider Physician Assistant; Emergency Provider Emergency Medicine Emergency Medical Services; PCP Internal Medicine; Visit Provider Radiology Diagnostic Radiology | DX: J90 Pleural effusion, not elsewhere classified (principal) | CPT/HCPCS: 76604 ==

== ENCOUNTER → 2025-01-18 02:55 | Outpatient (BNV) | payer OTHER, MEDICAID, SELFPAY | PROVIDERS: Admitting Provider Physician Assistant; Emergency Provider Emergency Medicine Emergency Medical Services; Visit Provider Hospitalist | DX: I50.9 Heart failure, unspecified (principal); Z72.0 Tobacco use; R91.8 Other nonspecific abnormal finding of lung field; J90 Pleural effusion, not elsewhere classified | CPT/HCPCS: 99223 ==

== ENCOUNTER → 2025-01-18 02:55 | Outpatient (BNV) | payer OTHER, SELFPAY | PROVIDERS: Admitting Provider Physician Assistant; Emergency Provider Emergency Medicine Emergency Medical Services; PCP Internal Medicine; Visit Provider Internal Medicine Cardiovascular Disease | DX: I50.9 Heart failure, unspecified (principal); I48.91 Unspecified atrial fibrillation | CPT/HCPCS: 99233 ==

== ENCOUNTER → 2025-01-18 02:55 | Outpatient (BNV) | payer OTHER, MEDICAID, SELFPAY | PROVIDERS: Admitting Provider Physician Assistant; Emergency Provider Emergency Medicine Emergency Medical Services; Visit Provider Nurse Practitioner Acute Care | DX: I50.9 Heart failure, unspecified (principal); R60.1 Generalized edema; D64.9 Anemia, unspecified; E66.9 Obesity, unspecified; Z72.0 Tobacco use | CPT/HCPCS: 99223; 99232; 99233; 99499 ==

== ENCOUNTER 2025-02-07 14:39 | Outpatient (AMB) | payer OTHER, SELFPAY ==
--- NOTE | 2025-02-07 14:41 | MHC.OFFVIS ---
Vital Signs 02/07/25 14:42 Height 5 ft 10 in Weight 154 lb 5.177 oz BMI 22.1 BP 70/46 L Blood Pressure Location Lt brachial Position Sitting Pulse 57 Pulse Source Pulse Oximeter Pulse Oximetry (%) 100 Oxygen Delivery Method Nasal Cannula Oxygen Flow Rate 2 Intake Visit Reasons: lung mass, pleaual effusion Allergies No Known Allergies (No Known Allergies*) Allergy (Verified 02/07/25 14:49) HPI HPI lung mass, pleaual effusion: Details: Tristin is a pleasant 79 year old male, former 40 pack year smoker, with underlying COPD on 2L, CHF, Atrial Fibrillation on Eliquis, Anemia, and HTN. Today he is accompanied by and has significant hearing impairment, able to communicate with written discussion. He was referred by [facility] after recent admission 01/18-01/25 for acute on chronic respiratory failure secondary to acute heart failure with reduced ejection fraction exacerbation with anasarca. BNP was significantly elevated with imaging suggestive of fluid overload and possible loculated pleural effusion. TTE showed EF of 35-40%. Patient received IV Lasix, after improvements, transitioned to p.o. Bumex. Per cardiology, continue w/ metoprolol tartrate digoxin and apixaban. There was an incidental finding of lung mass/loculated pleural effusion? , reviewed by Dr. Hudson inpatient who recommended PET to further differentiate masslike density of RML. Repeat imaging did reveal improving pleural effusion. Today patient reports significant improvement in respiratory symptoms since discharge as well as improvements in BLE edema. He has been using Breyna for quite some time however continues to use albuterol MDI 3-4 times per day in addition to nebulized therapy 2-3 times per day. He reports dyspnea on moderate exertion, otherwise denies cough, wheezing or chest tightness. He has been using 2L of continuos supplemental oxygen as well as NOC for the last few years. DME is [employer]. Patient with significant hypotension, appears patient was unable to obtain recent discharge medications as they were unaware they were sent to [facility] pharmacy. There were adjustments made to metoprolol however patient may need further adjustments. Urged patient to seek emergent care now as rechecked pressures, continued with hypotension 68-70/40-46. He adamantly refused and became agitated requesting to finish visit. [facility] Medical History (Updated 02/02/25 @ 00:01 by Background Daemon) COPD (chronic obstructive pulmonary disease) Pleural effusion Lung mass Hypertension Tobacco abuse Hepatic steatosis Deaf Congestive heart failure Anemia Social History Household Members: Spouse Housing: Apartment Do you presently have visiting nurse or other home services: No Alcohol intake: former Patient Tobacco Use Status: Never used Tobacco service: No Review of Systems Const Denies chills, Denies excessive sweating, Denies fever(s), Denies headache(s) and Denies night sweats Eyes Denies dry eyes, Denies irritation and Denies itchy eyes ENT Reports Normal hearing present, Denies headache(s), Denies nasal congestion, Denies nasal discharge, Denies post nasal drip and Denies sore throat Card Denies chest pain, Denies chest pain at rest, Denies chest pain with activity, Denies claudication, Denies orthopnea and Denies paroxysmal nocturnal dyspnea Resp Denies chest congestion, Denies cough, Denies excessive phlegm production, Denies pain on inspiration, Denies pain with cough, Denies stridor and Denies wheezing Musc Denies myalgias Neuro Reports Normal hearing present and Denies headache(s) Endo Denies excessive sweating Martinez/Lymph Denies lymphadenopathy Aller/Immun Denies itchy eyes, Denies seasonal rhinorrhea and Denies wheezing Physical Exam Vital Signs: Last Vital Signs Pulse 57 02/07/25 14:42 BP 70/46 L 02/07/25 14:42 Pulse Ox 100 02/07/25 14:42 Oxygen Delivery Method Nasal Cannula 02/07/25 14:42 Oxygen Flow Rate 2 02/07/25 14:42 BMI result Body Mass Index 22.1 Const General: no acute distress and alert Orientation/consciousness: patient oriented x3 Limitations: ambulation with walker HEENT Head: Yes normal to inspection, Yes normocephalic and Yes atraumatic Ears: external ears normal Eyes General: appearance normal, both eyes and all related structures Eyelids: Yes eyelids normal Sclerae: sclerae normal EOM: EOMs intact bilaterally Neck Neck: Yes normal visual inspection and Yes no lymphadenopathy Lymphatic: no lymphadenopathy noted Chest Chest palpation & inspection: normal inspection of the chest Resp Other: inspiratory crackles 1/[address] up on left, faint inspiratory crackles RLL Effort & Inspection: normal respiratory effort, able to speak in complete sentences, no audible wheezes, no cough, no stridor, not tachypneic, no tripod positioning and no use of accessory muscles Auscultation: crackles, no wheezes and diminished lung sounds Cardio Jugular venous distension: no JVD Rate: regular rate Rhythm: regular rhythm Skin Other: warm, dry General skin exam: no rashes or lesions noted Neuro General: patient oriented x3 Cranial nerves: Yes Normal hearing present Cognition (Neuro): normal cognition Extrem Other: 2+ piting edema BLE Psych Appearance: grossly normal Speech and movement: Normal speech and movement present and Clear speech present Affect: normal affect Attitude: cooperative Thought process: Normal thought process present Thought content: Normal thought content present Insight: Limited insight present (Psych) Judgement: Limited judgement present (Psych) Assessment & Plan Assessment & Plan (1) COPD (chronic obstructive pulmonary disease): Code(s): J44.9 - Chronic obstructive pulmonary disease, unspecified Category: Medical (2) Lung mass: Code(s): R91.8 - Other nonspecific abnormal finding of lung field Category: Medical (3) Pleural effusion: Code(s): J90 - Pleural effusion, not elsewhere classified Category: Medical (4) Congestive heart failure: Code(s): I50.9 - Heart failure, unspecified Category: Medical Plan Due to the low blood pressure reading of 70/40 mmHg, the patient was advised to proceed to the emergency room for further evaluation, which he adamantly refused despite the potential detrimental effects. He has an upcoming appt with cardiology to establish care however not for another 4 weeks. The patient will switch from Breyna to Breztri, which is expected to reduce the need for albuterol use. A nebulizer treatment every six hours PRN is also part of the management plan. PET scan will be scheduled to further evaluate the mass like density on the CT scan. An overnight oxygen test is planned to assess the adequacy of the current oxygen therapy regimen, on 2L. Advised to continue 2L supplemental oxygen at this time to maintain oxygen saturation >90%. All questions were answered and patient is in agreement of plan. Will follow up to review results or sooner if needed. Medications: New fmyktunkia-kbotmdqs-ifpaqlufzk 160-9-4.8 mcg/actuation (Breztri Aerosphere) 2 inhalations inhalation BID 10.7 grams 3RF Coding Level of Care Code New Pt Level 4 (12902) Complex EM visit Add On G2211 Diagnoses COPD (chronic obstructive pulmonary disease) J44.9 Lung mass R91.8 Pleural effusion J90 Congestive heart failure I50.9
[2025-02-07 14:42] VITALS: BP 70/46; PULSE 57; O2SAT 100; BMI 22.1
--- OUTSIDE RECORDS SUMMARY | 2025-02-07 16:56 | XMS_ITS | Clinical Summary ---
Author Organization [facility] Address [address] [place] [phone] Phone Care Team Providers Care Field Professional Name Role Phone Jordon Holt MD Primary Care Provider [phone] Allergies No known active allergies Medications metoprolol tartrate (LOPRESSOR) 25 MG tablet Take 12.5 mg by mouth. 02/12/2022 Active ferrous sulfate 325 mg (65 mg kaguyuk iron) EC tablet Take 325 mg by [...] Medical Devices Not on file Insurance 2 [place] [address] [place] A & B [facility] MEDICARE REPLACEMENT [facility] MEDICARE PART A & B [employer] P[employer] MEDICARE REPLACEMENT [facility] MEDICARE PART A & B [employer] PPO MEDICARE REPLACEMENT [address] [place] [address] [place] PART A & B [facility] MEDICARE REPLACEMENT [address] [place] [address] [place] PART A & B [facility] MEDICARE REPLACEMENT [facility] MEDICARE PART A & B [facility] PPO MEDICARE REPLACEMENT Care Teams Field Professional Relationship Specialty Start Date End Date Jordon Holt MD [address] [place] [phone] PCP - General Internal Medicine 06/27/22 Additional Source Comments The information contained in this document represents components of the legal health record. It is not the complete legal health record.[facility]
--- OUTSIDE RECORDS SUMMARY | 2025-02-07 16:56 | XMS_ITS | Encounter Summary ---
Author Organization [facility] Address [address] [place] [address] [place] [phone] Phone Care Team Providers Care Animal Surgeon Name Role Phone Jordon Holt MD Primary Care Provider [phone] Encounter Details Date Type Department Care Team ([facility] st Contact Info) Description 06/27/2022 Ophth Exam [facility] Emergency Department [address] [place] [address] Sharifa Santos MD, PhD [address] [place] [address] [email or web address] Social History Tobacco Use Types Packs/Day Years [...] on filedocumented in this encounter Care Teams Animal Surgeon Relationship Specialty Start Date End Date Jordon Holt MD [address] [place] [id number] PCP - General Internal Medicine 06/27/22 documented as of this encounter Additional Source Comments The information contained in this document represents components of the legal health record. It is not the complete legal health record.[facility]
--- OUTSIDE RECORDS SUMMARY | 2025-02-07 16:57 | XMS_ITS | Data Portability ---
Author Organization [facility], [address] Address [address] [place] [address] Assessment No assessment recorded. Plan of Treatment Reminders Order Date Submit Date Provider Last Modified By Organization Details Last Modified Time Details Appointments None recorded. Lab None recorded. Referral emergency medicine referral 2022 023 [email or web address] 26 [facility] Emergency Room, [address] [place] [address], [phone], 10:06:21 Procedures None recorded. Surgeries None recorded. Imaging None recorded. Medication Orders None recorded. Patient TargetsNo targets recorded. Patient Instructions Encounter Date Encounter Id Patient Instructions Last Modified By Organization Details Last Modified Time 06/25/2022 [id number] Based on your ex am and presentation my recommendation if for you to go immediately to the Emergency Room. The ER is better equipped to be able to assess you and do more studies to make sure that your complaint is not life threatening. Unfortunately, in the urgent care setting we do not have the ability to do many tests and studies. My concern is for you, which is why my recommendation is the Emergency Room. [email or web address] Not available 06/25/2022 20:36:58 Reason for Referral Emergency Medicine Referral for Endophthalmitis of left eye Referring Physician: Sandra Irby, Urgent Care, Encounter Date: 06/25/2022 Problems Name Problem SNOMED Code Status Onset Date Resolution Date Notes Provider Name and Address Organization Details Recorded Time Chronic obstructive pulmonary disease 95246995 Active 2022 [facility] 19:42:41 Hyperlipidemia 28405167 Active 2022 [facility] 3 19:42:50 Problem Notes None recorded. Medical Equipment None Reported. Allergies No known drug allergies Medications Name Sig Start Date Stop Date Status Note LastModified by Organization Details LastModified Time atorvastati n 80 mg tablet TAKE 1 TABLET BY MOUTH ONCE DAILY active Not Available Not Available No t Available bumetanide 2 mg tablet TAKE 1 TABLET BY MOUTH ONCE DAILY active Not Available Not Available No t Available azithromyci n 250 mg tablet TAKE 2 TABLETS BY MOUTH ON DAY 1, AND THEN TAKE 1 TABLET BY MOUTH ONCE A DAY ON DAY 2 THROUGH DAY 5 06/25 completed Not Available Not Available Not Available prednisone 20 mg tablet TAKE 1 TABLET BY MOUTH TWICE DAILY FOR 5 DAYS 06/25 completed Not Available Not Available Not Available albuterol sulfate HFA 90 mcg/actuati on aerosol inhaler INHALE 2 PUFFS BY MOUTH EVERY 4 HOURS active Not Available Not Available No t Available ferrous sulfate 325 mg (65 mg iron) tablet,kenyon yed release TAKE 1 TABLET BY MOUTH ONCE DAILY active Not Available Not Available No t Available metoprolol tartrate 25 mg tablet TAKE 1/2 (ONE-HALF ) TABLET BY MOUTH TWICE DAILY active Not Available Not Available No t Available Flovent HFA 110 mcg/actuati on aerosol inhaler INHALE 2 PUFFS BY MOUTH TWICE DAILY RINSE MOUTH AND THROAT AFTER USE active Not Available Not Available No t Available diclofenac 1 % topical gel APPLY 4 GRAMS TOPICALLY TO AFFECTED AREA 4 TIMES DAILY NEEDED FOR JOINT PAIN active Not Available Not Available No t Available BinaxNOW COVID-19 Ag Self Test kit Use as Directed on the Package active Not Available Not Available No t Available Vitals Date Recorded Body weight Body mass index (BMI) Body height Oxygen saturation Oxygen saturation in Arterial blood by Pulse oximetry Heart rate Respiratory rate Body temperature Systolic And Diastolic Provider Name and Address Organization Details Last Updated DateTime 3 81977.4 4 g 30.3 kg/m2 175.26 cm 92 % 92 % 62 /min 20 /min 97.8 [degF] 111/64 mm[Hg] KURT LEBRON - [facility] 19:44:20 Social History Question Answer Notes LastModified by Organizat ion Details LastModified Time Tobacco Smoking Status Former Smoker [facility] 06/25/2022 19:43:13 What Is Your Water Source? City Information not available 06/25/2022 What Is Your Heat Source? Other Information not available 06/25/2022 Have You Had Direct Contact, Or Contact During Intimacy, With Monkeypox Rash, Scabs, Or Body Fluids From A Person With Monkeypox? No Information not available 06/25/2022 Have You Recently Traveled Abroad? No Information not available 06/25/2022 Sex: Unknown Functional Status Question Answer Note LastModified by Organizat ion Details LastModified Time Do you use any illicit or recreational drugs? No Information not available 06/25/2022 Do you or have you ever used any other forms of tobacco or nicotine? No Information not available 06/25/2022 What is your level of alcohol consumption? None Information not available 06/25/2022 Mental Status None recorded. Family History Nothing Reported. Medical History No medical history recorded. Past Encounters Encounter ID Performer Location Encounter Start Date Encounter Closed Date Diagnosis/Indication Diagnosis SNOMED-CT Code Diagnosis ICD10 Code Diagnosis IMO Codes Diagnosis Note [id number] [facility] [address] [address] 06/25/2022 19:26:19 06/25/2022 20:42:17 Endophthalmitis of left eye 5388005333 8027875 H44.002 I believe the patient has a endophthal mitis This is more than just a conjunctiv itis. Advising Emergency Room. Patient is not able to see out of the left eye. Health Concerns Section Related Observation LastModified by Organization Detai ls LastModified Time None Recorded Concern Status LastModified by Organization Details LastModified Time None Recorded Advance Directives Directive None Recorded Payers Insurance Date Sequence Insurance Name Policy Number Policy Jones Covered Member ID Jones Member ID Guarantor Name 06/25/2022 2 [place] [employer] Tristin Jeff [id number] Tristin Jeff 06/25/2022 1 [place] [facility] Tristin Jeff [id number] Tristin Jeff 06/25/2022 PROMPT PAY [place] tw[place] Jeff Notes Date Note Type Note Provider Name and Address Organization Details Recorded Time 06/25/2022 text/html Eye problemsRepo rted by PatientHPIFor eye symptoms, patient reportssensitivity to light,redness,blurred vision,pain in the eyes,discharge, andwatery. For source of patient information, patient reportsinformation obtained from otherandpatient arrived at urgent care in wheelchair. For location, patient reportsleft. For onset/timing, patient [id number]. For modifying factors, patient reportsnothing gives relief. For yanni aggravating factors, patient reportsbright light makes it worse. For context, (no trauma.).The patient's caregivers reports that he started complaining of eye pain about 2 days ago. Has been worsening and now he is saying he can't see out of the eye like there is a film. Blurry. The patient has develped significant purulent collection in the eye and it is tearing. Light is bothering his eye. No history of glaucoma. no recent surgery on the eye. [facility] [address] [place], [address], [place] - [facility] 06/25/2022 20:41:21
--- OUTSIDE RECORDS SUMMARY | 2025-02-07 16:57 | XMS_ITS | Data Portability ---
Author Organization [place] - [facility], [facility] Address [address] [place] [id number] Care Team Providers Care Computer Information Systems Professor Name Role Phone TRCIIA LAKHANI Primary Care Provider Assessment No assessment recorded. Plan of Treatment Reminders Order Date Submit Date Provider Last Modified By Organization Details Last Modified Time Details Appointments None recorded. Lab None recorded. Referral None recorded. Procedures None recorded. Surgeries None recorded. Imaging None recorded. Medication Orders ammonium lactate 12 % lotion 2020 021 [facility], [address] [place] [address], [place], [address], 20:22:19 Patient TargetsNo targets recorded. Patient Instructions Encounter Date Encounter Id Patient Instructions Last Modified By Organization Details Last Modified Time 02/15/2021 [id number] Thank you for yo ur visit with [facility] today. We cannot always find the exact cause of your symptoms during your initial visit. Please follow up with your primary care provider or specialist to be rechecked or seek medical attention if your symptoms do not go away or get worse. If you develop any new or worsening symptoms and need after hours care, please go to nearest ER and/or call 911. If you have additional concerns or develop a change in your condition between 8am-10pm, please call [facility] at [phone] to help navigate your care. Please seek care or call your primary provider if the rash: 1. Worsens 2. Lasts longer than one week 3. Shows signs of local infection (redness, oozing, or swelling) 4. Occurs together with fever, chills, swollen glands, or other symptoms of infection 5. Looks dark purple or spotted 6. Occurs together with symptoms that suggest autoimmune disorder (recurring fever, malaise, fatigue, unexplained weight loss, or joint swelling) If you have additional concerns or develop a change in your condition between 8am-10pm, please call [facility] at [phone] to help navigate your care. [email or web address] Not available 02/15/2021 19:50:07 Reason for Referral None Reported. Medical Equipment None Reported. Medications Name Sig Start Date Stop Date Status Note LastModified by Organization Details LastModified Time atorvastatin 80 mg tablet active Not Available Not Available Not Available bumetanide 2 mg tablet active Not Available Not Available No t Available ammonium lactate 12 % lotion Apply 1 application twice a day by topical route for 14 days. active Not Available Not Available No t Available clotrimazole -betamethaso ne 1 %-0.05 % topical cream active Not Available Not Available Not Available albuterol sulfate HFA 90 mcg/actuatio n aerosol inhaler active Not Available Not Available Not Available ferrous sulfate 325 mg (65 mg iron) tablet,delay ed release active Not Available Not Available N ot Available metoprolol tartrate 25 mg tablet active Not Available Not Available No t Available Vitals None Recorded Social History None recorded. Functional Status None recorded. Mental Status None recorded. Family History Relationship Description Onset Age of this Age Resolved Age Notes LastModified by Organization Details LastModified Time Father No current problems or disability [email or web address] Not available 01/29 19:49:49 Mother No current problems or disability [email or web address] Not available 01/29 19:49:49 Medical History No medical history recorded. Past Encounters Encounter ID Performer Location Encounter Start Date Encounter Closed Date Diagnosis/Indication Diagnosis SNOMED-CT Code Diagnosis ICD10 Code Diagnosis IMO Codes Diagnosis Note [id number] [facility] - [address] [phone] 02/15/2021 19:48:21 02/20/2021 19:32:35 Dry skin 90889723 L85.3 Proper Personal Protective Equipment (PPE), including gloves, eye protection and masks were donned and doffed luz abdi and all equipment cleaned using approved technique with germicidal disposable wipes prior to and after care of this patient according to [facility]'s infection prevention protocols. Overview/H istory: 75 yo male with dry feet despite use of OTC preparatio ns. Exam: The bottom of both feet are dry with icthyosis appearing large scales. No fine scaling, no central clearing, no erythema no edema no drainage, no malodor, no tenderness to palp. Hands are within normal limits DDx considered , but not limited to: dry skin, icthyosis, fungal dermatitis Work up/Results : n/a Plan/Discu ssion:-not fungal appearing- pt's home is very dry-pt is very strongly encouraged to get humidifier s for the bedroom and dayroom-pl an to soak feet and gently debride with wash cloth-foll owed by applicatio n of am lactin while skin damp (not soaked) and socks at noon-and another applicatio n of am lactin followed by socks at bedtime-if redness, drainage, swelling, fevers begin, pt will seek emergent re-eval-fo llowup with PCP as planned In order to obtain further informatio n and compare any laboratory results/va lues, I have accessed . This informatio n was pertinent in my medical decision making today. Health Concerns Section Related Observation LastModified by Organization Detai ls LastModified Time None Recorded Concern Status LastModified by Organization Details LastModified Time None Recorded Advance Directives Directive None Recorded Payers Insurance Date Sequence Insurance Name Policy Number Policy Jones Covered Member ID Jones Member ID Guarantor Name 02/20/2021 1 [place] [employer] Tristin Jeff [id number] Tristin Jeff 02/15/2021 1 *SELF PAY* Tristin Jeff [id number] Tristin Jeff 02/15/2021 2 [place] [facility] Tristin Jeff [id number] Tristin Jeff Notes Date Note Type Note Provider Name and Address Organization Details Recorded Time 1 text/html General HPI Template - DHReported by Patient 75 yo male new to provider and DHpt is deaf - gives historycouple months of dryness to the bottom of the feet and the handssome hx of this on the hands in the pastshe reports the hands are ok nowhasnt seen PCP for this bu has difficult time with transportationshe has tried eucerin and o'keefes hand creamalso vaseline and CeraVenothing is working [facility] [address] [place], [address], [place] [facility] 02/15/2021 20:22:27
--- OUTSIDE RECORDS SUMMARY | 2025-02-07 16:57 | XMS_ITS ---
Author Organization [facility] Care Team Providers Care Assembler Show Motor Name Role Phone Jena Amor Unavailable Unavailable Christin BIRD, Bonifacio Amaro Unavailable Unavailable Chantal Aden Unavailable Unavailable Mellisa Nj Unavailable Allergies and adverse reactions No Known Allergies Care Team Name Role Address Phone Organization Dates Jena Amor PCP [address] (Office): : [facility] 01/25/2025 - 02/04/2025 Bonifacio Waller [employer]ING [employer]ER [address] (Office): [facility] 01/25/2025 - 02/04/2025 [place], [id number], [facility] (Office): [facility] 01/25/2025 - 02/04/2025 Mellisa Nj [place], [facility] 01/25/2025 - 02/04/2025 Encounters Encounter Type Code Code System Description Performer Discharge Disposition Service Delivery Location Date Ambulatory Encounter CPT Code = [id number] Heart failure Santosh robbins [facility] Address: [address], [place], [address] [place] [address]. 01/25 Ambulatory Encounter CPT Code = [address] Chronic obstructive pulmonary disease [facility] Address: [address], [place], [address] [place] [address]. 01/25 Ambulatory Encounter CPT Code = [id number] Generalized edema [facility] Address: [address], [place], [address] [place] [address]. 01/25 Ambulatory Encounter CPT Code = [id number] Steatosis of liver [facility] Address: [address], [place], [address] [place] [address]. 01/25 Ambulatory Encounter CPT Code = [address] Atrial fibrillation [facility] Address: [address], [place], [address] [place] [address]. 01/25 Ambulatory Encounter CPT Code = [id number] Dependence on supplemental oxygen [facility] Address: [address], [place], [address] [place] [address]. 01/25 Ambulatory Encounter CPT Code = [address] Hearing loss [facility] Address: [address], [place], [address] [place] [address]. 01/25 Ambulatory Encounter CPT Code = [id number] Unsteady when standing [facility] Address: [address], [place], [address] [place] [address]. 01/25 Ambulatory Encounter CPT Code = [address] [facility] Address: [address], [place], [address] [place] [address]. 01/25 Ambulatory Encounter CPT Code = [address] Abnormal gait [facility] Address: [address], [facility] [place], [address] [place] [address]. 01/25 Ambulatory Encounter CPT Code = [address] Muscle weakness [facility] Address: [address], [place], [address] [place] [address]. 01/25 Ambulatory Encounter CPT Code = [address] Difficulty walking [facility] Address: [address], [place], [place], [address] [place] [address]. 01/25 Ambulatory Encounter CPT Code = [address] Oral phase dysphagia [facility] Address: [address], [facility] [place], [address] [place] [address]. 01/25 Ambulatory Encounter CPT Code = [address] Nicotine dependence [facility] Address: [address], [facility] [place], [address] [place] [address]. 01/25 Ambulatory Encounter CPT Code = [address] Hyperlipidemia [facility] Address: [address], [facility] [place], [address] [place] [address]. 01/25 Ambulatory Encounter CPT Code = [address] Essential hypertension [facility] Address: [address], [place], [address], [place]. 01/25 Ambulatory Encounter CPT Code = [address] Iron deficiency anemia [facility] Address: [address], [place], [address], [place]. 01/25 Ambulatory Encounter CPT Code = [address] A[address] aneurysm [facility] Address: [address] , [place], [address], [place]. 01/25 Ambulatory Encounter CPT Code = [address] [facility] Address: [address] , [place], [address], [place]. 01/25 Ambulatory Encounter CPT Code = [address] [facility] Address: [address] , [place], [address], [place]. 01/25 Ambulatory Encounter CPT Code = 04317 J96.20 ICD 10 ACUTE AND CHRONIC RESPIRATORY FAILURE, UNSPECIFIED WHETHER WITH HYPOXIA OR HYPERCAPNIA [facility] Address: [facility] [address] , [place], [address], [place]. 01/25 Ambulatory Encounter CPT Code = 08339 I50.21 ICD 10 ACUTE SYSTOLIC (CONGESTIVE) HEART FAILURE [facility] Address: [facility] [address] , [place], [address], [place]. 01/25 Goals Section Goals Description Status Target Date The resident will be able to make basic needs known by communicating with the white board on a daily basis through the review date. Active 02/09/2025 The resident will be free of falls through the r eview date. Active 02/09/2025 The resident will be free of s/sx of respiratory infections through review date. Active 02/09/2025 The resident will display op timal breathing patterns daily through review date. Active 02/09/2025 The resident will have no s/ sx of poor oxygen absorption through the review date. Active 02/09/2025 The resident will maintain c urrent level of communication function by using communication board/ writing messages through the review date. Active 02/09/2025 The resident will maintain o ptimal quality of life within limitation imposed by visual function/limited vision through the review date. Active 02/09/2025 The resident will maintain o r develop clean and intact skin by the review date. Active 02/09/2025 The resident will not have a n interruption in normal activities due to pain through the review date. Active 02/09/2025 The resident will not suffer injury from unsafe smoking practices through the review date. Active 02/09/2025 The resident will verbalize adequate relief of pain or ability to cope with incompletely relieved pain through the review date. Active 02/09/2025 the resident/HCP/Guardian's Advanced Directives will be honored through next review Active 02/09/2025 Functional Status Code Name Recorded Time Value Entered By Chair/ylj-xb-bsvoe transfer 02/03/2025 Partial/moder ate assistance vlopez Does the resident use a wheelchair and/or scooter? 02/03/2025 Yes (qualifier value) vlopez Eating 02/03/2025 Setup or clean-up assistance vlopez Indicate the type of wheelch air or scooter used 02/03/2025 Independent vlopez Lower body dressing 02/03/2025 Partial/moderate assi stance vlopez Lying to sitting on side of bed 02/03/2025 Partial/m oderate assistance vlopez Oral hygiene 02/03/2025 Setup or clean-up assistance vlopez Personal hygiene 02/03/2025 Partial/moderate assista nce vlopez Putting on/taking off footwear 02/03/2025 Partial/mo derate assistance vlopez Roll left and right 02/03/2025 Independent vlopez Shower/bathe self 02/03/2025 Partial/moderate assist ance vlopez Sit to lying 02/03/2025 Partial/moderate assistance vlopez Sit to stand 02/03/2025 Partial/moderate assistance vlopez Toilet transfer 02/03/2025 Partial/moderate assistan ce vlopez Toileting hygiene 02/03/2025 Partial/moderate assist ance vlopez Transferring 02/03/2025 Extensive Assistance vlopez Upper body dressing 02/03/2025 Partial/moderate assi stance vlopez Walk 10 feet 02/03/2025 Not assessed vlopez Walk 150 feet 02/03/2025 Substantial/maxi mal assistance vlopez Walk 50 feet 02/03/2025 Partial/moderate assistance vlopez Wheel 150 feet 02/03/2025 Independent vlopez Wheel 50 feet with two turns 02/03/2025 Independent vlopez Medications Section Medication Name Status Code CodeSystem Dose Route Frequency Admin Type Sig Text Start Date End Date Indication Fleet Enema Enema 7-19 GM/118ML active 94024 5 RXNORM 1 dose Rectal as needed PRN Inser t 1 dose recta lly as neede d for Const ipati on (Step 3) as neede d if no bowel movem ent for 8 hours after bisac odyl suppo sitor y. 2024 - Constipatio n Milk of Magnesia Suspension 400 MG/5ML active 13797 7 RXNORM 30 ml Oral as needed PRN Give 30 ml by mouth as neede d for Const ipati on (Step 1) As neede d if no bowel movem ent for three days. (Do not use for Hemod ialys is patie nts). 2024 - Constipatio n Acetaminoph en Tablet 325 MG active 29260 2 RXNORM 2 table t Oral as needed PRN Give 2 table t by mouth every 6 hours as neede d for Pain Pain Total dosag e for aceta minop hen and medic ation s that conta in aceta minop hen shoul d not excee d 3 grams / 24 hours . AND Give 2 table t by mouth every 6 hours as neede d for Fever great er than 100.0 F Total dosag e for aceta minop hen and medic ation s that conta in aceta minop hen shoul d not excee d 3 grams / 24 hours . 2024 - Pain 47703 2 RXNORM 2 table t Oral as needed PRN Give 2 table t by mouth every 6 hours as neede d for Pain Pain Total dosag e for aceta minop hen and medic ation s that conta in aceta minop hen shoul d not excee d 3 grams / 24 hours . AND Give 2 table t by mouth every 6 hours as neede d for Fever great er than 100.0 F Total dosag e for aceta minop hen and medic ation s that conta in aceta minop hen shoul d not excee d 3 grams / 24 hours . 2024 - Fever greater than 100.0F Bisacodyl Suppository 10 MG active 9 RXNORM 1 suppo sitor y Rectal as needed PRN Inser t 1 suppo sitor y recta lly as neede d for If no bowel movem ent for 8 hours after Milk of Magne jonnathan 2024 - If no bowel movement for 8 hours after Milk of Magnesia Digox Oral Tablet 125 MCG active 84284 43 RXNORM 1 table t Oral one time a day Routin e Give 1 table t by mouth one time a day relat ed to UNSPE CIFIE D ATRIA L FIBRI LLATI ON (I48. 91) hold for HR <60 2024 - - FLUoxetine HCl Oral Tablet 10 MG active 38612 0 RXNORM 1 table t Oral one time a day Routin e Give 1 table t by mouth one time a day for depre ssion 2024 - depression Metoprolol Tartrate Oral Tablet 25 MG aborted 79920 4 RXNORM 1 table t Oral two times a day Routin e Give 1 table t by mouth two times a day relat ed to ESSEN TIAL (PRIM RICHELLE) HYPER TENSI ON (I10) 02/03 - DuoNeb Solution 0.5-2.5 (3) MG/3ML active 19451 04 RXNORM 3 ml Inhala tion as needed PRN 3 ml inhal e orall y via nebul izer every 6 hours as neede d for short ness of breat h or wheez ing JAMSHID = Clear lung sound s A DV = Adven titio us D IMI = Dimin ished 2024 - shortness of breath or wheezing Breyna Inhalation Aerosol 160-4.5 MCG/ACT active 96795 70 RXNORM 2 puff Inhala tion two times a day Routin e 2 puff inhal e orall y two times a day relat ed to CHRON IC OBSTR UCTIV E PULMO NARY DISEA SE, UNSPE CIFIE D (J44. 9) 2024 - - Bumetanide Oral Tablet 2 MG active 36997 9 RXNORM 1 table t Oral one time a day Routin e Give 1 table t by mouth one time a day relat ed to ACUTE SYSTO LIC (MIRANDA ESTIV E) HEART FAILU RE (I50. 21) hold for SBP <90 2024 - - Diclofenac Sodium External Gel 1 % active 75337 3 RXNORM n/a n/a Topica l as needed PRN Apply to joint s topic ally every 6 hours as neede d for joint pain 4 grams 2024 - joint pain Ferrous Sulfate Oral Tablet active 325 mg Oral one time a day Routin e Give 325 mg by mouth one time a day relat ed to IRON DEFIC IENCY ANEMI A, UNSPE CIFIE D (D50. 9) 2024 - - Jardiance Oral Tablet 10 MG active 74746 64 RXNORM 1 table t Oral one time a day Routin e Give 1 table t by mouth one time a day relat ed to ACUTE SYSTO LIC (MIRANDA ESTIV E) HEART FAILU RE (I50. 21) 2024 - - ProAir HFA Inhalation Aerosol Solution 108 (90 Base) MCG/ACT active 99413 2 RXNORM 2 puff Inhala tion every 4 hours Routin e 2 puff inhal e orall y every 4 hours relat ed to CHRON IC OBSTR UCTIV E PULMO NARY DISEA SE, UNSPE CIFIE D (J44. 9) 2024 - - Eliquis Oral Tablet 5 MG active 60658 47 RXNORM 1 table t Oral two times a day Routin e Give 1 table t by mouth two times a day relat ed to UNSPE CIFIE D ATRIA L FIBRI LLATI ON (I48. 91) 2024 - - Atorvastati n Calcium Oral Tablet 80 MG active 89665 5 RXNORM 1 table t Oral one time a day Routin e Give 1 table t by mouth one time a day relat ed to HYPER LIPID EMIA, UNSPE CIFIE D (E78. 5) 2024 - - Potassium Chloride ER Oral Tablet Extended Release 20 MEQ active 72155 6 RXNORM 20 mEq Oral in the morning Routin e Give 20 mEq by mouth in the morni ng for hypok alemi a 2024 - hypokalemia Metoprolol Tartrate Oral Tablet 25 MG active 87933 4 RXNORM 0.5 table t Oral two times a day Routin e Give 0.5 table t by mouth two times a day relat ed to ESSEN TIAL (PRIM RICHELLE) HYPER TENSI ON (I10) 2024 - - Mental Status Section Date Assessment Total Score Description 01/31/2025 BIMS 15 cognitively int act CAM 0 No delirium ind icated PHQ-9 00 01/31/2025 BIMS 15 cognitively int act CAM 0 No delirium ind icated PHQ-9 00 Insurance Providers Plan of Treatment Section Interventions Intervention Code Code System Display Name Proposed D ate Problems Problem # Description Date of onset Resolved Date Code CodeSystem Concern Status 1 ANEMIA, UNSPECIFIED 01/25/[address] active 2 AORTIC ANEURYSM OF UNSPECIFIED SITE, WITHOUT RUPTURE 01/25/[address] active 3 CHRONIC OBSTRUCTIVE PULMONARY DISEASE, UNSPECIFIED 01/25/[address] active 4 DEPENDENCE ON SUPPLEMENTAL OXYGEN 01/25/[address] active 5 DIFFICULTY IN WALKING, NOT ELSEWHERE CLASSIFIED 01/25/[address] active 6 DYSPHAGIA, ORAL PHASE 01/25/[address] active 7 ESSENTIAL (PRIMARY) HYPERTENSION 01/25/[address] active 8 FATTY (CHANGE OF) LIVER, NOT ELSEWHERE CLASSIFIED 01/25/[address] active 9 GENERALIZED EDEMA 01/25/[address] active 10 HEART FAILURE, UNSPECIFIED 01/25/[address] active 11 HYPERLIPIDEMIA, UNSPECIFIED 01/25/[address] active 12 IRON DEFICIENCY ANEMIA, UNSPECIFIED 01/25/[address] active 13 MUSCLE WEAKNESS (GENERALIZED) 01/25/[address] active 14 NICOTINE DEPENDENCE, UNSPECIFIED, UNCOMPLICATED 01/25/[address] active 15 OBESITY, CLASS 1 01/25/[address] active 16 OTHER ABNORMALITIES OF GAIT AND MOBILITY 01/25/[address] active 17 OTHER LACK OF COORDINATION 01/25/[address] active 18 UNSPECIFIED ATRIAL FIBRILLATION 01/25/[address] active 19 UNSPECIFIED HEARING LOSS, UNSPECIFIED EAR 01/25/[address] active 20 UNSTEADINESS ON FEET 01/25/[address] active Reason for Referral No Reasons for Referral Entered Social History Social History Observation Description Start Date End Date Code Code System Current Smoking Status Tobacco smoking consumption unknown 569102630 SNOMED CT Sex Assigned At Male 1945 [address]205-5 [facility] Gender Identity Sexual Orientation Vital Signs Code Code System Vitals Name Values and Units Timing Information 9279-1 [facility] Respiratory Rate Value=18.0 Units=/m in 02/04/2025 8310-5 [facility] Body Temperature Value=97.6 Units= F 02/04/2025 40849-1 [facility] O2 % dC Oximetry Value=99.0 Units= % 02/04/2025 12282-3 [facility] Pain Level Value=0.0 02/04/2025 8867-4 [facility] Heart rate Value=69.0 Units=/min 09/2024 8462-4 [facility] Blood Pressure-Diastolic Value=66 Un its=mmHg 02/04/2025 8480-6 [facility] Blood Pressure-Systolic Value=95 Uni ts=mmHg 02/04/2025 41481-4 [facility] Weight Jwyij=407.6 Units=Lbs 06/2024 8302-2 [facility] Height Value=68.4 Units=Inches 01/26/2025
== END 2025-02-07 15:44 | disposition home or self-care (01) ==
LOC: HO.HPS 14:39
PROVIDERS: PCP Internal Medicine; Visit Provider Nurse Practitioner Family
DX: J44.9 Chronic obstructive pulmonary disease, unspecified (principal); R91.8 Other nonspecific abnormal finding of lung field; J90 Pleural effusion, not elsewhere classified; I50.9 Heart failure, unspecified
CPT/HCPCS: 99204; G2211

== ENCOUNTER → 2025-02-07 14:39 | Outpatient (BNVA) | payer OTHER, SELFPAY | PROVIDERS: PCP Internal Medicine; Visit Provider Nurse Practitioner Family | DX: J44.9 Chronic obstructive pulmonary disease, unspecified (principal); R91.8 Other nonspecific abnormal finding of lung field; J90 Pleural effusion, not elsewhere classified; I50.9 Heart failure, unspecified | CPT/HCPCS: 99202 ==